=== PATIENT | male | born 1945 | race Caucasian/White ===

== ENCOUNTER → 2018-03-24 11:07 | Outpatient (CLI) | payer MEDICARE, SELFPAY ==
--- NOTE | 2018-03-24 | DI.RAD.S_ITS ---
PROCEDURE: XR KNEE LT 3V INDICATIONS: LEFT KNEE PAIN TECHNIQUE: 3 views of the knee were acquired. COMPARISON: None. FINDINGS: Bones: Advanced joint degeneration medial and femoral patellar compartments, minimal changes in the lateral compartment. Soft tissues: Small joint effusion. Faint meniscal calcifications lateral compartment. IMPRESSION: 1. Small joint effusion. 2. 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 Dictated by: Brendan Chao M.D. on 03/24/2018 at 11:59 Approved by: Brendan Chao M.D. on 03/24/2018 at 12:01
== END ==
PROVIDERS: Family Provider Internal Medicine; PCP Internal Medicine; Visit Provider Internal Medicine
DX: M17.12 Unilateral primary osteoarthritis, left knee (principal); M25.462 Effusion, left knee; M25.562 Pain in left knee
CPT/HCPCS: 73562

== ENCOUNTER → 2018-05-13 09:33 | Outpatient (CLI) | payer MEDICARE, SELFPAY ==
--- NOTE | 2018-05-13 | DI.US.S_ITS ---
PROCEDURE: US RENAL COMPLETE INDICATIONS: CHRONIC KIDNEY DISEASE STAGE 3 TECHNIQUE: Real-time scanning was performed of the kidneys and bladder, with image documentation. COMPARISON: None. FINDINGS: Kidneys: Kidneys are normal in size. Right kidney measures 10.5 cm long; left kidney measures 12.2 cm long. Right renal cortical thickness is 1.5 cm; left renal cortical thickness is 1.6 cm. Renal cortical echotexture is normal. No hydronephrosis or nephrolithiasis. No suspicious solid mass lesions. Bladder: Pre-void bladder volume is 470 mL. Post-void residual is 0 mL. Pre-void images demonstrate no intraluminal masses or stones. On pre-void images, neither ureteral jets are noted with color Doppler interrogation. (Of note, ureteral jets may not be detectable in up to 25% of cases due to insufficient differences in specific gravity between ureteral and bladder urine). Miscellaneous: No free pelvic fluid. IMPRESSION: No hydronephrosis or nephrolithiasis found. Scattered renal cortical cysts are present greater on the right than the left. The largest cyst on the right measures up to 2.9 cm and on the left the largest (single) cyst measures up to 1.6 cm. Dictated by: Rahat Winters M.D. on 05/13/2018 at 11:15 Approved by: Rahat Winters M.D. on 05/13/2018 at 11:16
== END ==
PROVIDERS: Family Provider Internal Medicine; PCP Internal Medicine; Visit Provider Student in an Organized Health Care Education/Training Program
DX: N18.3 Chronic kidney disease, stage 3 (moderate) (principal); N28.1 Cyst of kidney, acquired
CPT/HCPCS: 76770

== ENCOUNTER 2018-05-24 09:44 | Emergency (ER) | payer MEDICARE, SELFPAY ==
--- NOTE | 2018-05-24 09:47 | ED.GENADULT ---
HPI - General Adult General Chief complaint: Recheck/Abnormal Lab/Rx Stated complaint: POTASSIUM ABNORMALLY HIGH Time Seen by Provider: 05/24/18 09:45 Source: patient Mode of arrival: ambulatory Limitations: no limitations History of Present Illness HPI narrative: Patient is a 72-year-old male with renal issues who is been followed by a milanese knitting machine operator. He states that he had blood drawn yesterday and was called this morning and was told that his potassium was high and that he needed to come to the emergency department. He states that he has been feeling ?off? for the past couple days. No other symptoms. Patient is not a dialysis patient. Related Data Home Medications Medication Instructions Recorded Confirmed Multi For Him 1 tab PO DIRECTED 05/24/18 05/24/18 amlodipine 10 mg PO DAILY 05/24/18 05/24/18 amoxicillin 1 tab PO Q8H 05/24/18 05/24/18 aspirin 1 tab PO DAILY 05/24/18 05/24/18 atorvastatin 10 mg PO DAILY 05/24/18 05/24/18 glipizide 10 mg PO BID 05/24/18 05/24/18 hydralazine 1 tab PO BID 05/24/18 05/24/18 hydrochlorothiazide 1 tab PO DAILY 05/24/18 05/24/18 lisinopril 1 tab PO BID 05/24/18 05/24/18 metoprolol succinate 1 tab PO DAILY 05/24/18 05/24/18 mupirocin 1 applic TOPICAL TID 05/24/18 05/24/18 nortriptyline 2 cap PO BEDTIME 05/24/18 05/24/18 nystatin 1 applic TOPICAL BID 05/24/18 05/24/18 potassium chloride 3 tab PO DAILY 05/24/18 05/24/18 spironolactone 1 tab PO BID 05/24/18 05/24/18 tamsulosin 1 cap PO BID 05/24/18 05/24/18 Allergies Allergy/AdvReac Type Severity Reaction Status Date / Time Sulfa (Sulfonamide Allergy Verified 05/24/18 09:53 Antibiotics) Review of Systems Constitutional Denies chills, Denies fatigue, Denies fever(s), Denies headache(s), Denies lethargy and Denies malaise Comments: Feeling ?off? ENT Ears, Nose, Mouth, and Throat: Denies dizziness and Denies headache(s) Cardiovascular Denies chest pain, Denies syncope, Denies palpitations and Denies dyspnea Respiratory Denies cough and Denies dyspnea Gastrointestinal Gastrointestinal: Denies abdominal pain, Denies diarrhea, Denies nausea and Denies vomiting Genitourinary Denies dysuria Musculoskeletal Denies myalgias and Denies arthralgias Integumentary/Breasts Denies lesions and Denies rash Neurologic Denies dizziness, Denies syncope and Denies headache(s) Endocrine Denies fatigue and Denies palpitations Hematologic/Lymphatic Denies easy bleeding and Denies easy bruising [facility] Medical History Diabetes (Acute) Surgical History H/O medial meniscus repair of left knee (Acute) History of cholecystectomy (Acute) Social History Smoking Status: Never smoker Exam Initial Vital Signs Initial Vital Signs: Vital Signs Temperature 98.1 F 05/24/18 09:53 Pulse Rate 59 L 05/24/18 09:53 Respiratory Rate 16 05/24/18 09:53 Blood Pressure 158/63 H 05/24/18 09:53 Pulse Oximetry 97 05/24/18 09:53 Const General: cooperative, healthy appearing, comfortable, well developed, well groomed and No acute distress Orientation: alert, awake and oriented x3 HENMT Head: normal to inspection, normocephalic and atraumatic Resp Effort & Inspection: normal respiratory effort Auscultation: clear to auscultation bilaterally Cardio Rate: regular rate Rhythm: regular rhythm Heart Sounds: no murmurs Pulses: radial pulses present GI Inspection: non-distended Palpation: soft Skin Lesions: no lesions Rashes: no rashes Neuro General: alert, awake and oriented x3 Cognition: normal cognition Speech: speech normal Gait: normal gait Extrem General: normal to inspection and capillary refill normal Psych Appearance: grossly normal and well kempt Course Orders Ordered: ED Orders 05/24/18 09:46 EKG-12 Lead Stat 05/24/18 10:00 Complete Blood Count AUTO DIFF Stat 05/24/18 10:30 Basic Metabolic Panel Stat Discontinued Medications Sodium Polystyrene Sulfonate (Kayexalate) 45 gm PO NOW ONE Stop: 05/24/18 11:16 Vital Signs - 8 hr 05/24/18 09:53 05/24/18 11:00 Temperature 98.1 F Pulse Rate 59 L 49 L Respiratory Rate 16 14 Blood Pressure 158/63 H Blood Pressure [Left Arm] 141/55 H Pulse Oximetry 97 97 Medical Decision Making MDM Narrative Medical decision making narrative: No signs of hyperkalemic changes on the EKG. I discussed the case with Dr. Connors who is the patient's milanese knitting machine operator to recommended that the patient stop his spironolactone, KCl on lisinopril. The patient was given Kayexalate here in the emergency department based on his recommendations. There was also a prescription place for hydralazine by his milanese knitting machine operator. No further workup needed here in the emergency department. Patient was given return precautions. He expressed understanding and agreement with plan. Lab Data Lab results reviewed: Yes I reviewed the patient's lab results. Result diagrams: 05/24/18 10:00 05/24/18 10:30 Lab Results 05/24/18 05/24/18 Range/Units 10:00 10:30 WBC 8.6 (4.5-11.0) X10^3/uL RBC 4.47 L (4.5-5.9) X10^6/uL Hgb 14.2 (13.5-17.5) g/dL Hct 41.9 (41-53) % MCV 93.7 (80-100) fL MCH 31.7 (26-34) PG MCHC 33.8 (30-36) % RDW 13.2 (11.6-14.8) % Plt Count 244 (150-400) X10^3/uL Neut % (Auto) 61.8 (50-75) % Lymph % (Auto) 21.7 L (25-40) % [place] % (Auto) 7.7 (3-14) % Eos % (Auto) 8.0 H (2-4) % Baso % (Auto) 0.8 (0-2) % Neut # (Auto) 5300 (0097-4389) /uL Sodium 137 (137-145) mmol/L Potassium 6.1 H (3.4-5.1) mmol/L Chloride 107 (98-107) mmol/L Carbon Dioxide 20 L (22-32) mmol/L BUN 75 H (9-20) mg/dL Creatinine 3.40 H (0.66-1.25) mg/dL Estimated GFR 17.8 L (>60) mL/min BUN/Creatinine Ratio 22.1 H (6-22) Glucose 157 H (80-110) mg/dL Calcium 8.9 (8.4-10.2) mg/dL ECG Data Attestation: I personally reviewed and interpreted this ECG as follows: Prior ECG tracings: not available for review Interpretation: Sinus bradycardia Ventricular rate of 51 First degree AV block as needed oval 226 milliseconds Normal axis Normal QRS Nonspecific ST T wave changes Discharge Plan Departure Patient Disposition: Home Clinical Impression: Hyperkalemia Instructions: Hyperkalemia Activity Restrictions/Additional Instructions: I spoke with your milanese knitting machine operator regarding your labs here today. He recommended that you stop the spironolactone, stop the potassium chloride, and stop the lisinopril. 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 He also stated that you need to follow up with him within the next couple days. He thought that you had an appointment already scheduled but please call the office to make sure that this is scheduled. Keep this appointment. Return to the emergency department for any new or worsening symptoms Prescriptions: No Action atorvastatin 10 mg tablet 10 mg PO DAILY RF: 0 metoprolol succinate 50 mg tablet extended release 24 hr 1 tab PO DAILY RF: 0 glipizide 10 mg tablet extended release 24hr 10 mg PO BID RF: 0 lisinopril 20 mg tablet 1 tab PO BID RF: 0 spironolactone 25 mg tablet 1 tab PO BID RF: 0 potassium chloride 20 mEq tablet,ER particles/crystals 3 tab PO DAILY RF: 0 tamsulosin 0.4 mg capsule 1 cap PO BID RF: 0 amlodipine 10 mg tablet 10 mg PO DAILY RF: 0 nortriptyline 75 mg capsule 2 cap PO BEDTIME RF: 0 hydralazine 50 mg tablet 1 tab PO BID RF: 0 hydrochlorothiazide 25 mg tablet 1 tab PO DAILY RF: 0 aspirin 81 mg Tablet,Delayed Release (Dr/Ec) 1 tab PO DAILY RF: 0 amoxicillin 500 mg Tablet 1 tab PO Q8H RF: 0 nystatin 100,000 unit/gram cream 1 applic Topical BID RF: 0 mupirocin 2 % ointment 1 applic Topical TID RF: 0 Multi For Him 1 tab PO DIRECTED RF: 0
[2018-05-24 09:53] VITALS: BP 158/63; PULSE 59; RESP 16; TEMP 36.7; O2SAT 97; BMI 39.9
[2018-05-24 10:09] LABS: Add Manual Diff / Slide Review NO; Basophils Percent Auto 0.8 % (0-2); Hematocrit 41.9 % (41-53); Hemoglobin 14.2 g/dL (13.5-17.5); Lymphocytes Percent Auto 21.7 % (25-40); Mean Corpuscular HGB Conc 33.8 % (30-36); Mean Corpuscular Hemoglobin 31.7 PG (26-34); Mean Corpuscular Volume 93.7 fL (80-100); Monocytes Percent Auto 7.7 % (3-14); Neutrophils Absolute Auto 5300 /uL (3000-5900); Neutrophils Percent Auto 61.8 % (50-75); Platelet Count 244 X10^3/uL (150-400); Red Blood Cell Count 4.47 X10^6/uL (4.5-5.9); Red Cell Distribution Width 13.2 % (11.6-14.8); White Blood Cell Count 8.6 X10^3/uL (4.5-11.0)
[2018-05-24 10:58] LABS: BUN Creatinine Ratio 22.1 (6-22); Blood Urea Nitrogen 75 mg/dL (9-20); Calcium 8.9 mg/dL (8.4-10.2); Carbon Dioxide 20 mmol/L (22-32); Chloride 107 mmol/L (98-107); Estimated Glomerular Filt Rate 17.8 mL/min (>60); Glucose 157 mg/dL (80-110); HEMOLYSIS < 15 (0-50); Sodium 137 mmol/L (137-145)
[2018-05-24 10:59] LABS: Potassium 6.1 mmol/L (3.4-5.1)
[2018-05-24 11:00] VITALS: BP 141/55; PULSE 49; RESP 14; O2SAT 97
[2018-05-24] MEDS: SODIUM POLYSTYRENE SULFON/SORB 15 GM/60 ML CUP 45 GM PO (11:32)
[2018-05-24 11:47] VITALS: BP 143/54; PULSE 52; RESP 18; TEMP 36.3; O2SAT 98
== END 2018-05-24 11:59 | disposition home or self-care (01) ==
PROVIDERS: Emergency Provider Emergency Medicine; Family Provider Internal Medicine; PCP Internal Medicine
DX: E87.5 Hyperkalemia (principal)
CPT/HCPCS: 36415; 36591; 80048; 85025; 93005; 93010; 99282; 99284

== ENCOUNTER → 2018-10-06 08:59 | Outpatient (CLI) | payer MEDICARE, SELFPAY ==
--- NOTE | 2018-10-06 | DI.MRI.S_ITS ---
PROCEDURE: MR KNEE LT WO CON INDICATIONS: PRIMARY OSTEOARTHRITIS OF LEFT KNEE TECHNIQUE: Noncontrast sagittal PD fast spin echo and T2 fast spin echo with fat saturation, sagittal 3-D FLASH with fat saturation; coronal T1 spin echo and PD fast spin echo with fat saturation, and axial PD fast spin echo with fat saturation through the knee. COMPARISON: None. FINDINGS: Image quality: Excellent. Menisci: Medial meniscal tear involving the posterior horn and body, with very little residual visualized meniscal body substance, raising the possibility of prior partial meniscectomy. Lateral meniscus appears grossly intact. Cruciate ligaments: The anterior cruciate ligament is not well seen, which suggests chronic ACL rupture although advanced mucoid degeneration as a differential given intraosseous marrow signal change, possibly cyst formation. The posterior cruciate ligament appears intact. Medial structures: The medial collateral ligament appears intact. The posterior oblique ligament, semimembranosus tendon insertions, oblique popliteal ligament, and meniscocapsular junction appear intact. Visualized portions of the pes anserinus tendons appear normal. No abnormal bursal fluid. Lateral structures: The lateral collateral ligament, long and short heads of the biceps femoris tendon appear intact. The popliteus tendon appears normal; the popliteofibular ligament appears intact. The posterosuperior and anteroinferior popliteomeniscal fascicles appear intact. The arcuate and fabellofibular ligaments appear intact, on either side of the lateral inferior geniculate artery. Iliotibial band appears normal. Anterior structures: Low signal thickening of the proximal and distal patellar tendons in keeping with chronic tendinopathy. There is also ununited spur at the inferior pole of patella. Prepatellar and superficial infrapatellar subcutaneous edema is present and is also pretibial subcutaneous edema. Patellar alignment is normal. No femoral trochlear dysplasia or ventral trochlear prominence. No edema in the infrapatellar fat pad. Bones and cartilage: No bone marrow contusions or fractures. Within the medial compartment, near full -thickness loss of the femoral and tibial articular cartilage. Mild subchondral marrow edema within the peripheral tibial plateau. Within the lateral compartment, there is mild partial thickness loss of the femoral and tibial articular cartilage without focal defect. Within the patellofemoral compartment, there is full thickness loss of the cartilage overlying the lateral patellar facet, and partial-thickness loss of femoral trochlear cartilage. Joint space: Small joint effusion is present. No definite loose bodies. IMPRESSION: Presumed postsurgical changes related to partial medial meniscectomy. Poorly visualized ACL, with marked intrasubstance signal changes. This likely represents advanced mucoid degeneration although age indeterminate (likely chronic) ACL rupture in the differential. Please correlate with exam findings. He is Prominent prepatellar, superficialinfrapatellar and pretibial subcutaneous edema. Chronic proximal and distal patellar tendinopathy. Severe joint degeneration, most advanced within the medial compartment. Dictated by: Alvarez Richter M.D. on 10/06/2018 at 11:30 Approved by: Alvarez Richter M.D. on 10/06/2018 at 11:48
== END ==
PROVIDERS: PCP Internal Medicine; Visit Provider Orthopaedic Surgery
DX: M17.12 Unilateral primary osteoarthritis, left knee (principal); R60.0 Localized edema
CPT/HCPCS: 73721

== ENCOUNTER 2018-11-30 07:48 | Inpatient (IN) | payer MEDICARE, SELFPAY ==
[2018-11-14 08:41] VITALS: BMI 40.7
[2018-11-30] VITALS (16 sets, daily range): BP systolic 113–179; BP diastolic 54–80; PULSE 53–87; RESP 10–18; TEMP 36.2–37; O2SAT 92–97; BMI 40.4
--- NOTE | 2018-11-30 06:00 | DI.RAD.S_ITS ---
PROCEDURE: XR KNEE LT 1TO2V INDICATIONS: TOTAL LEFT KNEE TECHNIQUE: 2 view(s) of the knee acquired. COMPARISON: [facility], CR, XR KNEE LT 3V, 03/24/2018, 11:18. FINDINGS: Bones: Patient is status post knee joint arthroplasty. Hardware components are in expected positions. Visualized bony structures are intact. Soft tissues: Overlying postoperative changes are noted. IMPRESSION: Post left total knee arthroplasty changes with anatomic left knee alignment. Dictated by: Armaan Almanza M.D. on 11/30/2018 at 13:08 Approved by: Armaan Almanza M.D. on 11/30/2018 at 13:09
[2018-11-30] MEDS: ACETAMINOPHEN 325 MG TABLET 975 MG PO ×3 (08:35→20:39)
--- NOTE | 2018-11-30 10:04 | PM.PREOP ---
Pre-operative Note Interval Note History & Physical reviewed/Exam performed by Physician: Yes Changes to H&P: No
--- NOTE | 2018-11-30 10:05 | P.OP_ITS ---
Operative Date/Time/Diagnoses Date of procedure: 11/30/18 Time of procedure: 12:38 Pre-op diagnosis: Left knee osteoarthritis Post-op diagnosis: same Procedure & Clinicians Procedure: Left total knee arthroplasty Same procedure as scheduled: Yes Indications: The patient presents today for total knee arthroplasty after failure of conservative treatment. The nature of the procedure including the risks and benefits, alternatives, postoperative course and expected outcome were discussed and all questions answered. Consent was obtained. Operative site confirmed and marked. Surgeon: Barber Rendon Foot Press Operator: Zane Kohli Anesthesia Type: General and Local Operative Notes Findings: Severe medial compartment osteoarthritis with varus alignment. Closure Type: primary Specimen(s): none sent Prosthetic devices, grafts, tissues, transplants, or devices: [email or web address] BCS: 7 femoral component, 7 tibial component, 10 mm BCS polyethylene tray and 38 x 9 mm round patella Applied: implant(s) Estimated Blood Loss (mL): 75 Blood products transfused: none Tourniquet time (min): 24 Procedure in detail: The patient was taken to the operative suite and placed under general anesthesia. The patient was given prophylactic antibiotics prior to surgery. The patient was also given tranexamic acid, 1 g, just prior to surgery for postoperative hemostasis. The lateral knee was prepped and the joint injected with 20 mL of 1% Lidocaine with epinephrine. The knee was then prepped and draped in usual sterile fashion. The leg was exsanguinated with an Esmarch dressing and the tourniquet raised to 250 torr. A 15 cm anterior incision was made. Next a medial trivector arthrotomy was made. The extensor mechanism was marked to ensure accurate repair. Initial exposing dissection was carried out medially and laterally. The knee was then extended and the patellar thickness was measured and a cut made removing approximately 9 mm of bone with a goal of restoring normal patellar thickness. The patella was then sized and drilled. Some excess lateral bone was excised and the patellofemoral ligament released. The tourniquet was then released. The knee was then flexed and the [employer] femoral guide was placed. The anterior pins were placed and the distal rotation holes drilled. The distal cutting guide was placed and the templated distal femoral cut was made. The templating cutting block was then placed and the anterior, posterior and chamfer cuts made. The [employer] tibial guide was placed and the alignment checked along the axis of the proximal tibial with a erika. The proximal tibial cut was then made with an oscillating saw. All meniscus and bony debris was then removed. Flexion extension gaps were checked. The knee was somewhat tight both in flexion and extension both medial and laterally. There was more tightness medially. A 2 mm re-cut was made on the tibia. The medial tightness was then corrected with removal of osteophytes, standard releases and some percutaneous release of the MCL with an 18 gauge needle. The knee was well balanced but with some increased lateral more than medial laxity The soft tissues were then injected with a combination of 20 mL of half percent Marcaine with epinephrine and 20 mL of Exparel. The trial components were then placed. The knee went into full extension and flexion beyond 120?. There was good medial- lateral balance throughout motion. Patellar tracking was excellent. The trial components were removed and size is confirmed for the final implants. The knee was then exsanguinated with an Esmarch dressing and the tourniquet reapplied for cementing. The knee was cleansed with Pulsavac irrigation and dried. The final components were cemented in with high viscosity vacuum mixed bone cement with antibiotics. The knee was held in extension and the patellar clamp until the cement had adequately cured. The knee was then irrigated with dilute Betadine solution. The extensor mechanism was closed with 5 interrupted #1 Vicryl sutures in 90 degrees of flexion. The joint was then injected with a combination of 1 g of tranexamic acid and 20 mL of quarter percent Marcaine with epinephrine. The subcutaneous tissue was closed with 2-0 Vicryl. The skin was closed with carmel and surgical adhesive. An Aquacel dressing and Vadim wrap were then applied. Complications: none Condition: stable Disposition: PACU Plan for aftercare: [facility] protocol for total knee arthroplasty.
[2018-11-30] MEDS: CEFAZOLIN 2 GM/100 ML FROZ.PIGGY IV ×2 (10:55→19:00)
[2018-11-30] MEDS: LIDOCAINE 1% W/EPI INJ 20 ML INJ (11:10)
[2018-11-30] MEDS: TRANEXAMIC ACID 1,000 MG VIAL 1000 MG INJ (11:10)
--- NOTE | 2018-11-30 11:26 | SUR.OPER ---
Supine on padded OR bed. Pillow under head, arms secured on padded armboards <90 degree abduction. Safety belt across torso. Non-operative leg secured with tape over blanket over lower leg. Operative leg secured in [employer] positioner. Foam padded brace at thigh of operative leg.
[2018-11-30] MEDS: BUPIVACAINE 0.5% W/ EPI (PF) 20 ML, BUPIVACAINE LIPOSOME 266 MG, SODIUM CHLORIDE 0.9% 8... INJ (11:37)
[2018-11-30] MEDS: BUPIVACAINE 0.5% W/ EPI (PF) 10 ML, TRANEXAMIC ACID 1,000 MG, SODIUM CHLORIDE 0.9% 20 ML INJ (11:38)
[2018-11-30] MEDS: POVIDONE-IODINE 15 ML, SODIUM CHLORIDE 0.9% 250 ML TOP (11:39)
[2018-11-30] MEDS: LACTATED RINGERS 1,000 ML 42 ML IV (12:16)
[2018-11-30] MEDS: LACTATED RINGERS 1,000 ML 125 ML IV (14:17)
[2018-11-30] MEDS: ONDANSETRON 4 MG/2 ML INJ IV (15:47)
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
[2018-11-30] MEDS: LORazepam 2 MG/ML SYRINGE 0.5 MG IV ×2 (19:00→23:08)
[2018-11-30] MEDS: ASPIRIN EC 81 MG TABLET PO (20:40)
[2018-11-30] MEDS: glipiZIDE XL 5 MG TAB 10 MG PO (20:41)
[2018-11-30] MEDS: MIRTAZAPINE 15 MG TABLET 30 MG PO (20:42)
[2018-11-30] MEDS: NORTRIPTYLINE HCL 25 MG CAPSULE 75 MG PO (20:42)
[2018-11-30] MEDS: METOPROLOL ER 50 MG TABLET PO (20:42)
[2018-11-30] MEDS: TAMSULOSIN 0.4 MG CAPSULE PO (20:43)
[2018-12-01] VITALS: BP 154/78; PULSE 94; RESP 16; TEMP 36.6; O2SAT 96
[2018-12-01] MEDS: CEFAZOLIN 2 GM/100 ML FROZ.PIGGY IV (03:12)
[2018-12-01] MEDS: LORazepam 2 MG/ML SYRINGE 0.5 MG IV (03:18)
[2018-12-01 04:00] VITALS: BP 159/87; PULSE 92; RESP 16; TEMP 36.7; O2SAT 97
--- NOTE | 2018-12-01 05:25 | PC.NURSE ---
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 No complaints of pain. Complaints of some nausea relieved with ativan. Pt belches at times. Burk catheter was placed by evening shift RN yesterday who upon catheterizing him got out 1200mL; Pt did not want catheter removed overnight due to his mobility and receiving IVF. I removed his Burk this morning at 0515.
[2018-12-01 05:44] LABS: Hematocrit 42.8 % (41-53); Hemoglobin 14.4 g/dL (13.5-17.5)
[2018-12-01 07:25] VITALS: O2SAT 95
--- NOTE | 2018-12-01 07:56 | PM.DS.1 ---
History of Present Illness Date Patient Seen: 12/01/18 Time Patient Seen: 07:56 Chief complaint: [id number] Left Total Knee Arthroplasty Narrative: Hospital day 2, postop day 1 following left total knee arthroplasty by Dr. Rendon. Patient remained stable postoperatively. He states he did not get much rest during the night. He did have urinary retention last night and Burk catheter was placed. Catheter removed at 0515 this morning and has not voided yet. Patient is desiring to go home today. He is thus with path patient. As PT scheduled at [facility]. He does have prescription for hydroxyzine at home but no pain medication. He states he usually uses Dilaudid for pain as oxycodone and hydrocodone did not work for him. Discharge Providers Date of admission: 11/30/18 07:48 Discharge Date: 12/01/18 Primary care physician: Marii Daly MD Consults: 11/30/18 13:20 Consult to Discharge Planning Routine Comment: Consult to Physical Therapy Evaluate & Treat Comment: Physician Instructions: postop TKA protocol Consult to Respiratory Therapy Evaluate & Treat Comment: Physician Instructions: Evaluate and treat Discharge provider: Anthony Finley PA-C Summary Discharge Diagnosis: Status post left total knee arthroplasty. Hospital Course: Patient brought to hospital on 11/30/2018 for above-noted surgery. He remained stable postoperatively. Progressed with physical therapy the next day. Ready for discharge home on postop day 1. Status at Discharge Cognitive/behavioral status at discharge: Alert oriented in no acute distress. Functional status at discharge: uses cane/walker Overall status at discharge: patient is progressing back to baseline Time Spent with Patient Less than 30 minutes Exam Vital Signs (past 8 hours): - 12/01/18 00:00 12/01/18 04:00 12/01/18 07:25 Temperature 97.9 F 98.1 F Pulse Rate 94 H 92 H Respiratory Rate 16 16 Blood Pressure 154/78 H 159/87 H Pulse Oximetry 96 97 95 Fraction of Inspired Oxygen 21 Oxygen Delivery Method Room Air Oxygen Flow Rate 0 Narrative Exam Narrative: Left leg. Vadim wrap an Aquacel dressing in place to left knee. No drainage or inflammation. No calf pain or swelling. Pulses symmetrical. Objective Labs Result Diagrams: 12/01/18 05:30 Labs: Laboratory Results - last 24 hr 12/01/18 05:30 Hgb 14.4 Hct 42.8 Discharge Plan Discharge Plan Patient Disposition: Home Discharge Med Rec/Prescriptions Prescriptions: New acetaminophen 325 mg Tablet 975 mg PO TID Qty: 30 RF: 0 aspirin 81 mg Tablet,Delayed Release (Dr/Ec) 81 mg PO BID Qty: 60 RF: 0 hydromorphone 2 mg Tablet 2 mg PO Q3H PRN (Reason: Pain, Severe (7-10)) Qty: 30 RF: 0 Continued atorvastatin 10 mg tablet 10 mg PO QAM RF: 0 metoprolol succinate 50 mg tablet extended release 24 hr 1 tab PO BID RF: 0 glipizide 10 mg tablet extended release 24hr 10 mg PO BID RF: 0 lisinopril 20 mg tablet 1.5 tab PO QAM RF: 0 potassium chloride 20 mEq tablet,ER particles/crystals 3 tab PO DAILY RF: 0 tamsulosin 0.4 mg capsule 1 cap PO BID RF: 0 amlodipine 10 mg tablet 10 mg PO DAILY RF: 0 nortriptyline 75 mg capsule 1 cap PO BEDTIME RF: 0 hydrochlorothiazide 25 mg tablet 1 tab PO DAILY RF: 0 multivitamin Tablet 1 tab PO DAILY RF: 0 nystatin 100,000 unit/gram cream 1 applic Topical BID RF: 0 mupirocin 2 % ointment 1 applic Topical BID RF: 0 mirtazapine 30 mg Tablet 30 mg PO BEDTIME RF: 0 diphenhydramine-acetaminophen [Tylenol PM Extra Strength] 25-500 mg Tablet 2 tab PO BEDTIME RF: 0 cholecalciferol (vitamin D3) [Vitamin D3] 2,000 unit Capsule 2,000 unit PO DAILY RF: 0 Discontinued aspirin 81 mg Tablet,Delayed Release (Dr/Ec) 1 tab PO DAILY RF: 0 Follow up/Referrals: Marii Daly MD [Primary Care Provider] - Provider Discharge Instructions Diet: Diet as Tolerated Activity: Ambulate as tolerated. Use walker as needed. Cold/Heat Therapy: Cold pack to knee as needed. Skin/Wound/Dressing Care Report to your healthcare provider any signs of infection, such as:: chills, fever, night sweats, increased pain, unusual drainage and unusual redness Dressing: Keep Aquacel dressing in place until postop visit. Visit Report/Discharge Packet Instructions: DI for Knee Replacement Discharge Data Primary Care Provider: Marii Daly Attending Provider: Barber Rendon Admit Date/Time: 11/30/18 07:48
[2018-12-01 08:15] VITALS: BP 174/76; PULSE 84; RESP 18; TEMP 35.9; O2SAT 94
[2018-12-01] MEDS: ACETAMINOPHEN 325 MG TABLET 975 MG PO (08:27)
[2018-12-01] MEDS: HYDROMORPHONE 2 MG TABLET PO (08:28)
[2018-12-01] MEDS: glipiZIDE XL 5 MG TAB 10 MG PO (08:31)
[2018-12-01] MEDS: POTASSIUM CHLORIDE 20 MEQ TAB 60 MEQ PO (08:32)
[2018-12-01] MEDS: ASPIRIN EC 81 MG TABLET PO (08:32)
[2018-12-01] MEDS: TAMSULOSIN 0.4 MG CAPSULE PO (08:33)
[2018-12-01] MEDS: LISINOPRIL 10 MG TABLET 30 MG PO (08:34)
[2018-12-01] MEDS: METOPROLOL ER 50 MG TABLET PO (08:34)
[2018-12-01] MEDS: AMLODIPINE 5 MG TABLET 10 MG PO (08:34)
[2018-12-01] MEDS: ATORVASTATIN 10 MG TABLET PO (08:34)
[2018-12-01] MEDS: hydroCHLOROthiazide 25 MG TABLET PO (08:34)
[2018-12-01] MEDS: ONDANSETRON 4 MG ODT PO (08:38)
--- NOTE | 2018-12-01 09:10 | PT.IPTN ---
Current Diagnoses Bilateral primary osteoarthritis of knee (11/30/18) Surgery Performed Operation Date: 11/30/18 10:00 Actual Procedures p Total Knee Arthroplasty(Left) - Barber Rendon MD Physical Therapy Treatment Note M2 PT-IP Current Condition Start: 11/30/18 18:03 Freq: NEEDED Status: Active Protocol: Document 11/30/18 16:55 AB (Rec: 11/30/18 18:26 AB [id number]) Physical Therapy Current Condition Current Condition Evaluation Date 11/30/18 Treatment Diagnosis s/p L TKA; difficulty in walking Onset Date 11/30/18 Weight Bearing Status Weight Bearing Status Weight Bear as Tolerated M3 PT-IP Subjective Start: 11/30/18 18:03 Freq: NEEDED Status: Active Protocol: Document 12/01/18 08:56 SA (Rec: 12/01/18 09:09 SA [email or web address]) Subjective Physical Therapy Visit Type Type Treatment Note Visit Start Time 08:15 Visit Stop Time 08:45 Total Visit Minutes 30 Number of DIESEL RETROFIT INSTALLER Visits 1 Physical Therapy Visit Comments Patient Comments Pt rates knee pain as 2-3/10 and is ready to get moving this AM. Patient Goals To D/C home with today. Therapy Pain Assessment Pain When Pain Assessed During Mobility Pain Present Pain Present Pain Reported Location Head Intensity 3 Scale Used Numeric (1 - 10) Pain Management Techniques Apply Cold Re-positioning Timing of Activity with Medications M4 PT-IP Mobility and Gait Start: 11/30/18 18:03 Freq: NEEDED Status: Active Protocol: Document 12/01/18 08:56 SA (Rec: 12/01/18 09:09 SA [id number]) PT-Bed Mobility Assessment Rolling Type of Rolling Roll to Right Level of Assist Standby Assistance Supine to Sit Supine to Sit Standby Assistance Bedrails Sit to Supine Sit to Supine Standby Assistance Bedrails Scooting Scooting to Edge of Bed Standby Assistance PT-Transfer Assessment Sit to and From Stand Sit to and from Stand Contact Guard Assistance Use of Upper Extremities Equipment Transfer Assistive Device Gait Belt Front Wheeled Walker Orthotic/Prosthetic Devices or Brace: No Transfers Transfer Destination Chair Wheelchair Transfer Technique Stand Step Pivot Transfer Ability Level of Assist Contact Guard Assistance Comments Mobility Comments BP seated at EOB prior to ambulation 149/78. Pt SBA-CGA with most mobilities, limits WBing on LLE but is able to increase with cues. Pt uses FWW safely and has no LOB during session. Pt has one c/o nausuea at end of walking but did not last. Gait Assessment Gait Gait Assistance Required: Standby Assistance Contact Guard Assist Distance (Feet) 85 Able to Maintain Weight Bearing Status Yes During Gait Assistive Devices Assistive Device Gait Belt Front Wheeled Walker Orthotic/Prosthetic Devices or Brace: No Gait Deviations General Gait Pattern Antalgic Decreased Stride Length Decreased Feet Clearance Step-to Gait Factors Limiting Gait Function Factors Limiting Gait Function Decreased Activity Tolerance Decreased Strength Limited Range of Motion Pain Comments Gait Comments Pt with step to gait pattern and limiting LLE WBing, able to correct with increased gait and cues but continues to WB heavily through UEs. Uses FWW safely. Stair Climbing Assessment Evaluation Level of Assist On Stairs Contact Guard Assistance Devices Stair Climbing Assistive Devices Left Railing Right Railing Technique/Endurance Stair Climbing Direction Ascend and Descend Stair Climbing Technique Step to Step Number of Steps Climbed 3 Query Text: Stair Climbing Set # Repetitions (reps) 2 Comments Stair Climbing Comments Pt able to safely ascend/ descend 3 stairs using B rails with step to gait pattern and CGA, mod cues for technique. Pt has 2 steps to ener home and B rails. PT-Balance Assessment Sitting Balance and Reactions Static Sitting Balance Ability Good Dynamic Sitting Balance Ability Good M5 PT-IP Objective Assessments Start: 11/30/18 18:03 Freq: NEEDED Status: Active Protocol: Document 11/30/18 16:55 AB (Rec: 11/30/18 18:26 AB [id number]) Orientation Orientation/Cognition Level of Alertness Alert Orientation Name Age Birthday Month Date Year Day of Week Place Situation Language Function Ability No Deficits Noted Safety Awareness Understands Safety Issues Memory Description No Deficits Noted Gross Range of Motion Lower Extremity ROM Assessment Left Impaired Impairments L knee flexion ~ 30 deg Strength Lower Extremity Strength Assessment Left Impaired Knee 3-/5 Coordination Assessment Gross Coordination Gross Coordination WNL Sensation Assessment Sensation Gross Sensation WNL Muscle Tone Muscle Tone WNL Yes M6 PT-IP Treatment Start: 11/30/18 18:03 Freq: NEEDED Status: Active Protocol: Document 12/01/18 08:56 SA (Rec: 12/01/18 09:09 SA [id number]) Physical Therapy Treatment Exercises Exercises Ankle Pumps Gluteal Sets Quad Sets Heel Slides Seated Knee Flexion/Extension Education Education Provided Precautions Weight Bearing Status Post-Op Packet Safety M7 PT-IP Assessment and Plan Start: 11/30/18 18:03 Freq: NEEDED Status: Active Protocol: Document 12/01/18 08:56 (Rec: 12/01/18 09:09 [id number]) PT Summary Assessment and Plan Potential Rehabilitation Potential Good Status of Condition at Evaluation Stable Summary Impairments Pain ROM Strength Balance Coordination Bed Mobility Transfers Gait Activity Tolerance Progress Towards Goals Progressing Toward Goals Assessment Summary Decreased c/o of nausea today and treatment tolerated well. Increased quality and distance of gait and pt able to manage stairs safely. Probable d/c later today. Pt to continue with OP PT. Frequency of Treatment Frequency Of Treatment Twice a Day Treatment Plan Physical Therapy Treatment Plan Bed Mobility Training Transfer Training Gait Training Therapeutic Exercise Balance Retraining Post Op Education Discharge Planning Hot or Cold Pack Neuromuscular Re-ed Coordination Retraining Manual Therapy Recommendations To Nursing Amount of Assist Needed 1 Person Assist Discharge Recommendations PT Discharge Recommendations Home with Assistance Outpatient PT
[2018-12-01 09:31] VITALS: BP 133/63; PULSE 76; RESP 18
[2018-12-01 09:54] VITALS: BP 133/63
--- NOTE | 2018-12-01 10:43 | PC.NURSE ---
Day shift: Pt left unit at approx 1045 to private car via WC with DRYING ROOM SUPERVISOR and his spouse will be the transit bus driver. He has MD script for Nicole and will call Ortho office if he does not have the Vistaril at home. Paperwork signed and all questions answered. He has all personal belongings.
--- NOTE | 2018-12-01 16:07 | CM.DANOTE ---
Discharge Planning/Care Management DCP: assessment: case received this morning and discussed in Team Rounds. Pt is a 73 year old male who admitted yesterday for a planned L TKA: Dr. Rendon: surgeon Payer: [employer] Medicare BRANNON Clarke noted in rounds that pt had been cleared for d/c to home by PT. Went to room before noon to check in with pt for introduction and continuation of the assessment process. Room empty. DOMINIQUE Chau confirmed pt had left for home at 1045 with his 's prn support and ortho followup appts set up. Advanced directive, confirm from FAMILY Start: 11/30/18 14:24 Freq: Q24H Status: Discharge Protocol: Document 11/30/18 14:24 CLP (Rec: 11/30/18 14:27 CLP [id number]) Advance Directive, confirm on record Time 14:27 Person contacted kaylynn Copy received No Document 11/30/18 17:14 AGW (Rec: 11/30/18 17:15 AGW [id number]) Advance Directive, confirm on record Time 14:27 Person contacted kaylynn Copy received No CM Discharge Assessment Start: 12/01/18 16:06 Freq: Status: Discharge Protocol: Document 12/01/18 16:06 ITV (Rec: 12/01/18 16:07 ITV [email or web address]) Discharge Planning Assessment Advance Directives? Yes Advance Directives on File Yes History Provided By Medical Record Prior Living Arrangements House Household Members spouse Review Status In Process Next Review Type Continued Stay Review Pre-Anesthesia Assessment Start: 11/14/18 08:40 Freq: Status: Complete Protocol: Document 11/14/18 08:41 CAB (Rec: 11/14/18 09:03 CAB [id number]) Pre-Anesthesia Assessment PAC Comment PCP clearance, outside labs, EKG scanned to record Creatinine 2.47, eGFR 25 Nephrology note scanned to record Patient Also Known As (AKA) Don Patient Information Reviewed Via Phone Assessment Assessment Completed With Patient Diagnostic Results BMP/CMP CBC EKG Other Primary Care Provider Marii Daly Medical Clearance Received Yes Seen Specialist in Last 12 Months Yes Specialist Seen Cane Flume Chute Operator Orthopedist Primary Language Yemeni Ip Litigation Paralegal Required No Height 171.45 cm Weight 119.748 kg Body Mass Index (BMI) 40.7 Hearing Ability Normal Visual Assist Glasses Dentition Type Teeth, Natural Present Barriers to Learning None Other Aids No Hx Anesthesia Reactions Yes: Nausea/vomiting post-op * *Creatinine 2.63, eGFR 23 Hx Family Anesthesia Reaction No Hx Malignant Hyperthermia No Hx Blood Transfusions No Anesthesia Review Requested No Compensation Advisor No alcohol intake former Smoking Status Former smoker Tobacco type cigarettes Smoking packs per day 1.5 Has it been 2 weeks or less since No patient quit smoking how long ago did patient quit smoking Quit 1984, smoked x 10 years Smoking pack-years 15 Substance Use Type does not use Pain Present Pain Reported Musculoskeletal Symptoms Abnormal Gait Difficulty Walking Joint Pain History of Falling (Recent or History of No ) Patient is completely paralyzed or No completely immobile Mental Status Oriented to own ability Is patient on oxygen? No Does patient have PADRON/SOB No Hx Sleep Apnea Yes: Unable to tolerate CPAP, sleeps upright in recliner CPAP/BIPAP use prescribed not used Currently Taking a Beta Dyllan Yes: Metoprolol Can You Climb a Flight of Stairs Without Yes SOB Hx Chest Pain No Hx SOB No Hx Syncope or Dizziness No Anti-Coagulant Therapy Yes: Aspirin 81mg/daily Has a Gold Blower No Cardiac Testing No Hx Pacemaker/ICD No Pacemaker Rep Required? No Cardiac Clearance Received Not Applicable Diet Type At Home Diabetic dysphagia No Bladder Pattern Frequency Nocturia Retention Urgency Urinary Catheter Present No Hx Urinary Self Catheterization No Diabetes Yes HgbA1C 6.1 Date 10/05/18 Hx Drug Resistant Organism No Presence of External or Internal Medical No Devices Have you traveled outside the [facility] in the last 30 days? Marital Status Lives With spouse Prior Living Arrangements House Number of Floors (Floors) Two Floors Number of Stairs To Enter/Railing? None Support System Spouse Patient Discharge Plan Description Return Home Comment Pt advised 1 day length of stay per surgeon's office Feels Safe in Current Environment Yes Been Physically Hurt or Threatened By a No Person in Current Environment Do you have thoughts of harming yourself None or others? Are you currently considering suicide? No Do you have a plan to hurt yourself or No Plan others? Do You Have Any Spiritual Beliefs That No May Affect Your HC Choices? Do You Have Any Cultural Practices That No May Affect Your HC Choices? Spiritual Referral None Who Can We Speak to About Patient's Care Family, friends Identifying Code for Release of Patient Declines to issue Information Health Care Proxy/Next of Kin Kaylynn () Health Care Proxy Emergency Contact Name Kaylynn () Emergency Contact Advance Directives? Yes Advance Directives on File Yes Power of Transit Mechanic Yes Power of Transit Mechanic Name Kaylynn () Power of Transit Mechanic PAC Instructions Durable medical equipment Medications to take/avoid Nasal antibiotic No ETOH/petroleum product on skin DOS NPO Post-op transportation Sensory aids Sturdy shoes/comfortable clothes Do not bring valuables and remove jewelry
== END 2018-12-01 10:45 | disposition home or self-care (01) | DRG 470 ==
PROVIDERS: Admitting Provider Orthopaedic Surgery; PCP Internal Medicine; Visit Provider Orthopaedic Surgery
PROC: 0SRD0JZ Replacement of Left Knee Joint with Synthetic Substitute, Open Approach (ICD-10-PCS; CPT 27447; principal; 2018-11-30 10:00)
DX: M17.12 Unilateral primary osteoarthritis, left knee (principal); E11.9 Type 2 diabetes mellitus without complications; G47.33 Obstructive sleep apnea (adult) (pediatric); E78.5 Hyperlipidemia, unspecified; K21.9 Gastro-esophageal reflux disease without esophagitis; Z87.891 Personal history of nicotine dependence; R33.9 Retention of urine, unspecified
CPT/HCPCS: 36415; 73560; 82962; 85014; 85018; 94762; 97116; 97162; 97530; C1776; C9290; J0690; J1100; J2060; J2250; J2274; J2405; J2704; J3010

== ENCOUNTER 2019-01-11 13:07 | Day surgery (SDC) | payer MEDICARE, SELFPAY ==
[2018-11-30 13:15] VITALS: BMI 40.4
[2019-01-10 11:50] VITALS: BMI 40.7
[2019-01-11] VITALS (9 sets, daily range): BP systolic 149–196; BP diastolic 66–94; PULSE 73–92; RESP 10–17; TEMP 36–37; O2SAT 92–96; BMI 40.7
[2019-01-11] MEDS: LACTATED RINGERS 1,000 ML 42 ML IV (15:00)
--- NOTE | 2019-01-11 15:15 | PM.PREOP ---
Pre-operative Note Interval Note History & Physical reviewed/Exam performed by Physician: Yes Changes to H&P: No
--- NOTE | 2019-01-11 15:16 | PM.OP.1 ---
Operative Date/Time/Diagnoses Date of procedure: 01/11/19 Pre-op diagnosis: Stiffness after total knee arthroplasty left knee Post-op diagnosis: same Procedure & Clinicians Procedure: Manipulation under anesthesia left knee Same procedure as scheduled: Yes
[2019-01-11] MEDS: BUPIVACAINE 0.5% (PF) VIAL 10 ML INJ (15:48)
[2019-01-11] MEDS: LIDOCAINE 1% W/EPI INJ 20 ML INJ (15:48)
[2019-01-11] MEDS: DEXAMETHASONE 10 MG/ML VIAL 8 MG INJ (15:49)
--- NOTE | 2019-01-11 15:50 | SUR.PHASEI ---
Note: Digital computer documentation does not reflect arrival time in PACU of 153
[2019-01-11] MEDS: HYDROMORPHONE 2 MG INJ 0.5 MG IV ×2 (16:15→16:24)
--- NOTE | 2019-02-15 18:37 | PM.OP.1 ---
Operative Date/Time/Diagnoses Date of procedure: 01/11/19 Time of procedure: 17:00 Pre-op diagnosis: Stiffness after left total knee arthroplasty Post-op diagnosis: same Procedure & Clinicians Procedure: Manipulation under anesthesia left total knee Same procedure as scheduled: Yes Indications: The patient presents today for manipulation under anesthesia of the left knee as he has failed to gain sufficient range of motion after his total knee. The nature of the procedure including the risks and benefits, alternatives, postoperative course and expected outcome were discussed and all questions answered. Consent was obtained. Operative site confirmed and marked. Surgeon: Barber Rendon Click Yes if Unassisted: Yes Anesthesia Type: General and Local Operative Notes Findings: Preoperative range of motion was 20-65 degrees. Some lysis of adhesions was felt during the manipulation. Postoperative range of motion was 5-115 degrees with moderate pressure. The knee flexed to just over 100? with gravity alone. Closure Type: not applicable Specimen(s): none sent Estimated Blood Loss (mL): 0 Blood products transfused: none Procedure in detail: The patient was placed under general anesthesia. The knee was then injected with a combination of 10 cc of 1% lidocaine, 10 cc of 0.5% Marcaine with epinephrine and 8 mg of dexamethasone. The knee was then manipulated in both extension and flexion. Some lysis of adhesions was noted during the manipulation. Pre and post manipulation range of motion as noted above. The patient had a very hard endpoint at 115?. The patient tolerated procedure well and was returned recovery in good condition. Complications: none Condition: stable Disposition: same day surgery Plan for aftercare: Patient discharge to home. Start physical therapy 4-5 times per week for 2 weeks. Follow up in 2 weeks.
== END 2019-01-11 17:00 | disposition home or self-care (01) ==
PROVIDERS: PCP Internal Medicine; Visit Provider Orthopaedic Surgery
PROC: (CPT 27570; principal; 2019-01-11 15:15)
DX: M25.662 Stiffness of left knee, not elsewhere classified (principal); Z96.652 Presence of left artificial knee joint
CPT/HCPCS: 27570; J1100; J1170; J2250; J2405; J2704; J3010

== ENCOUNTER → 2019-03-13 09:07 | Outpatient (CLI) | payer MEDICARE, SELFPAY ==
[2018-11-30 13:15] VITALS: BMI 40.4
--- NOTE | 2019-03-13 | DI.MRI.S_ITS ---
PROCEDURE: MR ANKLE LT WO CON INDICATIONS: LEFT ANKLE PAIN TECHNIQUE: Noncontrast sagittal T1 spin echo and T2 fast spin echo with fat saturation, axial proton density fast spin echo and T2 fast spin echo with fat saturation, coronal T1 spin echo and T2 fast spin echo with fat saturation through the ankle/hindfoot. COMPARISON: None. FINDINGS: Image quality: Excellent. Bones and joints: Diffuse subcutaneous soft tissue edema and swelling around ankle joint is seen. No discrete drainable fluid collection is noted. No bone marrow contusions or fractures. No hindfoot coalitions. No osteochondral injuries of the talar dome. No pathologic joint effusions. Medial structures: The posterior tibialis, flexor digitorum longus, and flexor hallucis longus tendons are intact. The posterior tibial neurovascular bundle appears normal within the tarsal tunnel, without extrinsic mass effect. The deep layer (anterior and posterior tibiotalar ligaments) and superficial layer (tibionavicular, tibiospring, and tibiocalcaneal ligaments) of the deltoid ligament appear normal. The spring ligament components (superomedial calcaneonavicular, medioplantar oblique calcaneonavicular, and inferoplantar longitudinal ligaments) are intact. Lateral structures: The anterior talofibular, calcaneofibular, and posterior talofibular ligaments appear intact. More superiorly, the anterior and posterior tibiofibular ligaments appear intact, as is the intermalleolar ligament. The tibiofibular syndesmosis is normal in width at 2 mm or less. The peroneus longus and brevis tendons demonstrate normal location and morphology. Adjacent bony peroneal tubercle and retrotrochlear prominence are normal in size. The sinus tarsi demonstrates normal fatty signal, without edema, fibrosis, or cyst formation. Visualized sinus tarsi components (cervical ligament, interosseous talocalcaneal ligament, roots of the inferior extensor retinaculum) appear normal. The calcaneonavicular and calcaneocuboid components of the bifurcate ligament appear intact. The dorsal calcaneocuboid ligament appears intact. The there is suggestion of a 1.9 x 4.1 x 4.6 cm lipoma over lateral aspect of ankle joint adjacent to tip of lateral malleolus and subtalar joint. Anterior structures: The tibialis anterior, extensor hallucis longus, and extensor digitorum longus tendons appear intact. The dorsal talonavicular ligament appears intact. Posterior and plantar structures: Thickened plantar aponeurosis near its insertion on calcaneus is seen. No significant surrounding soft tissue edema. Well-defined plantar calcaneal enthesophyte is noted. There is also thickening of distal Achilles tendon at its insertion posterior calcaneus with suggestion of low grade intrasubstance partial thickness tear. Small calcification within distal Achilles tendon. Posterior calcaneal insertion is seen and measures 8 mm in size and is suggestive of old avulsion injury in this area. No abductor digiti quinti muscle atrophy to suggest Gusman neuropathy. IMPRESSION: 1. Distal Achilles tendinosis and low-grade partial-thickness tear at its posterior calcaneal insertion. Small calcification within thickened distal Achilles tendon likely represent old avulsion injury. 2. Well-defined plantar calcaneal enthesophyte with thickened plantar aponeurosis at its calcaneal insertion suggest clinical correlation for low-grade plantar fasciitis. 3. Diffuse soft tissue swelling and edema around ankle joint. Suggestion of a lipoma over lateral aspect of ankle joint as above. 4. No fracture or dislocation. No gross marrow edema. Rest of ankle tendons and ligaments are intact. Dictated by: Armaan Almanza M.D. on 03/13/2019 at 11:46 Approved by: Armaan Almanza M.D. on 03/13/2019 at 13:44
== END ==
PROVIDERS: PCP Internal Medicine; Visit Provider Orthopaedic Surgery Foot and Ankle Surgery
DX: M25.572 Pain in left ankle and joints of left foot (principal); S86.012A Strain of left Achilles tendon, initial encounter; M77.32 Calcaneal spur, left foot; M25.472 Effusion, left ankle
CPT/HCPCS: 73721

== ENCOUNTER 2019-11-06 15:16 | Emergency (ER) | payer MEDICARE, SELFPAY ==
[2018-11-30 13:15] VITALS: BMI 40.4
[2019-11-06] VITALS (7 sets, daily range): BP systolic 182–223; BP diastolic 73–107; PULSE 48–67; RESP 15–27; TEMP 36.4; O2SAT 94–97; BMI 42.5
--- NOTE | 2019-11-06 15:40 | DI.RAD.S_ITS ---
PROCEDURE: XR CHEST 2V INDICATIONS: shortness of breath TECHNIQUE: 2 views of the chest were acquired. COMPARISON: None. FINDINGS: Surgical changes and devices: Cholecystectomy clips are seen. Lungs and pleura: Interstitial prominence is seen throughout. An incomplete inspiratory result is noted. Likely small bilateral pleural effusions are seen. No pneumothorax is seen. Mediastinum: The cardiac contours are mildly to moderately enlarged. The aorta demonstrates calcification and tortuosity. Bones and chest wall: No suspicious bony abnormalities. Age-appropriate bony degenerative changes are seen. Soft tissues appear unremarkable. IMPRESSION: Cardiomegaly and interstitial prominence. Small bilateral pleural effusions are also seen. Please correlate with patient presentation, physical examination findings, and laboratory values for congestive heart failure. Dictated by: Kyle Mcclain M.D. on 11/06/2019 at 15:59 Approved by: Kyle Mcclain M.D. on 11/06/2019 at 16:01
[2019-11-06 15:58] LABS: Add Manual Diff / Slide Review NO; Basophils Absolute Auto 100 /uL (0-100); Basophils Percent Auto 0.4 % (0-2); Eosinophils Absolute Auto 500 /uL (0-450); Eosinophils Percent Auto 3.7 % (2-4); Hematocrit 42.3 % (41-53); Hemoglobin 14.3 g/dL (13.5-17.5); Lymphocytes Absolute Auto 600 /uL (1100-4500); Lymphocytes Percent Auto 4.3 % (25-40); Mean Corpuscular HGB Conc 33.9 % (30-36); Mean Corpuscular Hemoglobin 31.3 PG (26-34); Mean Corpuscular Volume 92.5 fL (80-100); Monocytes Absolute Auto 1200 /uL (0-900); Neutrophils Absolute Auto 11100 /uL (1500-7000); Neutrophils Percent Auto 82.6 % (50-75); Platelet Count 225 X10^3/uL (150-400); Red Blood Cell Count 4.57 X10^6/uL (4.5-5.9); Red Cell Distribution Width 14.3 % (11.6-14.8); White Blood Cell Count 13.4 X10^3/uL (4.5-11.0)
[2019-11-06 16:16] LABS: Alanine Aminotransferase 20 IU/L (<50); Albumin 3.7 g/dL (3.5-5.0); Albumin Globulin Ratio 1.2 (1.0-2.8); Alkaline Phosphatase 97 U/L (38-126); Aspartate Aminotransferase 26 IU/L (17-59); BUN Creatinine Ratio 14.1 (6-22); Bilirubin Total 0.5 mg/dL (0.2-1.3); Blood Urea Nitrogen 52 mg/dL (9-20); Calcium 9.3 mg/dL (8.4-10.2); Carbon Dioxide 25 mmol/L (22-32); Chloride 105 mmol/L (98-107); Estimated Glomerular Filt Rate 16.1 mL/min (>60); Globulin 3.2 g/dL (1.7-4.1); Glucose 212 mg/dL (80-110); HEMOLYSIS 15 (0-50); Potassium 3.7 mmol/L (3.4-5.1); Sodium 140 mmol/L (137-145); Total Protein 6.9 g/dL (6.3-8.2)
[2019-11-06 16:25] LABS: NT-proBNP (BNP-Adult 18+) 1550 pg/mL (<450)
--- NOTE | 2019-11-06 16:35 | ED.URI ---
HPI - URI/Sore Throat General Chief Complaint: Upper Respiratory Symptoms Stated Complaint: Difficulty Breathing Time Seen by Provider: 11/06/19 16:32 Source: patient Mode of arrival: Ambulatory Limitations: no limitations History of Present Illness HPI Narrative: Patient is a 74-year-old male. End-stage renal disease. Is not currently on dialysis but is under the care of a memorial marker designer. Patient states that at the beginning of the month he had a AV fistula in his left upper extremity and preparation for dialysis. He is also on multiple blood pressure medications. He states that he was at the vascular surgeon's office today where the patient expressed to the physician's topographical field assistant that over the past several weeks he has had worsening shortness of breath lower extremity swelling and dyspnea on exertion. Patient also states he has had intermittent chest pain. He is not currently having the symptoms today. He states that actually over the past couple days he is improving. His next follow-up appointment with nephrology is on the of this month. He was instructed to come to the emergency department for evaluation he still produces urine. Related Data Home Medications Medication Instructions Recorded Confirmed amlodipine 10 mg PO DAILY 05/24/18 11/06/19 atorvastatin 10 mg PO QAM 05/24/18 11/06/19 glipizide 10 mg PO BID 05/24/18 11/06/19 hydrochlorothiazide 1 tab PO DAILY 05/24/18 11/06/19 multivitamin 1 tab PO DAILY 05/24/18 11/06/19 mupirocin 1 applic TOPICAL TID 05/24/18 11/06/19 nortriptyline 75 mg PO BEDTIME 05/24/18 11/06/19 nystatin 1 applic TOPICAL BID 05/24/18 11/06/19 potassium chloride 40 meq PO QAM 05/24/18 11/06/19 tamsulosin 0.4 mg PO BID 05/24/18 11/06/19 cholecalciferol (vitamin D3) 2,000 unit PO DAILY 11/14/18 11/06/19 [Vitamin D3] furosemide 40 mg PO BID 11/06/19 11/06/19 gabapentin 600 mg PO BEDTIME 11/06/19 11/06/19 lisinopril 40 mg PO DAILY 11/06/19 11/06/19 metoprolol tartrate 25 mg PO BID 11/06/19 11/06/19 metoprolol tartrate 100 mg PO BID 11/06/19 11/06/19 potassium chloride 20 meq PO QPM 11/06/19 11/06/19 Previous Rx's Medication Instructions Recorded aspirin 81 mg PO BID #60 tab 12/01/18 nifedipine 60 mg PO DAILY #14 tab 11/06/19 Allergies Allergy/AdvReac Type Severity Reaction Status Date / Time NSAIDS (Non-Steroidal Allergy Severe Unable to Verified 11/06/19 15:37 Anti-Inflamma take r/t Kidney stage III Sulfa (Sulfonamide Allergy Childhood, Verified 11/06/19 15:37 Antibiotics) reaction unknown per pt oxycodone AdvReac Severe Headache Verified 11/06/19 15:37 Review of Systems Constitutional Constitutional: Denies fever(s) and Denies headache(s) ENT Ears, Nose, Mouth, and Throat: Denies headache(s) Cardiovascular Cardiovascular: Reports chest pain, Reports dyspnea and Reports dyspnea on exertion Respiratory Respiratory: Reports dyspnea and Reports dyspnea on exertion Gastrointestinal Gastrointestinal: Denies abdominal pain Musculoskeletal Musculoskeletal: Denies myalgias and Denies arthralgias Integumentary/Breasts Skin/Breast: Denies lesions and Denies rash Neurologic Neurologic: Denies behavioral changes and Denies headache(s) Psychiatric Psychiatric: Denies behavioral changes Hematologic/Lymphatic Hematologic/Lymphatic: Denies easy bleeding and Denies easy bruising Patient History Medical History BPH (benign prostatic hyperplasia) (Acute ~2006) Chronic kidney disease (CKD), stage III (moderate) (Acute) CVA (cerebral vascular accident) (Acute) Diabetes (Acute) Edema (Acute) Erectile dysfunction (Acute) Former smoker (Acute) Generalized headaches (Acute) GERD (gastroesophageal reflux disease) (Acute) Heart murmur (Acute) HTN (hypertension) (Acute) Hyperlipidemia (Acute) Osteoarthritis (Acute) Pneumonia (Acute) Rash (Acute ~2010) Sleep apnea (Acute) War injury due to shrapnel (Acute ~1968) Surgical History H/O medial meniscus repair of left knee (Acute ~1964) History of arthroplasty of left knee (Acute 11/30/18) History of cholecystectomy (Acute) History of colonoscopy with polypectomy (Acute ~07/2015) History of tonsillectomy (Acute) Hx of partial nephrectomy (Acute ~2007) Status post cataract extraction of both eyes with insertion of intraocular lens (Acute) Social History household members: spouse Smoking Status: Former smoker alcohol intake: former Smoking Status: Former smoker Substance Use Type: does not use Exam Initial Vital Signs Initial Vital Signs: Vital Signs Temperature 97.5 F L 11/06/19 15:33 Pulse Rate 63 11/06/19 15:33 Respiratory Rate 18 11/06/19 15:33 Blood Pressure 182/73 H 11/06/19 15:33 Pulse Oximetry 96 11/06/19 15:33 Const General: cooperative, comfortable and well developed Limitations: mental status not altered HENMT Head: normal to inspection and normocephalic Resp Effort & Inspection: normal respiratory effort, not labored, no retractions and not tachypneic Auscultation: clear to auscultation bilaterally Cardio Rate: bradycardic Rhythm: regular rhythm GI Inspection: non-distended Palpation: soft Skin Lesions: no lesions Rashes: no rashes Neuro General: alert, awake and oriented x3 Cognition: normal cognition Speech: speech normal Extrem General: capillary refill normal and edema Psych Appearance: grossly normal and well kempt Scores GCS Lex coma scale eye opening: Spontaneous Lex coma scale verbal response: Orientated Proctor coma scale motor response: Obey commands Proctor coma scale total score: 15 Course Orders Ordered: ED Orders 11/06/19 15:40 XR chest 2V Stat 11/06/19 15:48 BNP [NT-proBNP (BNP-Adult 18+)] Stat Complete Blood Count AUTO DIFF Stat Comprehensive Metabolic Panel Stat Lactate (Lactic Acid) Stat Troponin I Stat 11/06/19 16:34 EKG-12 Lead Stat Discontinued Medications Furosemide (Lasix) 40 mg IV NOW ONE Stop: 11/06/19 16:34 Last Admin: 11/06/19 17:14 Dose: 40 mg Documented by: ABILIO Vital Signs Vital signs: Vital Signs - 8 hr 11/06/19 15:33 11/06/19 16:29 11/06/19 16:30 Temperature 97.5 F L Pulse Rate 63 67 Respiratory Rate 18 24 27 H Blood Pressure 182/73 H Blood Pressure [Left Arm] 184/107 H 184/107 H Pulse Oximetry 96 94 95 11/06/19 17:08 11/06/19 18:00 11/06/19 18:30 Temperature Pulse Rate 67 58 L 59 L Respiratory Rate 15 16 18 Blood Pressure Blood Pressure [Left Arm] 216/81 H 223/84 H 203/86 H Pulse Oximetry 97 95 11/06/19 19:02 Temperature Pulse Rate 48 L Respiratory Rate 20 Blood Pressure Blood Pressure [Left Arm] 203/86 H Pulse Oximetry 96 MDM - URI/Sore Throat Medical Records Attestation: I reviewed the patient's medical records. Lab Data Attestation: I reviewed the patient's lab results. Result diagrams: 11/06/19 15:48 11/06/19 15:48 Labs: Lab Results 11/06/19 11/06/19 11/06/19 Range/Units 15:48 15:48 15:48 WBC 13.4 H (4.5-11.0) X10^3/uL RBC 4.57 (4.5-5.9) X10^6/uL Hgb 14.3 (13.5-17.5) g/dL Hct 42.3 (41-53) % MCV 92.5 (80-100) fL MCH 31.3 (26-34) PG MCHC 33.9 (30-36) % RDW 14.3 (11.6-14.8) % Plt Count 225 (150-400) X10^3/uL Neut % (Auto) 82.6 H (50-75) % Lymph % (Auto) 4.3 L (25-40) % Posey % (Auto) 9.0 (3-14) % Eos % (Auto) 3.7 (2-4) % Baso % (Auto) 0.4 (0-2) % Neut # (Auto) 03052 H (4707-7008) /uL Lymph # (Auto) 600 L (2778-2918) /uL Posey # (Auto) 1200 H (0-900) /uL Eos # (Auto) 500 H (0-450) /uL Baso # (Auto) 100 (0-100) /uL Sodium 140 (137-145) mmol/L Potassium 3.7 (3.4-5.1) mmol/L Chloride 105 (98-107) mmol/L Carbon Dioxide 25 (22-32) mmol/L BUN 52 H (9-20) mg/dL Creatinine 3.70 H (0.66-1.25) mg/dL Estimated GFR 16.1 L (>60) mL/min BUN/Creatinine Ratio 14.1 (6-22) Glucose 212 H (80-110) mg/dL Lactate 1.0 (0.7-2.1) mmol/L Calcium 9.3 (8.4-10.2) mg/dL Total Bilirubin 0.5 (0.2-1.3) mg/dL AST 26 (17-59) IU/L ALT 20 (<50) IU/L Alkaline Phosphatase 97 (38-126) U/L Troponin I (0.01-0.034) ng/mL NT-Pro-B Natriuret Pep (<450) pg/mL Total Protein 6.9 (6.3-8.2) g/dL Albumin 3.7 (3.5-5.0) g/dL Globulin 3.2 (1.7-4.1) g/dL Albumin/Globulin Ratio 1.2 (1.0-2.8) 11/06/19 11/06/19 Range/Units 15:48 15:48 WBC (4.5-11.0) X10^3/uL RBC (4.5-5.9) X10^6/uL Hgb (13.5-17.5) g/dL Hct (41-53) % MCV (80-100) fL MCH (26-34) PG MCHC (30-36) % RDW (11.6-14.8) % Plt Count (150-400) X10^3/uL Neut % (Auto) (50-75) % Lymph % (Auto) (25-40) % Posey % (Auto) (3-14) % Eos % (Auto) (2-4) % Baso % (Auto) (0-2) % Neut # (Auto) (8619-5694) /uL Lymph # (Auto) (3968-9930) /uL Posey # (Auto) (0-900) /uL Eos # (Auto) (0-450) /uL Baso # (Auto) (0-100) /uL Sodium (137-145) mmol/L Potassium (3.4-5.1) mmol/L Chloride (98-107) mmol/L Carbon Dioxide (22-32) mmol/L BUN (9-20) mg/dL Creatinine (0.66-1.25) mg/dL Estimated GFR (>60) mL/min BUN/Creatinine Ratio (6-22) Glucose (80-110) mg/dL Lactate (0.7-2.1) mmol/L Calcium (8.4-10.2) mg/dL Total Bilirubin (0.2-1.3) mg/dL AST (17-59) IU/L ALT (<50) IU/L Alkaline Phosphatase (38-126) U/L Troponin I < 0.012 (0.01-0.034) ng/mL NT-Pro-B Natriuret Pep 1550 H (<450) pg/mL Total Protein (6.3-8.2) g/dL Albumin (3.5-5.0) g/dL Globulin (1.7-4.1) g/dL Albumin/Globulin Ratio (1.0-2.8) Urine Dip Bedside Urine Glucose 100 mg/dl Bedside Urine Bilirubin - Negative Bedside Urine Ketone - Negative Urine Specific [place] 1.020 Bedside Urine Occult Blood +/- Bedside Urine pH 6.0 Bedside Urine Protein ++ 100 Bedside Urine Urobilinogen - Negative Bedside Urine Nitrite - Negative Bedside Urine Leukocytes - Negative Esterase Imaging Data Chest x-ray: Radiologist's Impression: [address] [address] XRay Report Signed Patient: Pascual Cruz LMR#: [id number] : 4Acct:[id number] Age/Sex: 74 / MDate of Service: 11/06/19 Loc: ED Accession Number: [id number] Procedure: XR chest 2V Ordering Provider: Juan Carlos Virk D.O. PROCEDURE: XR CHEST 2V INDICATIONS: shortness of breath TECHNIQUE: 2 views of the chest were acquired. COMPARISON: None. FINDINGS: Surgical changes and devices: Cholecystectomy clips are seen. Lungs and pleura: Interstitial prominence is seen throughout. An incomplete inspiratory result is noted. Likely small bilateral pleural effusions are seen. No pneumothorax is seen. Mediastinum: The cardiac contours are mildly to moderately enlarged. The aorta demonstrates calcification and tortuosity. Bones and chest wall: No suspicious bony abnormalities. Age-appropriate bony degenerative changes are seen. Soft tissues appear unremarkable. IMPRESSION: Cardiomegaly and interstitial prominence. Small bilateral pleural effusions are also seen. Please correlate with patient presentation, physical examination findings, and laboratory values for congestive heart failure. Dictated by: Kyle Mcclain M.D. on 11/06/2019 at 15:59 Approved by: Kyle Mcclain M.D. on 11/06/2019 at 16:01 ECG Data Attestation: I personally reviewed and interpreted this ECG as follows: Prior ECG tracings: not available for review Interpretation: Sinus rhythm First degree AV block Ventricular rate is 67 P.r.n. oval 225 milliseconds Left axis deviation Nonspecific ST T wave changes MDM Narrative Medical decision making narrative: Patient is still producing urine. Was given Lasix did have a good urine output response to this. His creatinine is at baseline. EKG is nonspecific changes. Has a relatively unremarkable lung exam. He does appear that he is becoming fluid overloaded. I do not feel that he needs emergent dialysis. His potassium is unremarkable. Patient is hypertensive. I was able to discuss the case with his memorial marker designer to stated that the patient does have multiple reactions to blood pressure medications and that is what is limited his response. Plan will be is to increase the patient's Lasix. Will also switch him from amlodipine to nifedipine per his memorial marker designer recommendation. I did discuss this with the patient. The memorial marker designer's office will call him tomorrow for follow-up in the next 48 hours. He was given return precautions and follow-up instructions. He expressed understanding agreement plan. Discharge Plan Departure Patient Disposition: Home Clinical Impression: Hypertension, End stage renal disease Discharge Date/Time: 11/06/19 19:42 Instructions: High Blood Pressure (Hypertension) (Alternative Therapy), Chronic Renal Failure Activity Restrictions/Additional Instructions: After discussion with your memorial marker designer your recommends that you increase your Lasix/furosemide to 40 mg 2 times a day. He would also like you to stop the amlodipine and start the blood pressure medication you were given a prescription for this evening. His office will call you tomorrow for a follow-up in the next 48 hours. Return to the emergency department for any new or worsening symptoms. The prescription for nifedipine was electronically transmitted to [facility] Prescriptions: New nifedipine 60 mg tablet extended release 24hr 60 mg PO DAILY Qty: 14 RF: 0 No Action atorvastatin 10 mg tablet 10 mg PO QAM RF: 0 glipizide 10 mg tablet extended release 24hr 10 mg PO BID RF: 0 potassium chloride 20 mEq tablet,ER particles/crystals 40 meq PO QAM RF: 0 tamsulosin 0.4 mg capsule 0.4 mg PO BID RF: 0 amlodipine 10 mg tablet 10 mg PO DAILY RF: 0 nortriptyline 75 mg capsule 75 mg PO BEDTIME RF: 0 hydrochlorothiazide 25 mg tablet 1 tab PO DAILY RF: 0 multivitamin Tablet 1 tab PO DAILY RF: 0 nystatin 100,000 unit/gram cream 1 applic Topical BID RF: 0 mupirocin 2 % ointment 1 applic Topical TID RF: 0 cholecalciferol (vitamin D3) [Vitamin D3] 2,000 unit Capsule 2,000 unit PO DAILY RF: 0 aspirin 81 mg Tablet,Delayed Release (Dr/Ec) 81 mg PO BID Qty: 60 RF: 0 furosemide 40 mg tablet 40 mg PO BID RF: 0 metoprolol tartrate 100 mg tablet 100 mg PO BID RF: 0 gabapentin 300 mg Capsule 600 mg PO BEDTIME RF: 0 lisinopril 40 mg tablet 40 mg PO DAILY RF: 0 metoprolol tartrate 25 mg Tablet 25 mg PO BID RF: 0 potassium chloride 20 mEq Tablet Extended Release 20 meq PO QPM RF: 0 Referrals: Marii Daly MD [Primary Care Provider] -
[2019-11-06 16:56] LABS: Troponin I < 0.012 ng/mL (0.01-0.034)
[2019-11-06] MEDS: FUROSEMIDE 40 MG/4 ML VIAL IV (17:14)
== END 2019-11-06 19:42 | disposition home or self-care (01) ==
PROVIDERS: Emergency Provider Emergency Medicine; PCP Internal Medicine
DX: I10 Essential (primary) hypertension (principal); N18.6 End stage renal disease; R06.00 Dyspnea, unspecified; R07.9 Chest pain, unspecified
CPT/HCPCS: 36415; 71046; 80053; 81003; 83605; 83880; 84484; 85025; 93005; 96374; 99284; 99285; J1940

== ENCOUNTER → 2019-12-20 13:53 | Outpatient (CLI) | payer MEDICARE, SELFPAY ==
[2018-11-30 13:15] VITALS: BMI 40.4
--- NOTE | 2019-12-20 | DI.RAD.S_ITS ---
PROCEDURE: XR CHEST 2V INDICATIONS: Low back pain TECHNIQUE: 2 views of the chest were acquired. COMPARISON: [facility], , XR CHEST 2V, 11/06/2019, 15:41. FINDINGS: Surgical changes and devices: None. Lungs and pleura: Lungs are clear. No pleural effusions or pneumothorax. Mediastinum: Mediastinal contours are normal. Heart size is normal. Bones and chest wall: No suspicious bony abnormalities. Soft tissues appear unremarkable. IMPRESSION: No acute cardiopulmonary findings. Dictated by: Gladys Swan M.D. on 12/20/2019 at 14:05 Approved by: Gladys Swan M.D. on 12/20/2019 at 14:05
== END ==
PROVIDERS: PCP Internal Medicine; Referring Provider Internal Medicine; Visit Provider Student in an Organized Health Care Education/Training Program
DX: R06.02 Shortness of breath (principal); M54.5 Low back pain
CPT/HCPCS: 71046

== ENCOUNTER 2020-01-26 20:36 | Emergency (ER) | payer MEDICARE, SELFPAY ==
[2018-11-30 13:15] VITALS: BMI 40.4
[2020-01-26 20:42] VITALS: BP 191/83; PULSE 63; RESP 20; TEMP 36.9; O2SAT 96; BMI 39.1
--- NOTE | 2020-01-26 20:49 | DI.RAD.S_ITS ---
PROCEDURE: XR CHEST 1V INDICATIONS: shortness of breath TECHNIQUE: One view of the chest was acquired. COMPARISON: [facility], CR, XR CHEST 2V, 12/20/2019, 13:51. None. FINDINGS: Surgical changes and devices: Dual lumen dialysis catheter. Surgical clips in the left neck. Lungs and pleura: Lungs are clear. No pleural effusions or pneumothorax. Mediastinum: Mediastinal contours appear normal. Heart size is normal. Bones and chest wall: No suspicious bony lesions. Overlying soft tissues appear unremarkable. IMPRESSION: No acute cardiopulmonary disease process. Dictated by: Maryse Zayas MD, PhD on 01/26/2020 at 21:33 Approved by: Maryse Zayas MD, PhD on 01/26/2020 at 21:34
--- NOTE | 2020-01-26 20:52 | DI.CT.S_ITS ---
PROCEDURE: CT HEAD/BRAIN WO CON INDICATIONS: altered mental status TECHNIQUE: Noncontrast 4.5 mm thick angled axial sections acquired from the foramen magnum to the vertex, with coronal and sagittal reformats. For radiation dose reduction, the following was used: automated exposure control, adjustment of mA and/or kV according to patient size. COMPARISON: [facility], MR, MR FACE/NECK/ORBIT W/WO CONTRAST, 11/29/2019, 16:18. FINDINGS: Image quality: Excellent. CSF spaces: Basal cisterns are patent. No extra-axial fluid collections. The ventricles are symmetric in size and shape. Brain: No intracranial bleeds or masses. There is cerebral volume loss for age, with resultant ventricular and sulcal prominence. There are periventricular and deep white matter chronic small vessel ischemic changes. Small, chronic lacunar infarcts noted in the right botello radiata and the left putamen. There is intracranial internal carotid artery atherosclerosis. Skull and face: Calvarium and visualized facial bones appear intact, without suspicious lesions. Sinuses: Visualized sinuses and mastoids are clear. IMPRESSION: No acute intracranial disease process. Dictated by: Maryse Zayas MD, PhD on 01/26/2020 at 21:34 Approved by: Maryse Zayas MD, PhD on 01/26/2020 at 21:37
--- NOTE | 2020-01-26 21:05 | ED_ITS ---
HPI - General Adult General Chief complaint: Weakness Stated complaint: SOB OUT OF IT Time Seen by Provider: 01/26/20 20:46 Source: family Mode of arrival: Wheelchair Limitations: no limitations History of Present Illness HPI narrative: Patient is a 74-year-old male. Is here in the emergency department with his . He is a vuq-goylhuj-wyuojutfa diabetic. He is a dialysis patient who receives dialysis on Wednesday and Saturdays. He did have full dialysis treatment yesterday. Is scheduled for dialysis tomorrow. His also undergoing radiation treatment for oral cancer. He had this today. Patient's who is at bedside stated that this morning she felt like Pascual was not acting normal. She stated that he seems somewhat confused. Was walking around the house stating that he was looking for the bathroom but was looking in the closet. She states that she did not think much of it. He was able to drive himself to radiation this morning him back home. She stated that around noontime he did eat something any seemed to improve afterwards but then the confusion seemed to return. She brought him into the emergency department because she felt like he was just not acting right. Some reports of shortness of breath however he denies chest pain. Patient states that he does feel like he just does not feel very well. Does not have any specific pain complaints. No headache. No balance issues. Has not tried anything for symptoms prior to arrival. Related Data Home Medications Medication Instructions Recorded Confirmed amlodipine 10 mg PO DAILY 05/24/18 11/06/19 atorvastatin 10 mg PO QAM 05/24/18 11/06/19 glipizide 10 mg PO BID 05/24/18 11/06/19 hydrochlorothiazide 1 tab PO DAILY 05/24/18 11/06/19 multivitamin 1 tab PO DAILY 05/24/18 11/06/19 mupirocin 1 applic TOPICAL TID 05/24/18 11/06/19 nortriptyline 75 mg PO BEDTIME 05/24/18 11/06/19 nystatin 1 applic TOPICAL BID 05/24/18 11/06/19 potassium chloride 40 meq PO QAM 05/24/18 11/06/19 tamsulosin 0.4 mg PO BID 05/24/18 11/06/19 cholecalciferol (vitamin D3) 2,000 unit PO DAILY 11/14/18 11/06/19 [Vitamin D3] furosemide 40 mg PO BID 11/06/19 11/06/19 gabapentin 600 mg PO BEDTIME 11/06/19 11/06/19 lisinopril 40 mg PO DAILY 11/06/19 11/06/19 metoprolol tartrate 25 mg PO BID 11/06/19 11/06/19 metoprolol tartrate 100 mg PO BID 11/06/19 11/06/19 potassium chloride 20 meq PO QPM 11/06/19 11/06/19 Previous Rx's Medication Instructions Recorded aspirin 81 mg PO BID #60 tab 12/01/18 nifedipine 60 mg PO DAILY #14 tab 11/06/19 Allergies Allergy/AdvReac Type Severity Reaction Status Date / Time NSAIDS (Non-Steroidal Allergy Severe Unable to Verified 01/26/20 20:46 Anti-Inflamma take r/t Kidney stage III Sulfa (Sulfonamide Allergy Childhood, Verified 01/26/20 20:46 Antibiotics) reaction unknown per pt oxycodone AdvReac Severe Headache Verified 01/26/20 20:46 Review of Systems Constitutional Constitutional: Denies chills, Denies fever(s), Denies headache(s) and Denies weakness Eyes Eyes: Denies change in vision ENT Ears, Nose, Mouth, and Throat: Denies dizziness, Denies headache(s) and Denies disequilibrium Comments: Does have sores in his mouth secondary to the radiation Cardiovascular Cardiovascular: Denies chest pain Respiratory Comments: Did report some shortness of breath on triage however during my evaluation did not specifically say that he was short of breath Gastrointestinal Gastrointestinal: Denies abdominal pain, Reports nausea and Denies vomiting Musculoskeletal Musculoskeletal: Denies myalgias and Denies arthralgias Integumentary/Breasts Skin/Breast: Denies lesions and Denies rash Neurologic Neurologic: Reports behavioral changes, Reports confusion, Denies dizziness, Denies headache(s), Denies disequilibrium and Denies weakness Psychiatric Psychiatric: Reports behavioral changes and Reports confusion Hematologic/Lymphatic Hematologic/Lymphatic: Denies easy bleeding and Denies easy bruising Patient History Medical History BPH (benign prostatic hyperplasia) (Acute ~2006) Chronic kidney disease (CKD), stage III (moderate) (Acute) CVA (cerebral vascular accident) (Acute) Diabetes (Acute) Edema (Acute) Erectile dysfunction (Acute) Former smoker (Acute) Generalized headaches (Acute) GERD (gastroesophageal reflux disease) (Acute) Heart murmur (Acute) HTN (hypertension) (Acute) Hyperlipidemia (Acute) Osteoarthritis (Acute) Pneumonia (Acute) Rash (Acute ~2010) Sleep apnea (Acute) War injury due to shrapnel (Acute ~1968) Surgical History H/O medial meniscus repair of left knee (Acute ~1964) History of arthroplasty of left knee (Acute 11/30/18) History of cholecystectomy (Acute) History of colonoscopy with polypectomy (Acute ~07/2015) History of tonsillectomy (Acute) Hx of partial nephrectomy (Acute ~2006) Status post cataract extraction of both eyes with insertion of intraocular lens (Acute) Social History household members: spouse Smoking Status: Former smoker alcohol intake: former Smoking Status: Former smoker Substance Use Type: does not use Exam Initial Vital Signs Initial Vital Signs: Vital Signs Temperature 98.5 F 01/26/20 20:42 Pulse Rate 63 01/26/20 20:42 Respiratory Rate 20 01/26/20 20:42 Blood Pressure 191/83 H 01/26/20 20:42 Pulse Oximetry 96 01/26/20 20:42 Const General: cooperative, healthy appearing and comfortable [facility] Head: normal to inspection and normocephalic Ears: hearing grossly normal bilaterally Eyes Pupils: PERRL EOM: EOM intact bilaterally Resp Effort & Inspection: normal respiratory effort Auscultation: clear to auscultation bilaterally Cardio Rate: regular rate Rhythm: regular rhythm Pulses: radial pulses present GI Inspection: non-distended Palpation: soft and No firm Skin Lesions: no lesions Rashes: no rashes Neuro General: alert, awake and oriented x3 Cranial Nerves: CN's II-XI intact bilaterally Cognition: normal cognition Speech: speech normal Sensory Exam: no sensory deficits noted Extrem General: normal to inspection and capillary refill normal Psych Appearance: grossly normal and well kempt Scores GCS Lex coma scale eye opening: Spontaneous [place] coma scale verbal response: Orientated [place] coma scale motor response: Obey commands Lex coma scale total score: 15 NIH Stroke Scale Level of Conciousness: Alert, keenly responsive Ask month/age: Answers both questions correctly. Open/close eyes, close hand: Performs both tasks correctly Best gaze horizontal: Normal Visual florez: No visual loss Facial palsy: Normal symetrical movement Left arm drift: No drift for full 10 sec Right arm drift: No drift for full 10 sec Left leg drift: No drift for full 10 sec Right leg drift: No drift for full 10 sec Limb ataxia: Absent Sensory on face/arms/legs: Normal, no sensory loss Best language: No aphasia, normal Dysarthria: Normal Extinction or inattention: No abnormality Total NIH Stroke scale score: 0 Course Orders Ordered: ED Orders 01/26/20 20:49 XR chest 1V Stat EKG-12 Lead Stat 01/26/20 20:52 CT head/brain wo con Stat 01/26/20 20:55 Complete Blood Count AUTO DIFF Stat Comprehensive Metabolic Panel Stat Ethanol (ETOH) Stat Lactate (Lactic Acid) Stat Lipase Stat Partial Thromboplastin Time Stat Procalcitonin Stat Prothrombin Time INR Stat Troponin I Stat 01/26/20 21:52 Ammonia (NH3) Stat Discontinued Medications Dextrose (D50w) 25 gm IV NOW ONE Stop: 01/26/20 21:25 Last Admin: 01/26/20 21:28 Dose: 25 gm Documented by: ELY Sodium Chloride (Normal Saline 0.9%) 1,000 mls @ 100 mls/hr IV CONT ALEXEY Last Admin: 01/26/20 21:31 Dose: 100 mls/hr Documented by: ELY Vital Signs Vital signs: Vital Signs - 8 hr 01/26/20 20:42 01/26/20 21:38 01/26/20 22:22 Temperature 98.5 F Pulse Rate 63 65 63 Respiratory Rate 20 14 17 Blood Pressure 191/83 H Blood Pressure [Right Arm] 164/73 H 162/73 H Pulse Oximetry 96 98 97 Medical Decision Making Lab Data Lab results reviewed: Yes I reviewed the patient's lab results. Result diagrams: 01/26/20 20:55 01/26/20 20:55 Labs: Lab Results 01/26/20 01/26/20 01/26/20 Range/Units 20:55 20:55 20:55 WBC 7.4 (4.5-11.0) X10^3/uL RBC 4.26 L (4.5-5.9) X10^6/uL Hgb 13.7 (13.5-17.5) g/dL Hct 40.7 L (41-53) % MCV 95.4 (80-100) fL MCH 32.0 (26-34) PG MCHC 33.6 (30-36) % RDW 13.7 (11.6-14.8) % Plt Count 181 (150-400) X10^3/uL Neut % (Auto) 69.5 (50-75) % Lymph % (Auto) 16.2 L (25-40) % [place] % (Auto) 10.7 (3-14) % Eos % (Auto) 3.1 (2-4) % Baso % (Auto) 0.5 (0-2) % Neut # (Auto) 5100 (0318-0657) /uL Lymph # (Auto) 1200 (6615-1324) /uL [place] # (Auto) 800 (0-900) /uL Eos # (Auto) 200 (0-450) /uL Baso # (Auto) 0 (0-100) /uL PT 12.2 (10.1-12.7) SECONDS INR 1.1 (0.9-1.3) APTT 32 (26.4-36.2) SECONDS Sodium 138 (137-145) mmol/L Potassium 3.9 (3.4-5.1) mmol/L Chloride 101 (98-107) mmol/L Carbon Dioxide 27 (22-32) mmol/L BUN 36 H (9-20) mg/dL Creatinine 3.57 H (0.66-1.25) mg/dL Estimated GFR 16.7 L (>60) mL/min BUN/Creatinine Ratio 10.1 (6-22) Glucose 48 L (80-110) mg/dL Lactate (0.7-2.1) mmol/L Calcium 9.5 (8.4-10.2) mg/dL Total Bilirubin 0.4 (0.2-1.3) mg/dL AST 34 (17-59) IU/L ALT 48 (<50) IU/L Alkaline Phosphatase 84 (38-126) U/L Ammonia (9-30) umol/L Troponin I < 0.012 (0.01-0.034) ng/mL Total Protein 7.4 (6.3-8.2) g/dL Albumin 4.1 (3.5-5.0) g/dL Globulin 3.3 (1.7-4.1) g/dL Albumin/Globulin Ratio 1.2 (1.0-2.8) Lipase 55 (23-300) U/L Procalcitonin (<0.5) ng/mL Ethyl Alcohol < 10 ( - 10) mg/dL 01/26/20 01/26/20 01/26/20 Range/Units 20:55 20:55 21:52 WBC (4.5-11.0) X10^3/uL RBC (4.5-5.9) X10^6/uL Hgb (13.5-17.5) g/dL Hct (41-53) % MCV (80-100) fL MCH (26-34) PG MCHC (30-36) % RDW (11.6-14.8) % Plt Count (150-400) X10^3/uL Neut % (Auto) (50-75) % Lymph % (Auto) (25-40) % [place] % (Auto) (3-14) % Eos % (Auto) (2-4) % Baso % (Auto) (0-2) % Neut # (Auto) (1435-3221) /uL Lymph # (Auto) (8420-6758) /uL [place] # (Auto) (0-900) /uL Eos # (Auto) (0-450) /uL Baso # (Auto) (0-100) /uL PT (10.1-12.7) SECONDS INR (0.9-1.3) APTT (26.4-36.2) SECONDS Sodium (137-145) mmol/L Potassium (3.4-5.1) mmol/L Chloride (98-107) mmol/L Carbon Dioxide (22-32) mmol/L BUN (9-20) mg/dL Creatinine (0.66-1.25) mg/dL Estimated GFR (>60) mL/min BUN/Creatinine Ratio (6-22) Glucose (80-110) mg/dL Lactate 0.8 (0.7-2.1) mmol/L Calcium (8.4-10.2) mg/dL Total Bilirubin (0.2-1.3) mg/dL AST (17-59) IU/L ALT (<50) IU/L Alkaline Phosphatase (38-126) U/L Ammonia < 9 L (9-30) umol/L Troponin I (0.01-0.034) ng/mL Total Protein (6.3-8.2) g/dL Albumin (3.5-5.0) g/dL Globulin (1.7-4.1) g/dL Albumin/Globulin Ratio (1.0-2.8) Lipase (23-300) U/L Procalcitonin < 0.05 (<0.5) ng/mL Ethyl Alcohol ( - 10) mg/dL Point of Care Testing Glucose POC 115 Point of care testing: Point of Care Testing Glucose POC 115 Imaging Data Chest x-ray: Radiologist's Impression: [address] [address] XRay Report Signed Patient: Pascual Cruz LMR#: [id number] : 4Acct:[id number] Age/Sex: 74 / MDate of Service: 01/26/20 Loc: ED Accession Number: [id number] Procedure: XR chest 1V Ordering Provider: Juan Carlos Virk D.O. PROCEDURE: XR CHEST 1V INDICATIONS: shortness of breath TECHNIQUE: One view of the chest was acquired. COMPARISON: [facility], , XR CHEST 2V, 12/20/2019, 13:51. None. FINDINGS: Surgical changes and devices: Dual lumen dialysis catheter. Surgical clips in the left neck. Lungs and pleura: Lungs are clear. No pleural effusions or pneumothorax. Mediastinum: Mediastinal contours appear normal. Heart size is normal. Bones and chest wall: No suspicious bony lesions. Overlying soft tissues appear unremarkable. IMPRESSION: No acute cardiopulmonary disease process. Dictated by: Maryse Zayas MD, PhD on 01/26/2020 at 21:33 Approved by: Maryse Zayas MD, PhD on 01/26/2020 at 21:34 CT scan - head: Radiologist's Impression: [address] [address] [address] Scan Report Signed Patient: Pascual Cruz LMR#: [id number] : 4Acct:[id number] Age/Sex: 74 / MDate of Service: 01/26/20 Loc: ED Accession Number: [id number] Procedure: CT head/brain wo con Ordering Provider: Juan Carlos Virk D.O. PROCEDURE: CT HEAD/BRAIN WO CON INDICATIONS: altered mental status TECHNIQUE: Noncontrast 4.5 mm thick angled axial sections acquired from the foramen magnum to the vertex, with coronal and sagittal reformats. For radiation dose reduction, the following was used: automated exposure control, adjustment of mA and/or kV according to patient size. COMPARISON: [facility], MR, MR FACE/NECK/ORBIT W/WO CONTRAST, 11/29/2019, 16:18. FINDINGS: Image quality: Excellent. CSF spaces: Basal cisterns are patent. No extra-axial fluid collections. The ventricles are symmetric in size and shape. Brain: No intracranial bleeds or masses. There is cerebral volume loss for age, with resultant ventricular and sulcal prominence. There are periventricular and deep white matter chronic small vessel ischemic changes. Small, chronic lacunar infarcts noted in the right botello radiata and the left putamen. There is intracranial internal carotid artery atherosclerosis. Skull and face: Calvarium and visualized facial bones appear intact, without suspicious lesions. Sinuses: Visualized sinuses and mastoids are clear. IMPRESSION: No acute intracranial disease process. Dictated by: Maryse Zayas MD, PhD on 01/26/2020 at 21:34 Approved by: Maryse Zayas MD, PhD on 01/26/2020 at 21:37 ECG Data Attestation: I personally reviewed and interpreted this ECG as follows: Prior ECG tracings: not available for review Interpretation: Sinus rhythm Ventricular rate is 63 Normal axis Normal QRS Normal QTC No ST T wave changes MDM Narrative Medical decision making narrative: NIH score 0. He was alert oriented x3 and had a GCS of 15 however was somewhat slow to answer questions. Labs return showing a blood sugar in the 40s. He was given an amp of D50. Several minutes after this patient reported that he felt much better. All of his presenting symptoms seem to resolve. He was observed unchecked several other times and was able to maintain his blood sugar greater than 100 and continued to feel well. Had a discussion with the patient and his . He was taking his normal blood sugar medications. He did state that he did not eat that much today. He states that he is quite a bit of pain in his mouth secondary to the radiation and so his o ral intake has been less. His then stated that it was true that after he ate lunch today he did seem to improve somewhat. I do suspect this is the cause of his symptoms. Low suspicion for TIA or CVA. His other electrolytes are unremarkable. Informed him that he should keep his scheduled appointment with dialysis tomorrow. Did inform the should talk with his real estate sales supervisor about potentially adjusting his blood sugar medications given the fact that he has had decreased oral intake secondary to his radiation. Until then he is going to try to increase his food intake to help prevent this from happening again. They were given return precautions and follow-up instructions. They expressed understanding and agreement. Discharge Plan Departure Patient Disposition: Home Clinical Impression: Hypoglycemia Discharge Date/Time: 01/26/20 23:10 Instructions: DI for Hypoglycemia Activity Restrictions/Additional Instructions: You can go to dialysis tomorrow as scheduled. I also recommend that you talk with your real estate sales supervisor regarding the issues that you are having with eating and to discuss any potential changes to your diabetes medications. Return to the emergency department for any new or worsening symptoms Prescriptions: No Action atorvastatin 10 mg tablet 10 mg PO QAM RF: 0 glipizide 10 mg tablet extended release 24hr 10 mg PO BID RF: 0 potassium chloride 20 mEq tablet,ER particles/crystals 40 meq PO QAM RF: 0 tamsulosin 0.4 mg capsule 0.4 mg PO BID RF: 0 amlodipine 10 mg tablet 10 mg PO DAILY RF: 0 nortriptyline 75 mg capsule 75 mg PO BEDTIME RF: 0 hydrochlorothiazide 25 mg tablet 1 tab PO DAILY RF: 0 multivitamin Tablet 1 tab PO DAILY RF: 0 nystatin 100,000 unit/gram cream 1 applic Topical BID RF: 0 mupirocin 2 % ointment 1 applic Topical TID RF: 0 cholecalciferol (vitamin D3) [Vitamin D3] 2,000 unit Capsule 2,000 unit PO DAILY RF: 0 aspirin 81 mg Tablet,Delayed Release (Dr/Ec) 81 mg PO BID Qty: 60 RF: 0 furosemide 40 mg tablet 40 mg PO BID RF: 0 metoprolol tartrate 100 mg tablet 100 mg PO BID RF: 0 gabapentin 300 mg Capsule 600 mg PO BEDTIME RF: 0 lisinopril 40 mg tablet 40 mg PO DAILY RF: 0 metoprolol tartrate 25 mg Tablet 25 mg PO BID RF: 0 potassium chloride 20 mEq Tablet Extended Release 20 meq PO QPM RF: 0 nifedipine 60 mg tablet extended release 24hr 60 mg PO DAILY Qty: 14 RF: 0 Referrals: Marii Daly MD [Primary Care Provider] -
--- NOTE | 2020-01-26 21:06 | PC.NURSE ---
Patient had an episode of confusion this morning that seemed to resolve and was able to drive self to radiation this afternoon. Throughout the evening patient progressively declined. I just don't feel well feels confused. Difficulty tracking facetime conversation with son. Patient appears lethargic. Patient alert and oriented. Slow to respond. reports speech is slow and voice is changing secondary to radiation. Normal dialysis run .
[2020-01-26 21:08] LABS: Add Manual Diff / Slide Review NO; Basophils Absolute Auto 0 /uL (0-100); Basophils Percent Auto 0.5 % (0-2); Eosinophils Absolute Auto 200 /uL (0-450); Eosinophils Percent Auto 3.1 % (2-4); Hematocrit 40.7 % (41-53); Hemoglobin 13.7 g/dL (13.5-17.5); Lymphocytes Absolute Auto 1200 /uL (1100-4500); Lymphocytes Percent Auto 16.2 % (25-40); Mean Corpuscular HGB Conc 33.6 % (30-36); Mean Corpuscular Volume 95.4 fL (80-100); Monocytes Absolute Auto 800 /uL (0-900); Monocytes Percent Auto 10.7 % (3-14); Neutrophils Absolute Auto 5100 /uL (1500-7000); Neutrophils Percent Auto 69.5 % (50-75); Platelet Count 181 X10^3/uL (150-400); Red Blood Cell Count 4.26 X10^6/uL (4.5-5.9); Red Cell Distribution Width 13.7 % (11.6-14.8); White Blood Cell Count 7.4 X10^3/uL (4.5-11.0)
[2020-01-26 21:09] LABS: INR 1.1 (0.9-1.3); Prothrombin Time 12.2 SECONDS (10.1-12.7)
[2020-01-26 21:11] LABS: PTT Partial Thromboplastin Tim 32 SECONDS (26.4-36.2)
[2020-01-26 21:15] LABS: Alanine Aminotransferase 48 IU/L (<50); Albumin 4.1 g/dL (3.5-5.0); Albumin Globulin Ratio 1.2 (1.0-2.8); Alkaline Phosphatase 84 U/L (38-126); Aspartate Aminotransferase 34 IU/L (17-59); BUN Creatinine Ratio 10.1 (6-22); Bilirubin Total 0.4 mg/dL (0.2-1.3); Blood Urea Nitrogen 36 mg/dL (9-20); Calcium 9.5 mg/dL (8.4-10.2); Carbon Dioxide 27 mmol/L (22-32); Chloride 101 mmol/L (98-107); Estimated Glomerular Filt Rate 16.7 mL/min (>60); Ethanol (ETOH) < 10 mg/dL; Globulin 3.3 g/dL (1.7-4.1); Glucose 48 mg/dL (80-110); HEMOLYSIS < 15 (0-50); Lipase 55 U/L (23-300); Potassium 3.9 mmol/L (3.4-5.1); Sodium 138 mmol/L (137-145); Total Protein 7.4 g/dL (6.3-8.2)
[2020-01-26 21:18] LABS: Lactate (Lactic Acid) 0.8 mmol/L (0.7-2.1)
[2020-01-26 21:26] LABS: Troponin I < 0.012 ng/mL (0.01-0.034)
[2020-01-26] MEDS: DEXTROSE 50 % IN WATER 25 GM/50 ML SYRINGE IV (21:28)
[2020-01-26] MEDS: SODIUM CHLORIDE 0.9% 1,000 ML 100 ML IV (21:31)
[2020-01-26 21:35] LABS: Procalcitonin < 0.05 ng/mL (<0.5)
[2020-01-26 21:38] VITALS: BP 164/73; PULSE 65; RESP 14; O2SAT 98
[2020-01-26 22:12] LABS: Ammonia (NH3) < 9 umol/L (9-30)
[2020-01-26 22:22] VITALS: BP 162/73; PULSE 63; RESP 17; O2SAT 97
== END 2020-01-26 23:10 | disposition home or self-care (01) ==
PROVIDERS: Emergency Provider Emergency Medicine; PCP Internal Medicine
DX: E11.649 Type 2 diabetes mellitus with hypoglycemia without coma (principal); R06.02 Shortness of breath; R41.82 Altered mental status, unspecified; Z99.2 Dependence on renal dialysis; C06.9 Malignant neoplasm of mouth, unspecified
CPT/HCPCS: 36415; 70450; 71045; 80053; 80320; 82140; 82962; 83605; 83690; 84145; 84484; 85025; 85610; 85730; 93005; 93010; 99285

== ENCOUNTER → 2020-04-22 13:06 | Outpatient (CLI) | payer MEDICARE, SELFPAY ==
[2018-11-30 13:15] VITALS: BMI 40.4
--- NOTE | 2020-04-22 | DI.RAD.S_ITS ---
PROCEDURE: FL BARIUM SWALLOW W SPEECH INDICATIONS: ASPIRATION TECHNIQUE: Examination was conducted in conjunction with speech pathology per standard protocol. In the lateral projection, filming was performed of the patient swallowing. AP projection filming may also be performed with patient swallowing. COMPARISON: None. FINDINGS: Function: The oral preparatory phase appears normal, with proper containment. The subsequent oral propulsive phase, pharyngeal phase, and esophageal phase of swallowing also appear normal with all proffered substances during appropriate maneuvers open (chin down, turned left) to avoid aspiration. With swallowing of thin liquids on straight AP positioning there was penetration and mild aspiration observed.. No laryngotracheal penetration or aspiration. No pathologic vallecular pooling. Morphology: No cricopharyngeal bar is identified. No cervical esophageal webs. No Zenker's diverticulum. No strictures. IMPRESSION: Generally excellent swallowing evaluation except with patient position straightforward and during swallowing of thin liquids. Mild penetration and aspiration was observed in that circumstance. Please also refer to the dictated specialist swallowing evaluation report that will be independently generated. Dictated by: Rahat Winters M.D. on 04/22/2020 at 14:05 Approved by: Rahat Winters M.D. on 04/22/2020 at 14:07
== END ==
PROVIDERS: Family Provider Internal Medicine; PCP Internal Medicine; Referring Provider Otolaryngology; Visit Provider Otolaryngology
DX: C76.0 Malignant neoplasm of head, face and neck (principal); M54.2 Cervicalgia; J98.8 Other specified respiratory disorders
CPT/HCPCS: 74230

== ENCOUNTER 2020-04-29 09:44 | Emergency (ER) | payer MEDICARE, SELFPAY ==
[2018-11-30 13:15] VITALS: BMI 40.4
[2020-04-29] VITALS (12 sets, daily range): BP systolic 83–139; BP diastolic 42–64; PULSE 41–87; RESP 11–20; TEMP 36.1; O2SAT 96–99
[2020-04-29 10:12] LABS: Add Manual Diff / Slide Review NO; Basophils Absolute Auto 0 /uL (0-100); Basophils Percent Auto 0.4 % (0-2); Eosinophils Absolute Auto 500 /uL (0-450); Eosinophils Percent Auto 4.9 % (2-4); Hematocrit 34.7 % (41-53); Hemoglobin 11.8 g/dL (13.5-17.5); Lymphocytes Absolute Auto 1600 /uL (1100-4500); Lymphocytes Percent Auto 17.6 % (25-40); Mean Corpuscular Hemoglobin 33.3 PG (26-34); Mean Corpuscular Volume 97.9 fL (80-100); Monocytes Absolute Auto 800 /uL (0-900); Monocytes Percent Auto 8.1 % (3-14); Neutrophils Absolute Auto 6400 /uL (1500-7000); Platelet Count 238 X10^3/uL (150-400); Red Blood Cell Count 3.55 X10^6/uL (4.5-5.9); Red Cell Distribution Width 13.1 % (11.6-14.8); White Blood Cell Count 9.3 X10^3/uL (4.5-11.0)
[2020-04-29 10:16] LABS: Alanine Aminotransferase 103 IU/L (<50); Albumin 3.4 g/dL (3.5-5.0); Albumin Globulin Ratio 1.3 (1.0-2.8); Alkaline Phosphatase 70 U/L (38-126); Aspartate Aminotransferase 57 IU/L (17-59); BUN Creatinine Ratio 11.7 (6-22); Bilirubin Total 0.4 mg/dL (0.2-1.3); Blood Urea Nitrogen 73 mg/dL (9-20); Calcium 8.3 mg/dL (8.4-10.2); Carbon Dioxide 22 mmol/L (22-32); Chloride 97 mmol/L (98-107); Estimated Glomerular Filt Rate 8.8 mL/min (>60); Globulin 2.6 g/dL (1.7-4.1); Glucose 117 mg/dL (80-110); HEMOLYSIS < 15 (0-50); Sodium 133 mmol/L (137-145)
--- NOTE | 2020-04-29 10:18 | ED_ITS ---
HPI - Dizziness General Chief Complaint: Dizziness Stated Complaint: legs are collasping/cant walk/lightheaded Time Seen by Provider: 04/29/20 09:59 Source: patient and family Mode of arrival: Wheelchair Limitations: no limitations History of Present Illness HPI Narrative: Patient is a 74-year-old male with history of renal disease on hemodialysis presenting with lower leg weakness. He says the last 2 days in the afternoon he feels like his legs are weak and they give out from under him. He denies any chest pain dizziness lightheadedness or heart palpitations. His caught him the other day as he was falling. He did not hit his head he has no injury from falling. He is scheduled in 2 days to have a procedure to start peritoneal dialysis he is scheduled today for dialysis at 5:00 p.m. here [facility]. He said last week his potassium was elevated so he was taken off of his potassium pills MD complaint: lightheadedness Related Data Home Medications Medication Instructions Recorded Confirmed amlodipine 10 mg PO DAILY 05/24/18 11/06/19 atorvastatin 10 mg PO QAM 05/24/18 11/06/19 glipizide 10 mg PO BID 05/24/18 11/06/19 hydrochlorothiazide 1 tab PO DAILY 05/24/18 11/06/19 multivitamin 1 tab PO DAILY 05/24/18 11/06/19 mupirocin 1 applic TOPICAL TID 05/24/18 11/06/19 nortriptyline 75 mg PO BEDTIME 05/24/18 11/06/19 nystatin 1 applic TOPICAL BID 05/24/18 11/06/19 potassium chloride 40 meq PO QAM 05/24/18 11/06/19 tamsulosin 0.4 mg PO BID 05/24/18 11/06/19 cholecalciferol (vitamin D3) 2,000 unit PO DAILY 11/14/18 11/06/19 [Vitamin D3] furosemide 40 mg PO BID 11/06/19 11/06/19 gabapentin 600 mg PO BEDTIME 11/06/19 11/06/19 lisinopril 40 mg PO DAILY 11/06/19 11/06/19 metoprolol tartrate 25 mg PO BID 11/06/19 11/06/19 metoprolol tartrate 100 mg PO BID 11/06/19 11/06/19 potassium chloride 20 meq PO QPM 11/06/19 11/06/19 Previous Rx's Medication Instructions Recorded aspirin 81 mg PO BID #60 tab 12/01/18 nifedipine 60 mg PO DAILY #14 tab 11/06/19 Allergies Allergy/AdvReac Type Severity Reaction Status Date / Time NSAIDS (Non-Steroidal Allergy Severe Unable to Verified 04/29/20 09:59 Anti-Inflamma take r/t Kidney stage III Sulfa (Sulfonamide Allergy Childhood, Verified 04/29/20 09:59 Antibiotics) reaction unknown per pt oxycodone AdvReac Severe Headache Verified 04/29/20 09:59 Review of Systems Review of Systems ROS Unobtainable: All systems reviewed & are unremarkable except as noted in HPI and below Constitutional Constitutional: Denies chills, Denies fever(s), Denies lethargy and Reports weakness Eyes Eyes: Denies change in vision, Denies eye discharge, Denies irritation and Loy es loss of vision Cardiovascular Cardiovascular: Denies chest pain, Denies irregular heart rhythm, Reports lightheadedness, Denies palpitations, Denies dyspnea, Denies dyspnea on exertion and Denies orthopnea Respiratory Respiratory: Denies cough, Denies dyspnea, Denies dyspnea on exertion and Denies wheezing Gastrointestinal Gastrointestinal: Denies abdominal pain, Denies change in bowel habits, Denies diarrhea, Denies nausea and Denies vomiting Integumentary/Breasts Skin/Breast: Denies pruritus, Denies erythema, Denies rash and Denies wounds Neurologic Neurologic: Denies loss of vision and Reports weakness Endocrine Endocrine: Denies palpitations Allergic/Immunologic Allergic/Immunologic: Denies wheezing Patient History Medical History BPH (benign prostatic hyperplasia) (Acute ~2006) Chronic kidney disease (CKD), stage III (moderate) (Acute) CVA (cerebral vascular accident) (Acute) Diabetes (Acute) Edema (Acute) Erectile dysfunction (Acute) Former smoker (Acute) Generalized headaches (Acute) GERD (gastroesophageal reflux disease) (Acute) Heart murmur (Acute) HTN (hypertension) (Acute) Hyperlipidemia (Acute) Osteoarthritis (Acute) Pneumonia (Acute) Rash (Acute ~2010) Sleep apnea (Acute) War injury due to shrapnel (Acute ~1968) Surgical History H/O medial meniscus repair of left knee (Acute ~1964) History of arthroplasty of left knee (Acute 11/30/18) History of cholecystectomy (Acute) History of colonoscopy with polypectomy (Acute ~07/2015) History of tonsillectomy (Acute) Hx of partial nephrectomy (Acute ~2006) Status post cataract extraction of both eyes with insertion of intraocular lens (Acute) Social History household members: spouse Smoking Status: Former smoker alcohol intake: former Smoking Status: Former smoker alcohol intake frequency: 0-2 drinks per day Substance Use Type: does not use Exam Initial Vital Signs Initial Vital Signs: Vital Signs Temperature 97.0 F L 04/29/20 09:45 Pulse Rate 47 L 04/29/20 09:45 Respiratory Rate 20 04/29/20 09:45 Blood Pressure 116/56 L 04/29/20 09:45 Pulse Oximetry 98 04/29/20 09:45 GENERAL: alert well-appearing elderly gentleman and in no acute distress. HEENT: Head atraumatic,EOMI, pupils reactive, face symmetric, moist mucous membranes CARDIOVASCULAR: Regular rate and rhythm without murmurs, rubs or gallops. RESPIRATORY: Breath sounds equal bilaterally, no wheezes rales or rhonchi. ABDOMEN: Soft, nontender. Normoactive bowel sounds all 4 quadrants. No guarding or rebound. EXTREMITIES: Normal range of motion, no clubbing or edema. Neurovascularly intact NEUROLOGICAL: Alert and oriented x4.Normal gait and speech. SKIN: Warm, dry, no laceration, no petechiae, no rashes or lesions. Course Orders Ordered: ED Orders 04/29/20 09:50 Complete Blood Count AUTO DIFF Stat Comprehensive Metabolic Panel Stat Discontinued Medications Glucagon (Glucagen) 5 mg IV NOW ONE Stop: 04/29/20 13:19 Last Admin: 04/29/20 13:39 Dose: 5 mg Documented by: ABILIO Sodium Chloride (Normal Saline 0.9%) 500 mls @ 1,000 mls/hr IV BOLUS PRN PRN Reason: Fluid replacement Last Infusion: 04/29/20 12:27 Dose: 0 mls/hr Documented by: Admin: 04/29/20 11:43 Dose: 1,000 mls/hr Documented by: ADAMA Sodium Chloride (Normal Saline 0.9%) 500 mls @ 1,000 mls/hr IV BOLUS ONE Stop: 04/29/20 12:56 Last Infusion: 04/29/20 13:12 Dose: 0 mls/hr Documented by: Admin: 04/29/20 12:40 Dose: 1,000 mls/hr Documented by: ADAMA Ondansetron HCl (Zofran) 4 mg IV NOW ONE Stop: 04/29/20 13:26 Last Admin: 04/29/20 13:39 Dose: 4 mg Documented by: ABILIO Vital Signs Vital signs: Vital Signs - 8 hr 04/29/20 11:30 04/29/20 11:31 04/29/20 12:15 Pulse Rate 87 41 L Pulse Rate [Orthostatic Lying] 44 L Pulse Rate [Orthostatic Sitting] 48 L Pulse Rate [Orthostatic Standing] 48 L Respiratory Rate 18 17 Blood Pressure 116/58 L 111/54 L Blood Pressure [Orthostatic Lying] 116/58 L Blood Pressure [Orthostatic Sitting] 118/57 L Blood Pressure [Orthostatic Standing] 87/46 L Pulse Oximetry 97 04/29/20 12:20 04/29/20 12:31 04/29/20 13:40 Pulse Rate 42 L 42 L Pulse Rate [Orthostatic Lying] 42 L Pulse Rate [Orthostatic Sitting] Pulse Rate [Orthostatic Standing] 48 L Respiratory Rate 17 18 Blood Pressure 126/60 125/58 L Blood Pressure [Orthostatic Lying] 111/54 L Blood Pressure [Orthostatic Sitting] Blood Pressure [Orthostatic Standing] 83/42 L Pulse Oximetry 96 98 04/29/20 14:19 Pulse Rate 46 L Pulse Rate [Orthostatic Lying] Pulse Rate [Orthostatic Sitting] Pulse Rate [Orthostatic Standing] Respiratory Rate 17 Blood Pressure 139/64 Blood Pressure [Orthostatic Lying] Blood Pressure [Orthostatic Sitting] Blood Pressure [Orthostatic Standing] Pulse Oximetry 99 MDM - Dizziness Lab Data Attestation: I reviewed the patient's lab results. Result diagrams: 04/29/20 09:50 04/29/20 09:50 Labs: Lab Results 04/29/20 04/29/20 Range/Units 09:50 09:50 WBC 9.3 (4.5-11.0) X10^3/uL RBC 3.55 L (4.5-5.9) X10^6/uL Hgb 11.8 L (13.5-17.5) g/dL Hct 34.7 L (41-53) % MCV 97.9 (80-100) fL MCH 33.3 (26-34) PG MCHC 34.0 (30-36) % RDW 13.1 (11.6-14.8) % Plt Count 238 (150-400) X10^3/uL Neut % (Auto) 69.0 (50-75) % Lymph % (Auto) 17.6 L (25-40) % [place] % (Auto) 8.1 (3-14) % Eos % (Auto) 4.9 H (2-4) % Baso % (Auto) 0.4 (0-2) % Neut # (Auto) 6400 (7125-0169) /uL Lymph # (Auto) 1600 (3404-8832) /uL [place] # (Auto) 800 (0-900) /uL Eos # (Auto) 500 H (0-450) /uL Baso # (Auto) 0 (0-100) /uL Sodium 133 L (137-145) mmol/L Potassium 4.0 (3.4-5.1) mmol/L Chloride 97 L (98-107) mmol/L Carbon Dioxide 22 (22-32) mmol/L BUN 73 H (9-20) mg/dL Creatinine 6.22 H (0.66-1.25) mg/dL Estimated GFR 8.8 L (>60) mL/min BUN/Creatinine Ratio 11.7 (6-22) Glucose 117 H (80-110) mg/dL Calcium 8.3 L (8.4-10.2) mg/dL Total Bilirubin 0.4 (0.2-1.3) mg/dL AST 57 (17-59) IU/L ALT 103 H (<50) IU/L Alkaline Phosphatase 70 (38-126) U/L Total Protein 6.0 L (6.3-8.2) g/dL Albumin 3.4 L (3.5-5.0) g/dL Globulin 2.6 (1.7-4.1) g/dL Albumin/Globulin Ratio 1.3 (1.0-2.8) ECG Data Attestation: I personally reviewed and interpreted this ECG as follows: Prior ECG tracings: available for review Interpretation: Normal sinus rhythm rate 48 p.r. interval 210 QRS 96 QTC 402 Q- waves noted in lead 3 and AVF with T-wave inversion in lead 3 as well similar to previous EKG 1st degree heart block is noted, was present on previous EKG MDM Narrative Medical decision making narrative: Patient is noted to be bradycardic in the 40s during his ER stay previous records indicate his heart rate was in the 60s. Orthostatics indicate they are positive his blood pressure decreases into the 80s and heart rate increases to 48 while standing. He is given 2 500 cc boluses without improvement in his heart rate. He is on 125 mg of metoprolol twice a day. He says that he has been on metoprolol for a long time but it may have recently been changed in the last 1 month. He is given 5 mg of glucagon which intermittently improves his heart rate up to 57. I have spoken with hospitalist Dr. Mendoza at [facility] who graciously accepts patient for transfer. He is scheduled to have a peritoneal dialysis catheter placed tomorrow at that facility. He had COVID test yesterday and it is negative. Patient has not his head or passed out he has no injuries. At this time no further testing is indicated Discharge Plan Departure Patient Disposition: [facility] Clinical Impression: Symptomatic bradycardia Discharge Date/Time: 04/29/20 14:22 Instructions: Orthostatic Hypotension Activity Restrictions/Additional Instructions: *You have been diagnosed with orthostatic hypotension *What to do: Your likely feeling weak legs because you are slightly dehydrated. Be sure to tell them of this at dialysis today. you received 500 cc of normal saline *Continue to take medications as directed *Follow up with your primary care provider in 2-3 days *Return to ER if you should have increasing weakness shortness of breath chest pain passing out or any new, worsening or concerning symptoms Prescriptions: No Action atorvastatin 10 mg tablet 10 mg PO QAM RF: 0 glipizide 10 mg tablet extended release 24hr 10 mg PO BID RF: 0 potassium chloride 20 mEq tablet,ER particles/crystals 40 meq PO QAM RF: 0 tamsulosin 0.4 mg capsule 0.4 mg PO BID RF: 0 amlodipine 10 mg tablet 10 mg PO DAILY RF: 0 nortriptyline 75 mg capsule 75 mg PO BEDTIME RF: 0 hydrochlorothiazide 25 mg tablet 1 tab PO DAILY RF: 0 multivitamin Tablet 1 tab PO DAILY RF: 0 nystatin 100,000 unit/gram cream 1 applic Topical BID RF: 0 mupirocin 2 % ointment 1 applic Topical TID RF: 0 cholecalciferol (vitamin D3) [Vitamin D3] 2,000 unit Capsule 2,000 unit PO DAILY RF: 0 aspirin 81 mg Tablet,Delayed Release (Dr/Ec) 81 mg PO BID Qty: 60 RF: 0 furosemide 40 mg tablet 40 mg PO BID RF: 0 metoprolol tartrate 100 mg tablet 100 mg PO BID RF: 0 gabapentin 300 mg Capsule 600 mg PO BEDTIME RF: 0 lisinopril 40 mg tablet 40 mg PO DAILY RF: 0 metoprolol tartrate 25 mg Tablet 25 mg PO BID RF: 0 potassium chloride 20 mEq Tablet Extended Release 20 meq PO QPM RF: 0 nifedipine 60 mg tablet extended release 24hr 60 mg PO DAILY Qty: 14 RF: 0 Referrals: Marii Daly MD [Primary Care Provider] -
[2020-04-29] MEDS: SODIUM CHLORIDE 0.9% 500 ML 1000 ML IV ×3 (11:43→12:40)
--- NOTE | 2020-04-29 13:03 | PC.NURSE ---
COVID test cancelled because patient had negative one done in the last [address] Perdomo aware.
[2020-04-29] MEDS: GLUCAGON,HUMAN RECOMBINANT 1 MG/ML VIAL 5 MG IV (13:39)
[2020-04-29] MEDS: ONDANSETRON 4 MG/2 ML INJ IV (13:39)
--- NOTE | 2020-04-29 14:01 | PC.NURSE ---
HR transiently increased to 62, now 55. No nausea /vomiting.
== END 2020-04-29 14:22 | disposition short-term general hospital (02) ==
PROVIDERS: Emergency Provider Emergency Medicine; Family Provider Internal Medicine; PCP Internal Medicine
DX: I95.1 Orthostatic hypotension (principal); R00.1 Bradycardia, unspecified
CPT/HCPCS: 36415; 80053; 85025; 93005; 96361; 96374; 96375; 99284; J1610; J2405

== ENCOUNTER → 2020-05-13 12:51 | Outpatient (CLI) | payer MEDICARE, SELFPAY ==
[2018-11-30 13:15] VITALS: BMI 40.4
== END ==
PROVIDERS: Family Provider Internal Medicine; PCP Internal Medicine; Referring Provider Physician Assistant; Visit Provider Family Medicine
DX: S31.819A Unspecified open wound of right buttock, initial encounter (principal); S31.829A Unspecified open wound of left buttock, initial encounter
CPT/HCPCS: 99203; 99213

== ENCOUNTER → 2020-05-20 15:56 | Outpatient (CLI) | payer MEDICARE, SELFPAY ==
[2018-11-30 13:15] VITALS: BMI 40.4
== END ==
PROVIDERS: Family Provider Internal Medicine; PCP Internal Medicine; Referring Provider Internal Medicine; Visit Provider Family Medicine
DX: S31.819A Unspecified open wound of right buttock, initial encounter (principal); S31.829A Unspecified open wound of left buttock, initial encounter
CPT/HCPCS: 99213

== ENCOUNTER → 2020-05-27 16:11 | Outpatient (CLI) | payer MEDICARE, SELFPAY ==
[2018-11-30 13:15] VITALS: BMI 40.4
== END ==
PROVIDERS: Family Provider Internal Medicine; PCP Internal Medicine; Referring Provider Internal Medicine; Visit Provider Family Medicine
DX: S31.819A Unspecified open wound of right buttock, initial encounter (principal); S31.829A Unspecified open wound of left buttock, initial encounter
CPT/HCPCS: 99213

== ENCOUNTER 2020-06-11 12:30 | Outpatient (RCR) | payer MEDICARE, SELFPAY ==
[2018-11-30 13:15] VITALS: BMI 40.4
--- NOTE | 2020-03-21 10:15 | ST.OPIE ---
Visit Care Team Role Provider Type Marii Daly MD Family Provider Physician Primary Care Provider Specialty: Internal Medicine Address: [address] [place] [address], [address] Email: [email or web address] Edvin Agee MD Attending Provider Physician Referring Provider Specialty: Ear, Nose, Throat Address: [address] [place] [address], [address] Email: [email or web address] Speech-Language Pathology Initial Evaluation SALON SALES CONSULTANT Clinical Swallow Evaluation Start: 03/18/20 13:30 Freq: Status: Active Protocol: Document 03/18/20 13:31 CHAPARRO (Rec: 03/18/20 14:27 CHAPARRO [email or web address]) Clinical Swallow Evaluation Session Time Visit Start Time 13:30 Visit Stop Time 14:20 Total Visit Minutes 50 Visit Information Plan of Care Dates 03/18/20 - 06/13/20 Insurance Information Medicare Referral Referring Physician Dr. 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 The pt underwent 33 radiation treatments targeting left cheek, neck, and shoulder, and skin graft from leg into inside left cheek. He now has apparent lymphedema at neck left of thyroid notch, which he states is not painful but bothersome to him. He is also limited in ROM of left arm and head turn to right, which he states is painful. He plans to see a massage therapist when COVID- 19 protocol allows to increase movement and reduce pain at neck and shoulder areas. The pt reported reduced speech intelligibilty after surgery but feels he is now near to baseline. He did not work with SALON SALES CONSULTANT. He also reports difficulty with swallow, including hyperactive gag reflex, particularly with pills and solids, and inability to clear residue from cheeks without finger sweeps. He eats only soups and soft foods and experiences coughing, especially with first bites/sips taken. Additionally, his taste is altered, which impacts his desire to eat, and some things are painful in his mouth, such as toothpaste and soft drinks. As a result, he has lost 30-40 lbs and reports that his protein intake is very low. He has Diabetes II and has been experiencing low blood sugar, resulting recently in a visit to the ER for related confusion. Medical history is also significant for end stage renal disease (dialysis 3x/wk, paratenial dialysis surgery scheduled for late April), sleep apnea and GERD, for which he sleeps elevated in a recliner to aid breathing. Subjective Observations The pt arrived on time unaccompanied and provided case history. Evaluation Liquids Trialed Thin Solids Trialed Puree,Dysphagia Mechanical, Mechanical Soft Administration Type Controlled Cup Sip,Self- Feeding Oral Impairment Moderately Impaired Oral Strategies Upright at 90 degrees Oral Phase Comments Oral Peripheral Exam: Symmetrical features. Adequate lingual strength and protrusion with limited lateral ROM. Unable to perform lingual sweep between teeth and cheeks. Mildly reduced buccal coordination, particularly on left side. Labial strength, coordination and ROM is WNL. Pt has natural dentition in good condition. Significant edema is noted on anterior neck left of thyroid notch, likely lymphedema. Muscle tone is taut and ROM limited on left side via palpation, secondary to radiation effect. Hyolaryngeal elevation and anterior excursion is WNL via palpation . Oral Phase: Oral acceptance and anterior containment, mastication, and a/p propulsion are WNL. Bolus formation is mildly reduced and moderate residue post swallow consistently observed in bilateral buccal cavities d /t reduced lateral lingual ROM . Residue was effectively cleared with oral sponge. Pt typically uses finger sweep to clear. Pharyngeal Impairment Mildly Impaired Pharyngeal Strategies Sitting Upright (90 deg),Turn Head Left,Turn Head Right,Chin Tuck,Double Swallow,Effortful Swallow,Small Bites and Sips, Alternate Liquids/Solids Pharyngeal Phase Comments Pt exhibited effortful swallow with all trials, complaining of discomfort and sticking sensation with most, particularly solids. Head turns to left and right were not beneficial. Pt reported increased ease of swallow and reduced sticking sensation with forward chin tuck. No overt s/sx of aspiration were observed. Findings Dysphagia Type Moderate Oropharyngeal Dysphagia Rehabilitation Potential Good Impressions The pt presents with moderate oral dysphagia secondary to reduced lingual and buccal coordination and ROM, particularly on left affected side where surgery occurred, and moderate pharyngeal dysphagia secondary to radiation effect on left affected side resulting in reduced coordination and ROM of pharyngeal and possibly laryngeal musculature. The result is decreased ability to clear oral and pharyngeal residue and protect the airway , increasing the pt's risk of choking and/or aspiration. Referral to Physical Therapy is highly recommended to address lymphedema and fascial tissue changes in order to minimize radiation effect and restore pt's ROM not only in head and neck, but in upper left arm as well. Because the pt underwent radiation recently, this is an excellent time to enroll him in services to prevent severe radiation effect and maintain highest level of function. The pt's speech was 100% intelligible and WNL to this unfamiliar listener. The pt observes mild changes to speech patterns but expressed little concern. Further evaluation and treatment of speech production may be included in POC. Diet Recommendations Liquids Order Thin Diet Order Dysphagia Mechanical Comments Meds as tolerated, in carrier if helpful. Additional Dietary Needs Chopped Food,Controlled Sips Aspiration Precautions Recommended Precautions Upright at 90 Degrees, Alternate Liquids/Solids,Small Bites/Sips,Chin Tuck, Effortful Swallow,Double Swallow,Check for Pocketing Additional Precautions Liquid wash and/or oral swab sweep at buccal cavities to clear residue. Treatment Plan Placement Recommendations after Home,Outpatient Therapy Discharge Appropriate for Therapy Yes: 5-8 visits over 12 wks Therapy Recommendations 1. The pt will perform safe swallow strategies independently to increase safety and comfort with oral intake. 2. The pt will perform exercises to increase strength , coordination and ROM of swallow musculature to increase safety and comfort with oral intake. 3. The pt will participate in evaluation and treatment of speech intelligibility as needed over course of treatment to return speech to PLOF. Dysphagia Goals 1. Using compensatory swallow strategies independently as needed, the pt will tolerate regular diet textures and thin liquids without sticking sensation and s/sx of aspiration. 2. 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 Referrals/Other Recommended Referrals Physical Therapy
--- NOTE | 2020-04-03 16:00 | ST.IPDYTX ---
Visit Care Team Role Provider Type Marii Daly MD Family Provider Physician Primary Care Provider Specialty: Internal Medicine Address: [address] [place] [address], [address] Email: [email or web address] Edvin Agee MD Attending Provider Physician Referring Provider Specialty: Ear, Nose, Throat Address: [address] [place] [address], [address] Email: [email or web address] TYPEWRITERS FUNCTIONAL TESTER Dysphagia Treatment TYPEWRITERS FUNCTIONAL TESTER Dysphagia Treatment Start: 03/18/20 13:30 Freq: Status: Active Protocol: Document 04/03/20 12:28 CHAPARRO (Rec: 04/03/20 12:29 CHAPARRO [email or web address]) Dysphagia Treatment Session Time Visit Start Time 12:30 Visit Stop Time 13:15 Total Visit Minutes 45 Visit Information Visit Number 10/[id number] Insurance Information Medicare Setting Assessment Location Outpatient Care Visit Type Note Type Treatment Note Next Note Type Next Note Type Treatment Note Patient Information Subjective Observations The pt arrived on time feeling very tired and somewhat downspirited from dialysis treatment. Still awaiting referral to PT. TYPEWRITERS FUNCTIONAL TESTER to f/u with Dr. Agee's office. Treatment Liquids Trialed Thin Pharyngeal Strategies Chin Tuck Treatment Activities Education provided to pt orally and with animated video presentation of normal swallow function, including anatomy. Trained pt in swallow exercises targeting strengthening of tongue, pharyngeal and laryngeal musculature, and airway protection. Instructions provided orally with demonstration and in writing for home practice. Pt performed all exercises with v /v guidance. Minimal hyolaryngeal elevation observed via palpation during laryngeal exercises, and minimal base of tongue contraction observed also via palpation during lingual exercises. Pt demonstrated understanding and ability to perform exercises as prescribed. Discussed food and liquid alternatives d/t dairy intolerance and burning sensation with intake of sodas . 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 Assessment Patient Response to Treatment Good Rehab Potential Good Assessment of Improvement The pt demonstrated good understanding of instructions and goals, able to perform all exercises with reduced lingual and hyolaryngeal ROM observed. No change in swallow function reported by pt. He continues to benefit from use of chin tuck. Diet Recommendations Recommendations Continue Current Diet Liquids Order Thin Diet Order Mechanical Soft Medication Recommendations As Tolerated Additional Dietary Needs Chopped Food Aspiration Precautions Recommended Precautions Upright at 90 Degrees,Small Bites/Sips,Effortful Swallow, Double Swallow Treatment Plan Placement Recommendation after Discharge Home Appropriate for Continued Therapy Yes Therapy Recommendations 1. The pt will perform safe swallow strategies independently to increase safety and comfort with oral intake. 2. The pt will perform exercises to increase strength , coordination and ROM of swallow musculature to increase safety and comfort with oral intake. 3. The pt will participate in evaluation and treatment of speech intelligibility as needed over course of treatment to return speech to OF. Dysphagia Goals 1. Using compensatory swallow strategies independently as needed, the pt will tolerate regular diet textures and thin liquids without sticking sensation and s/sx of aspiration. 2. The pt will demonstrate independence with daily HEP to minimize effects of oral surger and drug and alcohol counselor radiation effect. Follow Up Plan Orders requested for MBS for further evaluation of baseline function Referrals/Other Recommended Referrals Physical Therapy
--- NOTE | 2020-04-08 13:34 | ST.IPDYTX ---
Visit Care Team Role Provider Type Marii Daly MD Family Provider Physician Primary Care Provider Specialty: Internal Medicine Address: [address] [place] [address], [address] Email: [email or web address] Edvin Agee MD Attending Provider Physician Referring Provider Specialty: Ear, Nose, Throat Address: [address] [place] [address], [address] Email: [email or web address] MAINTENANCE WORKER Dysphagia Treatment DOPE MAINTENANCE WORKER Dysphagia Treatment Start: 03/18/20 13:30 Freq: Status: Active Protocol: Document 04/08/20 13:06 CHAPARRO (Rec: 04/08/20 13:34 CHAPARRO [email or web address]) Dysphagia Treatment Session Time Visit Start Time 12:25 Visit Stop Time 13:05 Total Visit Minutes 40 Visit Information Visit Number 11/[id number] Plan of Care Dates 03/18/20 - 06/13/20 Insurance Information Medicare Setting Assessment Location Outpatient Care Visit Type Note Type Treatment Note Next Note Type Next Note Type Treatment Note Patient Information Identification Type Name,ID Card Subjective Observations Pt arrived on time. He reported occasional tremors in jaw that resulted in tongue biting during Gely exercise. No changes in swallow noted yet, although using chin tuck to left side with intake of pills has reduced hyperactive gag reflex. He also confirmed speech intelligibility is much improved and he is no longer concerned about it. Treatment Liquids Trialed Thin Administration Type Controlled Cup Sip,Self- Feeding Oral Strategies Upright at 90 degrees Pharyngeal Strategies Chin Tuck Treatment Activities Consulted with pt RE HEP tasks . Modified tasks as appropriate, including elimination of Gely maneuver to avoid lingual injury and inclusion of lingual exercises to increase strength, coordination and ROM to facilitate lingual sweep and reduce oral residue and need for finger sweep. Also modified CTAG exercise to 60- sec hold and 30 reps, per NIH research findings and recommendations. The pt performed all pharyngeal/laryngeal swallow exercises independently, and returned demonstration of lingual exercises. Instructions for new exercises were provided orally with demonstration and in writing. Phone call made to Dr. Agee 's office RE requests for PT and MBSS referrals. Left for [place]. Assessment Patient Response to Treatment Good Rehab Potential Good Assessment of Improvement The pt demonstrated good understanding of instructions and goals, able to perform all exercises. Improved hyolaryngeal elevation observed via palpation with intra-oral exercises. Displacement minimal but present with exercises blowing out through occluded straw. Pt reports improved ability to swallow pills using chin tuck to left side. Diet Recommendations Recommendations Continue Current Diet Liquids Order Thin Diet Order Mechanical Soft Medication Recommendations As Tolerated Comments Meds as tolerated, in carrier if helpful. Additional Dietary Needs Chopped Food Aspiration Precautions Recommended Precautions Upright at 90 Degrees,Small Bites/Sips,Effortful Swallow, Double Swallow Additional Precautions Liquid wash and/or oral swab sweep at buccal cavities to clear residue. Treatment Plan Placement Recommendation after Discharge Home Appropriate for Continued Therapy Yes Therapy Recommendations 1. The pt will perform safe swallow strategies independently to increase safety and comfort with oral intake. 2. The pt will perform exercises to increase strength , coordination and ROM of swallow musculature to increase safety and comfort with oral intake. 3. The pt will participate in evaluation and treatment of speech intelligibility as needed over course of treatment to return speech to PLOF. Dysphagia Goals 1. Using compensatory swallow strategies independently as needed, the pt will tolerate regular diet textures and thin liquids without sticking sensation and s/sx of aspiration. 2. The pt will demonstrate independence with daily HEP to minimize effects of oral surger and termite inspector radiation effect. Follow Up Plan Orders requested for MBS for further evaluation of baseline function Referrals/Other Recommended Referrals Physical Therapy
--- NOTE | 2020-04-23 15:32 | ST.SWALLOW ---
Visit Care Team Role Provider Type Marii Daly MD Family Provider Physician Primary Care Provider Specialty: Internal Medicine Address: [address] [place] [address], [address] Email: [email or web address] Edvin Agee MD Attending Provider Physician Referring Provider Specialty: Ear, Nose, Throat Address: [address] [place] [address], [address] Email: [email or web address] Barium Swallow Study HEALTH SCIENCES MANAGER Modified Barium Swallow Study Start: 04/23/20 13:04 Freq: Status: Active Protocol: Document 04/22/20 13:04 LNK (Rec: 04/23/20 13:33 LNK [email or web address]) Modified Barium Swallow Study Total Time Visit Start Time 13:30 Visit Stop Time 14:00 Total Visit Minutes [address] 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 The pt underwent 33 radiation treatments targeting left cheek, neck, and shoulder, and skin graft from leg into inside left cheek. He now has apparent lymphedema at neck left of thyroid notch, which he states is not painful but bothersome to him. He is also limited in ROM of left arm and head turn to right, which he states is painful. He plans to see a massage therapist when COVID- 19 protocol allows to increase movement and reduce pain at neck and shoulder areas. The pt reported reduced speech intelligibility after surgery but feels he is now near to baseline. He did not work with HEALTH SCIENCES MANAGER. He also reports difficulty with swallow, including hyperactive gag reflex, particularly with pills and solids, and inability to clear residue from cheeks without finger sweeps. He eats only soups and soft foods and experiences coughing, especially with first bites/sips taken. He has Diabetes II and has been experiencing low blood sugar, resulting recently in a visit to the ER for related confusion. Medical history is also significant for end stage renal disease (dialysis 3x/wk, paratenial dialysis surgery scheduled for late April), sleep apnea and GERD, for which he sleeps elevated in a recliner to aid breathing. Subjective Observations pt was seated in the flouroscopy chair. Procedures and directions were provided to the pt. He indicated he understood and agreed to proceed. Patient Positioning Position View Lateral Imaging Lateral View Textures Administered Trials Presented Thin Liquid via Spoon,Thin Liquid via Cup,Pudding Thick Liquid via Spoon,Regular Textures,Barium Tablet Oral Phase Source: MBSIMP (TM) (C) Bolus Specific Scoring Grid Lip Closure WFL Tongue Control During Bolus Hold Minimal Impairment Bolus Prep/Mastication Mild Impairment Bolus Transport/Lingual Motion Mild Impairment A/P Lingual Propulsion Delay No Oral Residue Moderate Impairment Residue Clearing Severe Impairment Nasal Regurgitation No Additional Oral Phase Observations Oral mechanism examination indicated that Pascual's structures and function were WFL, with the exception of lingual lateralization. he is unable to perform a latateral tongue sweeping of the bilateral buccal cavities. Therefore there is significant oral residue bilaterally following solids. The pt has taken to using his finger to sweep both left and right sides, clearing the residue. Pharyngeal Phase Source: MBSIMP (TM) (C) Bolus Specific Scoring Grid Delayed Initiation of Pharyngeal Swallow Yes: premature spillage to the valeculla Number of Seconds Delayed (seconds) <1s Soft Palate Elevation WFL Tongue Base Strength/Range of Motion Moderate Impairment Residue Along the Tongue Base Yes Clearance of Residue Along Tongue Base Mild Impairment Laryngeal Elevation Moderate Impairment Anterior Hyoid Movement Moderate Impairment Epiglottic Range of Motion Severe Impairment Vallecular Residue Yes Clearance of Vallecular Residue Mild Impairment Laryngeal Vestibular Closure Severe Impairment Pharyngeal Stripping Wave Severe Impairment Posterior Pharyngeal Wall Residue Yes Clearance of Posterior Pharyngeal Wall Mild Impairment Residue Upper Esophageal Sphincter Opening Mild Impairment Residue in the Pyriform Sinuses Yes Clearance of Residue in the Pyriform Mild Impairment Sinuses Esophageal Clearance Upright Position WFL Pharyngoesophageal Backflow Observed No Additional Pharyngeal Phase Observations The ratings listed above are descriptive of the pt's swallowing in a typical head placement, looking straight forward. With a teaspoonful trial of barium in this position there was henrique aspiration, followed by a weak cough. There was no airway protection. The remaining trials were performed with the pt instructed to turn his head to the left, looking down before swallowing. This position improved glottal closure by approximating the pt 's right vocal fold with the left to protect the airway. In this position the pt demonstrated epglottal inversion with good airway protection, improved posterior wall contraction, minimal residual for liquids; significant residual with the cookie trial. The pt also had significant difficulty with generating a volitional swallow to clear residual. With his head turned to the left, there was minimal, flash penetration but no aspiration . The tablet trial with his head turned was swallowed without any observed difficulty. A/P View Textures Administered Trials Presented Thin Liquid via Spoon,Thin Liquid via Cup,Pudding Thick Liquid via Spoon,Regular Textures,Barium Tablet Clinical Impressions Dysphagia Type oropharyngeal Rehabilitation Potential Good Patient Appropriate for Therapy Yes: pt currently scheduled with Niecy Aponte, HEALTH SCIENCES MANAGER Recommendations Diet Liquids Order Thin Diet Order Mechanical Soft Medication Recommendation Whole in Carrier Comments Turn head to left for all medications Additional Dietary Needs Chopped Food,Single Sips, Reminders to Use Strategies Aspiration Precautions Recommended Precautions Upright at 90 Degrees, Alternate Liquids/Solids, Frequent Rest Periods,Small Bites/Sips,Chin Tuck,Lingual Sweep,Left Head Turn,Liquids from Cup Additional Precautions Head turn for all PO intake/ each swallow Treatment Plan Therapy Recommendations Outpatient Speech Therapy, Lingual Exercises,Base of Tongue Exercises,Compensatory Strategy Education Compensatory Strategies Recommendations Sitting Upright (90 deg),Turn Head Left,Chin Tuck,Pocketing, No Straw,Liquids from Cup, Small Bites and Sips,Alternate Liquids/Solids Additional Compensatory Strategies Oral swish and spit/ oral swab Recommended to clear pocketing Short Term Goals see HEALTH SCIENCES MANAGER goals for out pt Placement Recommendation After Discharge Home
--- NOTE | 2020-04-25 15:16 | ST.IPDYTX ---
Visit Care Team Role Provider Type Marii Daly MD Family Provider Physician Primary Care Provider Specialty: Internal Medicine Address: [address] [place] [address], [address] Email: [email or web address] Edvin Agee MD Attending Provider Physician Referring Provider Specialty: Ear, Nose, Throat Address: [address] [place] [address], [address] Email: [email or web address] [email or web address] WRITER Dysphagia Treatment ABSTRACT WRITER Dysphagia Treatment Start: 03/18/20 13:30 Freq: Status: Active Protocol: Document 04/24/20 15:05 CHAPARRO (Rec: 04/25/20 15:16 CHAPARRO [email or web address]) Dysphagia Treatment Session Time Visit Start Time 12:30 Visit Stop Time 13:15 Total Visit Minutes 45 Visit Information Visit Number 12/[id number] Plan of Care Dates 03/18/20 - 06/13/20 Insurance Information Medicare Setting Assessment Location Outpatient Care Visit Type Note Type Treatment Note Next Note Type Next Note Type Treatment Note Patient Information Identification Type Name,ID Card Subjective Observations Pt arrived on time. He c/o not feeling well the last several days d/t changes in medication. As a result of this, he had not beem fully compliant with HEP tasks, but did continue to do as much as he was able. The pt participated in MBSS 2 days ago, which revealed no overt s/sx of aspiration with all trials when the pt employed chin tuck with head turned to left side. Without use of this posture, the pt frankly aspiration thin liquid (solids not attempted in neutral position for pt safety ). Continuation of [facility] soft texture and thin liquids was recommended. The pt has not yet been scheduled with PT as requested . However, orders have been received and were forwarded to scheduling by this ABSTRACT WRITER. Treatment Treatment Activities Education RE MBSS was provided to the pt with review of MBSS video. All questions were answered. Discussed HEP tasks. Pt demonstrated excellent understanding of all exercises and ability to perform independently. Assessment Patient Response to Treatment Good Rehab Potential Good Assessment of Improvement The pt demonstrated good understanding of MBSS results, which confirm necessity of chin tuck to left and support continuing dysphagia treatment according to POC. Recommend the pt continue with swallow exercises and participate in PT as soon as able. Frequency of dysphagia treatment will be reduced to 1 visit every 2-3 weeks d/t pt's busy schedule with other medical appts, to conserve pt's energy and time, and given his excellent independence with HEP. It is hopeful that after receiving benefit from Physical Therapy, the pt may regain some movement at the left side neck area, which may allow him to reduce use of compensatory swallow strategies and increase swallow safety. Will f/u again in 3 wks. Diet Recommendations Recommendations Continue Current Diet Liquids Order Thin Diet Order Mechanical Soft Medication Recommendations Whole in Carrier Comments Turn head to left for all medications Additional Dietary Needs Chopped Food,Single Sips, Reminders to Use Strategies Aspiration Precautions Recommended Precautions Upright at 90 Degrees, Alternate Liquids/Solids, Frequent Rest Periods,Small Bites/Sips,Chin Tuck,Lingual Sweep,Left Head Turn,Liquids from Cup Additional Precautions Head turn for all PO intake/ each swallow Treatment Plan Placement Recommendation after Discharge Home Appropriate for Continued Therapy Yes Therapy Recommendations 1. The pt will perform safe swallow strategies independently to increase safety and comfort with oral intake. 2. The pt will perform exercises to increase strength , coordination and ROM of swallow musculature to increase safety and comfort with oral intake. 3. The pt will participate in evaluation and treatment of speech intelligibility as needed over course of treatment to return speech to PLOF. Dysphagia Goals 1. Using compensatory swallow strategies independently as needed, the pt will tolerate regular diet textures and thin liquids without sticking sensation and s/sx of aspiration. 2. The pt will demonstrate independence with daily HEP to minimize effects of oral surger and correction radiation effect. Referrals/Other Recommended Referrals Physical Therapy
--- NOTE | 2020-05-15 10:30 | ST.IPDYTX ---
Visit Care Team Role Provider Type Marii Daly MD Family Provider Physician Primary Care Provider Specialty: Internal Medicine Address: [address] [place] [address], [address] Email: [email or web address] Edvin Agee MD Attending Provider Physician Referring Provider Specialty: Ear, Nose, Throat Address: [address] [place] [address], [address] Email: [email or web address] CHEMICAL TESTER Dysphagia Treatment CHEMICAL TESTER Dysphagia Treatment Start: 03/18/20 13:30 Freq: Status: Active Protocol: Document 05/15/20 09:35 CHAPARRO (Rec: 05/15/20 10:30 CHAPARRO [email or web address]) Dysphagia Treatment Session Time Visit Start Time 09:30 Visit Stop Time 10:09 Total Visit Minutes 39 Visit Information Visit Number 01/11 Plan of Care Dates 03/18/20 - 06/13/20 Insurance Information Medicare Setting Assessment Location Outpatient Care Visit Type Note Type Treatment Note Next Note Type Next Note Type Treatment Note Patient Information Identification Type Name,ID Card Subjective Observations Since last visit, the pt was in hospital for reduced heart rate. prescribed removal all blood pressure medications . THe pt also had peritoneal tube inserted for home dialysis and is having some abdominal discomfort, which is being monitored. He reported that swallowing is getting a little better and taste is returning somewhat. The pt will see PT tomorrow for initial evaluations. Treatment Liquids Trialed Thin Solids Trialed Puree,Dysphagia Mechanical, Mechanical Soft,Regular Administration Type Controlled Cup Sip,Self- Feeding Oral Strategies Upright at 90 degrees Pharyngeal Strategies Chin Tuck,Effortful Swallow, Small Bites and Sips Additional Dysphagia Treatment Liquid wash as needed to clear Strategies buccal cavities Treatment Activities Assessed pt's ability to perform swallow and oral motor exercises as well as swallow function/safety with oral trials. Pt completed all exercises independently as prescribed. He exhibited mild throat clearing x1 following liquid wash to assist in clearing oral residue. After swallow, he commented that he did not swallow well, reswallowed without overt s/sx of aspiration, and stated he felt his mouth and throat were clear. No other overt s/sx of aspiration were observed with all trials. The pt demonstrated improved ability to perform lingual sweep to clear buccal cavities but did require occasional liquid wash , particularly with cracker and string cheese items. Extensive mastication was also required with these trials but the pt did clear oral cavity without aspiration s/sx or abnormal residue remaining . His voice remained clear throughout the evaluation. He employed chin tuck to the left with most trials, min cues provided occasionally. Discussed POC. Agreed to f/u in 3 wks after the pt has received first PT assessments/ txs. Anticipate dc from services soon after. Assessment Patient Response to Treatment Good Rehab Potential Good Assessment of Improvement The pt has made good progress toward expanding food textures that he is able to safely consume. With use of aspiration precautions, he demonstrates increased safety with all oral intake and is independently performing precautions as well as exercises. He continues with slow oral prep/swallow phases with advanced textures and is able to appropriately self- monitor and modify oral prep to safely tolerate. Hopeful that working with PT will assist in increasing muscular ROM that will alleviate some of the pt's discomfort and improve pharyngeal musculature to improve swallow safety. Diet Recommendations Recommendations Continue Current Diet Liquids Order Thin Diet Order Mechanical Soft Medication Recommendations Whole in Carrier Comments Turn head to left for all medications Additional Dietary Needs Chopped Food,Single Sips, Reminders to Use Strategies Aspiration Precautions Recommended Precautions Upright at 90 Degrees, Alternate Liquids/Solids, Frequent Rest Periods,Small Bites/Sips,Chin Tuck,Lingual Sweep,Left Head Turn,Liquids from Cup Additional Precautions Head turn for all PO intake/ each swallow Treatment Plan Placement Recommendation after Discharge Home Appropriate for Continued Therapy Yes Therapy Recommendations 1. The pt will perform safe swallow strategies independently to increase safety and comfort with oral intake. 2. The pt will perform exercises to increase strength , coordination and ROM of swallow musculature to increase safety and comfort with oral intake. 3. The pt will participate in evaluation and treatment of speech intelligibility as needed over course of treatment to return speech to PLOF. Dysphagia Goals 1. Using compensatory swallow strategies independently as needed, the pt will tolerate regular diet textures and thin liquids without sticking sensation and s/sx of aspiration. 2. The pt will demonstrate independence with daily HEP to minimize effects of oral surger and usp radiation effect. Referrals/Other Recommended Referrals Physical Therapy
--- NOTE | 2020-06-11 13:05 | ST.IPDYTX ---
Visit Care Team Role Provider Type Marii Daly MD Family Provider Physician Primary Care Provider Specialty: Internal Medicine Address: [address] [place] [address], [id number] Email: [email or web address] Edvin Agee MD Attending Provider Physician Referring Provider Specialty: Ear, Nose, Throat Address: [address] [place] [address], [id number] Email: [email or web address] INFORMATION TECHNOLOGY PROFESSOR Dysphagia Treatment INFORMATION TECHNOLOGY PROFESSOR Dysphagia Treatment Start: 03/18/20 13:30 Freq: Status: Active Protocol: Document 06/11/20 12:43 [facility] (Rec: 06/11/20 13:05 [facility] [id number]) Dysphagia Treatment Session Time Visit Start Time 12:30 Visit Stop Time 10:09 Total Visit Minutes 39 Visit Information Visit Number 01/11 Plan of Care Dates 03/18/20 - 06/13/20 Insurance Information Medicare Setting Assessment Location Outpatient Care Visit Type Note Type Discharge Summary Patient Information Identification Type Name,ID Card Subjective Observations The pt arrived on time and reported he is eating all textures with only occasional cough and is able to clear buccal cavities with tongue. Getting improved ROM at neck and shoulder from PT. Treatment Liquids Trialed Thin Solids Trialed Puree,Dysphagia Mechanical, Mechanical Soft,Regular Administration Type Controlled Cup Sip,Self- Feeding Oral Strategies Upright at 90 degrees Pharyngeal Strategies Chin Tuck,Effortful Swallow, Small Bites and Sips Additional Dysphagia Treatment Liquid wash as needed to clear Strategies buccal cavities Treatment Activities Assessed pt's swallow function /safety with oral trials. Delayed cough x1 noted with dry texture while INFORMATION TECHNOLOGY PROFESSOR was checking mouth for pocketing. No other cough with multiple swallows of dry texture was observed. Mildly wet voice with applesauce was noted intermittently; cleared with throat clearing + swallow. Skilled feedback provided. Minimal residue was observed in left buccal cavity, much improved since SOC. Pt used both lingual sweep and liquid wash to effectively clear. He also independently employed chin tuck to left side with all swallows, which appears to continue to be helpful. Education was provided RE the tissue stiffening effects of radiation that are anticipated to continue for the pt. He verbalized understanding and agreement with recommendation to continue swallow exercises regularly to minimize and counter the effects. Assessment Patient Response to Treatment Excellent Rehab Potential Good Assessment of Improvement Over the course of treatment, the pt has made excellent progress with swallow safety and has resumed eating all desired textures, foods and liquids. He is swallowing pills without difficulty, per his report. Oral trials reveal occasional mild airway compromise with oral intake, particularly when the pt is distracted, as demonstrated with delayed cough while INFORMATION TECHNOLOGY PROFESSOR examined oral cavity and occasional mildly wet vocal quality, which the pt is able to clear independently. He has demonstrated independence and consistency with home practice and excellent understanding of all education provided. Throughout the course of treatment, the pt has exhibited 100% intelligibility in speech. Speech articulation and vocal quality are WNL for pt's age. The pt is appropriate for discharge from skilled intervention at this time. He is in agreement with this assessment. Diet Recommendations Recommendations Upgrade Diet Order Liquids Order Thin Diet Order Regular Medication Recommendations Whole in Carrier Comments Turn head to left for all medications Additional Dietary Needs Chopped Food,Single Sips, Reminders to Use Strategies Aspiration Precautions Recommended Precautions Upright at 90 Degrees, Alternate Liquids/Solids, Frequent Rest Periods,Small Bites/Sips,Chin Tuck,Lingual Sweep,Left Head Turn,Liquids from Cup Additional Precautions Head turn for all PO intake/ each swallow Treatment Plan Placement Recommendation after Discharge Home Appropriate for Continued Therapy No Therapy Recommendations 1. The pt will perform safe swallow strategies independently to increase safety and comfort with oral intake. GOAL MET 2. The pt will perform exercises to increase strength , coordination and ROM of swallow musculature to increase safety and comfort with oral intake. GOAL MET 3. The pt will participate in evaluation and treatment of speech intelligibility as needed over course of treatment to return speech to PLOF. GOAL MET Dysphagia Goals 1. Using compensatory swallow strategies independently as needed, the pt will tolerate regular diet textures and thin liquids without sticking sensation and s/sx of aspiration. GOAL MET 2. The pt will demonstrate independence with daily HEP to minimize effects of oral surgery and detention radiation effect. GOAL MET
== END 2020-06-12 13:13 ==
LOC: SP 12:30
PROVIDERS: Family Provider Internal Medicine; PCP Internal Medicine; Referring Provider Otolaryngology; Visit Provider Otolaryngology
DX: R13.19 Other dysphagia (principal)
CPT/HCPCS: 92526; 92610; 92611

== ENCOUNTER → 2020-06-13 15:37 | Outpatient (CLI) | payer MEDICARE, SELFPAY ==
[2018-11-30 13:15] VITALS: BMI 40.4
== END ==
PROVIDERS: Family Provider Internal Medicine; PCP Internal Medicine; Referring Provider Internal Medicine; Visit Provider Family Medicine
DX: S31.819A Unspecified open wound of right buttock, initial encounter (principal); S31.829A Unspecified open wound of left buttock, initial encounter
CPT/HCPCS: 99212; 99213

== ENCOUNTER → 2020-06-24 11:16 | Outpatient (CLI) | payer MEDICARE, SELFPAY ==
[2018-11-30 13:15] VITALS: BMI 40.4
--- NOTE | 2020-06-24 | DI.RAD.S_ITS ---
PROCEDURE: XR ABDOMEN MIN 2V INDICATIONS: CHECK PERITONEAL DIALYSIS CATHETER PLACEMENT TECHNIQUE: 2 views of the abdomen were acquired. COMPARISON: None. FINDINGS: Surgical changes and devices: Peritoneal dialysis catheter with the tip projecting in the right lower quadrant. Bowel: No pneumoperitoneum. The bowel gas pattern is normal. Soft tissues: No masses; visualized solid organ contours appear normal in size. No suspicious abdominal calcifications. Bones: . Spondylytic changes and facet arthropathy. IMPRESSION: Peritoneal dialysis catheter with the tip projecting in the right lower quadrant Dictated by: Alvarez Richter M.D. on 06/24/2020 at 12:11 Approved by: Alvarez Richter M.D. on 06/24/2020 at 12:26
== END ==
PROVIDERS: Family Provider Internal Medicine; PCP Internal Medicine; Referring Provider Internal Medicine; Visit Provider Student in an Organized Health Care Education/Training Program
DX: Z49.01 Encounter for fitting and adjustment of extracorporeal dialysis catheter (principal); R10.9 Unspecified abdominal pain; N18.6 End stage renal disease
CPT/HCPCS: 74019

== ENCOUNTER → 2020-07-30 15:02 | Outpatient (CLI) | payer MEDICARE, SELFPAY ==
[2018-11-30 13:15] VITALS: BMI 40.4
== END ==
PROVIDERS: Family Provider Internal Medicine; PCP Internal Medicine; Referring Provider Internal Medicine; Visit Provider Family Medicine
DX: S31.819A Unspecified open wound of right buttock, initial encounter (principal); S31.829A Unspecified open wound of left buttock, initial encounter
CPT/HCPCS: 99212

== ENCOUNTER → 2020-10-21 13:56 | Outpatient (CLI) | payer MEDICARE, SELFPAY ==
[2018-11-30 13:15] VITALS: BMI 40.4
== END ==
PROVIDERS: Family Provider Internal Medicine; PCP Internal Medicine; Referring Provider Internal Medicine; Visit Provider Radiology Radiation Oncology
DX: C06.0 Malignant neoplasm of cheek mucosa (principal)
CPT/HCPCS: 36415; 82565

== ENCOUNTER 2020-11-19 11:16 | Emergency (ER) | payer MEDICARE, SELFPAY ==
[2018-11-30 13:15] VITALS: BMI 40.4
[2020-11-19] VITALS (15 sets, daily range): BP systolic 73–125; BP diastolic 47–78; PULSE 58–90; RESP 9–35; TEMP 36.7; O2SAT 94–100
--- NOTE | 2020-11-19 11:37 | DI.RAD.S_ITS ---
PROCEDURE: XR CHEST 1V INDICATIONS: suspected sepsis TECHNIQUE: One view of the chest was acquired. COMPARISON: [facility], CR, XR CHEST 1V, 01/26/2020, 20:48. FINDINGS: Surgical changes and devices: None. Lungs and pleura: Lungs are clear. No pleural effusions or pneumothorax. Mediastinum: Mediastinal contours appear normal. Heart size is enlarged. Bones and chest wall: No suspicious bony lesions. Overlying soft tissues appear unremarkable. IMPRESSION: No acute pulmonary process. Dictated by: Brook Lei M.D. on 11/19/2020 at 13:56 Approved by: Brook Lei M.D. on 11/19/2020 at 14:00
[2020-11-19 12:20] LABS: Add Manual Diff / Slide Review NO; Basophils Absolute Auto 100 /uL (0-100); Basophils Percent Auto 1.2 % (0-2); Eosinophils Absolute Auto 700 /uL (0-450); Eosinophils Percent Auto 11.6 % (2-4); Hematocrit 32.4 % (41-53); Hemoglobin 10.8 g/dL (13.5-17.5); Lymphocytes Absolute Auto 900 /uL (1100-4500); Lymphocytes Percent Auto 14.9 % (25-40); Mean Corpuscular HGB Conc 33.3 % (30-36); Mean Corpuscular Hemoglobin 33.3 PG (26-34); Mean Corpuscular Volume 100.1 fL (80-100); Monocytes Absolute Auto 700 /uL (0-900); Neutrophils Absolute Auto 3800 /uL (1500-7000); Neutrophils Percent Auto 61.3 % (50-75); Platelet Count 188 X10^3/uL (150-400); Red Blood Cell Count 3.24 X10^6/uL (4.5-5.9); Red Cell Distribution Width 12.9 % (11.6-14.8); White Blood Cell Count 6.2 X10^3/uL (4.5-11.0)
[2020-11-19] MEDS: SODIUM CHLORIDE 0.9% 1,000 ML 1000 ML IV (12:20)
[2020-11-19 12:25] LABS: Prothrombin Time 11.8 SECONDS (10.1-12.7)
[2020-11-19 12:27] LABS: PTT Partial Thromboplastin Tim 28 SECONDS (26.4-36.2)
[2020-11-19 12:32] LABS: Alanine Aminotransferase 21 IU/L (<50); Albumin 3.2 g/dL (3.5-5.0); Albumin Globulin Ratio 1.3 (1.0-2.8); Alkaline Phosphatase 82 U/L (38-126); Aspartate Aminotransferase 17 IU/L (17-59); Bilirubin Total 0.2 mg/dL (0.2-1.3); Blood Urea Nitrogen 40 mg/dL (9-20); Calcium 9.1 mg/dL (8.4-10.2); Carbon Dioxide 28 mmol/L (22-32); Chloride 95 mmol/L (98-107); Creatine Kinase 100 U/L (55-170); Globulin 2.5 g/dL (1.7-4.1); Glucose 149 mg/dL (80-110); HEMOLYSIS < 15 (0-50); Lactate (Lactic Acid) 2.1 mmol/L (0.7-2.1); Lipase 47 U/L (23-300); Potassium 3.4 mmol/L (3.4-5.1); Sodium 133 mmol/L (137-145); Total Protein 5.7 g/dL (6.3-8.2)
[2020-11-19 12:43] LABS: Estimated Glomerular Filt Rate 5.1 mL/min (>60)
[2020-11-19 12:44] LABS: NT-proBNP (BNP-Adult 18+) 645 pg/mL (<450); Troponin I < 0.012 ng/mL (0.01-0.034)
--- NOTE | 2020-11-19 14:09 | ED_ITS ---
HPI - Weakness General Chief complaint: Weakness Stated complaint: low b/p/on dyalisis x7 days Time Seen by Provider: 11/19/20 13:37 Source: patient and family Mode of arrival: Wheelchair Limitations: no limitations History of Present Illness HPI Narrative: 75-year-old male comes emergency department complaint of low blood pressures. Patient started peritoneal dialysis and the last several months. He states in the last week he noted his blood pressures been low and he has been falling. He denies it is syncopal episodes he states he maintains consciousness paired he gets about a secondary to a morning and then his knees will buckle and in his arms will buckle. He will try to hold himself up but he just gets an overall weakness. He states he has hit his head at least once. He does take aspirin daily. He denies any significant neck or back pain no chest pain, no shortness of breath. He denies any nausea, no vomiting no issues with bowel movements. He makes very little urine. No fevers, chills or other infectious symptoms. Patient states that they switched to peritoneal dialysis because he wanted to try it he was frustrated with renal dialysis. He does have a fistula in his left upper extremity. He states it started well as his 3 week follow-up his lab work and renal function were not good. They made adjustments increasing his dialysis from 9-10 hours at night and 5 cycles. Since then he has continued to have these issues where he falls. He states he was told to come to the ER if his systolic blood pressure was less than 100. Patient also states peritoneal fluid has not been cloudy. Related Data Home Medications Medication Instructions Recorded Confirmed atorvastatin 10 mg PO QAM 05/24/18 11/06/19 glipizide 10 mg PO BID 05/24/18 11/06/19 hydrochlorothiazide 1 tab PO DAILY 05/24/18 11/06/19 multivitamin 1 tab PO DAILY 05/24/18 11/06/19 mupirocin 1 applic TOPICAL TID 05/24/18 11/06/19 nortriptyline 75 mg PO BEDTIME 05/24/18 11/06/19 nystatin 1 applic TOPICAL BID 05/24/18 11/06/19 potassium chloride 40 meq PO QAM 05/24/18 11/06/19 tamsulosin 0.4 mg PO BID 05/24/18 11/06/19 cholecalciferol (vitamin D3) 2,000 unit PO DAILY 11/14/18 11/06/19 [Vitamin D3] furosemide 40 mg PO BID 11/06/19 11/06/19 gabapentin 600 mg PO BEDTIME 11/06/19 11/06/19 potassium chloride 20 meq PO QPM 11/06/19 11/06/19 Previous Rx's Medication Instructions Recorded aspirin 81 mg PO BID #60 tab 12/01/18 Allergies Allergy/AdvReac Type Severity Reaction Status Date / Time NSAIDS (Non-Steroidal Allergy Severe Unable to Verified 11/19/20 11:36 Anti-Inflamma take r/t Kidney stage III Sulfa (Sulfonamide Allergy Childhood, Verified 11/19/20 11:36 Antibiotics) reaction unknown per pt oxycodone AdvReac Severe Headache Verified 11/19/20 11:36 Review of Systems Review of Systems ROS Unobtainable: All systems reviewed & are unremarkable except as noted in HPI and below Patient History Medical History (Updated 11/19/20 @ 14:41 by Itzel Olmos DO) BPH (benign prostatic hyperplasia) (~2006) Chronic kidney disease (CKD), stage III (moderate) CVA (cerebral vascular accident) Diabetes Edema Erectile dysfunction Former smoker Generalized headaches GERD (gastroesophageal reflux disease) Heart murmur HTN (hypertension) Hyperlipidemia Osteoarthritis Pneumonia Rash (~2010) Sleep apnea War injury due to shrapnel (~1968) Surgical History H/O medial meniscus repair of left knee (~1964) History of arthroplasty of left knee (11/30/18) History of cholecystectomy History of colonoscopy with polypectomy (~07/2015) History of tonsillectomy Hx of partial nephrectomy (~2006) Status post cataract extraction of both eyes with insertion of intraocular lens Social History household members: spouse Smoking Status: Former smoker alcohol intake: former Smoking Status: Former smoker alcohol intake frequency: 0-2 drinks per day Substance Use Type: does not use Exam Narrative Exam Narrative: GEN: well nourished, obese male, alert and oriented x 3, patient appears to be in mild distress. HEENT: Atraumatic, pupils are equal round reactive to light, extraocular movements are intact, normal speech. HEART: Regular rate and rhythm without murmur, clicks, rubs. Pulses are equal in upper and lower extremities LUNGS:Lungs clear to auscultation, no wheezes, rales, crackles, chest moves symmetrically, no tachypnea accessory muscle use. ABD:bowel sounds normal, soft, non-tender, no guarding, rebound, rigidity, no masses noted, no hepatosplenomegaly, nondistended. :No CVA tenderness MSCL: Non-tender, no muscle atrophy NEURO:CN 2-12 intact, sensation normal SKIN: Rash, erythema or other skin changes noted. Initial Vital Signs Initial Vital Signs: Vital Signs Temperature 98.1 F 11/19/20 11:32 Pulse Rate 78 11/19/20 11:32 Respiratory Rate 18 11/19/20 11:32 Blood Pressure 115/58 L 11/19/20 11:32 Pulse Oximetry 94 11/19/20 11:32 Scores GCS Lex coma scale eye opening: Spontaneous [place] coma scale verbal response: Orientated Lex coma scale motor response: Obey commands Lex coma scale total score: 15 Course Orders Ordered: ED Orders 11/19/20 11:37 XR chest 1V Stat EKG-12 Lead Stat 11/19/20 12:09 BNP [NT-proBNP (BNP-Adult 18+)] Stat Complete Blood Count AUTO DIFF Stat Comprehensive Metabolic Panel Stat Lactate (Lactic Acid) Stat Lipase Stat Partial Thromboplastin Time Stat Procalcitonin Stat Prothrombin Time INR Stat Troponin & CK Cardiac Panel Stat 11/19/20 12:22 Blood Culture Stat 11/19/20 14:47 CT head/brain wo con Stat Discontinued Medications Sodium Chloride (Normal Saline 0.9%) 1,000 mls @ 1,000 mls/hr IV BOLUS ONE Stop: 11/19/20 13:26 Last Infusion: 11/19/20 15:35 Dose: 0 mls/hr Documented by: Infusion: 11/19/20 12:35 Dose: 0 mls/hr Documented by: Admin: 11/19/20 12:20 Dose: 1,000 mls/hr Documented by: ABILIO Consultations Consultation #1: Spoke with Dr. Connros from nephrology. Reviewed patient's, EKG findings and current course of therapy. Patient's head CT is pending. He notes that is patient labs thus far is electrolytes are normal he can hold his dialysis tonight. If his PD fluid drainage has been clear he can follow up with the dialysis nurse to have that sent for testing for infection. We discussed blood cultures are pending. If it has been cloudy he does asked that patient be transferred to [facility] for further evaluation. Patient is to continue to staff his blood pressure medications unless his blood pressures over 140 and then can restart his lisinopril. Time: 14:52 Vital Signs Vital signs: Vital Signs - 8 hr 11/19/20 11:32 11/19/20 12:13 11/19/20 12:28 Temperature 98.1 F Pulse Rate 78 90 90 Respiratory Rate 18 18 18 Blood Pressure 115/58 L 73/47 L 81/48 L Pulse Oximetry 94 99 99 11/19/20 12:50 11/19/20 13:00 11/19/20 13:15 Temperature Pulse Rate 79 75 72 Respiratory Rate 20 11 L 10 L Blood Pressure 123/78 Pulse Oximetry 96 95 94 11/19/20 13:30 11/19/20 13:45 11/19/20 14:00 Temperature Pulse Rate 70 70 71 Respiratory Rate 12 9 L 10 L Blood Pressure Pulse Oximetry 97 94 100 11/19/20 14:15 11/19/20 14:30 11/19/20 14:47 Temperature Pulse Rate 66 70 68 Respiratory Rate 11 L 12 35 H Blood Pressure Pulse Oximetry 98 100 97 11/19/20 15:00 11/19/20 15:15 11/19/20 15:30 Temperature Pulse Rate 65 66 58 L Respiratory Rate 9 L 11 L 10 L Blood Pressure 120/59 L 125/57 L 119/59 L Pulse Oximetry 99 99 98 MDM - Weakness Lab Data Result diagrams: 11/19/20 12:09 11/19/20 12:09 Labs: Lab Results 11/19/20 11/19/20 11/19/20 Range/Units 12:09 12:09 12:09 WBC 6.2 (4.5-11.0) X10^3/uL RBC 3.24 L (4.5-5.9) X10^6/uL Hgb 10.8 L (13.5-17.5) g/dL Hct 32.4 L (41-53) % MCV 100.1 H (80-100) fL MCH 33.3 (26-34) PG MCHC 33.3 (30-36) % RDW 12.9 (11.6-14.8) % Plt Count 188 (150-400) X10^3/uL Neut % (Auto) 61.3 (50-75) % Lymph % (Auto) 14.9 L (25-40) % Towns % (Auto) 11.0 (3-14) % Eos % (Auto) 11.6 H (2-4) % Baso % (Auto) 1.2 (0-2) % Neut # (Auto) 3800 (4329-1232) /uL Lymph # (Auto) 900 L (7489-7560) /uL Towns # (Auto) 700 (0-900) /uL Eos # (Auto) 700 H (0-450) /uL Baso # (Auto) 100 (0-100) /uL PT 11.8 (10.1-12.7) SECONDS INR 1.0 (0.9-1.3) APTT 28 (26.4-36.2) SECONDS Sodium 133 L (137-145) mmol/L Potassium 3.4 (3.4-5.1) mmol/L Chloride 95 L (98-107) mmol/L Carbon Dioxide 28 (22-32) mmol/L BUN 40 H (9-20) mg/dL Creatinine 9.96 H* (0.66-1.25) mg/dL Estimated GFR 5.1 L (>60) mL/min BUN/Creatinine Ratio 4.0 L (6-22) Glucose 149 H (80-110) mg/dL Lactate (0.7-2.1) mmol/L Calcium 9.1 (8.4-10.2) mg/dL Total Bilirubin 0.2 (0.2-1.3) mg/dL AST 17 (17-59) IU/L ALT 21 (<50) IU/L Alkaline Phosphatase 82 (38-126) U/L Total Creatine Kinase 100 (55-170) U/L CK-MB (CK-2) TNP CK-MB (CK-2) Rel Index TNP Troponin I < 0.012 (0.01-0.034) ng/mL NT-Pro-B Natriuret Pep 645 H (<450) pg/mL Total Protein 5.7 L (6.3-8.2) g/dL Albumin 3.2 L (3.5-5.0) g/dL Globulin 2.5 (1.7-4.1) g/dL Albumin/Globulin Ratio 1.3 (1.0-2.8) Lipase 47 (23-300) U/L Procalcitonin 0.20 (<0.5) ng/mL 11/19/20 11/19/20 Range/Units 12:09 14:31 WBC (4.5-11.0) X10^3/uL RBC (4.5-5.9) X10^6/uL Hgb (13.5-17.5) g/dL Hct (41-53) % MCV (80-100) fL MCH (26-34) PG MCHC (30-36) % RDW (11.6-14.8) % Plt Count (150-400) X10^3/uL Neut % (Auto) (50-75) % Lymph % (Auto) (25-40) % Towns % (Auto) (3-14) % Eos % (Auto) (2-4) % Baso % (Auto) (0-2) % Neut # (Auto) (6211-6966) /uL Lymph # (Auto) (3536-9104) /uL Towns # (Auto) (0-900) /uL Eos # (Auto) (0-450) /uL Baso # (Auto) (0-100) /uL PT (10.1-12.7) SECONDS INR (0.9-1.3) APTT (26.4-36.2) SECONDS Sodium (137-145) mmol/L Potassium (3.4-5.1) mmol/L Chloride (98-107) mmol/L Carbon Dioxide (22-32) mmol/L BUN (9-20) mg/dL Creatinine (0.66-1.25) mg/dL Estimated GFR (>60) mL/min BUN/Creatinine Ratio (6-22) Glucose (80-110) mg/dL Lactate 2.1 1.4 (0.7-2.1) mmol/L Calcium (8.4-10.2) mg/dL Total Bilirubin (0.2-1.3) mg/dL AST (17-59) IU/L ALT (<50) IU/L Alkaline Phosphatase (38-126) U/L Total Creatine Kinase (55-170) U/L CK-MB (CK-2) CK-MB (CK-2) Rel Index Troponin I (0.01-0.034) ng/mL NT-Pro-B Natriuret Pep (<450) pg/mL Total Protein (6.3-8.2) g/dL Albumin (3.5-5.0) g/dL Globulin (1.7-4.1) g/dL Albumin/Globulin Ratio (1.0-2.8) Lipase (23-300) U/L Procalcitonin (<0.5) ng/mL Imaging Data Chest x-ray: Radiologist Impression: [address] [id number] ReportSigned Patient: Pascual Cruz LMR#: [id number]: 1945cct:[id number]/Sex: 75 / MDate of Service: 11/19/20Loc: EDAccession Number: [id number] Procedure: XR chest 1V Ordering Provider: Itzel Olmos D.O. PROCEDURE: XR CHEST 1V INDICATIONS: suspected sepsis TECHNIQUE: One view of the chest was acquired. COMPARISON: [facility], , XR CHEST 1V, 01/26/2020, 20:48. FINDINGS: Surgical changes and devices: None. Lungs and pleura: Lungs are clear. No pleural effusions or pneumothorax. Mediastinum: Mediastinal contours appear normal. Heart size is enlarged. Bones and chest wall: No suspicious bony lesions. Overlying soft tissues appear unremarkable. IMPRESSION: No acute pulmonary process. Dictated by: Brook Lei M.D. on 11/19/2020 at 13:56 Approved by: Brook Lei M.D. on 11/19/2020 at 14:00 CT scan - head: Radiologist Impression: [address] [id number] Scan ReportSigned Patient: Pascual Cruz LMR#: [id number]: 4Acct:[id number]/Sex: 75 / MDate of Service: 11/19/20Loc: EDAccession Number: [id number] Procedure: CT head/brain wo con Ordering Provider: Itzel Olmos D.O. PROCEDURE: CT HEAD/BRAIN WO CON INDICATIONS: multiple falls on asa, esrd TECHNIQUE: Noncontrast 4.5 mm thick angled axial sections acquired from the foramen magnum to the vertex, with coronal and sagittal reformats. For radiation dose reduction, the following was used: automated exposure control, adjustment of mA and/or kV according to patient size. COMPARISON: [facility], CT, CT HEAD/BRAIN WO CON, 01/26/2020, 20:53. FINDINGS: Image quality: Excellent. CSF spaces: Basal cisterns are patent. No extra-axial fluid collections. The ventricles are symmetric in size and shape. Brain: No intracranial bleeds or masses. There are old lacunar infarcts in basal ganglia bilaterally and right coronal radiata. There is mild cerebral volume loss for age, with resultant ventricular and sulcal prominence. There are [id number] periventricular and deep white matter chronic small vessel ischemic changes. There is intracranial internal carotid artery atherosclerosis. Skull and face: Calvarium and visualized facial bones appear intact, without suspicious lesions. Sinuses: Visualized sinuses and mastoids are clear. IMPRESSION: 1. No acute intracranial abnormalities. 2. Cerebral volume loss and chronic microvascular ischemic changes. 3. Old lacunar infarcts. Dictated by: Erica Barragan M.D. on 11/19/2020 at 14:50 Approved by: Erica Barragan M.D. on 11/19/2020 at 14:53 ECG Data Attestation: I personally reviewed and interpreted this ECG as follows: Interpretation: Rhythm first-degree AV block. Rate of 77 P are 222, QRS of 98 QTC 439. No new changes appreciated patient has a changes in 3 as well as elevation in V1 V2, elevations were appreciated on 04/29/2020 EKG. MDM Narrative Medical decision making narrative: This is a 75-year-old male who started peritoneal dialysis in the last 1-2 months with consistently low blood pressures and falls which may be pre syncopal or near syncopal as patient states he does not lose consciousness but has sudden weakness and falls to the ground. He st ates that they noted that his renal function was not good on his 3 week follow- up patient's creatinine is 9.96 it was hand on the 21 of October and 6.2 in April. Mild electrolyte abnormalities but potassium is 3.4 with a sodium 133 and his sodium appears stable. Patient's initial lactate was 2.1 And patient states they have adjusted his dialysis. Today he is anemic but appears stable from prior. No obvious infectious changes with a normal white count an elevated eosinophil but no leftward shift. Patient's renal function is 9 today, it was 10 on the 21 of October and 6.2 in April. His room electrolytes show a mild hyponatremia which stable and a potassium of 3.4. Troponin is negative, BNP is elevated at 645 but this can be in the setting of end-stage renal disease with dialysis. Procalcitonin is negative. Blood cultures are pending although he has no obvious infectious changes today. Lactate was 2.1 and a repeat is pending at this time. Head CT was ordered as patient has had multiple falls and is on aspirin daily and has hit his head at least once. Discussed todays [facility] with his nephrology team, Dr. Connors plans to have the patient follow-up for peritoneal fluid to be evaluated for infection. As it is not cloudy he does not require patient be transferred. Patient has been following directions in terms of his blood pressure medications and he is to continue these. 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 Patient did have improvement of pressure with small bolus of 250mL in department. Discharge Plan Departure Patient Disposition: Home Clinical Impression: Falls, Low BP, Peritoneal dialysis status Activity Restrictions/Additional Instructions: Follow up with Dr. Connors, call for an appointment or further directions regarding your peritoneal dialysis. Blood cultures are pending, they should result in 48-72 hours. Continue to hold your blood pressure medications as directed by Dr. Connors. You may take lisinopril if your systolic BP (top number) is greater than [address] Connors, is going to contact the dialysis nurse in order to get a sample of your peritoneal dialysis fluid to evaluate for infection. They should be contacting you to set this up. Return to the ER for recurrent symptoms worsening lightheadedness, consistently low blood pressure, passing out or recurrent falls, new chest pain, shortness of breath, persistent vomiting, black or bloody stools, new swelling in her extremities or other new or concerning symptoms. Prescriptions: No Action atorvastatin 10 mg tablet 10 mg PO QAM RF: 0 glipizide 10 mg tablet extended release 24hr 10 mg PO BID RF: 0 potassium chloride 20 mEq tablet,ER particles/crystals 40 meq PO QAM RF: 0 tamsulosin 0.4 mg capsule 0.4 mg PO BID RF: 0 nortriptyline 75 mg capsule 75 mg PO BEDTIME RF: 0 hydrochlorothiazide 25 mg tablet 1 tab PO DAILY RF: 0 multivitamin Tablet 1 tab PO DAILY RF: 0 nystatin 100,000 unit/gram cream 1 applic Topical BID RF: 0 mupirocin 2 % ointment 1 applic Topical TID RF: 0 cholecalciferol (vitamin D3) [Vitamin D3] 2,000 unit Capsule 2,000 unit PO DAILY RF: 0 aspirin 81 mg Tablet,Delayed Release (Dr/Ec) 81 mg PO BID Qty: 60 RF: 0 furosemide 40 mg tablet 40 mg PO BID RF: 0 gabapentin 300 mg Capsule 600 mg PO BEDTIME RF: 0 potassium chloride 20 mEq Tablet Extended Release 20 meq PO QPM RF: 0 Referrals: Olman Connors MD [Physician] - Marii Daly MD [Primary Care Provider] -
[2020-11-19 14:13] LABS: Reflexed Lactate in 2 Hours Y
--- NOTE | 2020-11-19 14:47 | DI.CT.S_ITS ---
PROCEDURE: CT HEAD/BRAIN WO CON INDICATIONS: multiple falls on asa, esrd TECHNIQUE: Noncontrast 4.5 mm thick angled axial sections acquired from the foramen magnum to the vertex, with coronal and sagittal reformats. For radiation dose reduction, the following was used: automated exposure control, adjustment of mA and/or kV according to patient size. COMPARISON: [facility], CT, CT HEAD/BRAIN WO CON, 01/26/2020, 20:53. FINDINGS: Image quality: Excellent. CSF spaces: Basal cisterns are patent. No extra-axial fluid collections. The ventricles are symmetric in size and shape. Brain: No intracranial bleeds or masses. There are old lacunar infarcts in basal ganglia bilaterally and right coronal radiata. There is mild cerebral volume loss for age, with resultant ventricular and sulcal prominence. There are [id number] periventricular and deep white matter chronic small vessel ischemic changes. There is intracranial internal carotid artery atherosclerosis. Skull and face: Calvarium and visualized facial bones appear intact, without suspicious lesions. Sinuses: Visualized sinuses and mastoids are clear. IMPRESSION: 1. No acute intracranial abnormalities. 2. Cerebral volume loss and chronic microvascular ischemic changes. 3. Old lacunar infarcts. Dictated by: Erica Barragan M.D. on 11/19/2020 at 14:50 Approved by: Erica Barragan M.D. on 11/19/2020 at 14:53
[2020-11-19 14:51] LABS: Lactate 2HR (Lactic Acid Rflx) 1.4 mmol/L (0.7-2.1)
== END 2020-11-19 15:45 | disposition home or self-care (01) ==
PROVIDERS: Emergency Provider Emergency Medicine; Family Provider Internal Medicine; PCP Internal Medicine
DX: I95.9 Hypotension, unspecified (principal); Z99.2 Dependence on renal dialysis; R29.6 Repeated falls; E87.1 Hypo-osmolality and hyponatremia; N18.30 Chronic kidney disease, stage 3 unspecified; E11.9 Type 2 diabetes mellitus without complications; I10 Essential (primary) hypertension; E78.5 Hyperlipidemia, unspecified; E66.9 Obesity, unspecified
CPT/HCPCS: 36415; 70450; 71045; 80053; 82550; 83605; 83690; 83880; 84145; 84484; 85025; 85610; 85730; 87040; 93005; 93010; 99284

== ENCOUNTER → 2020-11-25 16:22 | Outpatient (CLI) | payer MEDICARE, SELFPAY ==
[2018-11-30 13:15] VITALS: BMI 40.4
--- NOTE | 2020-11-25 | DI.RAD.S_ITS ---
PROCEDURE: XR HIP W PEL IF DONE RT 2V INDICATIONS: Pain In Right Hip TECHNIQUE: AP pelvis with lateral view(s) of the right hip(s). COMPARISON: None. FINDINGS: Bones: No fractures or dislocations. Pelvic ring appears intact. No suspicious bony lesions. Mild joint narrowing with periarticular osteophyte formation of the hip joints bilaterally. Degenerative disc and facet disease involves the inferior lumbar spine. Soft tissues: The visualized bowel gas pattern is normal. No suspicious soft tissue calcifications. Peritoneal dialysis catheter present with tube tip coiled and projected over the right mid pelvis just slightly right of the midline. IMPRESSION: Mild symmetric hip joint degeneration. Dictated by: Rickie Gerber [facility] Interpreted: Jensen Parson MD on 11/25/2020 at 16:49 Approved by: Jensen Parson M.D. on 11/25/2020 at 17:08
== END ==
PROVIDERS: Family Provider Internal Medicine; PCP Internal Medicine; Referring Provider Internal Medicine; Visit Provider Internal Medicine
DX: M25.551 Pain in right hip (principal); M16.11 Unilateral primary osteoarthritis, right hip
CPT/HCPCS: 73502

== ENCOUNTER 2020-12-10 11:15 | Outpatient (RCR) | payer MEDICARE, SELFPAY ==
[2018-11-30 13:15] VITALS: BMI 40.4
--- NOTE | 2020-05-16 17:52 | PT.OIE ---
Current Diagnoses Lymphedema, not elsewhere classified (05/16/20) Cervicalgia (05/16/20) Soft tissue disorder, unspecified (05/16/20) Abnormal posture (05/16/20) Past Medical History (Last Reviewed 04/29/20 @ 10:24 by Autumn Perdomo DO) BPH (benign prostatic hyperplasia) (Acute ~2006) Chronic kidney disease (CKD), stage III (moderate) (Acute) CVA (cerebral vascular accident) (Acute) Diabetes (Acute) Edema (Acute) Erectile dysfunction (Acute) Former smoker (Acute) Generalized headaches (Acute) GERD (gastroesophageal reflux disease) (Acute) Heart murmur (Acute) HTN (hypertension) (Acute) Hyperlipidemia (Acute) Osteoarthritis (Acute) Pneumonia (Acute) Rash (Acute ~2010) Sleep apnea (Acute) War injury due to shrapnel (Acute ~1968) Past Surgical History (Last Reviewed 04/29/20 @ 10:24 by Autumn Perdomo DO) H/O medial meniscus repair of left knee (Acute ~1964) History of arthroplasty of left knee (Acute 11/30/18) History of cholecystectomy (Acute) History of colonoscopy with polypectomy (Acute ~07/2015) History of tonsillectomy (Acute) Hx of partial nephrectomy (Acute ~2006) Status post cataract extraction of both eyes with insertion of intraocular lens (Acute) Visit Care Team Role Provider Type Marii Daly MD Family Provider Physician Primary Care Provider Specialty: Internal Medicine Address: [address] [place] [address], [address] Email: [email or web address] Edvin Agee MD Attending Provider Physician Referring Provider Specialty: Ear, Nose, Throat Address: [address] [place] [address], [address] Email: [email or web address] Physical Therapy Initial Evaluation PT-OP-A Visit Information Start: 05/13/20 16:55 Freq: Status: Active Protocol: Document 05/16/20 17:26 [facility] (Rec: 05/16/20 17:49 [facility] [id number]) Out-Patient Physical Therapy Visit Information Visit Information Visit Type Initial Evaluation Visit Start Time 13:45 Visit Stop Time 15:05 Total Visit Minutes 80 Visit Number 1 Number of PATIENT ASSISTANT Visits 0 Evaluation Information Evaluation Date 05/16/20 Precautions Precautions history cancer, swallowing difficulty PT-OP-B Current Condition Start: 05/13/20 16:55 Freq: Status: Active Protocol: Document 05/16/20 13:55 [facility] (Rec: 05/16/20 14:54 [facility] [id number]) Current Condition History of Current Condition Onset Date November 2019 Current Complaints stiffness, lymphedema neck History of Current Condition 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 Finished with 33 treatments of radiation. States the muscles so tight difficult to hold head up or look to the right. Swelling anterior neck bilaterally. Reports they tried to drain the swelling with a needle but wasn't successful Has end-stage renal disease so not doing chemo. Getting set up to do peritoneal dialysis. Was recently hospitalized for low blood sugar, 2 weeks ago hospitalized due to bradycardia. Has stopped HTN meds. Trying to manage the low blood sugar dietarily. Treatment Goals Patient/Caregiver Goals Improve his neck ROM to WNL, decrease the lymphedema anterior neck. Prior Functional Status Baseline Function- ADL's Independent Baseline Function- Mobility Independent Baseline Function- Other able to turn head fully for all activities including driving Current Functional Impairments (Reported) Functional Limitations- ADL's Difficulty holding his head up , looking up, turning head for driving PT-OP-C Subjective Start: 05/13/20 16:55 Freq: Status: Active Protocol: Document 05/16/20 17:26 [facility] (Rec: 05/16/20 17:49 [facility] [id number]) Patient Questionnaires Lymphedema Life Impact Score Lymphedema Score 18 PT-OP-J Posture/Palpation/Skin Start: 05/13/20 16:55 Freq: Status: Active Protocol: Document 05/16/20 17:26 [facility] (Rec: 05/16/20 17:49 [facility] [id number]) Posture Evaluation Position Sitting Head/C-Spine Posture Forward Head T-Spine Posture Increased Kyphosis Shoulder Posture (L) Rounded,(R) Rounded Scapula Posture (L) Protracted,(R) Protracted Palpation Assessment Location anterior neck Palpation Findings Edema,Soft Tissue Tightness Palpation Details tightness left greater than right PT-OP-K Range of Motion Start: 05/13/20 16:55 Freq: Status: Active Protocol: Document 05/16/20 17:26 [facility] (Rec: 05/16/20 17:49 [facility] [id number]) Cervical Spine Range of Motion Cervical Spine Active Testing Position Sitting Flexion 56 Extension 12 Rotation Left 35 Rotation Right 64 Lateral Flexion Left 34 Lateral Flexion Right 10 ROM Limitations Soft Tissue Tightness,Swelling PT-OP-N Lymphedema Start: 05/13/20 16:55 Freq: Status: Active Protocol: Document 05/16/20 17:26 [facility] (Rec: 05/16/20 17:49 [facility] [id number]) Lymphedema Measurements Comments Lymphedema Comments chin to top of head 67.0cm jawline 49.6cm largest area of edema: 47.8cm base of neck 414.6cm PT-OP-Q Treatments Start: 05/13/20 16:55 Freq: Status: Active Protocol: Document 05/16/20 17:26 [facility] (Rec: 05/16/20 17:49 [facility] [id number]) Therapeutic Exercises Sidelying Exercises reach and roll Side bilateral Reps/Minutes 5x Comments with cervical rotation Sitting Exercises cervical extension Side bilateral Reps/Minutes 2x cervical sidebending Side bilateral Reps/Minutes 3x cervical rotation Side bilateral Reps/Minutes 3x shoulder blade squeeze Side bilateral Reps/Minutes 5x shoulder shrugs Side bilateral Reps/Minutes 5x Lymphedema Treatment Manual Lymphatic Drainage Location anterior neck Duration 20' Patient Education Compression Garments given information regarding compression garment PT-OP-T Assessment and Plan Start: 05/13/20 16:55 Freq: Status: Active Protocol: Document 05/16/20 17:26 [facility] (Rec: 05/16/20 17:49 [facility] [id number]) Physical Therapy Assessment Rehab Potential Rehabilitation Potential Good Evaluation Complexity Number of Personal Factors/Comorbidities 3 or More Number of Body Systems Impaired 4 or More Clinical Presentation at Evaluation Evolving Impairments Impairments Edema,Posture,ROM,Soft Tissue Mobility Goals 4 Impairment tissue fibrosis anterior and lateral (L) neck Delicatessen Manager Goal (LTG) Improve soft tissue mobility anterior and lateral neck to WNL 3 Impairment postural impairment with difficulty holding head up Delicatessen Manager Goal (LTG) Patient will be able to hold his head up actively throughout the day without excess fatigue or pain LTG Duration 8 wks 2 Impairment Decreased cervical ROM Residential Goal (LTG) Patient to return to full active motion of his neck including ability to turn head to right for safe driving LTG Duration 8 wks 1 Impairment lymphedema anterior neck Delicatessen Manager Goal (LTG) Decrease lymphedema neck to stable level and patient to be fit with appropriate compression garment. Patient to demonstrate good understanding of self- management. LTG Duration 8 wks Assessment Summary Assessment Patient presents with function -limiting stiffness, decreased ROM, tissue fibrosis, and lymphedema in his neck. Would benefit from skilled physical therapy to address these impairments and help him achieve the above physical therapy goals and return to prior level of function with good ability to hold his head up, turn his neck adequately, decrease the tissue tightness, and decrease the lymphedema. Physical Therapy Plan Frequency and Duration Frequency of Treatment 2x/Week Duration of Treatment 8 weeks Plan of Care Start Date 05/16/20 Plan of Care End Date 07/15/20 Therapeutic Interventions Therapeutic Interventions Home Exercise Program, Lymphedema Management,Manual Therapy,Patient/Caregiver Education,Self-Care/Home Management,Soft Tissue Mobilization,Taping, Therapeutic Exercises Next Visit Focus/Plan Next Note Type Treatment Note Next Visit Plan Review HEP, discuss compression garment, MLD, MFR, manual stretching to neck.
--- NOTE | 2020-05-16 17:52 | PT.OPPOC ---
Physical, Occupational & Speech Therapy At [facility] Current Diagnoses Lymphedema, not elsewhere classified (05/16/20) Cervicalgia (05/16/20) Soft tissue disorder, unspecified (05/16/20) Abnormal posture (05/16/20) Visit Care Team Role Provider Type Marii Daly MD Family Provider Physician Primary Care Provider Specialty: Internal Medicine Address: [address] [place] [address], [address] Email: [email or web address] Edvin Agee MD Attending Provider Physician Referring Provider Specialty: Ear, Nose, Throat Address: [address] [place] [address], [address] Email: [email or web address] Plan Of Care PT-OP-T Assessment and Plan Start: 05/13/20 16:55 Freq: Status: Active Protocol: Document 05/16/20 17:26 [facility] (Rec: 05/16/20 17:49 [facility] [id number]) Physical Therapy Assessment Rehab Potential Rehabilitation Potential Good Evaluation Complexity Number of Personal Factors/Comorbidities 3 or More Number of Body Systems Impaired 4 or More Clinical Presentation at Evaluation Evolving Impairments Impairments Edema,Posture,ROM,Soft Tissue Mobility Goals 4 Impairment tissue fibrosis anterior and lateral (L) neck Junior Automation Engineer Goal (LTG) Improve soft tissue mobility anterior and lateral neck to WNL 3 Impairment postural impairment with difficulty holding head up Junior Automation Engineer Goal (LTG) Patient will be able to hold his head up actively throughout the day without excess fatigue or pain LTG Duration 8 wks 2 Impairment Decreased cervical ROM Prison Goal (LTG) Patient to return to full active motion of his neck including ability to turn head to right for safe driving LTG Duration 8 wks 1 Impairment lymphedema anterior neck Prison Goal (LTG) Decrease lymphedema neck to stable level and patient to be fit with appropriate compression garment. Patient to demonstrate good understanding of self- management. LTG Duration 8 wks Assessment Summary Assessment Patient presents with function -limiting stiffness, decreased ROM, tissue fibrosis, and lymphedema in his neck. Would benefit from skilled physical therapy to address these impairments and help him achieve the above physical therapy goals and return to prior level of function with good ability to hold his head up, turn his neck adequately, decrease the tissue tightness, and decrease the lymphedema. Physical Therapy Plan Frequency and Duration Frequency of Treatment 2x/Week Duration of Treatment 8 weeks Plan of Care Start Date 05/16/20 Plan of Care End Date 07/15/20 Therapeutic Interventions Therapeutic Interventions Home Exercise Program, Lymphedema Management,Manual Therapy,Patient/Caregiver Education,Self-Care/Home Management,Soft Tissue Mobilization,Taping, Therapeutic Exercises Next Visit Focus/Plan Next Note Type Treatment Note Next Visit Plan Review HEP, discuss compression garment, MLD, MFR, manual stretching to neck. Plan of Care Dates Plan of Care Start Date 05/16/20 Plan of Care End Date 07/15/20 Electronically Signed by: Rosa M Kwok, PT 05/16/20 [id number] Please Sign and Return: I have reviewed this Plan of Care and certify that the skilled therapy services above are required to meet the patient?s needs. Physician Signature Date Printed Name and Credentials Clinical Instructor Signature Printed Name and Credentials
--- NOTE | 2020-05-28 15:12 | PT.OTN ---
Current Diagnoses Lymphedema, not elsewhere classified (05/28/20) Cervicalgia (05/28/20) Soft tissue disorder, unspecified (05/28/20) Abnormal posture (05/28/20) Physical Therapy Treatment Note PT-OP-A Visit Information Start: 05/13/20 16:55 Freq: Status: Active Protocol: Document 05/28/20 15:03 [facility] (Rec: 05/28/20 15:11 [facility] [id number]) Out-Patient Physical Therapy Visit Information Visit Information Visit Type Treatment Note Visit Start Time 11:15 Visit Stop Time 12:00 Total Visit Minutes 45 Visit Number 2 Number of MONTESSORI PRESCHOOL TEACHER Visits 0 PT-OP-B Current Condition Start: 05/13/20 16:55 Freq: Status: Active Protocol: Document 05/16/20 13:55 [facility] (Rec: 05/16/20 14:54 [facility] [id number]) Current Condition History of Current Condition Onset Date November 2019 Current Complaints stiffness, lymphedema neck History of Current Condition 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 Finished with 33 treatments of radiation. States the muscles so tight difficult to hold head up or look to the right. Swelling anterior neck bilaterally. Reports they tried to drain the swelling with a needle but wasn't successful Has end-stage renal disease so not doing chemo. Getting set up to do peritoneal dialysis. Was recently hospitalized for low blood sugar, 2 weeks ago hospitalized due to bradycardia. Has stopped HTN meds. Trying to manage the low blood sugar dietarily. Treatment Goals Patient/Caregiver Goals Improve his neck ROM to WNL, decrease the lymphedema anterior neck. Prior Functional Status Baseline Function- ADL's Independent Baseline Function- Mobility Independent Baseline Function- Other able to turn head fully for all activities including driving Current Functional Impairments (Reported) Functional Limitations- ADL's Difficulty holding his head up , looking up, turning head for driving PT-OP-C Subjective Start: 05/13/20 16:55 Freq: Status: Active Protocol: Document 05/28/20 15:03 [facility] (Rec: 05/28/20 15:11 [facility] [id number]) OP-PT Subjective Patient Comments Patient Comments Pt reports he has been working with speech therapy and this has been helpful for his swallowing PT-OP-J Posture/Palpation/Skin Start: 05/13/20 16:55 Freq: Status: Active Protocol: Document 05/16/20 17:26 [facility] (Rec: 05/16/20 17:49 [facility] [id number]) Posture Evaluation Position Sitting Head/C-Spine Posture Forward Head T-Spine Posture Increased Kyphosis Shoulder Posture (L) Rounded,(R) Rounded Scapula Posture (L) Protracted,(R) Protracted Palpation Assessment Location anterior neck Palpation Findings Edema,Soft Tissue Tightness Palpation Details tightness left greater than right PT-OP-K Range of Motion Start: 05/13/20 16:55 Freq: Status: Active Protocol: Document 05/16/20 17:26 [facility] (Rec: 05/16/20 17:49 [facility] [id number]) Cervical Spine Range of Motion Cervical Spine Active Testing Position Sitting Flexion 56 Extension 12 Rotation Left 35 Rotation Right 64 Lateral Flexion Left 34 Lateral Flexion Right 10 ROM Limitations Soft Tissue Tightness,Swelling PT-OP-N Lymphedema Start: 05/13/20 16:55 Freq: Status: Active Protocol: Document 05/16/20 17:26 [facility] (Rec: 05/16/20 17:49 [facility] [id number]) Lymphedema Measurements Comments Lymphedema Comments chin to top of head 67.0cm jawline 49.6cm largest area of edema: 47.8cm base of neck 414.6cm PT-OP-Q Treatments Start: 05/13/20 16:55 Freq: Status: Active Protocol: Document 05/28/20 15:03 [facility] (Rec: 05/28/20 15:11 [facility] [id number]) Therapeutic Exercises Supine Exercises diaphragmatic breathing Supine Exercise Name Diaphragmatic breathing Reps/Minutes x 10 reps Sitting Exercises shoulder rolls Sitting Exercise Name shounder rolls Reps/Minutes x 10 Comments posterior direction shoulder blade squeeze Side bilateral Reps/Minutes 5x shoulder shrugs Side bilateral Reps/Minutes 5x Manual Therapy Treatment Soft Tissue Mobilization platysma Body Location platysma muscle Mobilization Type Myofascial Release SCM Body Location SCM and anterior neck Mobilization Type Myofascial Release Manual Techniques SCM mobilization with movement Reps/Duration x 10 reps Comments Left SCM Mobilization with movement manual cervical ROM Reps/Duration x 5 reps each direction, SB, rotation, flexion, ext PT-OP-T Assessment and Plan Start: 05/13/20 16:55 Freq: Status: Active Protocol: Document 05/28/20 15:03 [facility] (Rec: 05/28/20 15:11 [facility] [id number]) Physical Therapy Assessment Assessment Summary Assessment Pascual had a good tolerance today for MFR work and manual stretching/ROM to his left neck. He is very restricted throughout his SCM due to radiation and surgery, the platsyma muscle is also very restricted due to surgery. His posture is pulled in a head and shoulder forward direction. I worked with Pascual on Diaphragmatic breathing today to decrease use from his upper neck and encourage diaphragmatic breathing. Physical Therapy Plan Frequency and Duration Frequency of Treatment 2x/Week Duration of Treatment 8 weeks Plan of Care Start Date 05/16/20 Plan of Care End Date 07/15/20 Therapeutic Interventions Therapeutic Interventions Home Exercise Program, Lymphedema Management,Manual Therapy,Patient/Caregiver Education,Self-Care/Home Management,Soft Tissue Mobilization,Taping, Therapeutic Exercises Next Visit Focus/Plan Next Note Type Treatment Note Next Visit Plan continue to review HEP, manual stretching and MFR to the neck and chest, MLD, and compression garment discussion .
--- NOTE | 2020-06-05 16:49 | PT.OTN ---
Current Diagnoses Lymphedema, not elsewhere classified (06/05/20) Cervicalgia (06/05/20) Soft tissue disorder, unspecified (06/05/20) Abnormal posture (06/05/20) Physical Therapy Treatment Note PT-OP-A Visit Information Start: 05/13/20 16:55 Freq: Status: Active Protocol: Document 06/05/20 16:42 [facility] (Rec: 06/05/20 16:49 [facility] [id number]) Out-Patient Physical Therapy Visit Information Visit Information Visit Type Treatment Note Visit Start Time 13:50 Visit Stop Time 14:40 Total Visit Minutes 50 Visit Number 3 Evaluation Information Evaluation Date 05/16/20 PT-OP-B Current Condition Start: 05/13/20 16:55 Freq: Status: Active Protocol: Document 05/16/20 13:55 [facility] (Rec: 05/16/20 14:54 [facility] [id number]) Current Condition History of Current Condition Onset Date November 2019 Current Complaints stiffness, lymphedema neck History of Current Condition 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 Finished with 33 treatments of radiation. States the muscles so tight difficult to hold head up or look to the right. Swelling anterior neck bilaterally. Reports they tried to drain the swelling with a needle but wasn't successful Has end-stage renal disease so not doing chemo. Getting set up to do peritoneal dialysis. Was recently hospitalized for low blood sugar, 2 weeks ago hospitalized due to bradycardia. Has stopped HTN meds. Trying to manage the low blood sugar dietarily. Treatment Goals Patient/Caregiver Goals Improve his neck ROM to WNL, decrease the lymphedema anterior neck. Prior Functional Status Baseline Function- ADL's Independent Baseline Function- Mobility Independent Baseline Function- Other able to turn head fully for all activities including driving Current Functional Impairments (Reported) Functional Limitations- ADL's Difficulty holding his head up , looking up, turning head for driving PT-OP-C Subjective Start: 05/13/20 16:55 Freq: Status: Active Protocol: Document 06/05/20 16:42 [facility] (Rec: 06/05/20 16:49 [facility] [id number]) OP-PT Subjective Patient Comments Patient Comments Patient reports no problem with eating or swallowing at this time. Pinson better after last session though feels tight today. Has not ordered compression garment he was issued information about at evaluation PT-OP-J Posture/Palpation/Skin Start: 05/13/20 16:55 Freq: Status: Active Protocol: Document 05/16/20 17:26 [facility] (Rec: 05/16/20 17:49 [facility] [id number]) Posture Evaluation Position Sitting Head/C-Spine Posture Forward Head T-Spine Posture Increased Kyphosis Shoulder Posture (L) Rounded,(R) Rounded Scapula Posture (L) Protracted,(R) Protracted Palpation Assessment Location anterior neck Palpation Findings Edema,Soft Tissue Tightness Palpation Details tightness left greater than right PT-OP-K Range of Motion Start: 05/13/20 16:55 Freq: Status: Active Protocol: Document 05/16/20 17:26 [facility] (Rec: 05/16/20 17:49 [facility] [id number]) Cervical Spine Range of Motion Cervical Spine Active Testing Position Sitting Flexion 56 Extension 12 Rotation Left 35 Rotation Right 64 Lateral Flexion Left 34 Lateral Flexion Right 10 ROM Limitations Soft Tissue Tightness,Swelling PT-OP-N Lymphedema Start: 05/13/20 16:55 Freq: Status: Active Protocol: Document 05/16/20 17:26 [facility] (Rec: 05/16/20 17:49 [facility] [id number]) Lymphedema Measurements Comments Lymphedema Comments chin to top of head 67.0cm jawline 49.6cm largest area of edema: 47.8cm base of neck 414.6cm PT-OP-Q Treatments Start: 05/13/20 16:55 Freq: Status: Active Protocol: Document 06/05/20 16:42 [facility] (Rec: 06/05/20 16:49 [facility] [id number]) Therapeutic Exercises Supine Exercises diaphragmatic breathing Supine Exercise Name Diaphragmatic breathing Reps/Minutes x 10 reps Sidelying Exercises reach and roll Side bilateral Reps/Minutes 5x Comments with cervical rotation Sitting Exercises cervical extension Side bilateral Reps/Minutes 2x shoulder blade squeeze Side bilateral Reps/Minutes 5x shoulder shrugs Side bilateral Reps/Minutes 5x Manual Therapy Treatment Soft Tissue Mobilization platysma Body Location platysma muscle Mobilization Type Myofascial Release SCM Body Location SCM and anterior neck Mobilization Type Myofascial Release Manual Techniques SCM mobilization with movement Reps/Duration x 10 reps Comments Left SCM Mobilization with movement manual cervical ROM Reps/Duration x 5 reps each direction, SB, rotation, flexion, ext Lymphedema Treatment Manual Lymphatic Drainage Location anterior neck Duration 20' PT-OP-T Assessment and Plan Start: 05/13/20 16:55 Freq: Status: Active Protocol: Document 06/05/20 16:42 [facility] (Rec: 06/05/20 16:49 [facility] [id number]) Physical Therapy Assessment Goals 4 Impairment tissue fibrosis anterior and lateral (L) neck Fpc Goal (LTG) Improve soft tissue mobility anterior and lateral neck to WNL 3 Impairment postural impairment with difficulty holding head up Fpc Goal (LTG) Patient will be able to hold his head up actively throughout the day without excess fatigue or pain LTG Duration 8 wks 2 Impairment Decreased cervical ROM Dairy Products Maker Goal (LTG) Patient to return to full active motion of his neck including ability to turn head to right for safe driving LTG Duration 8 wks 1 Impairment lymphedema anterior neck Fpc Goal (LTG) Decrease lymphedema neck to stable level and patient to be fit with appropriate compression garment. Patient to demonstrate good understanding of self- management. LTG Duration 8 wks Assessment Summary Assessment No significant change in edema . Improved ROM after last PT session per his report but tightened up again. Has not obtained compression garment for his neck. Reviewed need, issued chip bag with [employer] to demonstrate what compression would fit like, can use chip bag in garment. Patient demonstrated good understanding of this as well as new exercise handout for platysma stretch and upper trunk rotation. Physical Therapy Plan Frequency and Duration Frequency of Treatment 2x/Week Duration of Treatment 8 weeks Plan of Care Start Date 05/16/20 Plan of Care End Date 07/15/20 Therapeutic Interventions Therapeutic Interventions Home Exercise Program, Lymphedema Management,Manual Therapy,Patient/Caregiver Education,Self-Care/Home Management,Soft Tissue Mobilization,Taping, Therapeutic Exercises
--- NOTE | 2020-06-11 18:08 | PT.OTN ---
Current Diagnoses Lymphedema, not elsewhere classified (06/11/20) Cervicalgia (06/11/20) Soft tissue disorder, unspecified (06/11/20) Abnormal posture (06/11/20) Physical Therapy Treatment Note PT-OP-A Visit Information Start: 05/13/20 16:55 Freq: Status: Active Protocol: Document 06/11/20 18:03 [facility] (Rec: 06/11/20 18:08 [facility] [id number]) Out-Patient Physical Therapy Visit Information Visit Information Visit Type Treatment Note Visit Start Time 13:45 Visit Stop Time 14:30 Total Visit Minutes 45 Visit Number 4 PT-OP-B Current Condition Start: 05/13/20 16:55 Freq: Status: Active Protocol: Document 05/16/20 13:55 [facility]AK (Rec: 05/16/20 14:54 [facility]AK [id number]) Current Condition History of Current Condition Onset Date November 2019 Current Complaints stiffness, lymphedema neck History of Current Condition 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 Finished with 33 treatments of radiation. States the muscles so tight difficult to hold head up or look to the right. Swelling anterior neck bilaterally. Reports they tried to drain the swelling with a needle but wasn't successful Has end-stage renal disease so not doing chemo. Getting set up to do peritoneal dialysis. Was recently hospitalized for low blood sugar, 2 weeks ago hospitalized due to bradycardia. Has stopped HTN meds. Trying to manage the low blood sugar dietarily. Treatment Goals Patient/Caregiver Goals Improve his neck ROM to WNL, decrease the lymphedema anterior neck. Prior Functional Status Baseline Function- ADL's Independent Baseline Function- Mobility Independent Baseline Function- Other able to turn head fully for all activities including driving Current Functional Impairments (Reported) Functional Limitations- ADL's Difficulty holding his head up , looking up, turning head for driving PT-OP-C Subjective Start: 05/13/20 16:55 Freq: Status: Active Protocol: Document 06/11/20 18:03 [facility] (Rec: 06/11/20 18:08 [facility] [id number]) OP-PT Subjective Patient Comments Patient Comments Patient reports he has been able to do his exercises and stretches better now. PT-OP-J Posture/Palpation/Skin Start: 05/13/20 16:55 Freq: Status: Active Protocol: Document 05/16/20 17:26 SAK (Rec: 05/16/20 17:49 [facility] [id number]) Posture Evaluation Position Sitting Head/C-Spine Posture Forward Head T-Spine Posture Increased Kyphosis Shoulder Posture (L) Rounded,(R) Rounded Scapula Posture (L) Protracted,(R) Protracted Palpation Assessment Location anterior neck Palpation Findings Edema,Soft Tissue Tightness Palpation Details tightness left greater than right PT-OP-K Range of Motion Start: 05/13/20 16:55 Freq: Status: Active Protocol: Document 05/16/20 17:26 [facility] (Rec: 05/16/20 17:49 [facility] [id number]) Cervical Spine Range of Motion Cervical Spine Active Testing Position Sitting Flexion 56 Extension 12 Rotation Left 35 Rotation Right 64 Lateral Flexion Left 34 Lateral Flexion Right 10 ROM Limitations Soft Tissue Tightness,Swelling PT-OP-N Lymphedema Start: 05/13/20 16:55 Freq: Status: Active Protocol: Document 05/16/20 17:26 [facility] (Rec: 05/16/20 17:49 [facility] [id number]) Lymphedema Measurements Comments Lymphedema Comments chin to top of head 67.0cm jawline 49.6cm largest area of edema: 47.8cm base of neck 414.6cm PT-OP-Q Treatments Start: 05/13/20 16:55 Freq: Status: Active Protocol: Document 06/11/20 18:03 [facility] (Rec: 06/11/20 18:08 [facility] [id number]) Manual Therapy Treatment Soft Tissue Mobilization pec minor release Body Location pec minor release platysma Body Location platysma muscle Mobilization Type Myofascial Release SCM Body Location SCM and anterior neck Mobilization Type Myofascial Release Manual Techniques SCM mobilization with movement Reps/Duration x 10 reps Comments Left SCM Mobilization with movement manual cervical ROM Reps/Duration x 5 reps each direction, SB, rotation, flexion, ext PT-OP-T Assessment and Plan Start: 05/13/20 16:55 Freq: Status: Active Protocol: Document 06/11/20 18:03 [facility] (Rec: 06/11/20 18:08 [facility] [id number]) Physical Therapy Assessment Assessment Summary Assessment Improved cervical spine ROM today and pt is now able to do all of his stretches including cervcial extension. I felt improve extensibility of the SCM today on the left as compared to 8/25/20 when I saw him last. Physical Therapy Plan Frequency and Duration Frequency of Treatment 2x/Week Duration of Treatment 8 weeks Plan of Care Start Date 05/16/20 Plan of Care End Date 07/15/20 Therapeutic Interventions Therapeutic Interventions Home Exercise Program, Lymphedema Management,Manual Therapy,Patient/Caregiver Education,Self-Care/Home Management,Soft Tissue Mobilization,Taping, Therapeutic Exercises Next Visit Focus/Plan Next Note Type Treatment Note Next Visit Plan continue to review HEP, manual stretching and MFR to the neck and chest, MLD, and compression garment discussion .
--- NOTE | 2020-06-18 16:41 | PT.OTN ---
Current Diagnoses Lymphedema, not elsewhere classified (06/18/20) Cervicalgia (06/18/20) Soft tissue disorder, unspecified (06/18/20) Abnormal posture (06/18/20) Physical Therapy Treatment Note PT-OP-A Visit Information Start: 05/13/20 16:55 Freq: Status: Active Protocol: Document 06/18/20 15:16 [facility] (Rec: 06/18/20 15:32 [facility] [id number]) Out-Patient Physical Therapy Visit Information Visit Information Visit Type Treatment Note Visit Start Time 15:15 Visit Stop Time 16:00 Total Visit Minutes 45 Visit Number 5 PT-OP-B Current Condition Start: 05/13/20 16:55 Freq: Status: Active Protocol: Document 05/16/20 13:55 [facility]AK (Rec: 05/16/20 14:54 SAK [id number]) Current Condition History of Current Condition Onset Date November 2019 Current Complaints stiffness, lymphedema neck History of Current Condition 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 Finished with 33 treatments of radiation. States the muscles so tight difficult to hold head up or look to the right. Swelling anterior neck bilaterally. Reports they tried to drain the swelling with a needle but wasn't successful Has end-stage renal disease so not doing chemo. Getting set up to do peritoneal dialysis. Was recently hospitalized for low blood sugar, 2 weeks ago hospitalized due to bradycardia. Has stopped HTN meds. Trying to manage the low blood sugar dietarily. Treatment Goals Patient/Caregiver Goals Improve his neck ROM to WNL, decrease the lymphedema anterior neck. Prior Functional Status Baseline Function- ADL's Independent Baseline Function- Mobility Independent Baseline Function- Other able to turn head fully for all activities including driving Current Functional Impairments (Reported) Functional Limitations- ADL's Difficulty holding his head up , looking up, turning head for driving PT-OP-C Subjective Start: 05/13/20 16:55 Freq: Status: Active Protocol: Document 06/18/20 15:16 [facility]AK (Rec: 06/18/20 15:32 [facility] [id number]) OP-PT Subjective Patient Comments Patient Comments Doing exercises 3x/day. Has ordered a compression garment. Had last hemodialysis, started peritoneal dialysis today. Reports still hard to hold his head up PT-OP-J Posture/Palpation/Skin Start: 05/13/20 16:55 Freq: Status: Active Protocol: Document 05/16/20 17:26 [facility] (Rec: 05/16/20 17:49 [facility] [id number]) Posture Evaluation Position Sitting Head/C-Spine Posture Forward Head T-Spine Posture Increased Kyphosis Shoulder Posture (L) Rounded,(R) Rounded Scapula Posture (L) Protracted,(R) Protracted Palpation Assessment Location anterior neck Palpation Findings Edema,Soft Tissue Tightness Palpation Details tightness left greater than right PT-OP-K Range of Motion Start: 05/13/20 16:55 Freq: Status: Active Protocol: Document 06/18/20 15:16 [facility] (Rec: 06/18/20 15:35 [facility] [id number]) Cervical Spine Range of Motion Cervical Spine Active Testing Position Sitting Flexion 55 Extension 27 Rotation Left 57 Rotation Right 55 Lateral Flexion Left 39 Lateral Flexion Right 14 ROM Limitations Soft Tissue Tightness,Swelling PT-OP-N Lymphedema Start: 05/13/20 16:55 Freq: Status: Active Protocol: Document 05/16/20 17:26 [facility] (Rec: 05/16/20 17:49 [facility] [id number]) Lymphedema Measurements Comments Lymphedema Comments chin to top of head 67.0cm jawline 49.6cm largest area of edema: 47.8cm base of neck 414.6cm PT-OP-Q Treatments Start: 05/13/20 16:55 Freq: Status: Active Protocol: Document 06/18/20 15:16 [facility] (Rec: 06/18/20 15:32 [facility] [id number]) Therapeutic Exercises Supine Exercises chin tuck Comments next session c/s ROM Supine Exercise Name passive all motions Comments end-range stretches including extension with HOB lowered Sidelying Exercises reach and roll Side bilateral Reps/Minutes 5x Comments with cervical rotation Standing Exercises wall posture Equipment Used pillow behind head Reps/Minutes 5x Comments verbal and manual cues row Resistance L1 TB Reps/Minutes 10x Comments verbal and manual cues for alignment Manual Therapy Treatment Soft Tissue Mobilization pec minor release Body Location pec minor release platysma Body Location platysma muscle Mobilization Type Myofascial Release SCM Body Location SCM and anterior neck Mobilization Type Myofascial Release Manual Techniques SCM mobilization with movement Reps/Duration x 10 reps Comments Left SCM Mobilization with movement manual cervical ROM Reps/Duration x 5 reps each direction, SB, rotation, flexion, ext Lymphedema Treatment Manual Lymphatic Drainage Location anterior neck Duration 20' Lymphedema Wrapping Other options until garment arrives discussed but patient prefers to wait until he receives his garment Patient Education Lymphedema Prevention verbally discussed especially no excess heat PT-OP-T Assessment and Plan Start: 05/13/20 16:55 Freq: Status: Active Protocol: Document 06/18/20 15:16 [facility]AK (Rec: 06/18/20 15:32 SAK [id number]) Physical Therapy Assessment Goals 4 Impairment tissue fibrosis anterior and lateral (L) neck Retirement Goal (LTG) Improve soft tissue mobility anterior and lateral neck to WNL 3 Impairment postural impairment with difficulty holding head up Retirement Goal (LTG) Patient will be able to hold his head up actively throughout the day without excess fatigue or pain LTG Duration 8 wks 2 Impairment Decreased cervical ROM Retirement Goal (LTG) Patient to return to full active motion of his neck including ability to turn head to right for safe driving LTG Duration 8 wks 1 Impairment lymphedema anterior neck Digital Editor Goal (LTG) Decrease lymphedema neck to stable level and patient to be fit with appropriate compression garment. Patient to demonstrate good understanding of self- management. LTG Duration 8 wks Assessment Summary Assessment Measurements showed ROM improvements, decreased palpable fibrosis, circumferential measurements variable. Should be receiving compression garment soon. kinesiotape may be helpful for scar mobilization and edema reduction. Initiated postural strengthening today. Physical Therapy Plan Frequency and Duration Frequency of Treatment 2x/Week Duration of Treatment 8 weeks Plan of Care Start Date 05/16/20 Plan of Care End Date 07/15/20 Therapeutic Interventions Therapeutic Interventions Home Exercise Program, Lymphedema Management,Manual Therapy,Patient/Caregiver Education,Self-Care/Home Management,Soft Tissue Mobilization,Taping, Therapeutic Exercises Next Visit Focus/Plan Next Note Type Treatment Note Next Visit Plan continue to review and progress HEP, manual stretching and MFR to the neck and chest, MLD, and compression garment discussion . Issue handout for row and postural isometric
--- NOTE | 2020-06-24 16:50 | PT.OTN ---
Current Diagnoses Lymphedema, not elsewhere classified (06/24/20) Cervicalgia (06/24/20) Soft tissue disorder, unspecified (06/24/20) Abnormal posture (06/24/20) Physical Therapy Treatment Note PT-OP-A Visit Information Start: 05/13/20 16:55 Freq: Status: Active Protocol: Document 06/24/20 16:42 SAK (Rec: 06/24/20 16:50 SAK [id number]) Out-Patient Physical Therapy Visit Information Visit Information Visit Type Treatment Note Visit Start Time 14:00 Visit Stop Time 14:45 Total Visit Minutes 45 Visit Number 6 PT-OP-B Current Condition Start: 05/13/20 16:55 Freq: Status: Active Protocol: Document 05/16/20 13:55 SAK (Rec: 05/16/20 14:54 SAK [id number]) Current Condition History of Current Condition Onset Date November 2019 Current Complaints stiffness, lymphedema neck History of Current Condition 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 Finished with 33 treatments of radiation. States the muscles so tight difficult to hold head up or look to the right. Swelling anterior neck bilaterally. Reports they tried to drain the swelling with a needle but wasn't successful Has end-stage renal disease so not doing chemo. Getting set up to do peritoneal dialysis. Was recently hospitalized for low blood sugar, 2 weeks ago hospitalized due to bradycardia. Has stopped HTN meds. Trying to manage the low blood sugar dietarily. Treatment Goals Patient/Caregiver Goals Improve his neck ROM to WNL, decrease the lymphedema anterior neck. Prior Functional Status Baseline Function- ADL's Independent Baseline Function- Mobility Independent Baseline Function- Other able to turn head fully for all activities including driving Current Functional Impairments (Reported) Functional Limitations- ADL's Difficulty holding his head up , looking up, turning head for driving PT-OP-C Subjective Start: 05/13/20 16:55 Freq: Status: Active Protocol: Document 06/24/20 16:42 SAK (Rec: 06/24/20 16:50 SAK [id number]) OP-PT Subjective Patient Comments Patient Comments Patient reports still hasn't received his compression garment; has been 12 days. Apologizes for missing last appointment; had issues with his dialysis. Had to cancel second appointment this week as his is having cataract surgery this week. Doing his HEP. PT-OP-J Posture/Palpation/Skin Start: 05/13/20 16:55 Freq: Status: Active Protocol: Document 05/16/20 17:26 [facility] (Rec: 05/16/20 17:49 [facility] [id number]) Posture Evaluation Position Sitting Head/C-Spine Posture Forward Head T-Spine Posture Increased Kyphosis Shoulder Posture (L) Rounded,(R) Rounded Scapula Posture (L) Protracted,(R) Protracted Palpation Assessment Location anterior neck Palpation Findings Edema,Soft Tissue Tightness Palpation Details tightness left greater than right PT-OP-K Range of Motion Start: 05/13/20 16:55 Freq: Status: Active Protocol: Document 06/18/20 15:16 [facility] (Rec: 06/18/20 15:35 [facility] [id number]) Cervical Spine Range of Motion Cervical Spine Active Testing Position Sitting Flexion 55 Extension 27 Rotation Left 57 Rotation Right 55 Lateral Flexion Left 39 Lateral Flexion Right 14 ROM Limitations Soft Tissue Tightness,Swelling PT-OP-N Lymphedema Start: 05/13/20 16:55 Freq: Status: Active Protocol: Document 05/16/20 17:26 [facility] (Rec: 05/16/20 17:49 [facility] [id number]) Lymphedema Measurements Comments Lymphedema Comments chin to top of head 67.0cm jawline 49.6cm largest area of edema: 47.8cm base of neck 414.6cm PT-OP-Q Treatments Start: 05/13/20 16:55 Freq: Status: Active Protocol: Document 06/24/20 16:42 [facility] (Rec: 06/24/20 16:50 [facility] [id number]) Therapeutic Exercises Supine Exercises chin tuck Comments HEP c/s ROM Supine Exercise Name passive all motions Comments end-range stretches including extension with HOB lowered Sidelying Exercises reach and roll Comments HEP Sitting Exercises shoulder rolls Comments HEP cervical extension Comments HEP cervical sidebending Comments HEP cervical rotation Comments HEP shoulder blade squeeze Comments HEP shoulder shrugs Comments HEP Standing Exercises wall posture Equipment Used pillow behind head Reps/Minutes 5x Comments verbal and manual cues row Comments HEP Manual Therapy Treatment Soft Tissue Mobilization scar tissue Body Location anterior neck Mobilization Type Myofascial Release,Other pec minor release Body Location pec minor release platysma Body Location platysma muscle Mobilization Type Myofascial Release Taping anterior neck Treatment Focus edema reduction Type of Tape kinesiotape Skin Inspection intact Comments patient instructed to remove if uncomfortable Lymphedema Treatment Manual Lymphatic Drainage Location anterior neck Duration 20' PT-OP-T Assessment and Plan Start: 05/13/20 16:55 Freq: Status: Active Protocol: Document 06/24/20 16:42 [facility] (Rec: 06/24/20 16:50 [facility] [id number]) Physical Therapy Assessment Goals 4 Impairment tissue fibrosis anterior and lateral (L) neck Intermediate Goal (LTG) Improve soft tissue mobility anterior and lateral neck to WNL 3 Impairment postural impairment with difficulty holding head up Intermediate Goal (LTG) Patient will be able to hold his head up actively throughout the day without excess fatigue or pain LTG Duration 8 wks 2 Impairment Decreased cervical ROM Intermediate Goal (LTG) Patient to return to full active motion of his neck including ability to turn head to right for safe driving LTG Duration 8 wks 1 Impairment lymphedema anterior neck Truck Jumper Goal (LTG) Decrease lymphedema neck to stable level and patient to be fit with appropriate compression garment. Patient to demonstrate good understanding of self- management. LTG Duration 8 wks Assessment Summary Assessment Some increase in tightness and edema noted today. Trial kinesiotape at least until patient receives compression garment. Physical Therapy Plan Frequency and Duration Frequency of Treatment 2x/Week Duration of Treatment 8 weeks Plan of Care Start Date 05/16/20 Plan of Care End Date 07/15/20 Therapeutic Interventions Therapeutic Interventions Home Exercise Program, Lymphedema Management,Manual Therapy,Patient/Caregiver Education,Self-Care/Home Management,Soft Tissue Mobilization,Taping, Therapeutic Exercises Next Visit Focus/Plan Next Note Type Treatment Note Next Visit Plan continue to review and progress HEP, manual stretching and MFR to the neck and chest, MLD, and compression garment discussion . Issue handout for row and postural isometric
--- NOTE | 2020-07-10 16:29 | PT.OTN ---
Current Diagnoses Lymphedema, not elsewhere classified (07/10/20) Cervicalgia (07/10/20) Soft tissue disorder, unspecified (07/10/20) Abnormal posture (07/10/20) Physical Therapy Treatment Note PT-OP-A Visit Information Start: 05/13/20 16:55 Freq: Status: Active Protocol: Document 07/10/20 13:44 SAK (Rec: 07/10/20 14:02 SAK [id number]) Out-Patient Physical Therapy Visit Information Visit Information Visit Type Treatment Note Visit Start Time 13:45 Visit Stop Time 14:30 Total Visit Minutes 45 Visit Number 8 Evaluation Information Evaluation Date 05/16/20 PT-OP-B Current Condition Start: 05/13/20 16:55 Freq: Status: Active Protocol: Document 05/16/20 13:55 SAK (Rec: 05/16/20 14:54 SAK [id number]) Current Condition History of Current Condition Onset Date November 2019 Current Complaints stiffness, lymphedema neck History of Current Condition 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 Finished with 33 treatments of radiation. States the muscles so tight difficult to hold head up or look to the right. Swelling anterior neck bilaterally. Reports they tried to drain the swelling with a needle but wasn't successful Has end-stage renal disease so not doing chemo. Getting set up to do peritoneal dialysis. Was recently hospitalized for low blood sugar, 2 weeks ago hospitalized due to bradycardia. Has stopped HTN meds. Trying to manage the low blood sugar dietarily. Treatment Goals Patient/Caregiver Goals Improve his neck ROM to WNL, decrease the lymphedema anterior neck. Prior Functional Status Baseline Function- ADL's Independent Baseline Function- Mobility Independent Baseline Function- Other able to turn head fully for all activities including driving Current Functional Impairments (Reported) Functional Limitations- ADL's Difficulty holding his head up , looking up, turning head for driving PT-OP-C Subjective Start: 05/13/20 16:55 Freq: Status: Active Protocol: Document 07/10/20 13:44 SAK (Rec: 07/10/20 14:02 SAK [id number]) OP-PT Subjective Patient Comments Patient Comments Sees Dr. Connors on 07/12/20. Head garment makes me feel like someone is strangling him at night, needs larger size. Feels kinesiotape helpful. PT-OP-J Posture/Palpation/Skin Start: 05/13/20 16:55 Freq: Status: Active Protocol: Document 05/16/20 17:26 SAK (Rec: 05/16/20 17:49 SAK [id number]) Posture Evaluation Position Sitting Head/C-Spine Posture Forward Head T-Spine Posture Increased Kyphosis Shoulder Posture (L) Rounded,(R) Rounded Scapula Posture (L) Protracted,(R) Protracted Palpation Assessment Location anterior neck Palpation Findings Edema,Soft Tissue Tightness Palpation Details tightness left greater than right PT-OP-K Range of Motion Start: 05/13/20 16:55 Freq: Status: Active Protocol: Document 06/18/20 15:16 SAK (Rec: 06/18/20 15:35 SAK [id number]) Cervical Spine Range of Motion Cervical Spine Active Testing Position Sitting Flexion 55 Extension 27 Rotation Left 57 Rotation Right 55 Lateral Flexion Left 39 Lateral Flexion Right 14 ROM Limitations Soft Tissue Tightness,Swelling PT-OP-N Lymphedema Start: 05/13/20 16:55 Freq: Status: Active Protocol: Document 07/10/20 13:44 SAK (Rec: 07/10/20 14:02 SAK [id number]) Lymphedema Measurements Comments Lymphedema Comments chin to top of head:65.0 Jawline: 50.1 largest area of edema: 48.3 base of neck: 42.6 PT-OP-Q Treatments Start: 05/13/20 16:55 Freq: Status: Active Protocol: Document 07/10/20 13:44 SAK (Rec: 07/10/20 14:02 SAK [id number]) Therapeutic Exercises Supine Exercises postural isometric Reps/Minutes 5x chin tuck Reps/Minutes 5x c/s ROM Supine Exercise Name passive all motions Comments end-range stretches including extension with HOB lowered Manual Therapy Treatment Soft Tissue Mobilization scar tissue Body Location anterior neck Mobilization Type Myofascial Release,Rolling, Other Taping anterior neck Treatment Focus edema reduction Type of Tape kinesiotape Skin Inspection intact Comments patient instructed to remove if uncomfortable PT-OP-T Assessment and Plan Start: 05/13/20 16:55 Freq: Status: Active Protocol: Document 07/10/20 13:44 SAK (Rec: 07/10/20 14:02 SAK [id number]) Physical Therapy Assessment Goals 4 Impairment tissue fibrosis anterior and lateral (L) neck Machine Ii Coremaker Goal (LTG) Improve soft tissue mobility anterior and lateral neck to WNL 3 Impairment postural impairment with difficulty holding head up Machine Ii Coremaker Goal (LTG) Patient will be able to hold his head up actively throughout the day without excess fatigue or pain LTG Duration 8 wks 2 Impairment Decreased cervical ROM Shelter Goal (LTG) Patient to return to full active motion of his neck including ability to turn head to right for safe driving LTG Duration 8 wks 1 Impairment lymphedema anterior neck Machine Ii Coremaker Goal (LTG) Decrease lymphedema neck to stable level and patient to be fit with appropriate compression garment. Patient to demonstrate good understanding of self- management. LTG Duration 8 wks Assessment Summary Assessment Patient edema decreased with kinesiotape per his report, though hasn't worn for a couple days. Circumferential measurements increased today. Patient appears to need larger compression garment so will order today, PT will evaluate and use foam as needed for adequate compression. Good release of SCM today, reduction of lymphedema noted after PT. Physical Therapy Plan Frequency and Duration Frequency of Treatment 2x/Week Duration of Treatment 8 weeks Plan of Care Start Date 05/16/20 Plan of Care End Date 07/15/20 Therapeutic Interventions Therapeutic Interventions Home Exercise Program, Lymphedema Management,Manual Therapy,Patient/Caregiver Education,Self-Care/Home Management,Soft Tissue Mobilization,Taping, Therapeutic Exercises Next Visit Focus/Plan Next Note Type Treatment Note Next Visit Plan Assess response to wearing of compression garment, continue lymphedema management including MLD, soft tissue mobilization techniques, ROM. Circumferential measurements
--- NOTE | 2020-07-23 16:20 | PT.OTN ---
Current Diagnoses Lymphedema, not elsewhere classified (07/23/20) Cervicalgia (07/23/20) Soft tissue disorder, unspecified (07/23/20) Abnormal posture (07/23/20) Physical Therapy Treatment Note PT-OP-A Visit Information Start: 05/13/20 16:55 Freq: Status: Active Protocol: Document 07/23/20 13:45 SAK (Rec: 07/23/20 14:00 SAK [id number]) Out-Patient Physical Therapy Visit Information Visit Information Visit Type Treatment Note Visit Start Time 13:45 Visit Stop Time 14:30 Total Visit Minutes 45 Visit Number 9 Evaluation Information Evaluation Date 05/16/20 PT-OP-B Current Condition Start: 05/13/20 16:55 Freq: Status: Active Protocol: Document 05/16/20 13:55 SAK (Rec: 05/16/20 14:54 SAK [id number]) Current Condition History of Current Condition Onset Date November 2019 Current Complaints stiffness, lymphedema neck History of Current Condition 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 Finished with 33 treatments of radiation. States the muscles so tight difficult to hold head up or look to the right. Swelling anterior neck bilaterally. Reports they tried to drain the swelling with a needle but wasn't successful Has end-stage renal disease so not doing chemo. Getting set up to do peritoneal dialysis. Was recently hospitalized for low blood sugar, 2 weeks ago hospitalized due to bradycardia. Has stopped HTN meds. Trying to manage the low blood sugar dietarily. Treatment Goals Patient/Caregiver Goals Improve his neck ROM to WNL, decrease the lymphedema anterior neck. Prior Functional Status Baseline Function- ADL's Independent Baseline Function- Mobility Independent Baseline Function- Other able to turn head fully for all activities including driving Current Functional Impairments (Reported) Functional Limitations- ADL's Difficulty holding his head up , looking up, turning head for driving PT-OP-C Subjective Start: 05/13/20 16:55 Freq: Status: Active Protocol: Document 07/23/20 13:45 SAK (Rec: 07/23/20 14:00 SAK [id number]) OP-PT Subjective Patient Comments Patient Comments Dr. Shoemaker states his treatments for nightime dialysis going well. Saw Dr. Agee regarding his cheek, looks good. Discussed his tremors worsening and difficulty with balance. With new size compression garment reports he still feels like he is being strangled if wears at night as recommended, has not tried adjusting the velcro . PT-OP-J Posture/Palpation/Skin Start: 05/13/20 16:55 Freq: Status: Active Protocol: Document 05/16/20 17:26 SAK (Rec: 05/16/20 17:49 SAK [id number]) Posture Evaluation Position Sitting Head/C-Spine Posture Forward Head T-Spine Posture Increased Kyphosis Shoulder Posture (L) Rounded,(R) Rounded Scapula Posture (L) Protracted,(R) Protracted Palpation Assessment Location anterior neck Palpation Findings Edema,Soft Tissue Tightness Palpation Details tightness left greater than right PT-OP-K Range of Motion Start: 05/13/20 16:55 Freq: Status: Active Protocol: Document 06/18/20 15:16 SAK (Rec: 06/18/20 15:35 SAK [id number]) Cervical Spine Range of Motion Cervical Spine Active Testing Position Sitting Flexion 55 Extension 27 Rotation Left 57 Rotation Right 55 Lateral Flexion Left 39 Lateral Flexion Right 14 ROM Limitations Soft Tissue Tightness,Swelling PT-OP-N Lymphedema Start: 05/13/20 16:55 Freq: Status: Active Protocol: Document 07/10/20 13:44 SAK (Rec: 07/10/20 14:02 [facility] [id number]) Lymphedema Measurements Comments Lymphedema Comments chin to top of head:65.0 Jawline: 50.1 largest area of edema: 48.3 base of neck: 42.6 PT-OP-Q Treatments Start: 05/13/20 16:55 Freq: Status: Active Protocol: Document 07/23/20 13:45 [facility] (Rec: 07/23/20 14:00 [facility] [id number]) Manual Therapy Treatment Soft Tissue Mobilization scar tissue Body Location anterior neck Mobilization Type Myofascial Release,Rolling, Other platysma Body Location platysma muscle Mobilization Type Myofascial Release SCM Body Location SCM and anterior neck Mobilization Type Myofascial Release Lymphedema Treatment Manual Lymphatic Drainage Location anterior neck Duration 20' PT-OP-T Assessment and Plan Start: 05/13/20 16:55 Freq: Status: Active Protocol: Document 07/23/20 13:45 SAK (Rec: 07/23/20 14:00 [facility] [id number]) Physical Therapy Assessment Goals 4 Impairment tissue fibrosis anterior and lateral (L) neck Lacquer Coater Goal (LTG) Improve soft tissue mobility anterior and lateral neck to WNL 07/23/20: goal progress, not fully achieved. LTG Duration 09/21/20 3 Impairment postural impairment with difficulty holding head up Lacquer Coater Goal (LTG) Patient will be able to hold his head up actively throughout the day without excess fatigue or pain 07/23/20: goal progress, has difficulty holding head up. Compliant to HEP. LTG Duration 09/21/20 2 Impairment Decreased cervical ROM Half-Way Goal (LTG) Patient to return to full active motion of his neck including ability to turn head to right for safe driving 07/23/20: goal progress, not fully achieved LTG Duration 09/21/20 1 Impairment lymphedema anterior neck Lacquer Coater Goal (LTG) Decrease lymphedema neck to stable level and patient to be fit with appropriate compression garment. Patient to demonstrate good understanding of self- management. 07/23/20: goal progress. Still problem-solving compression garment, patient ordered larger garment, will try to wear during day as doesn't tolerate at night. Has potential for further edema reduction LTG Duration 09/21/20 Assessment Summary Assessment Patient making progress in all goal areas but would benefit from further skilled PT to help him to fully achieve his therapy goals. If current compression garment doesn't work will refer him to [facility] in [place] for further consult and problem solving an appropriate garment. Physical Therapy Plan Frequency and Duration Frequency of Treatment 2x/Week Duration of Treatment 8 weeks Plan of Care Start Date 07/23/20 Plan of Care End Date 09/21/20 Therapeutic Interventions Therapeutic Interventions Home Exercise Program, Lymphedema Management,Manual Therapy,Patient/Caregiver Education,Self-Care/Home Management,Soft Tissue Mobilization,Taping, Therapeutic Exercises Next Visit Focus/Plan Next Note Type Treatment Note Next Visit Plan Circumferential measurements. Assess response to wearing of compression garment during the day, use of chip bag. Continue lymphedema management including MLD, soft tissue mobilization, ROM and postural correction.
--- NOTE | 2020-07-23 16:21 | PT.OPPOC ---
Physical, Occupational & Speech Therapy At [facility] Current Diagnoses Lymphedema, not elsewhere classified (07/23/20) Cervicalgia (07/23/20) Soft tissue disorder, unspecified (07/23/20) Abnormal posture (07/23/20) Visit Care Team Role Provider Type Marii Daly MD Family Provider Physician Primary Care Provider Specialty: Internal Medicine Address: [address] [place] [address], [id number] Email: [email or web address] Edvin gAee MD Attending Provider Physician Referring Provider Specialty: Ear, Nose, Throat Address: [address] [place] [address], [place], [address] Email: [email or web address] Plan Of Care PT-OP-T Assessment and Plan Start: 05/13/20 16:55 Freq: Status: Active Protocol: Document 07/23/20 13:45 SAK (Rec: 07/23/20 14:00 SAK [id number]) Physical Therapy Assessment Goals 4 Impairment tissue fibrosis anterior and lateral (L) neck Assisted Goal (LTG) Improve soft tissue mobility anterior and lateral neck to WNL 07/23/20: goal progress, not fully achieved. LTG Duration 09/21/20 3 Impairment postural impairment with difficulty holding head up Filtrose Crusher Goal (LTG) Patient will be able to hold his head up actively throughout the day without excess fatigue or pain 07/23/20: goal progress, has difficulty holding head up. Compliant to HEP. LTG Duration 09/21/20 2 Impairment Decreased cervical ROM Assisted Goal (LTG) Patient to return to full active motion of his neck including ability to turn head to right for safe driving 07/23/20: goal progress, not fully achieved LTG Duration 09/21/20 1 Impairment lymphedema anterior neck Assisted Goal (LTG) Decrease lymphedema neck to stable level and patient to be fit with appropriate compression garment. Patient to demonstrate good understanding of self- management. 07/23/20: goal progress. Still problem-solving compression garment, patient ordered larger garment, will try to wear during day as doesn't tolerate at night. Has potential for further edema reduction LTG Duration 09/21/20 Assessment Summary Assessment Patient making progress in all goal areas but would benefit from further skilled PT to help him to fully achieve his therapy goals. If current compression garment doesn't work will refer him to [facility] in [place] for further consult and problem solving an appropriate garment. Physical Therapy Plan Frequency and Duration Frequency of Treatment 2x/Week Duration of Treatment 8 weeks Plan of Care Start Date 07/23/20 Plan of Care End Date 09/21/20 Therapeutic Interventions Therapeutic Interventions Home Exercise Program, Lymphedema Management,Manual Therapy,Patient/Caregiver Education,Self-Care/Home Management,Soft Tissue Mobilization,Taping, Therapeutic Exercises Next Visit Focus/Plan Next Note Type Treatment Note Next Visit Plan Circumferential measurements. Assess response to wearing of compression garment during the day, use of chip bag. Continue lymphedema management including MLD, soft tissue mobilization, ROM and postural correction. Plan of Care Dates Plan of Care Start Date 07/23/20 Plan of Care End Date 09/21/20 Electronically Signed by: Rosa M Kwok, PT 07/23/20 [id number] Please Sign and Return: I have reviewed this Plan of Care and certify that the skilled therapy services above are required to meet the patient?s needs. Physician Signature Date Printed Name and Credentials Clinical Instructor Signature Printed Name and Credentials
--- NOTE | 2020-07-29 15:30 | PT.OTN ---
Current Diagnoses Lymphedema, not elsewhere classified (07/25/20) Cervicalgia (07/25/20) Soft tissue disorder, unspecified (07/25/20) Abnormal posture (07/25/20) Physical Therapy Treatment Note PT-OP-A Visit Information Start: 05/13/20 16:55 Freq: Status: Active Protocol: Document 07/25/20 13:42 SAK (Rec: 07/25/20 13:53 SAK [id number]) Out-Patient Physical Therapy Visit Information Visit Information Visit Type Treatment Note Visit Start Time 13:45 Visit Stop Time 14:30 Total Visit Minutes 45 Visit Number 10 Evaluation Information Evaluation Date 05/16/20 PT-OP-B Current Condition Start: 05/13/20 16:55 Freq: Status: Active Protocol: Document 05/16/20 13:55 SAK (Rec: 05/16/20 14:54 SAK [id number]) Current Condition History of Current Condition Onset Date November 2019 Current Complaints stiffness, lymphedema neck History of Current Condition 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 Finished with 33 treatments of radiation. States the muscles so tight difficult to hold head up or look to the right. Swelling anterior neck bilaterally. Reports they tried to drain the swelling with a needle but wasn't successful Has end-stage renal disease so not doing chemo. Getting set up to do peritoneal dialysis. Was recently hospitalized for low blood sugar, 2 weeks ago hospitalized due to bradycardia. Has stopped HTN meds. Trying to manage the low blood sugar dietarily. Treatment Goals Patient/Caregiver Goals Improve his neck ROM to WNL, decrease the lymphedema anterior neck. Prior Functional Status Baseline Function- ADL's Independent Baseline Function- Mobility Independent Baseline Function- Other able to turn head fully for all activities including driving Current Functional Impairments (Reported) Functional Limitations- ADL's Difficulty holding his head up , looking up, turning head for driving PT-OP-C Subjective Start: 05/13/20 16:55 Freq: Status: Active Protocol: Document 07/25/20 13:42 SAK (Rec: 07/25/20 13:53 SAK [id number]) OP-PT Subjective Patient Comments Patient Comments Wore compression garment part of night; improved tolerance. PT-OP-J Posture/Palpation/Skin Start: 05/13/20 16:55 Freq: Status: Active Protocol: Document 05/16/20 17:26 SAK (Rec: 05/16/20 17:49 [facility] [id number]) Posture Evaluation Position Sitting Head/C-Spine Posture Forward Head T-Spine Posture Increased Kyphosis Shoulder Posture (L) Rounded,(R) Rounded Scapula Posture (L) Protracted,(R) Protracted Palpation Assessment Location anterior neck Palpation Findings Edema,Soft Tissue Tightness Palpation Details tightness left greater than right PT-OP-K Range of Motion Start: 05/13/20 16:55 Freq: Status: Active Protocol: Document 06/18/20 15:16 SAK (Rec: 06/18/20 15:35 SAK [id number]) Cervical Spine Range of Motion Cervical Spine Active Testing Position Sitting Flexion 55 Extension 27 Rotation Left 57 Rotation Right 55 Lateral Flexion Left 39 Lateral Flexion Right 14 ROM Limitations Soft Tissue Tightness,Swelling PT-OP-N Lymphedema Start: 05/13/20 16:55 Freq: Status: Active Protocol: Document 07/10/20 13:44 SAK (Rec: 07/10/20 14:02 [facility] [id number]) Lymphedema Measurements Comments Lymphedema Comments chin to top of head:65.0 Jawline: 50.1 largest area of edema: 48.3 base of neck: 42.6 PT-OP-Q Treatments Start: 05/13/20 16:55 Freq: Status: Active Protocol: Document 07/25/20 13:42 SAK (Rec: 07/25/20 13:58 [facility] [id number]) Therapeutic Exercises Sitting Exercises cervical extension Reps/Minutes 5x Comments with shoulder horizontal abduction for pec and ant chest stretch cervical sidebending Reps/Minutes 5x cervical rotation Reps/Minutes 5x Standing Exercises shoulder extension Resistance L1 TB Reps/Minutes 10x wall posture Equipment Used pillow behind head Reps/Minutes 5x Comments verbal and manual cues row Resistance L1 TB Reps/Minutes 10x Manual Therapy Treatment Soft Tissue Mobilization scar tissue Body Location anterior neck Mobilization Type Myofascial Release,Rolling, Other platysma Body Location platysma muscle Mobilization Type Myofascial Release SCM Body Location SCM and anterior neck Mobilization Type Myofascial Release Lymphedema Treatment Manual Lymphatic Drainage Location anterior neck Duration 20' PT-OP-T Assessment and Plan Start: 05/13/20 16:55 Freq: Status: Active Protocol: Document 07/25/20 13:42 SAK (Rec: 07/25/20 13:53 [facility] [id number]) Physical Therapy Assessment Goals 4 Impairment tissue fibrosis anterior and lateral (L) neck Windlace Machine Operator Goal (LTG) Improve soft tissue mobility anterior and lateral neck to WNL 07/23/20: goal progress, not fully achieved. LTG Duration 09/21/20 3 Impairment postural impairment with difficulty holding head up Windlace Machine Operator Goal (LTG) Patient will be able to hold his head up actively throughout the day without excess fatigue or pain 07/23/20: goal progress, has difficulty holding head up. Compliant to HEP. LTG Duration 09/21/20 2 Impairment Decreased cervical ROM Windlace Machine Operator Goal (LTG) Patient to return to full active motion of his neck including ability to turn head to right for safe driving 07/23/20: goal progress, not fully achieved LTG Duration 09/21/20 1 Impairment lymphedema anterior neck [facility] Goal (LTG) Decrease lymphedema neck to stable level and patient to be fit with appropriate compression garment. Patient to demonstrate good understanding of self- management. 07/23/20: goal progress. Still problem-solving compression garment, patient ordered larger garment, will try to wear during day as doesn't tolerate at night. Has potential for further edema reduction LTG Duration 09/21/20 Assessment Summary Assessment Decreased circumferential measurement at area of largest swelling today. Patient continues to have difficulty with keeping head held up. Added further postural exercises. Physical Therapy Plan Frequency and Duration Frequency of Treatment 2x/Week Duration of Treatment 8 weeks Plan of Care Start Date 07/23/20 Plan of Care End Date 09/21/20 Therapeutic Interventions Therapeutic Interventions Home Exercise Program, Lymphedema Management,Manual Therapy,Patient/Caregiver Education,Self-Care/Home Management,Soft Tissue Mobilization,Taping, Therapeutic Exercises Next Visit Focus/Plan Next Note Type Treatment Note Next Visit Plan Circumferential measurements. Continue lymphedema management including MLD, soft tissue mobilization, ROM and postural correction. Continue to assess any need for further compression
--- NOTE | 2020-08-01 14:17 | PT.OTN ---
Current Diagnoses Lymphedema, not elsewhere classified (08/01/20) Cervicalgia (08/01/20) Soft tissue disorder, unspecified (08/01/20) Abnormal posture (08/01/20) Physical Therapy Treatment Note PT-OP-A Visit Information Start: 05/13/20 16:55 Freq: Status: Active Protocol: Document 08/01/20 14:11 SAK (Rec: 08/01/20 14:16 SAK [id number]) Out-Patient Physical Therapy Visit Information Visit Information Visit Type Treatment Note Visit Start Time 13:45 Visit Stop Time 14:30 Total Visit Minutes 45 Visit Number 11 Evaluation Information Evaluation Date 05/16/20 PT-OP-B Current Condition Start: 05/13/20 16:55 Freq: Status: Active Protocol: Document 05/16/20 13:55 SAK (Rec: 05/16/20 14:54 SAK [id number]) Current Condition History of Current Condition Onset Date November 2019 Current Complaints stiffness, lymphedema neck History of Current Condition 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 Finished with 33 treatments of radiation. States the muscles so tight difficult to hold head up or look to the right. Swelling anterior neck bilaterally. Reports they tried to drain the swelling with a needle but wasn't successful Has end-stage renal disease so not doing chemo. Getting set up to do peritoneal dialysis. Was recently hospitalized for low blood sugar, 2 weeks ago hospitalized due to bradycardia. Has stopped HTN meds. Trying to manage the low blood sugar dietarily. Treatment Goals Patient/Caregiver Goals Improve his neck ROM to WNL, decrease the lymphedema anterior neck. Prior Functional Status Baseline Function- ADL's Independent Baseline Function- Mobility Independent Baseline Function- Other able to turn head fully for all activities including driving Current Functional Impairments (Reported) Functional Limitations- ADL's Difficulty holding his head up , looking up, turning head for driving PT-OP-C Subjective Start: 05/13/20 16:55 Freq: Status: Active Protocol: Document 08/01/20 14:11 SAK (Rec: 08/01/20 14:16 SAK [id number]) OP-PT Subjective Patient Comments Patient Comments Feels his swelling is better, in the front region of his most swollen area. PT-OP-J Posture/Palpation/Skin Start: 05/13/20 16:55 Freq: Status: Active Protocol: Document 05/16/20 17:26 [facility] (Rec: 05/16/20 17:49 [facility] [id number]) Posture Evaluation Position Sitting Head/C-Spine Posture Forward Head T-Spine Posture Increased Kyphosis Shoulder Posture (L) Rounded,(R) Rounded Scapula Posture (L) Protracted,(R) Protracted Palpation Assessment Location anterior neck Palpation Findings Edema,Soft Tissue Tightness Palpation Details tightness left greater than right PT-OP-K Range of Motion Start: 05/13/20 16:55 Freq: Status: Active Protocol: Document 06/18/20 15:16 SAK (Rec: 06/18/20 15:35 [facility] [id number]) Cervical Spine Range of Motion Cervical Spine Active Testing Position Sitting Flexion 55 Extension 27 Rotation Left 57 Rotation Right 55 Lateral Flexion Left 39 Lateral Flexion Right 14 ROM Limitations Soft Tissue Tightness,Swelling PT-OP-N Lymphedema Start: 05/13/20 16:55 Freq: Status: Active Protocol: Document 07/10/20 13:44 [facility] (Rec: 07/10/20 14:02 [facility] [id number]) Lymphedema Measurements Comments Lymphedema Comments chin to top of head:65.0 Jawline: 50.1 largest area of edema: 48.3 base of neck: 42.6 PT-OP-Q Treatments Start: 05/13/20 16:55 Freq: Status: Active Protocol: Document 08/01/20 14:11 [facility] (Rec: 08/01/20 14:16 [facility] [id number]) Manual Therapy Treatment Soft Tissue Mobilization platysma Body Location platysma muscle Mobilization Type Myofascial Release SCM Body Location SCM and anterior neck Mobilization Type Myofascial Release Lymphedema Treatment Manual Lymphatic Drainage Location anterior neck Duration 20' Patient Education Compression Garments patient to contact [employer] for possible different garment Self Manual Lymphatic Drainage reviewed PT-OP-T Assessment and Plan Start: 05/13/20 16:55 Freq: Status: Active Protocol: Document 08/01/20 14:11 [facility] (Rec: 08/01/20 14:16 [facility] [id number]) Physical Therapy Assessment Goals 4 Impairment tissue fibrosis anterior and lateral (L) neck Elevator Service Mechanic Goal (LTG) Improve soft tissue mobility anterior and lateral neck to WNL 07/23/20: goal progress, not fully achieved. LTG Duration 09/21/20 3 Impairment postural impairment with difficulty holding head up Elevator Service Mechanic Goal (LTG) Patient will be able to hold his head up actively throughout the day without excess fatigue or pain 07/23/20: goal progress, has difficulty holding head up. Compliant to HEP. LTG Duration 09/21/20 2 Impairment Decreased cervical ROM Assisted Goal (LTG) Patient to return to full active motion of his neck including ability to turn head to right for safe driving 07/23/20: goal progress, not fully achieved LTG Duration 09/21/20 1 Impairment lymphedema anterior neck Elevator Service Mechanic Goal (LTG) Decrease lymphedema neck to stable level and patient to be fit with appropriate compression garment. Patient to demonstrate good understanding of self- management. 07/23/20: goal progress. Still problem-solving compression garment, patient ordered larger garment, will try to wear during day as doesn't tolerate at night. Has potential for further edema reduction LTG Duration 09/21/20 Physical Therapy Plan Frequency and Duration Frequency of Treatment 2x/Week Duration of Treatment 8 weeks Plan of Care Start Date 07/23/20 Plan of Care End Date 09/21/20 Therapeutic Interventions Therapeutic Interventions Home Exercise Program, Lymphedema Management,Manual Therapy,Patient/Caregiver Education,Self-Care/Home Management,Soft Tissue Mobilization,Taping, Therapeutic Exercises Next Visit Focus/Plan Next Note Type Treatment Note Next Visit Plan Circumferential measurements. Continue lymphedema management including MLD, soft tissue mobilization, ROM and postural correction. Continue to assess any need for further compression
--- NOTE | 2020-08-13 16:48 | PT.OTN ---
Current Diagnoses Lymphedema, not elsewhere classified (08/13/20) Cervicalgia (08/13/20) Soft tissue disorder, unspecified (08/13/20) Abnormal posture (08/13/20) Physical Therapy Treatment Note PT-OP-A Visit Information Start: 05/13/20 16:55 Freq: Status: Active Protocol: Document 08/13/20 12:59 SAK (Rec: 08/13/20 13:14 SAK [id number]) Out-Patient Physical Therapy Visit Information Visit Information Visit Type Treatment Note Visit Start Time 13:00 Visit Stop Time 13:45 Total Visit Minutes 45 Visit Number 12 Evaluation Information Evaluation Date 05/16/20 PT-OP-B Current Condition Start: 05/13/20 16:55 Freq: Status: Active Protocol: Document 05/16/20 13:55 SAK (Rec: 05/16/20 14:54 SAK [id number]) Current Condition History of Current Condition Onset Date November 2019 Current Complaints stiffness, lymphedema neck History of Current Condition 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 Finished with 33 treatments of radiation. States the muscles so tight difficult to hold head up or look to the right. Swelling anterior neck bilaterally. Reports they tried to drain the swelling with a needle but wasn't successful Has end-stage renal disease so not doing chemo. Getting set up to do peritoneal dialysis. Was recently hospitalized for low blood sugar, 2 weeks ago hospitalized due to bradycardia. Has stopped HTN meds. Trying to manage the low blood sugar dietarily. Treatment Goals Patient/Caregiver Goals Improve his neck ROM to WNL, decrease the lymphedema anterior neck. Prior Functional Status Baseline Function- ADL's Independent Baseline Function- Mobility Independent Baseline Function- Other able to turn head fully for all activities including driving Current Functional Impairments (Reported) Functional Limitations- ADL's Difficulty holding his head up , looking up, turning head for driving PT-OP-C Subjective Start: 05/13/20 16:55 Freq: Status: Active Protocol: Document 08/13/20 12:59 SAK (Rec: 08/13/20 16:48 SAK [id number]) OP-PT Subjective Patient Comments Patient Comments Doesn't feel his swelling has reducted any further since last seen. PT-OP-J Posture/Palpation/Skin Start: 05/13/20 16:55 Freq: Status: Active Protocol: Document 05/16/20 17:26 [facility] (Rec: 05/16/20 17:49 [facility] [id number]) Posture Evaluation Position Sitting Head/C-Spine Posture Forward Head T-Spine Posture Increased Kyphosis Shoulder Posture (L) Rounded,(R) Rounded Scapula Posture (L) Protracted,(R) Protracted Palpation Assessment Location anterior neck Palpation Findings Edema,Soft Tissue Tightness Palpation Details tightness left greater than right PT-OP-K Range of Motion Start: 05/13/20 16:55 Freq: Status: Active Protocol: Document 08/13/20 12:59 [facility] (Rec: 08/13/20 13:14 [facility] [id number]) Cervical Spine Range of Motion Cervical Spine Active Testing Position Sitting Flexion 55 Extension 27 Rotation Left 57 Rotation Right 55 Lateral Flexion Left 45 Lateral Flexion Right 17 ROM Limitations Soft Tissue Tightness,Swelling Comments radoatopm fobrpsos PT-OP-N Lymphedema Start: 05/13/20 16:55 Freq: Status: Active Protocol: Document 07/10/20 13:44 [facility] (Rec: 07/10/20 14:02 [facility] [id number]) Lymphedema Measurements Comments Lymphedema Comments chin to top of head:65.0 Jawline: 50.1 largest area of edema: 48.3 base of neck: 42.6 PT-OP-Q Treatments Start: 05/13/20 16:55 Freq: Status: Active Protocol: Document 08/13/20 12:59 [facility] (Rec: 08/13/20 16:48 [facility] [id number]) Manual Therapy Treatment Soft Tissue Mobilization scar tissue Body Location anterior neck Mobilization Type Myofascial Release,Rolling, Other platysma Body Location platysma muscle Mobilization Type Myofascial Release SCM Body Location SCM and anterior neck Mobilization Type Myofascial Release Manual Techniques SCM mobilization with movement Reps/Duration x 10 reps Comments Left SCM Mobilization with movement manual cervical ROM Reps/Duration x 5 reps each direction, SB, rotation, flexion, ext Lymphedema Treatment Manual Lymphatic Drainage Location anterior neck, left face Duration 20' Patient Education Self Manual Lymphatic Drainage given information about video PT-OP-T Assessment and Plan Start: 05/13/20 16:55 Freq: Status: Active Protocol: Document 08/13/20 12:59 [facility] (Rec: 08/13/20 13:14 SAK [id number]) Physical Therapy Assessment Goals 4 Impairment tissue fibrosis anterior and lateral (L) neck Field Radio Technician Goal (LTG) Improve soft tissue mobility anterior and lateral neck to WNL 07/23/20: goal progress, not fully achieved. LTG Duration 09/21/20 3 Impairment postural impairment with difficulty holding head up [facility] Goal (LTG) Patient will be able to hold his head up actively throughout the day without excess fatigue or pain 07/23/20: goal progress, has difficulty holding head up. Compliant to HEP. LTG Duration 09/21/20 2 Impairment Decreased cervical ROM [facility] Goal (LTG) Patient to return to full active motion of his neck including ability to turn head to right for safe driving 07/23/20: goal progress, not fully achieved LTG Duration 09/21/20 1 Impairment lymphedema anterior neck [facility] Goal (LTG) Decrease lymphedema neck to stable level and patient to be fit with appropriate compression garment. Patient to demonstrate good understanding of self- management. 07/23/20: goal progress. Still problem-solving compression garment, patient ordered larger garment, will try to wear during day as doesn't tolerate at night. Has potential for further edema reduction LTG Duration 09/21/20 Assessment Summary Assessment No further decrease in edema today, c/s ROM increased slightly. REviewed proper fit of compression garment and chip bag, and encouraged patient to use some during the day, consider swell spot purchase. Physical Therapy Plan Frequency and Duration Frequency of Treatment 2x/Week Duration of Treatment 8 weeks Plan of Care Start Date 07/23/20 Plan of Care End Date 09/21/20 Therapeutic Interventions Therapeutic Interventions Home Exercise Program, Lymphedema Management,Manual Therapy,Patient/Caregiver Education,Self-Care/Home Management,Soft Tissue Mobilization,Taping, Therapeutic Exercises Next Visit Focus/Plan Next Note Type Treatment Note Next Visit Plan Circumferential measurements. Continue lymphedema management including MLD, soft tissue mobilization, ROM and postural correction. Continue to assess any need for further compression
--- NOTE | 2020-09-02 16:15 | PT.OTN ---
Current Diagnoses Lymphedema, not elsewhere classified (09/02/20) Cervicalgia (09/02/20) Soft tissue disorder, unspecified (09/02/20) Abnormal posture (09/02/20) Physical Therapy Treatment Note PT-OP-A Visit Information Start: 05/13/20 16:55 Freq: Status: Active Protocol: Document 09/02/20 15:17 SAK (Rec: 09/02/20 15:28 SAK [id number]) Out-Patient Physical Therapy Visit Information Visit Information Visit Type Treatment Note Visit Start Time 15:15 Visit Stop Time 16:00 Total Visit Minutes 45 Visit Number 13 Evaluation Information Evaluation Date 05/16/20 PT-OP-B Current Condition Start: 05/13/20 16:55 Freq: Status: Active Protocol: Document 05/16/20 13:55 SAK (Rec: 05/16/20 14:54 SAK [id number]) Current Condition History of Current Condition Onset Date November 2019 Current Complaints stiffness, lymphedema neck History of Current Condition 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 Finished with 33 treatments of radiation. States the muscles so tight difficult to hold head up or look to the right. Swelling anterior neck bilaterally. Reports they tried to drain the swelling with a needle but wasn't successful Has end-stage renal disease so not doing chemo. Getting set up to do peritoneal dialysis. Was recently hospitalized for low blood sugar, 2 weeks ago hospitalized due to bradycardia. Has stopped HTN meds. Trying to manage the low blood sugar dietarily. Treatment Goals Patient/Caregiver Goals Improve his neck ROM to WNL, decrease the lymphedema anterior neck. Prior Functional Status Baseline Function- ADL's Independent Baseline Function- Mobility Independent Baseline Function- Other able to turn head fully for all activities including driving Current Functional Impairments (Reported) Functional Limitations- ADL's Difficulty holding his head up , looking up, turning head for driving PT-OP-C Subjective Start: 05/13/20 16:55 Freq: Status: Active Protocol: Document 09/02/20 15:17 SAK (Rec: 09/02/20 15:28 SAK [id number]) OP-PT Subjective Patient Comments Patient Comments Has difficulty with self MLD because his hands start to shake because of his essential tremor and he gives up; watched videos as instructed. Is pleased with getting the largest area of swelling down in the front of his neck ; feels due to exercise and wearing his compression more as instructed. Sees radiation oncologist for follow-up tomorrow. PT-OP-J Posture/Palpation/Skin Start: 05/13/20 16:55 Freq: Status: Active Protocol: Document 05/16/20 17:26 [facility] (Rec: 05/16/20 17:49 [facility] [id number]) Posture Evaluation Position Sitting Head/C-Spine Posture Forward Head T-Spine Posture Increased Kyphosis Shoulder Posture (L) Rounded,(R) Rounded Scapula Posture (L) Protracted,(R) Protracted Palpation Assessment Location anterior neck Palpation Findings Edema,Soft Tissue Tightness Palpation Details tightness left greater than right PT-OP-K Range of Motion Start: 05/13/20 16:55 Freq: Status: Active Protocol: Document 08/13/20 12:59 [facility] (Rec: 08/13/20 13:14 [facility] [id number]) Cervical Spine Range of Motion Cervical Spine Active Testing Position Sitting Flexion 55 Extension 27 Rotation Left 57 Rotation Right 55 Lateral Flexion Left 45 Lateral Flexion Right 17 ROM Limitations Soft Tissue Tightness,Swelling Comments radoatopm fobrpsos PT-OP-N Lymphedema Start: 05/13/20 16:55 Freq: Status: Active Protocol: Document 07/10/20 13:44 [facility] (Rec: 07/10/20 14:02 [facility] [id number]) Lymphedema Measurements Comments Lymphedema Comments chin to top of head:65.0 Jawline: 50.1 largest area of edema: 48.3 base of neck: 42.6 PT-OP-Q Treatments Start: 05/13/20 16:55 Freq: Status: Active Protocol: Document 09/02/20 15:17 [facility] (Rec: 09/02/20 15:28 [facility] [id number]) Therapeutic Exercises Supine Exercises c/s ROM Supine Exercise Name passive all motions Comments end-range stretches including extension with HOB lowered diaphragmatic breathing Supine Exercise Name Diaphragmatic breathing Reps/Minutes x 10 reps Manual Therapy Treatment Soft Tissue Mobilization scar tissue Body Location anterior neck Mobilization Type Myofascial Release,Rolling, Other pec minor release Body Location pec minor release platysma Body Location platysma muscle Mobilization Type Myofascial Release SCM Body Location SCM and anterior neck Mobilization Type Myofascial Release Manual Techniques SCM mobilization with movement Reps/Duration x 10 reps Comments Left SCM Mobilization with movement manual cervical ROM Reps/Duration x 5 reps each direction, SB, rotation, flexion, ext Lymphedema Treatment Manual Lymphatic Drainage Location anterior neck, left face Duration 20' PT-OP-T Assessment and Plan Start: 05/13/20 16:55 Freq: Status: Active Protocol: Document 09/02/20 15:17 SAK (Rec: 09/02/20 15:28 SAK [id number]) Physical Therapy Assessment Goals 4 Impairment tissue fibrosis anterior and lateral (L) neck Nursing Program Manager Goal (LTG) Improve soft tissue mobility anterior and lateral neck to WNL 07/23/20: goal progress, not fully achieved. LTG Duration 09/21/20 3 Impairment postural impairment with difficulty holding head up Nursing Program Manager Goal (LTG) Patient will be able to hold his head up actively throughout the day without excess fatigue or pain 07/23/20: goal progress, has difficulty holding head up. Compliant to HEP. LTG Duration 09/21/20 2 Impairment Decreased cervical ROM Nursing Program Manager Goal (LTG) Patient to return to full active motion of his neck including ability to turn head to right for safe driving 07/23/20: goal progress, not fully achieved LTG Duration 09/21/20 1 Impairment lymphedema anterior neck Mcfp Goal (LTG) Decrease lymphedema neck to stable level and patient to be fit with appropriate compression garment. Patient to demonstrate good understanding of self- management. 07/23/20: goal progress. Still problem-solving compression garment, patient ordered larger garment, will try to wear during day as doesn't tolerate at night. Has potential for further edema reduction LTG Duration 09/21/20 Assessment Summary Assessment Decreased swelling at largest area anterior neck. Decreased swelling throughout face and jaw with MLD. Patient unable to do self-massage effectively due to his essential tremor. Physical Therapy Plan Frequency and Duration Frequency of Treatment 2x/Week Duration of Treatment 8 weeks Plan of Care Start Date 07/23/20 Plan of Care End Date 09/21/20 Therapeutic Interventions Therapeutic Interventions Home Exercise Program, Lymphedema Management,Manual Therapy,Patient/Caregiver Education,Self-Care/Home Management,Soft Tissue Mobilization,Taping, Therapeutic Exercises Next Visit Focus/Plan Next Note Type Treatment Note Next Visit Plan Circumferential measurements. Continue lymphedema management including MLD, soft tissue mobilization, ROM and postural correction. Continue to assess any need for further compression
--- NOTE | 2020-09-04 16:20 | PT.OTN ---
Current Diagnoses Lymphedema, not elsewhere classified (09/04/20) Cervicalgia (09/04/20) Soft tissue disorder, unspecified (09/04/20) Abnormal posture (09/04/20) Physical Therapy Treatment Note PT-OP-A Visit Information Start: 05/13/20 16:55 Freq: Status: Active Protocol: Document 09/04/20 16:14 SAK (Rec: 09/04/20 16:20 SAK [id number]) Out-Patient Physical Therapy Visit Information Visit Information Visit Type Treatment Note Visit Start Time 15:15 Visit Stop Time 16:00 Total Visit Minutes 45 Visit Number 14 Evaluation Information Evaluation Date 05/16/20 PT-OP-B Current Condition Start: 05/13/20 16:55 Freq: Status: Active Protocol: Document 05/16/20 13:55 SAK (Rec: 05/16/20 14:54 SAK [id number]) Current Condition History of Current Condition Onset Date November 2019 Current Complaints stiffness, lymphedema neck History of Current Condition 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 Finished with 33 treatments of radiation. States the muscles so tight difficult to hold head up or look to the right. Swelling anterior neck bilaterally. Reports they tried to drain the swelling with a needle but wasn't successful Has end-stage renal disease so not doing chemo. Getting set up to do peritoneal dialysis. Was recently hospitalized for low blood sugar, 2 weeks ago hospitalized due to bradycardia. Has stopped HTN meds. Trying to manage the low blood sugar dietarily. Treatment Goals Patient/Caregiver Goals Improve his neck ROM to WNL, decrease the lymphedema anterior neck. Prior Functional Status Baseline Function- ADL's Independent Baseline Function- Mobility Independent Baseline Function- Other able to turn head fully for all activities including driving Current Functional Impairments (Reported) Functional Limitations- ADL's Difficulty holding his head up , looking up, turning head for driving PT-OP-C Subjective Start: 05/13/20 16:55 Freq: Status: Active Protocol: Document 09/04/20 16:14 SAK (Rec: 09/04/20 16:20 SAK [id number]) OP-PT Subjective Patient Comments Patient Comments Improved softening of anterior neck soft tissues with increased wearing of compression garment. PT-OP-J Posture/Palpation/Skin Start: 05/13/20 16:55 Freq: Status: Active Protocol: Document 05/16/20 17:26 [facility] (Rec: 05/16/20 17:49 [facility] [id number]) Posture Evaluation Position Sitting Head/C-Spine Posture Forward Head T-Spine Posture Increased Kyphosis Shoulder Posture (L) Rounded,(R) Rounded Scapula Posture (L) Protracted,(R) Protracted Palpation Assessment Location anterior neck Palpation Findings Edema,Soft Tissue Tightness Palpation Details tightness left greater than right PT-OP-K Range of Motion Start: 05/13/20 16:55 Freq: Status: Active Protocol: Document 08/13/20 12:59 [facility] (Rec: 08/13/20 13:14 [facility] [id number]) Cervical Spine Range of Motion Cervical Spine Active Testing Position Sitting Flexion 55 Extension 27 Rotation Left 57 Rotation Right 55 Lateral Flexion Left 45 Lateral Flexion Right 17 ROM Limitations Soft Tissue Tightness,Swelling Comments radoatopm fobrpsos PT-OP-N Lymphedema Start: 05/13/20 16:55 Freq: Status: Active Protocol: Document 09/02/20 16:16 [facility] (Rec: 09/02/20 16:17 [facility] [id number]) Lymphedema Measurements Comments Lymphedema Comments chin to top of head:65.7 Jawline: 50.4 largest area of edema: 44.4 base of neck: 42.6 PT-OP-Q Treatments Start: 05/13/20 16:55 Freq: Status: Active Protocol: Document 09/04/20 16:14 [facility] (Rec: 09/04/20 16:20 [facility] [id number]) Therapeutic Exercises Supine Exercises c/s ROM Supine Exercise Name passive all motions Comments end-range stretches including extension with HOB lowered diaphragmatic breathing Supine Exercise Name Diaphragmatic breathing Reps/Minutes x 10 reps Sidelying Exercises reach and roll Comments verbal and manual cues for correct performance. Manual Therapy Treatment Soft Tissue Mobilization scar tissue Body Location anterior neck Mobilization Type Myofascial Release,Rolling, Other pec minor release Body Location pec minor release platysma Body Location platysma muscle Mobilization Type Myofascial Release SCM Body Location SCM and anterior neck Mobilization Type Myofascial Release Manual Techniques SCM mobilization with movement Reps/Duration x 10 reps Comments Left SCM Mobilization with movement manual cervical ROM Reps/Duration x 5 reps each direction, SB, rotation, flexion, ext Lymphedema Treatment Manual Lymphatic Drainage Location anterior neck, left face Duration 20' PT-OP-T Assessment and Plan Start: 05/13/20 16:55 Freq: Status: Active Protocol: Document 09/04/20 16:14 [facility] (Rec: 09/04/20 16:20 SAK [id number]) Physical Therapy Assessment Goals 4 Impairment tissue fibrosis anterior and lateral (L) neck Half-Way Goal (LTG) Improve soft tissue mobility anterior and lateral neck to WNL 07/23/20: goal progress, not fully achieved. LTG Duration 09/21/20 3 Impairment postural impairment with difficulty holding head up Half-Way Goal (LTG) Patient will be able to hold his head up actively throughout the day without excess fatigue or pain 07/23/20: goal progress, has difficulty holding head up. Compliant to HEP. LTG Duration 09/21/20 2 Impairment Decreased cervical ROM Hiv Prevention Specialist Goal (LTG) Patient to return to full active motion of his neck including ability to turn head to right for safe driving 07/23/20: goal progress, not fully achieved LTG Duration 09/21/20 1 Impairment lymphedema anterior neck Hiv Prevention Specialist Goal (LTG) Decrease lymphedema neck to stable level and patient to be fit with appropriate compression garment. Patient to demonstrate good understanding of self- management. 07/23/20: goal progress. Still problem-solving compression garment, patient ordered larger garment, will try to wear during day as doesn't tolerate at night. Has potential for further edema reduction LTG Duration 09/21/20 Assessment Summary Assessment Soft tissue mobility continue to improve with treatment. Patient compliant to wearing his compression garment at night as well as frequently during the day. Physical Therapy Plan Frequency and Duration Frequency of Treatment 2x/Week Duration of Treatment 8 weeks Plan of Care Start Date 07/23/20 Plan of Care End Date 09/21/20 Therapeutic Interventions Therapeutic Interventions Home Exercise Program, Lymphedema Management,Manual Therapy,Patient/Caregiver Education,Self-Care/Home Management,Soft Tissue Mobilization,Taping, Therapeutic Exercises Next Visit Focus/Plan Next Note Type Treatment Note Next Visit Plan Continue PT for lymhedema management, manual techniques to increase ROM and soft tissue mobility, lymphedema reduction.
--- NOTE | 2020-09-09 17:02 | PT.OTN ---
Current Diagnoses Lymphedema, not elsewhere classified (09/09/20) Cervicalgia (09/09/20) Soft tissue disorder, unspecified (09/09/20) Abnormal posture (09/09/20) Physical Therapy Treatment Note PT-OP-A Visit Information Start: 05/13/20 16:55 Freq: Status: Active Protocol: Document 09/09/20 14:33 SAK (Rec: 09/09/20 14:40 SAK [id number]) Out-Patient Physical Therapy Visit Information Visit Information Visit Type Treatment Note Visit Start Time 14:31 Visit Stop Time 15:14 Total Visit Minutes 43 Visit Number 15 Evaluation Information Evaluation Date 05/16/20 PT-OP-B Current Condition Start: 05/13/20 16:55 Freq: Status: Active Protocol: Document 05/16/20 13:55 SAK (Rec: 05/16/20 14:54 SAK [id number]) Current Condition History of Current Condition Onset Date November 2019 Current Complaints stiffness, lymphedema neck History of Current Condition 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 Finished with 33 treatments of radiation. States the muscles so tight difficult to hold head up or look to the right. Swelling anterior neck bilaterally. Reports they tried to drain the swelling with a needle but wasn't successful Has end-stage renal disease so not doing chemo. Getting set up to do peritoneal dialysis. Was recently hospitalized for low blood sugar, 2 weeks ago hospitalized due to bradycardia. Has stopped HTN meds. Trying to manage the low blood sugar dietarily. Treatment Goals Patient/Caregiver Goals Improve his neck ROM to WNL, decrease the lymphedema anterior neck. Prior Functional Status Baseline Function- ADL's Independent Baseline Function- Mobility Independent Baseline Function- Other able to turn head fully for all activities including driving Current Functional Impairments (Reported) Functional Limitations- ADL's Difficulty holding his head up , looking up, turning head for driving PT-OP-C Subjective Start: 05/13/20 16:55 Freq: Status: Active Protocol: Document 09/04/20 16:14 SAK (Rec: 09/04/20 16:20 SAK [id number]) OP-PT Subjective Patient Comments Patient Comments Improved softening of anterior neck soft tissues with increased wearing of compression garment. PT-OP-J Posture/Palpation/Skin Start: 05/13/20 16:55 Freq: Status: Active Protocol: Document 05/16/20 17:26 [facility] (Rec: 05/16/20 17:49 [facility] [id number]) Posture Evaluation Position Sitting Head/C-Spine Posture Forward Head T-Spine Posture Increased Kyphosis Shoulder Posture (L) Rounded,(R) Rounded Scapula Posture (L) Protracted,(R) Protracted Palpation Assessment Location anterior neck Palpation Findings Edema,Soft Tissue Tightness Palpation Details tightness left greater than right PT-OP-K Range of Motion Start: 05/13/20 16:55 Freq: Status: Active Protocol: Document 08/13/20 12:59 [facility] (Rec: 08/13/20 13:14 [facility] [id number]) Cervical Spine Range of Motion Cervical Spine Active Testing Position Sitting Flexion 55 Extension 27 Rotation Left 57 Rotation Right 55 Lateral Flexion Left 45 Lateral Flexion Right 17 ROM Limitations Soft Tissue Tightness,Swelling Comments radoatopm fobrpsos PT-OP-N Lymphedema Start: 05/13/20 16:55 Freq: Status: Active Protocol: Document 09/02/20 16:16 [facility] (Rec: 09/02/20 16:17 [facility] [id number]) Lymphedema Measurements Comments Lymphedema Comments chin to top of head:65.7 Jawline: 50.4 largest area of edema: 44.4 base of neck: 42.6 PT-OP-Q Treatments Start: 05/13/20 16:55 Freq: Status: Active Protocol: Document 09/09/20 14:33 [facility] (Rec: 09/09/20 14:40 [facility] [id number]) Therapeutic Exercises Supine Exercises c/s ROM Supine Exercise Name passive all motions Comments end-range stretches including extension with HOB lowered diaphragmatic breathing Supine Exercise Name Diaphragmatic breathing Reps/Minutes x 10 reps Manual Therapy Treatment Soft Tissue Mobilization scar tissue Body Location anterior neck Mobilization Type Myofascial Release,Rolling, Other pec minor release Body Location pec minor release platysma Body Location platysma muscle Mobilization Type Myofascial Release SCM Body Location SCM and anterior neck Mobilization Type Myofascial Release Manual Techniques SCM mobilization with movement Reps/Duration x 10 reps Comments Left SCM Mobilization with movement manual cervical ROM Reps/Duration x 5 reps each direction, SB, rotation, flexion, ext Lymphedema Treatment Manual Lymphatic Drainage Location anterior neck, left face Duration 20' PT-OP-T Assessment and Plan Start: 05/13/20 16:55 Freq: Status: Active Protocol: Document 09/09/20 14:33 [facility] (Rec: 09/09/20 14:40 [facility] [id number]) Physical Therapy Assessment Goals 4 Impairment tissue fibrosis anterior and lateral (L) neck [employer] White Printer Operator Goal (LTG) Improve soft tissue mobility anterior and lateral neck to WNL 07/23/20: goal progress, not fully achieved. LTG Duration 09/21/20 3 Impairment postural impairment with difficulty holding head up [employer] Printer Operator Goal (LTG) Patient will be able to hold his head up actively throughout the day without excess fatigue or pain 07/23/20: goal progress, has difficulty holding head up. Compliant to HEP. LTG Duration 09/21/20 2 Impairment Decreased cervical ROM Retirement Goal (LTG) Patient to return to full active motion of his neck including ability to turn head to right for safe driving 07/23/20: goal progress, not fully achieved LTG Duration 09/21/20 1 Impairment lymphedema anterior neck [employer]inter Operator Goal (LTG) Decrease lymphedema neck to stable level and patient to be fit with appropriate compression garment. Patient to demonstrate good understanding of self- management. 07/23/20: goal progress. Still problem-solving compression garment, patient ordered larger garment, will try to wear during day as doesn't tolerate at night. Has potential for further edema reduction LTG Duration 09/21/20 Progress Towards Goals Progress Towards Goals Progressing Toward Goals Assessment Summary Assessment Circumferential measurements imroved, soft tissue mobility improved anterior neck. Good progress. Physical Therapy Plan Frequency and Duration Frequency of Treatment 2x/Week Duration of Treatment 8 weeks Plan of Care Start Date 07/23/20 Plan of Care End Date 09/21/20 Therapeutic Interventions Therapeutic Interventions Home Exercise Program, Lymphedema Management,Manual Therapy,Patient/Caregiver Education,Self-Care/Home Management,Soft Tissue Mobilization,Taping, Therapeutic Exercises Next Visit Focus/Plan Next Note Type Treatment Note
--- NOTE | 2020-09-11 15:55 | PT.OTN ---
Current Diagnoses Lymphedema, not elsewhere classified (09/11/20) Cervicalgia (09/11/20) Soft tissue disorder, unspecified (09/11/20) Abnormal posture (09/11/20) Physical Therapy Treatment Note PT-OP-A Visit Information Start: 05/13/20 16:55 Freq: Status: Active Protocol: Document 09/11/20 13:41 SAK (Rec: 09/11/20 13:49 SAK [id number]) Out-Patient Physical Therapy Visit Information Visit Information Visit Type Treatment Note Visit Start Time 13:45 Visit Stop Time 14:29 Total Visit Minutes 44 Visit Number 16 PT-OP-B Current Condition Start: 05/13/20 16:55 Freq: Status: Active Protocol: Document 05/16/20 13:55 SAK (Rec: 05/16/20 14:54 SAK [id number]) Current Condition History of Current Condition Onset Date November 2019 Current Complaints stiffness, lymphedema neck History of Current Condition 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 Finished with 33 treatments of radiation. States the muscles so tight difficult to hold head up or look to the right. Swelling anterior neck bilaterally. Reports they tried to drain the swelling with a needle but wasn't successful Has end-stage renal disease so not doing chemo. Getting set up to do peritoneal dialysis. Was recently hospitalized for low blood sugar, 2 weeks ago hospitalized due to bradycardia. Has stopped HTN meds. Trying to manage the low blood sugar dietarily. Treatment Goals Patient/Caregiver Goals Improve his neck ROM to WNL, decrease the lymphedema anterior neck. Prior Functional Status Baseline Function- ADL's Independent Baseline Function- Mobility Independent Baseline Function- Other able to turn head fully for all activities including driving Current Functional Impairments (Reported) Functional Limitations- ADL's Difficulty holding his head up , looking up, turning head for driving PT-OP-C Subjective Start: 05/13/20 16:55 Freq: Status: Active Protocol: Document 09/04/20 16:14 SAK (Rec: 09/04/20 16:20 SAK [id number]) OP-PT Subjective Patient Comments Patient Comments Improved softening of anterior neck soft tissues with increased wearing of compression garment. PT-OP-J Posture/Palpation/Skin Start: 05/13/20 16:55 Freq: Status: Active Protocol: Document 05/16/20 17:26 SAK (Rec: 05/16/20 17:49 [facility] [id number]) Posture Evaluation Position Sitting Head/C-Spine Posture Forward Head T-Spine Posture Increased Kyphosis Shoulder Posture (L) Rounded,(R) Rounded Scapula Posture (L) Protracted,(R) Protracted Palpation Assessment Location anterior neck Palpation Findings Edema,Soft Tissue Tightness Palpation Details tightness left greater than right PT-OP-K Range of Motion Start: 05/13/20 16:55 Freq: Status: Active Protocol: Document 08/13/20 12:59 [facility] (Rec: 08/13/20 13:14 [facility] [id number]) Cervical Spine Range of Motion Cervical Spine Active Testing Position Sitting Flexion 55 Extension 27 Rotation Left 57 Rotation Right 55 Lateral Flexion Left 45 Lateral Flexion Right 17 ROM Limitations Soft Tissue Tightness,Swelling Comments radoatopm fobrpsos PT-OP-N Lymphedema Start: 05/13/20 16:55 Freq: Status: Active Protocol: Document 09/02/20 16:16 [facility] (Rec: 09/02/20 16:17 [facility] [id number]) Lymphedema Measurements Comments Lymphedema Comments chin to top of head:65.7 Jawline: 50.4 largest area of edema: 44.4 base of neck: 42.6 PT-OP-Q Treatments Start: 05/13/20 16:55 Freq: Status: Active Protocol: Document 09/11/20 13:41 [facility] (Rec: 09/11/20 13:49 [facility] [id number]) Therapeutic Exercises Supine Exercises c/s ROM Supine Exercise Name passive all motions Comments end-range stretches including extension with HOB lowered diaphragmatic breathing Supine Exercise Name Diaphragmatic breathing Reps/Minutes x 10 reps Manual Therapy Treatment Soft Tissue Mobilization scar tissue Body Location anterior neck Mobilization Type Myofascial Release,Rolling, Other pec minor release Body Location pec minor release platysma Body Location platysma muscle Mobilization Type Myofascial Release SCM Body Location SCM and anterior neck Mobilization Type Myofascial Release Manual Techniques SCM mobilization with movement Reps/Duration x 10 reps Comments Left SCM Mobilization with movement manual cervical ROM Reps/Duration x 5 reps each direction, SB, rotation, flexion, ext Lymphedema Treatment Manual Lymphatic Drainage Location anterior neck, left face Duration 20' Sequential Lymphedema Exercises Comments Patient doing them at home. PT-OP-T Assessment and Plan Start: 05/13/20 16:55 Freq: Status: Active Protocol: Document 09/11/20 13:41 SAK (Rec: 09/11/20 13:49 SAK [id number]) Physical Therapy Assessment Goals 4 Impairment tissue fibrosis anterior and lateral (L) neck Mcc Goal (LTG) Improve soft tissue mobility anterior and lateral neck to WNL 07/23/20: goal progress, not fully achieved. LTG Duration 09/21/20 3 Impairment postural impairment with difficulty holding head up Meeting Planner Goal (LTG) Patient will be able to hold his head up actively throughout the day without excess fatigue or pain 07/23/20: goal progress, has difficulty holding head up. Compliant to HEP. LTG Duration 09/21/20 2 Impairment Decreased cervical ROM Meeting Planner Goal (LTG) Patient to return to full active motion of his neck including ability to turn head to right for safe driving 07/23/20: goal progress, not fully achieved LTG Duration 09/21/20 1 Impairment lymphedema anterior neck Mcc Goal (LTG) Decrease lymphedema neck to stable level and patient to be fit with appropriate compression garment. Patient to demonstrate good understanding of self- management. 07/23/20: goal progress. Still problem-solving compression garment, patient ordered larger garment, will try to wear during day as doesn't tolerate at night. Has potential for further edema reduction LTG Duration 09/21/20 Progress Towards Goals Progress Towards Goals Progressing Toward Goals Assessment Summary Assessment Patient needs reminders for upright posture, due to head forward posturing. Lymphedema and soft tissue tightness continues to improve. Physical Therapy Plan Frequency and Duration Frequency of Treatment 2x/Week Duration of Treatment 8 weeks Plan of Care Start Date 07/23/20 Plan of Care End Date 09/21/20 Therapeutic Interventions Therapeutic Interventions Home Exercise Program, Lymphedema Management,Manual Therapy,Patient/Caregiver Education,Self-Care/Home Management,Soft Tissue Mobilization,Taping, Therapeutic Exercises Next Visit Focus/Plan Next Note Type Treatment Note Next Visit Plan circumferential measurements, continue with lymphedema management, soft tissue mobilization.
--- NOTE | 2020-09-16 14:17 | PT.OTN ---
Current Diagnoses Lymphedema, not elsewhere classified (09/16/20) Cervicalgia (09/16/20) Soft tissue disorder, unspecified (09/16/20) Abnormal posture (09/16/20) Physical Therapy Treatment Note PT-OP-A Visit Information Start: 05/13/20 16:55 Freq: Status: Active Protocol: Document 09/16/20 13:02 SAK (Rec: 09/16/20 13:09 SAK [id number]) Out-Patient Physical Therapy Visit Information Visit Information Visit Type Treatment Note Visit Start Time 13:00 Visit Stop Time 13:45 Total Visit Minutes 45 Visit Number 17 PT-OP-B Current Condition Start: 05/13/20 16:55 Freq: Status: Active Protocol: Document 05/16/20 13:55 SAK (Rec: 05/16/20 14:54 SAK [id number]) Current Condition History of Current Condition Onset Date November 2019 Current Complaints stiffness, lymphedema neck History of Current Condition 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 Finished with 33 treatments of radiation. States the muscles so tight difficult to hold head up or look to the right. Swelling anterior neck bilaterally. Reports they tried to drain the swelling with a needle but wasn't successful Has end-stage renal disease so not doing chemo. Getting set up to do peritoneal dialysis. Was recently hospitalized for low blood sugar, 2 weeks ago hospitalized due to bradycardia. Has stopped HTN meds. Trying to manage the low blood sugar dietarily. Treatment Goals Patient/Caregiver Goals Improve his neck ROM to WNL, decrease the lymphedema anterior neck. Prior Functional Status Baseline Function- ADL's Independent Baseline Function- Mobility Independent Baseline Function- Other able to turn head fully for all activities including driving Current Functional Impairments (Reported) Functional Limitations- ADL's Difficulty holding his head up , looking up, turning head for driving PT-OP-C Subjective Start: 05/13/20 16:55 Freq: Status: Active Protocol: Document 09/16/20 13:02 SAK (Rec: 09/16/20 14:15 SAK [id number]) OP-PT Subjective Patient Comments Patient Comments Patient reports increased puffiness for past few days, no known reason. Has been doing exercises and wearing compression garment. PT-OP-J Posture/Palpation/Skin Start: 05/13/20 16:55 Freq: Status: Active Protocol: Document 05/16/20 17:26 [facility] (Rec: 05/16/20 17:49 [facility] [id number]) Posture Evaluation Position Sitting Head/C-Spine Posture Forward Head T-Spine Posture Increased Kyphosis Shoulder Posture (L) Rounded,(R) Rounded Scapula Posture (L) Protracted,(R) Protracted Palpation Assessment Location anterior neck Palpation Findings Edema,Soft Tissue Tightness Palpation Details tightness left greater than right PT-OP-K Range of Motion Start: 05/13/20 16:55 Freq: Status: Active Protocol: Document 08/13/20 12:59 [facility] (Rec: 08/13/20 13:14 [facility] [id number]) Cervical Spine Range of Motion Cervical Spine Active Testing Position Sitting Flexion 55 Extension 27 Rotation Left 57 Rotation Right 55 Lateral Flexion Left 45 Lateral Flexion Right 17 ROM Limitations Soft Tissue Tightness,Swelling Comments radoatopm fobrpsos PT-OP-N Lymphedema Start: 05/13/20 16:55 Freq: Status: Active Protocol: Document 09/16/20 13:02 [facility] (Rec: 09/16/20 14:15 [facility] [id number]) Lymphedema Measurements Comments Lymphedema Comments chin to top of head:64.3 Jawline: 50.5 largest area of edema: 45.9 base of neck: 42.3 PT-OP-Q Treatments Start: 05/13/20 16:55 Freq: Status: Active Protocol: Document 09/16/20 13:02 [facility] (Rec: 09/16/20 13:09 [facility] [id number]) Therapeutic Exercises Supine Exercises platysma tightening Reps/Minutes 5x5 A,E,I,O,U Reps/Minutes 5x5 jaw sideglide Reps/Minutes 5x5 wide mouth opening Reps/Minutes 5x5 c/s ROM Supine Exercise Name passive all motions Comments end-range stretches including extension with HOB lowered diaphragmatic breathing Supine Exercise Name Diaphragmatic breathing Reps/Minutes x 10 reps Manual Therapy Treatment Soft Tissue Mobilization scar tissue Body Location anterior neck Mobilization Type Myofascial Release,Rolling, Other pec minor release Body Location pec minor release platysma Body Location platysma muscle Mobilization Type Myofascial Release SCM Body Location SCM and anterior neck Mobilization Type Myofascial Release Manual Techniques manual cervical ROM Reps/Duration x 5 reps each direction, SB, rotation, flexion, ext Self-Care/Home Management Treatment Education Patient Education Home Exercise Program Other Education updated written [facility] PT-OP-T Assessment and Plan Start: 05/13/20 16:55 Freq: Status: Active Protocol: Document 09/16/20 13:02 [facility] (Rec: 09/16/20 13:09 [facility] [id number]) Physical Therapy Assessment Goals 4 Impairment tissue fibrosis anterior and lateral (L) neck Assisted Goal (LTG) Improve soft tissue mobility anterior and lateral neck to WNL 07/23/20: goal progress, not fully achieved. 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 Compliant to HEP. LTG Duration 09/21/20 2 Impairment Decreased cervical ROM Assisted Goal (LTG) Patient to return to full active motion of his neck including ability to turn head to right for safe driving 07/23/20: goal progress, not fully achieved LTG Duration 09/21/20 1 Impairment lymphedema anterior neck Assisted Goal (LTG) Decrease lymphedema neck to stable level and patient to be fit with appropriate compression garment. Patient to demonstrate good understanding of self- management. 07/23/20: goal progress. Still problem-solving compression garment, patient ordered larger garment, will try to wear during day as doesn't tolerate at night. Has potential for further edema reduction LTG Duration 09/21/20 Assessment Summary Assessment Swelling increased at largest area of swelling but decreased other measurements. Patient not able to identify anything he has done differently. Updated [facility] Physical Therapy Plan Frequency and Duration Frequency of Treatment 2x/Week Duration of Treatment 8 weeks Plan of Care Start Date 07/23/20 Plan of Care End Date 09/21/20 Therapeutic Interventions Therapeutic Interventions Home Exercise Program, Lymphedema Management,Manual Therapy,Patient/Caregiver Education,Self-Care/Home Management,Soft Tissue Mobilization,Taping, Therapeutic Exercises Next Visit Focus/Plan Next Note Type Treatment Note Next Visit Plan Review updated HEP. Continue with lymphedema management, soft tissue mobilization, ROM.
--- NOTE | 2020-09-18 11:54 | PT.OPPOC ---
Physical, Occupational & Speech Therapy At [facility] Current Diagnoses Lymphedema, not elsewhere classified (09/18/20) Cervicalgia (09/18/20) Soft tissue disorder, unspecified (09/18/20) Abnormal posture (09/18/20) Visit Care Team Role Provider Type Marii Daly MD Family Provider Physician Primary Care Provider Specialty: Internal Medicine Address: [address] [place] [address], [id number] Email: [email or web address] Edvin Agee MD Attending Provider Physician Referring Provider Specialty: Ear, Nose, Throat Address: [address] [place] [address], [place], [address] Email: [email or web address] Plan Of Care PT-OP-T Assessment and Plan Start: 05/13/20 16:55 Freq: Status: Active Protocol: Document 09/18/20 10:30 SAK (Rec: 09/18/20 11:13 [facility] [id number]) Physical Therapy Assessment Goals 4 Impairment tissue fibrosis anterior and lateral (L) neck Custodial Goal (LTG) Improve soft tissue mobility anterior and lateral neck to WNL 07/23/20: goal progress, not fully achieved. 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 Compliant to HEP. 09/18/20: goal 60% achieved LTG Duration 11/19/19 2 Impairment Decreased cervical ROM Custodial Goal (LTG) Patient to return to full active motion of his neck including ability to turn head to right for safe driving 07/23/20: goal progress, not fully achieved 09/18/20: goal 50% achieved LTG Duration 11/19/19 1 Impairment lymphedema anterior neck Custodial Goal (LTG) Decrease lymphedema neck to stable level and patient to be fit with appropriate compression garment. Patient to demonstrate good understanding of self- management. 07/23/20: goal progress. Still problem-solving compression garment, patient ordered larger garment, will try to wear during day as doesn't tolerate at night. Has potential for further edema reduction 09/18/20: 80% achieved for neck, but noting persistent edema in face especially cheeks recently. May need to help patient obtain more extensive compression garment for his face. LTG Duration 09/21/20 Assessment Summary Assessment swelling decreased all measurements in neck, but patient has sensation and it is noted visbly larger in cheeks left greater than right ; more time spent on MLD to face today and discussed possible need for more extensive compression garment to address facial edema as the one for his neck has been very helpful. Patient to see if able to adjust current garment to get more coverage onto his face, but feel he may need different garment. Would benefit from further skilled PT to help patient to fully achieve above goals. Physical Therapy Plan Frequency and Duration Frequency of Treatment 2x/Week Duration of Treatment 8 weeks Plan of Care Start Date 09/18/20 Plan of Care End Date 11/19/19 Therapeutic Interventions Therapeutic Interventions Home Exercise Program, Lymphedema Management,Manual Therapy,Patient/Caregiver Education,Self-Care/Home Management,Soft Tissue Mobilization,Taping, Therapeutic Exercises Next Visit Focus/Plan Next Note Type Treatment Note Next Visit Plan Discuss facial lymphedema garment options, continue lymphedema management, ROM, review HEP and add additional cervical strengthening as tolerated for improved ability to hold head up. Plan of Care Dates Plan of Care Start Date 09/18/20 Plan of Care End Date 11/19/19 Electronically Signed by: Rosa M Kwok, PT 09/18/20 5730 Please Sign and Return: I have reviewed this Plan of Care and certify that the skilled therapy services above are required to meet the patient?s needs. Physician Signature Date Printed Name and Credentials Clinical Instructor Signature Printed Name and Credentials
--- NOTE | 2020-09-18 11:55 | PT.OTRE ---
Current Diagnoses Lymphedema, not elsewhere classified (09/18/20) Cervicalgia (09/18/20) Soft tissue disorder, unspecified (09/18/20) Abnormal posture (09/18/20) Past Medical History (Last Reviewed 04/29/20 @ 10:24 by Autumn Perdomo DO) BPH (benign prostatic hyperplasia) (~2006) Chronic kidney disease (CKD), stage III (moderate) CVA (cerebral vascular accident) Diabetes Edema Erectile dysfunction Former smoker Generalized headaches GERD (gastroesophageal reflux disease) Heart murmur HTN (hypertension) Hyperlipidemia Osteoarthritis Pneumonia Rash (~2010) Sleep apnea War injury due to shrapnel (~1968) Surgical History (Last Reviewed 04/29/20 @ 10:24 by Autumn Perdomo DO) H/O medial meniscus repair of left knee (~1964) History of arthroplasty of left knee (11/30/18) History of cholecystectomy History of colonoscopy with polypectomy (~07/2015) History of tonsillectomy Hx of partial nephrectomy (~2006) Status post cataract extraction of both eyes with insertion of intraocular lens Visit Care Team Role Provider Type Marii Daly MD Family Provider Physician Primary Care Provider Specialty: Internal Medicine Address: [address] [place] [address], [id number] Email: [email or web address] Discoveries Edvin Agee MD Attending Provider Physician Referring Provider Specialty: Ear, Nose, Throat Address: [address] [place] [address], [id number] Email: [email or web address] Physical Therapy Re-Evaluation PT-OP-A Visit Information Start: 05/13/20 16:55 Freq: Status: Active Protocol: Document 09/18/20 10:30 SAK (Rec: 09/18/20 11:13 SAK [id number]) Out-Patient Physical Therapy Visit Information Visit Information Visit Type Treatment Note Visit Start Time 10:30 Visit Stop Time 11:15 Total Visit Minutes 45 Visit Number 18 PT-OP-B Current Condition Start: 05/13/20 16:55 Freq: Status: Active Protocol: Document 05/16/20 13:55 SAK (Rec: 05/16/20 14:54 SAK [id number]) Current Condition History of Current Condition Onset Date November 2019 Current Complaints stiffness, lymphedema neck History of Current Condition 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 Finished with 33 treatments of radiation. States the muscles so tight difficult to hold head up or look to the right. Swelling anterior neck bilaterally. Reports they tried to drain the swelling with a needle but wasn't successful Has end-stage renal disease so not doing chemo. Getting set up to do peritoneal dialysis. Was recently hospitalized for low blood sugar, 2 weeks ago hospitalized due to bradycardia. Has stopped HTN meds. Trying to manage the low blood sugar dietarily. Treatment Goals Patient/Caregiver Goals Improve his neck ROM to WNL, decrease the lymphedema anterior neck. Prior Functional Status Baseline Function- ADL's Independent Baseline Function- Mobility Independent Baseline Function- Other able to turn head fully for all activities including driving Current Functional Impairments (Reported) Functional Limitations- ADL's Difficulty holding his head up , looking up, turning head for driving PT-OP-C Subjective Start: 05/13/20 16:55 Freq: Status: Active Protocol: Document 09/18/20 10:30 [facility] (Rec: 09/18/20 11:13 [facility] [id number]) OP-PT Subjective Patient Comments Patient Comments States maybe neck better but his cheeks still feel more puffy. PT-OP-J Posture/Palpation/Skin Start: 05/13/20 16:55 Freq: Status: Active Protocol: Document 05/16/20 17:26 [facility] (Rec: 05/16/20 17:49 [facility] [id number]) Posture Evaluation Position Sitting Head/C-Spine Posture Forward Head T-Spine Posture Increased Kyphosis Shoulder Posture (L) Rounded,(R) Rounded Scapula Posture (L) Protracted,(R) Protracted Palpation Assessment Location anterior neck Palpation Findings Edema,Soft Tissue Tightness Palpation Details tightness left greater than right PT-OP-K Range of Motion Start: 05/13/20 16:55 Freq: Status: Active Protocol: Document 08/13/20 12:59 [facility] (Rec: 08/13/20 13:14 [facility] [id number]) Cervical Spine Range of Motion Cervical Spine Active Testing Position Sitting Flexion 55 Extension 27 Rotation Left 57 Rotation Right 55 Lateral Flexion Left 45 Lateral Flexion Right 17 ROM Limitations Soft Tissue Tightness,Swelling Comments radoatopm fobrpsos PT-OP-N Lymphedema Start: 05/13/20 16:55 Freq: Status: Active Protocol: Document 09/18/20 10:30 SAK (Rec: 09/18/20 11:13 [facility] [id number]) Lymphedema Measurements Comments Lymphedema Comments chin to top of head:64.5 Jawline: 50.0 largest area of edema: 44.2 base of neck: 41.7 PT-OP-Q Treatments Start: 05/13/20 16:55 Freq: Status: Active Protocol: Document 09/18/20 10:30 SAK (Rec: 09/18/20 11:13 SAK [id number]) Therapeutic Exercises Supine Exercises platysma tightening Reps/Minutes 5x5 A,E,I,O,U Comments HEP jaw sideglide Comments HEP wide mouth opening Comments HEP c/s ROM Supine Exercise Name passive all motions Comments end-range stretches including extension with HOB lowered diaphragmatic breathing Supine Exercise Name Diaphragmatic breathing Reps/Minutes x 10 reps Manual Therapy Treatment Soft Tissue Mobilization scar tissue Body Location anterior neck Mobilization Type Myofascial Release,Rolling, Other platysma Body Location platysma muscle Mobilization Type Myofascial Release SCM Body Location SCM and anterior neck Mobilization Type Myofascial Release Lymphedema Treatment Manual Lymphatic Drainage Location anterior neck, left face Duration 25' PT-OP-T Assessment and Plan Start: 05/13/20 16:55 Freq: Status: Active Protocol: Document 09/18/20 10:30 [facility] (Rec: 09/18/20 11:13 [facility] [id number]) Physical Therapy Assessment Goals 4 Impairment tissue fibrosis anterior and lateral (L) neck Snf Goal (LTG) Improve soft tissue mobility anterior and lateral neck to WNL 07/23/20: goal progress, not fully achieved. 09/18/20: continues to improve , 75% of normal LTG Duration 11/19/19 3 Impairment postural impairment with difficulty holding head up Snf Goal (LTG) Patient will be able to hold his head up actively throughout the day without excess fatigue or pain 07/23/20: goal progress, has difficulty holding head up. Compliant to HEP. 09/18/20: goal 60% achieved LTG Duration 11/19/19 2 Impairment Decreased cervical ROM Snf Goal (LTG) Patient to return to full active motion of his neck including ability to turn head to right for safe driving 07/23/20: goal progress, not fully achieved 09/18/20: goal 50% achieved LTG Duration 11/19/19 1 Impairment lymphedema anterior neck Snf Goal (LTG) Decrease lymphedema neck to stable level and patient to be fit with appropriate compression garment. Patient to demonstrate good understanding of self- management. 07/23/20: goal progress. Still problem-solving compression garment, patient ordered larger garment, will try to wear during day as doesn't tolerate at night. Has potential for further edema reduction 09/18/20: 80% achieved for neck, but noting persistent edema in face especially cheeks recently. May need to help patient obtain more extensive compression garment for his face. LTG Duration 09/21/20 Assessment Summary Assessment swelling decreased all measurements in neck, but patient has sensation and it is noted visbly larger in cheeks left greater than right ; more time spent on MLD to face today and discussed possible need for more extensive compression garment to address facial edema as the one for his neck has been very helpful. Patient to see if able to adjust current garment to get more coverage onto his face, but feel he may need different garment. Would benefit from further skilled PT to help patient to fully achieve above goals. Physical Therapy Plan Frequency and Duration Frequency of Treatment 2x/Week Duration of Treatment 8 weeks Plan of Care Start Date 09/18/20 Plan of Care End Date 11/19/19 Therapeutic Interventions Therapeutic Interventions Home Exercise Program, Lymphedema Management,Manual Therapy,Patient/Caregiver Education,Self-Care/Home Management,Soft Tissue Mobilization,Taping, Therapeutic Exercises Next Visit Focus/Plan Next Note Type Treatment Note Next Visit Plan Discuss facial lymphedema garment options, continue lymphedema management, ROM, review HEP and add additional cervical strengthening as tolerated for improved ability to hold head up.
--- NOTE | 2020-09-24 16:39 | PT.OTN ---
Current Diagnoses Lymphedema, not elsewhere classified (09/24/20) Cervicalgia (09/24/20) Soft tissue disorder, unspecified (09/24/20) Abnormal posture (09/24/20) Physical Therapy Treatment Note PT-OP-A Visit Information Start: 05/13/20 16:55 Freq: Status: Active Protocol: Document 09/24/20 13:49 SAK (Rec: 09/24/20 14:03 SAK [id number]) Out-Patient Physical Therapy Visit Information Visit Information Visit Type Treatment Note Visit Start Time 13:50 Visit Stop Time 14:30 Total Visit Minutes 40 Visit Number 19 PT-OP-B Current Condition Start: 05/13/20 16:55 Freq: Status: Active Protocol: Document 05/16/20 13:55 SAK (Rec: 05/16/20 14:54 SAK [id number]) Current Condition History of Current Condition Onset Date November 2019 Current Complaints stiffness, lymphedema neck History of Current Condition 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 Finished with 33 treatments of radiation. States the muscles so tight difficult to hold head up or look to the right. Swelling anterior neck bilaterally. Reports they tried to drain the swelling with a needle but wasn't successful Has end-stage renal disease so not doing chemo. Getting set up to do peritoneal dialysis. Was recently hospitalized for low blood sugar, 2 weeks ago hospitalized due to bradycardia. Has stopped HTN meds. Trying to manage the low blood sugar dietarily. Treatment Goals Patient/Caregiver Goals Improve his neck ROM to WNL, decrease the lymphedema anterior neck. Prior Functional Status Baseline Function- ADL's Independent Baseline Function- Mobility Independent Baseline Function- Other able to turn head fully for all activities including driving Current Functional Impairments (Reported) Functional Limitations- ADL's Difficulty holding his head up , looking up, turning head for driving PT-OP-C Subjective Start: 05/13/20 16:55 Freq: Status: Active Protocol: Document 09/24/20 13:49 SAK (Rec: 09/24/20 14:03 SAK [id number]) OP-PT Subjective Patient Comments Patient Comments Dog ate chip bag last Wednesday, reports swelling was increased . Used some of the foam given by PT last night so was some better this am. Cheeks still feel stiff and puffy. PT-OP-J Posture/Palpation/Skin Start: 05/13/20 16:55 Freq: Status: Active Protocol: Document 05/16/20 17:26 SAK (Rec: 05/16/20 17:49 SAK [id number]) Posture Evaluation Position Sitting Head/C-Spine Posture Forward Head T-Spine Posture Increased Kyphosis Shoulder Posture (L) Rounded,(R) Rounded Scapula Posture (L) Protracted,(R) Protracted Palpation Assessment Location anterior neck Palpation Findings Edema,Soft Tissue Tightness Palpation Details tightness left greater than right PT-OP-K Range of Motion Start: 05/13/20 16:55 Freq: Status: Active Protocol: Document 08/13/20 12:59 SAK (Rec: 08/13/20 13:14 SAK [id number]) Cervical Spine Range of Motion Cervical Spine Active Testing Position Sitting Flexion 55 Extension 27 Rotation Left 57 Rotation Right 55 Lateral Flexion Left 45 Lateral Flexion Right 17 ROM Limitations Soft Tissue Tightness,Swelling Comments radoatopm fobrpsos PT-OP-N Lymphedema Start: 05/13/20 16:55 Freq: Status: Active Protocol: Document 09/24/20 13:49 [facility] (Rec: 09/24/20 14:03 [facility] [id number]) Lymphedema Measurements Comments Lymphedema Comments chin to top of head:64.5 Jawline: 50.0 largest area of edema: 44.6 base of neck: 41.8 PT-OP-Q Treatments Start: 05/13/20 16:55 Freq: Status: Active Protocol: Document 09/24/20 13:49 SAK (Rec: 09/24/20 14:03 SAK [id number]) Therapeutic Exercises Supine Exercises c/s ROM Supine Exercise Name passive all motions Comments end-range stretches including extension with HOB lowered diaphragmatic breathing Supine Exercise Name Diaphragmatic breathing Reps/Minutes x 10 reps Manual Therapy Treatment Soft Tissue Mobilization scar tissue Body Location anterior neck Mobilization Type Myofascial Release,Rolling, Other pec minor release Body Location pec minor release platysma Body Location platysma muscle Mobilization Type Myofascial Release SCM Body Location SCM and anterior neck Mobilization Type Myofascial Release Lymphedema Treatment Manual Lymphatic Drainage Location anterior neck, left face Duration 25' PT-OP-T Assessment and Plan Start: 05/13/20 16:55 Freq: Status: Active Protocol: Document 09/24/20 13:49 SAK (Rec: 09/24/20 14:03 [facility] [id number]) Physical Therapy Assessment Goals 4 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 09/18/20: continues to improve , 75% of normal LTG Duration 11/19/19 3 Impairment postural impairment with difficulty holding head up Hearing Care Practitioner Goal (LTG) Patient will be able to hold his head up actively throughout the day without excess fatigue or pain 07/23/20: goal progress, has difficulty holding head up. Compliant to HEP. 09/18/20: goal 60% achieved LTG Duration 11/19/19 2 Impairment Decreased cervical ROM Hearing Care Practitioner Goal (LTG) Patient to return to full active motion of his neck including ability to turn head to right for safe driving 07/23/20: goal progress, not fully achieved 09/18/20: goal 50% achieved LTG Duration 11/19/19 1 Impairment lymphedema anterior neck Fpc Goal (LTG) Decrease lymphedema neck to stable level and patient to be fit with appropriate compression garment. Patient to demonstrate good understanding of self- management. 07/23/20: goal progress. Still problem-solving compression garment, patient ordered larger garment, will try to wear during day as doesn't tolerate at night. Has potential for further edema reduction 09/18/20: 80% achieved for neck, but noting persistent edema in face especially cheeks recently. May need to help patient obtain more extensive compression garment for his face. LTG Duration 09/21/20 Assessment Summary Assessment Minimal change in measurements . Discussed potential for increased compression, patient given information about full facial garment for compression and will consider; feel he may benefit from compression on his cheeks as well as neck. Physical Therapy Plan Frequency and Duration Frequency of Treatment 2x/Week Duration of Treatment 8 weeks Plan of Care Start Date 09/18/20 Plan of Care End Date 11/19/20 Therapeutic Interventions Therapeutic Interventions Home Exercise Program, Lymphedema Management,Manual Therapy,Patient/Caregiver Education,Self-Care/Home Management,Soft Tissue Mobilization,Taping, Therapeutic Exercises Next Visit Focus/Plan Next Note Type Treatment Note Next Visit Plan Further discussion of compression garment options, continue lymphedema management, ROM, strengthening ex.
--- NOTE | 2020-09-25 14:18 | PT.OTN ---
Current Diagnoses Lymphedema, not elsewhere classified (09/25/20) Cervicalgia (09/25/20) Soft tissue disorder, unspecified (09/25/20) Abnormal posture (09/25/20) Physical Therapy Treatment Note PT-OP-A Visit Information Start: 05/13/20 16:55 Freq: Status: Active Protocol: Document 09/25/20 13:00 SAK (Rec: 09/25/20 13:11 SAK [id number]) Out-Patient Physical Therapy Visit Information Visit Information Visit Type Treatment Note Visit Start Time 13:00 Visit Stop Time 13:49 Total Visit Minutes 49 Visit Number 20 PT-OP-B Current Condition Start: 05/13/20 16:55 Freq: Status: Active Protocol: Document 05/16/20 13:55 SAK (Rec: 05/16/20 14:54 SAK [id number]) Current Condition History of Current Condition Onset Date November 2019 Current Complaints stiffness, lymphedema neck History of Current Condition 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 Finished with 33 treatments of radiation. States the muscles so tight difficult to hold head up or look to the right. Swelling anterior neck bilaterally. Reports they tried to drain the swelling with a needle but wasn't successful Has end-stage renal disease so not doing chemo. Getting set up to do peritoneal dialysis. Was recently hospitalized for low blood sugar, 2 weeks ago hospitalized due to bradycardia. Has stopped HTN meds. Trying to manage the low blood sugar dietarily. Treatment Goals Patient/Caregiver Goals Improve his neck ROM to WNL, decrease the lymphedema anterior neck. Prior Functional Status Baseline Function- ADL's Independent Baseline Function- Mobility Independent Baseline Function- Other able to turn head fully for all activities including driving Current Functional Impairments (Reported) Functional Limitations- ADL's Difficulty holding his head up , looking up, turning head for driving PT-OP-C Subjective Start: 05/13/20 16:55 Freq: Status: Active Protocol: Document 09/24/20 13:49 SAK (Rec: 09/24/20 14:03 SAK [id number]) OP-PT Subjective Patient Comments Patient Comments Dog ate chip bag last Wednesday, reports swelling was increased . Used some of the foam given by PT last night so was some better this am. Cheeks still feel stiff and puffy. PT-OP-J Posture/Palpation/Skin Start: 05/13/20 16:55 Freq: Status: Active Protocol: Document 05/16/20 17:26 SAK (Rec: 05/16/20 17:49 [facility] [id number]) Posture Evaluation Position Sitting Head/C-Spine Posture Forward Head T-Spine Posture Increased Kyphosis Shoulder Posture (L) Rounded,(R) Rounded Scapula Posture (L) Protracted,(R) Protracted Palpation Assessment Location anterior neck Palpation Findings Edema,Soft Tissue Tightness Palpation Details tightness left greater than right PT-OP-K Range of Motion Start: 05/13/20 16:55 Freq: Status: Active Protocol: Document 08/13/20 12:59 SAK (Rec: 08/13/20 13:14 SAK [id number]) Cervical Spine Range of Motion Cervical Spine Active Testing Position Sitting Flexion 55 Extension 27 Rotation Left 57 Rotation Right 55 Lateral Flexion Left 45 Lateral Flexion Right 17 ROM Limitations Soft Tissue Tightness,Swelling Comments radoatopm fobrpsos PT-OP-N Lymphedema Start: 05/13/20 16:55 Freq: Status: Active Protocol: Document 09/25/20 13:00 [facility] (Rec: 09/25/20 13:11 [facility] [id number]) Lymphedema Measurements Comments Lymphedema Comments chin to top of head:64.5 Jawline: 50.0 largest area of edema: 44.2 base of neck: 41.8 PT-OP-Q Treatments Start: 05/13/20 16:55 Freq: Status: Active Protocol: Document 09/25/20 13:00 SAK (Rec: 09/25/20 13:11 [facility] [id number]) Therapeutic Exercises Supine Exercises c/s ROM Supine Exercise Name passive all motions Comments end-range stretches including extension with HOB lowered diaphragmatic breathing Supine Exercise Name Diaphragmatic breathing Reps/Minutes x 10 reps Manual Therapy Treatment Soft Tissue Mobilization scar tissue Body Location anterior neck Mobilization Type Myofascial Release,Rolling, Other pec minor release Body Location pec minor release platysma Body Location platysma muscle Mobilization Type Myofascial Release SCM Body Location SCM and anterior neck Mobilization Type Myofascial Release Lymphedema Treatment Manual Lymphatic Drainage Location anterior neck, left face Duration 25' PT-OP-T Assessment and Plan Start: 05/13/20 16:55 Freq: Status: Active Protocol: Document 09/25/20 13:00 [facility] (Rec: 09/25/20 13:11 [facility] [id number]) Physical Therapy Assessment Goals 4 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 09/18/20: continues to improve , 75% of normal LTG Duration 11/19/19 3 Impairment postural impairment with difficulty holding head up At Home Independent Call Center Agent Goal (LTG) Patient will be able to hold his head up actively throughout the day without excess fatigue or pain 07/23/20: goal progress, has difficulty holding head up. Compliant to HEP. 09/18/20: goal 60% achieved LTG Duration 11/19/19 2 Impairment Decreased cervical ROM At Home Independent [employer] Center Agent Goal (LTG) Patient to return to full active motion of his neck including ability to turn head to right for safe driving 07/23/20: goal progress, not fully achieved 09/18/20: goal 50% achieved LTG Duration 11/19/19 1 Impairment lymphedema anterior neck Long-Term Goal (LTG) Decrease lymphedema neck to stable level and patient to be fit with appropriate compression garment. Patient to demonstrate good understanding of self- management. 07/23/20: goal progress. Still problem-solving compression garment, patient ordered larger garment, will try to wear during day as doesn't tolerate at night. Has potential for further edema reduction 09/18/20: 80% achieved for neck, but noting persistent edema in face especially cheeks recently. May need to help patient obtain more extensive compression garment for his face. LTG Duration 09/21/20 Assessment Summary Assessment Decreased measurement at largest area of swelling. Improved ROM after PT session, reviewed pin and stretch for HEP, though patient has difficulty due to tremor in his hands. Good use of new chip bag for under compression garment and still considering more extensive garment. Physical Therapy Plan Frequency and Duration Frequency of Treatment 2x/Week Duration of Treatment 8 weeks Plan of Care Start Date 09/18/20 Plan of Care End Date 11/19/20 Therapeutic Interventions Therapeutic Interventions Home Exercise Program, Lymphedema Management,Manual Therapy,Patient/Caregiver Education,Self-Care/Home Management,Soft Tissue Mobilization,Taping, Therapeutic Exercises Next Visit Focus/Plan Next Note Type Treatment Note Next Visit Plan Continue PT for lymphedema management, soft tissue mobilization, ROM.
--- NOTE | 2020-09-25 14:18 | PT.OPPOC ---
Physical, Occupational & Speech Therapy At [facility] Current Diagnoses Lymphedema, not elsewhere classified (09/25/20) Cervicalgia (09/25/20) Soft tissue disorder, unspecified (09/25/20) Abnormal posture (09/25/20) Visit Care Team Role Provider Type Marii Daly MD Family Provider Physician Primary Care Provider Specialty: Internal Medicine Address: [address] [place] [address], [id number] Email: [email or web address] Edvin Agee MD Attending Provider Physician Referring Provider Specialty: Ear, Nose, Throat Address: [address] [place] [address], [id number] Email: [email or web address] Plan Of Care PT-OP-T Assessment and Plan Start: 05/13/20 16:55 Freq: Status: Active Protocol: Document 09/25/20 13:00 [facility] (Rec: 09/25/20 13:11 [facility] [id number]) Physical Therapy Assessment Goals 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 09/18/20: continues to improve , 75% of normal LTG Duration 11/19/19 3 Impairment postural impairment with difficulty holding head up Certified Nurse Operating Room Goal (LTG) Patient will be able to hold his head up actively throughout the day without excess fatigue or pain 07/23/20: goal progress, has difficulty holding head up. Compliant to HEP. 09/18/20: goal 60% achieved LTG Duration 11/19/19 2 Impairment Decreased cervical ROM Long-Term Goal (LTG) Patient to return to full active motion of his neck including ability to turn head to right for safe driving 07/23/20: goal progress, not fully achieved 09/18/20: goal 50% achieved LTG Duration 11/19/19 1 Impairment lymphedema anterior neck Long-Term Goal (LTG) Decrease lymphedema neck to stable level and patient to be fit with appropriate compression garment. Patient to demonstrate good understanding of self- management. 07/23/20: goal progress. Still problem-solving compression garment, patient ordered larger garment, will try to wear during day as doesn't tolerate at night. Has potential for further edema reduction 09/18/20: 80% achieved for neck, but noting persistent edema in face especially cheeks recently. May need to help patient obtain more extensive compression garment for his face. LTG Duration 09/21/20 Assessment Summary Assessment Decreased measurement at largest area of swelling. Improved ROM after PT session, reviewed pin and stretch for HEP, though patient has difficulty due to tremor in his hands. Good use of new chip bag for under compression garment and still considering more extensive garment. Physical Therapy Plan Frequency and Duration Frequency of Treatment 2x/Week Duration of Treatment 8 weeks Plan of Care Start Date 09/18/20 Plan of Care End Date 11/19/20 Therapeutic Interventions Therapeutic Interventions Home Exercise Program, Lymphedema Management,Manual Therapy,Patient/Caregiver Education,Self-Care/Home Management,Soft Tissue Mobilization,Taping, Therapeutic Exercises Next Visit Focus/Plan Next Note Type Treatment Note Next Visit Plan Continue PT for lymphedema management, soft tissue mobilization, ROM. Plan of Care Dates Plan of Care Start Date 09/18/20 Plan of Care End Date 11/19/20 Electronically Signed by: Rosa M Kwok, PT 09/25/20 [id number] Please Sign and Return: I have reviewed this Plan of Care and certify that the skilled therapy services above are required to meet the patient?s needs. Physician Signature Date Printed Name and Credentials Clinical Instructor Signature Printed Name and Credentials
--- NOTE | 2020-09-30 16:53 | PT.OTN ---
Current Diagnoses Lymphedema, not elsewhere classified (09/30/20) Cervicalgia (09/30/20) Soft tissue disorder, unspecified (09/30/20) Abnormal posture (09/30/20) Physical Therapy Treatment Note PT-OP-A Visit Information Start: 05/13/20 16:55 Freq: Status: Active Protocol: Document 09/30/20 13:00 [facility] (Rec: 09/30/20 13:09 [facility] [id number]) Out-Patient Physical Therapy Visit Information Visit Information Visit Type Treatment Note Visit Start Time 13:02 Visit Stop Time 13:42 Total Visit Minutes 40 Visit Number 20 PT-OP-B Current Condition Start: 05/13/20 16:55 Freq: Status: Active Protocol: Document 05/16/20 13:55 [facility] (Rec: 05/16/20 14:54 [facility] [id number]) Current Condition History of Current Condition Onset Date November 2019 Current Complaints stiffness, lymphedema neck History of Current Condition 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 Finished with 33 treatments of radiation. States the muscles so tight difficult to hold head up or look to the right. Swelling anterior neck bilaterally. Reports they tried to drain the swelling with a needle but wasn't successful Has end-stage renal disease so not doing chemo. Getting set up to do peritoneal dialysis. Was recently hospitalized for low blood sugar, 2 weeks ago hospitalized due to bradycardia. Has stopped HTN meds. Trying to manage the low blood sugar dietarily. Treatment Goals Patient/Caregiver Goals Improve his neck ROM to WNL, decrease the lymphedema anterior neck. Prior Functional Status Baseline Function- ADL's Independent Baseline Function- Mobility Independent Baseline Function- Other able to turn head fully for all activities including driving Current Functional Impairments (Reported) Functional Limitations- ADL's Difficulty holding his head up , looking up, turning head for driving PT-OP-C Subjective Start: 05/13/20 16:55 Freq: Status: Active Protocol: Document 09/30/20 13:00 [facility] (Rec: 09/30/20 13:09 [facility] [id number]) OP-PT Subjective Patient Comments Patient Comments Chip bag still intact. Compliant to HEP. PT-OP-J Posture/Palpation/Skin Start: 05/13/20 16:55 Freq: Status: Active Protocol: Document 05/16/20 17:26 [facility] (Rec: 05/16/20 17:49 [facility] [id number]) Posture Evaluation Position Sitting Head/C-Spine Posture Forward Head T-Spine Posture Increased Kyphosis Shoulder Posture (L) Rounded,(R) Rounded Scapula Posture (L) Protracted,(R) Protracted Palpation Assessment Location anterior neck Palpation Findings Edema,Soft Tissue Tightness Palpation Details tightness left greater than right PT-OP-K Range of Motion Start: 05/13/20 16:55 Freq: Status: Active Protocol: Document 08/13/20 12:59 [facility] (Rec: 08/13/20 13:14 [facility] [id number]) Cervical Spine Range of Motion Cervical Spine Active Testing Position Sitting Flexion 55 Extension 27 Rotation Left 57 Rotation Right 55 Lateral Flexion Left 45 Lateral Flexion Right 17 ROM Limitations Soft Tissue Tightness,Swelling Comments radoatopm fobrpsos PT-OP-N Lymphedema Start: 05/13/20 16:55 Freq: Status: Active Protocol: Document 09/30/20 13:00 [facility] (Rec: 09/30/20 13:09 [facility] [id number]) Lymphedema Measurements Comments Lymphedema Comments chin to top of head:65.3 Jawline: 51.0 largest area of edema: 43.3 base of neck: 42.8 PT-OP-Q Treatments Start: 05/13/20 16:55 Freq: Status: Active Protocol: Document 09/30/20 13:00 [facility] (Rec: 09/30/20 13:09 [facility] [id number]) Therapeutic Exercises Supine Exercises c/s ROM Supine Exercise Name passive all motions Comments end-range stretches including extension with HOB lowered diaphragmatic breathing Supine Exercise Name Diaphragmatic breathing Reps/Minutes x 10 reps Manual Therapy Treatment Soft Tissue Mobilization scar tissue Body Location anterior neck Mobilization Type Myofascial Release,Rolling, Other pec minor release Body Location pec minor release platysma Body Location platysma muscle Mobilization Type Myofascial Release SCM Body Location SCM and anterior neck Mobilization Type Myofascial Release Lymphedema Treatment Manual Lymphatic Drainage Location anterior neck, left face Duration 25' PT-OP-T Assessment and Plan Start: 05/13/20 16:55 Freq: Status: Active Protocol: Document 09/30/20 13:00 [facility] (Rec: 09/30/20 13:09 [facility] [id number]) Physical Therapy Assessment Goals 4 Impairment 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 09/18/20: continues to improve , 75% of normal LTG Duration 11/19/19 3 Impairment postural impairment with difficulty holding head up [facility] Goal (LTG) Patient will be able to hold his head up actively throughout the day without excess fatigue or pain 07/23/20: goal progress, has difficulty holding head up. Compliant to HEP. 09/18/20: goal 60% achieved LTG Duration 11/19/19 2 Impairment Decreased cervical ROM [facility] Goal (LTG) Patient to return to full active motion of his neck including ability to turn head to right for safe driving 07/23/20: goal progress, not fully achieved 09/18/20: goal 50% achieved LTG Duration 11/19/19 1 Impairment lymphedema anterior neck [facility] Goal (LTG) Decrease lymphedema neck to stable level and patient to be fit with appropriate compression garment. Patient to demonstrate good understanding of self- management. 07/23/20: goal progress. Still problem-solving compression garment, patient ordered larger garment, will try to wear during day as doesn't tolerate at night. Has potential for further edema reduction 09/18/20: 80% achieved for neck, but noting persistent edema in face especially cheeks recently. May need to help patient obtain more extensive compression garment for his face. LTG Duration 09/21/20 Assessment Summary Assessment small increases all measurements, no known reason. Patient reports hasn't been able to get his BP down over the past couple days; has been 160's and 170's vs usual 140' s; BP at end of PT 168/92. Patient to contact physician. Physical Therapy Plan Frequency and Duration Frequency of Treatment 2x/Week Duration of Treatment 8 weeks Plan of Care Start Date 09/18/20 Plan of Care End Date 11/19/20 Therapeutic Interventions Therapeutic Interventions Home Exercise Program, Lymphedema Management,Manual Therapy,Patient/Caregiver Education,Self-Care/Home Management,Soft Tissue Mobilization,Taping, Therapeutic Exercises Next Visit Focus/Plan Next Note Type Treatment Note Next Visit Plan Continue PT for lymphedema management, soft tissue mobilization, ROM.
--- NOTE | 2020-10-02 17:00 | PT.OTN ---
Current Diagnoses Lymphedema, not elsewhere classified (10/02/20) Cervicalgia (10/02/20) Soft tissue disorder, unspecified (10/02/20) Abnormal posture (10/02/20) Physical Therapy Treatment Note PT-OP-A Visit Information Start: 05/13/20 16:55 Freq: Status: Active Protocol: Document 10/02/20 12:59 [facility] (Rec: 10/02/20 13:08 [facility] [id number]) Out-Patient Physical Therapy Visit Information Visit Information Visit Type Treatment Note Visit Start Time 13:00 Visit Stop Time 13:45 Total Visit Minutes 45 Visit Number 21 PT-OP-B Current Condition Start: 05/13/20 16:55 Freq: Status: Active Protocol: Document 05/16/20 13:55 [facility] (Rec: 05/16/20 14:54 [facility] [id number]) Current Condition History of Current Condition Onset Date November 2019 Current Complaints stiffness, lymphedema neck History of Current Condition 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 Finished with 33 treatments of radiation. States the muscles so tight difficult to hold head up or look to the right. Swelling anterior neck bilaterally. Reports they tried to drain the swelling with a needle but wasn't successful Has end-stage renal disease so not doing chemo. Getting set up to do peritoneal dialysis. Was recently hospitalized for low blood sugar, 2 weeks ago hospitalized due to bradycardia. Has stopped HTN meds. Trying to manage the low blood sugar dietarily. Treatment Goals Patient/Caregiver Goals Improve his neck ROM to WNL, decrease the lymphedema anterior neck. Prior Functional Status Baseline Function- ADL's Independent Baseline Function- Mobility Independent Baseline Function- Other able to turn head fully for all activities including driving Current Functional Impairments (Reported) Functional Limitations- ADL's Difficulty holding his head up , looking up, turning head for driving PT-OP-C Subjective Start: 05/13/20 16:55 Freq: Status: Active Protocol: Document 09/30/20 13:00 [facility] (Rec: 09/30/20 13:09 [facility] [id number]) OP-PT Subjective Patient Comments Patient Comments Chip bag still intact. Compliant to HEP. PT-OP-J Posture/Palpation/Skin Start: 05/13/20 16:55 Freq: Status: Active Protocol: Document 05/16/20 17:26 [facility] (Rec: 05/16/20 17:49 [facility] [id number]) Posture Evaluation Position Sitting Head/C-Spine Posture Forward Head T-Spine Posture Increased Kyphosis Shoulder Posture (L) Rounded,(R) Rounded Scapula Posture (L) Protracted,(R) Protracted Palpation Assessment Location anterior neck Palpation Findings Edema,Soft Tissue Tightness Palpation Details tightness left greater than right PT-OP-K Range of Motion Start: 05/13/20 16:55 Freq: Status: Active Protocol: Document 08/13/20 12:59 [facility] (Rec: 08/13/20 13:14 [facility] [id number]) Cervical Spine Range of Motion Cervical Spine Active Testing Position Sitting Flexion 55 Extension 27 Rotation Left 57 Rotation Right 55 Lateral Flexion Left 45 Lateral Flexion Right 17 ROM Limitations Soft Tissue Tightness,Swelling Comments radoatopm fobrpsos PT-OP-N Lymphedema Start: 05/13/20 16:55 Freq: Status: Active Protocol: Document 10/02/20 12:59 [facility] (Rec: 10/02/20 13:11 [facility] [id number]) Lymphedema Measurements Comments Lymphedema Comments chin to top of head:65.3 Jawline: 50.0 largest area of edema: 43.3 base of neck: 42.8 PT-OP-Q Treatments Start: 05/13/20 16:55 Freq: Status: Active Protocol: Document 10/02/20 12:59 [facility] (Rec: 10/02/20 13:08 [facility] [id number]) Manual Therapy Treatment Soft Tissue Mobilization scar tissue Body Location anterior neck Mobilization Type Myofascial Release,Rolling, Other pec minor release Body Location pec minor release platysma Body Location platysma muscle Mobilization Type Myofascial Release SCM Body Location SCM and anterior neck Mobilization Type Myofascial Release Lymphedema Treatment Manual Lymphatic Drainage Location anterior neck, left face Duration 25' PT-OP-T Assessment and Plan Start: 05/13/20 16:55 Freq: Status: Active Protocol: Document 10/02/20 12:59 [facility] (Rec: 10/02/20 13:08 [facility] [id number]) Physical Therapy Assessment Goals 4 Impairment tissue fibrosis anterior and lateral (L) neck Law Examiner Goal (LTG) Improve soft tissue mobility anterior and lateral neck to WNL 07/23/20: goal progress, not fully achieved. 09/18/20: continues to improve , 75% of normal LTG Duration 11/19/19 3 Impairment postural impairment with difficulty holding head up [facility] Goal (LTG) Patient will be able to hold his head up actively throughout the day without excess fatigue or pain 07/23/20: goal progress, has difficulty holding head up. Compliant to HEP. 09/18/20: goal 60% achieved LTG Duration 11/19/19 2 Impairment Decreased cervical ROM [facility] Goal (LTG) Patient to return to full active motion of his neck including ability to turn head to right for safe driving 07/23/20: goal progress, not fully achieved 09/18/20: goal 50% achieved LTG Duration 11/19/19 1 Impairment lymphedema anterior neck Law Examiner Goal (LTG) Decrease lymphedema neck to stable level and patient to be fit with appropriate compression garment. Patient to demonstrate good understanding of self- management. 07/23/20: goal progress. Still problem-solving compression garment, patient ordered larger garment, will try to wear during day as doesn't tolerate at night. Has potential for further edema reduction 09/18/20: 80% achieved for neck, but noting persistent edema in face especially cheeks recently. May need to help patient obtain more extensive compression garment for his face. LTG Duration 09/21/20 Assessment Summary Assessment Minimal changes to circumferential measurements. BP improved per patient after medication adjustments, not taken in PT today as patient takes at home 2x/day. Continue with lymphedema management, ROM. Physical Therapy Plan Frequency and Duration Frequency of Treatment 2x/Week Duration of Treatment 8 weeks Plan of Care Start Date 09/18/20 Plan of Care End Date 11/19/20 Therapeutic Interventions Therapeutic Interventions Home Exercise Program, Lymphedema Management,Manual Therapy,Patient/Caregiver Education,Self-Care/Home Management,Soft Tissue Mobilization,Taping, Therapeutic Exercises Next Visit Focus/Plan Next Note Type Treatment Note Next Visit Plan Continue PT for lymphedema management, soft tissue mobilization, ROM.
--- NOTE | 2020-10-07 14:09 | PT.OTN ---
Current Diagnoses Lymphedema, not elsewhere classified (10/07/20) Cervicalgia (10/07/20) Soft tissue disorder, unspecified (10/07/20) Abnormal posture (10/07/20) Physical Therapy Treatment Note PT-OP-A Visit Information Start: 05/13/20 16:55 Freq: Status: Active Protocol: Document 10/07/20 13:00 [facility] (Rec: 10/07/20 13:41 [facility] [id number]) Out-Patient Physical Therapy Visit Information Visit Information Visit Type Treatment Note Visit Start Time 13:00 Visit Stop Time 13:45 Total Visit Minutes 45 Visit Number 22 PT-OP-B Current Condition Start: 05/13/20 16:55 Freq: Status: Active Protocol: Document 05/16/20 13:55 [facility] (Rec: 05/16/20 14:54 [facility]AK [id number]) Current Condition History of Current Condition Onset Date November 2019 Current Complaints stiffness, lymphedema neck History of Current Condition 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 Finished with 33 treatments of radiation. States the muscles so tight difficult to hold head up or look to the right. Swelling anterior neck bilaterally. Reports they tried to drain the swelling with a needle but wasn't successful Has end-stage renal disease so not doing chemo. Getting set up to do peritoneal dialysis. Was recently hospitalized for low blood sugar, 2 weeks ago hospitalized due to bradycardia. Has stopped HTN meds. Trying to manage the low blood sugar dietarily. Treatment Goals Patient/Caregiver Goals Improve his neck ROM to WNL, decrease the lymphedema anterior neck. Prior Functional Status Baseline Function- ADL's Independent Baseline Function- Mobility Independent Baseline Function- Other able to turn head fully for all activities including driving Current Functional Impairments (Reported) Functional Limitations- ADL's Difficulty holding his head up , looking up, turning head for driving PT-OP-C Subjective Start: 05/13/20 16:55 Freq: Status: Active Protocol: Document 10/07/20 13:00 [facility] (Rec: 10/07/20 13:41 SAK [id number]) OP-PT Subjective Patient Comments Patient Comments Feels progressing still, though states today woke up after sleeping in chair for several hours with his chin on his chest. BP 110/50 this am . PT-OP-J Posture/Palpation/Skin Start: 05/13/20 16:55 Freq: Status: Active Protocol: Document 05/16/20 17:26 [facility] (Rec: 05/16/20 17:49 [facility] [id number]) Posture Evaluation Position Sitting Head/C-Spine Posture Forward Head T-Spine Posture Increased Kyphosis Shoulder Posture (L) Rounded,(R) Rounded Scapula Posture (L) Protracted,(R) Protracted Palpation Assessment Location anterior neck Palpation Findings Edema,Soft Tissue Tightness Palpation Details tightness left greater than right PT-OP-K Range of Motion Start: 05/13/20 16:55 Freq: Status: Active Protocol: Document 08/13/20 12:59 [facility] (Rec: 08/13/20 13:14 [facility] [id number]) Cervical Spine Range of Motion Cervical Spine Active Testing Position Sitting Flexion 55 Extension 27 Rotation Left 57 Rotation Right 55 Lateral Flexion Left 45 Lateral Flexion Right 17 ROM Limitations Soft Tissue Tightness,Swelling Comments radoatopm fobrpsos PT-OP-N Lymphedema Start: 05/13/20 16:55 Freq: Status: Active Protocol: Document 10/07/20 13:00 [facility] (Rec: 10/07/20 13:41 [facility] [id number]) Lymphedema Measurements Comments Lymphedema Comments chin to top of head:63.4 jawline:50.8 largest area of edema: 43.4 base of neck: 42.7 PT-OP-Q Treatments Start: 05/13/20 16:55 Freq: Status: Active Protocol: Document 10/07/20 13:00 [facility] (Rec: 10/07/20 13:41 [facility] [id number]) Manual Therapy Treatment Soft Tissue Mobilization scar tissue Body Location anterior neck Mobilization Type Myofascial Release,Rolling, Other pec minor release Body Location pec minor release platysma Body Location platysma muscle Mobilization Type Myofascial Release SCM Body Location SCM and anterior neck Mobilization Type Myofascial Release Lymphedema Treatment Manual Lymphatic Drainage Location anterior neck, left face Duration 25' PT-OP-T Assessment and Plan Start: 05/13/20 16:55 Freq: Status: Active Protocol: Document 10/07/20 13:00 [facility] (Rec: 10/07/20 13:41 [facility] [id number]) Physical Therapy Assessment Goals 4 Impairment tissue fibrosis anterior and lateral (L) neck Hearing Aid Assistant Goal (LTG) Improve soft tissue mobility anterior and lateral neck to WNL 07/23/20: goal progress, not fully achieved. 09/18/20: continues to improve , 75% of normal LTG Duration 11/19/19 3 Impairment postural impairment with difficulty holding head up Hearing Aid Assistant Goal (LTG) Patient will be able to hold his head up actively throughout the day without excess fatigue or pain 07/23/20: goal progress, has difficulty holding head up. Compliant to HEP. 09/18/20: goal 60% achieved LTG Duration 11/19/19 2 Impairment Decreased cervical ROM Hearing Aid Assistant Goal (LTG) Patient to return to full active motion of his neck including ability to turn head to right for safe driving 07/23/20: goal progress, not fully achieved 09/18/20: goal 50% achieved LTG Duration 11/19/19 1 Impairment lymphedema anterior neck Hearing Aid Assistant Goal (LTG) Decrease lymphedema neck to stable level and patient to be fit with appropriate compression garment. Patient to demonstrate good understanding of self- management. 07/23/20: goal progress. Still problem-solving compression garment, patient ordered larger garment, will try to wear during day as doesn't tolerate at night. Has potential for further edema reduction 09/18/20: 80% achieved for neck, but noting persistent edema in face especially cheeks recently. May need to help patient obtain more extensive compression garment for his face. LTG Duration 09/21/20 Progress Towards Goals Progress Towards Goals Progressing Toward Goals Assessment Summary Assessment All circumferential measurements either improved or decreased. Patient ROM improved. Physical Therapy Plan Frequency and Duration Frequency of Treatment 2x/Week Duration of Treatment 8 weeks Plan of Care Start Date 09/18/20 Plan of Care End Date 11/19/20 Therapeutic Interventions Therapeutic Interventions Home Exercise Program, Lymphedema Management,Manual Therapy,Patient/Caregiver Education,Self-Care/Home Management,Soft Tissue Mobilization,Taping, Therapeutic Exercises Next Visit Focus/Plan Next Note Type Treatment Note Next Visit Plan Continue PT for lymphedema management, soft tissue mobilization, ROM.
--- NOTE | 2020-10-09 14:59 | PT.OTN ---
Current Diagnoses Lymphedema, not elsewhere classified (10/09/20) Cervicalgia (10/09/20) Soft tissue disorder, unspecified (10/09/20) Abnormal posture (10/09/20) Physical Therapy Treatment Note PT-OP-A Visit Information Start: 05/13/20 16:55 Freq: Status: Active Protocol: Document 10/09/20 13:02 SAK (Rec: 10/09/20 13:09 SAK [id number]) Out-Patient Physical Therapy Visit Information Visit Information Visit Type Treatment Note Visit Start Time 13:00 Visit Stop Time 13:45 Total Visit Minutes 45 Visit Number 23 PT-OP-B Current Condition Start: 05/13/20 16:55 Freq: Status: Active Protocol: Document 05/16/20 13:55 SAK (Rec: 05/16/20 14:54 SAK [id number]) Current Condition History of Current Condition Onset Date November 2019 Current Complaints stiffness, lymphedema neck History of Current Condition 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 Finished with 33 treatments of radiation. States the muscles so tight difficult to hold head up or look to the right. Swelling anterior neck bilaterally. Reports they tried to drain the swelling with a needle but wasn't successful Has end-stage renal disease so not doing chemo. Getting set up to do peritoneal dialysis. Was recently hospitalized for low blood sugar, 2 weeks ago hospitalized due to bradycardia. Has stopped HTN meds. Trying to manage the low blood sugar dietarily. Treatment Goals Patient/Caregiver Goals Improve his neck ROM to WNL, decrease the lymphedema anterior neck. Prior Functional Status Baseline Function- ADL's Independent Baseline Function- Mobility Independent Baseline Function- Other able to turn head fully for all activities including driving Current Functional Impairments (Reported) Functional Limitations- ADL's Difficulty holding his head up , looking up, turning head for driving PT-OP-C Subjective Start: 05/13/20 16:55 Freq: Status: Active Protocol: Document 10/07/20 13:00 SAK (Rec: 10/07/20 13:41 SAK [id number]) OP-PT Subjective Patient Comments Patient Comments Feels progressing still, though states today woke up after sleeping in chair for several hours with his chin on his chest. BP 110/50 this am . PT-OP-J Posture/Palpation/Skin Start: 05/13/20 16:55 Freq: Status: Active Protocol: Document 05/16/20 17:26 [facility] (Rec: 05/16/20 17:49 [facility] [id number]) Posture Evaluation Position Sitting Head/C-Spine Posture Forward Head T-Spine Posture Increased Kyphosis Shoulder Posture (L) Rounded,(R) Rounded Scapula Posture (L) Protracted,(R) Protracted Palpation Assessment Location anterior neck Palpation Findings Edema,Soft Tissue Tightness Palpation Details tightness left greater than right PT-OP-K Range of Motion Start: 05/13/20 16:55 Freq: Status: Active Protocol: Document 08/13/20 12:59 [facility] (Rec: 08/13/20 13:14 [facility] [id number]) Cervical Spine Range of Motion Cervical Spine Active Testing Position Sitting Flexion 55 Extension 27 Rotation Left 57 Rotation Right 55 Lateral Flexion Left 45 Lateral Flexion Right 17 ROM Limitations Soft Tissue Tightness,Swelling Comments radoatopm fobrpsos PT-OP-N Lymphedema Start: 05/13/20 16:55 Freq: Status: Active Protocol: Document 10/09/20 13:02 [facility] (Rec: 10/09/20 13:09 [facility] [id number]) Lymphedema Measurements Comments Lymphedema Comments chin to top of head:63.5 jawline:50.8 largest area of edema: 43.3 base of neck: 42.7 PT-OP-Q Treatments Start: 05/13/20 16:55 Freq: Status: Active Protocol: Document 10/09/20 13:02 [facility] (Rec: 10/09/20 13:09 [facility] [id number]) Manual Therapy Treatment Soft Tissue Mobilization scar tissue Body Location anterior neck Mobilization Type Myofascial Release,Rolling, Other pec minor release Body Location pec minor release platysma Body Location platysma muscle Mobilization Type Myofascial Release SCM Body Location SCM and anterior neck Mobilization Type Myofascial Release Lymphedema Treatment Manual Lymphatic Drainage Location anterior neck, left face Duration 25' PT-OP-T Assessment and Plan Start: 05/13/20 16:55 Freq: Status: Active Protocol: Document 10/09/20 13:02 [facility] (Rec: 10/09/20 13:09 [facility] [id number]) Physical Therapy Assessment Goals 4 Impairment tissue fibrosis anterior and lateral (L) neck Child [employer] Caseworker Goal (LTG) Improve soft tissue mobility anterior and lateral neck to WNL 07/23/20: goal progress, not fully achieved. 09/18/20: continues to improve , 75% of normal LTG Duration 11/19/19 3 Impairment postural impairment with difficulty holding head up Child [employer] Caseworker Goal (LTG) Patient will be able to hold his head up actively throughout the day without excess fatigue or pain 07/23/20: goal progress, has difficulty holding head up. Compliant to HEP. 09/18/20: goal 60% achieved LTG Duration 11/19/19 2 Impairment Decreased cervical ROM Child Welfare Caseworker Goal (LTG) Patient to return to full active motion of his neck including ability to turn head to right for safe driving 07/23/20: goal progress, not fully achieved 09/18/20: goal 50% achieved LTG Duration 11/19/19 1 Impairment lymphedema anterior neck Child [employer] Caseworker Goal (LTG) Decrease lymphedema neck to stable level and patient to be fit with appropriate compression garment. Patient to demonstrate good understanding of self- management. 07/23/20: goal progress. Still problem-solving compression garment, patient ordered larger garment, will try to wear during day as doesn't tolerate at night. Has potential for further edema reduction 09/18/20: 80% achieved for neck, but noting persistent edema in face especially cheeks recently. May need to help patient obtain more extensive compression garment for his face. LTG Duration 09/21/20 Assessment Summary Assessment Patient circumferential measurements appear to be plateauing, ROM improving, soft tissue mobility restricted but greatly improved in neck. Patient compliant to wearing compression garment at night. Physical Therapy Plan Frequency and Duration Frequency of Treatment 2x/Week Duration of Treatment 8 weeks Plan of Care Start Date 09/18/20 Plan of Care End Date 11/19/20 Therapeutic Interventions Therapeutic Interventions Home Exercise Program, Lymphedema Management,Manual Therapy,Patient/Caregiver Education,Self-Care/Home Management,Soft Tissue Mobilization,Taping, Therapeutic Exercises Next Visit Focus/Plan Next Note Type Treatment Note Next Visit Plan Continue PT for lymphedema management, soft tissue mobilization, ROM.
--- NOTE | 2020-10-21 16:38 | PT.OTN ---
Current Diagnoses Lymphedema, not elsewhere classified (10/21/20) Cervicalgia (10/21/20) Soft tissue disorder, unspecified (10/21/20) Abnormal posture (10/21/20) Physical Therapy Treatment Note PT-OP-A Visit Information Start: 05/13/20 16:55 Freq: Status: Active Protocol: Document 10/21/20 12:56 SAK (Rec: 10/21/20 13:09 SAK [id number]) Out-Patient Physical Therapy Visit Information Visit Information Visit Type Treatment Note Visit Start Time 13:00 Visit Stop Time 13:45 Total Visit Minutes 45 Visit Number 24 PT-OP-B Current Condition Start: 05/13/20 16:55 Freq: Status: Active Protocol: Document 05/16/20 13:55 SAK (Rec: 05/16/20 14:54 SAK [id number]) Current Condition History of Current Condition Onset Date November 2019 Current Complaints stiffness, lymphedema neck History of Current Condition 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 Finished with 33 treatments of radiation. States the muscles so tight difficult to hold head up or look to the right. Swelling anterior neck bilaterally. Reports they tried to drain the swelling with a needle but wasn't successful Has end-stage renal disease so not doing chemo. Getting set up to do peritoneal dialysis. Was recently hospitalized for low blood sugar, 2 weeks ago hospitalized due to bradycardia. Has stopped HTN meds. Trying to manage the low blood sugar dietarily. Treatment Goals Patient/Caregiver Goals Improve his neck ROM to WNL, decrease the lymphedema anterior neck. Prior Functional Status Baseline Function- ADL's Independent Baseline Function- Mobility Independent Baseline Function- Other able to turn head fully for all activities including driving Current Functional Impairments (Reported) Functional Limitations- ADL's Difficulty holding his head up , looking up, turning head for driving PT-OP-C Subjective Start: 05/13/20 16:55 Freq: Status: Active Protocol: Document 10/21/20 12:56 SAK (Rec: 10/21/20 13:09 SAK [id number]) OP-PT Subjective Patient Comments Patient Comments States continues compliance with wearing compression, doing HEP. self-massage remains difficult due to tremor. Agreeable to follow- up PT appointment in 1 month. PT-OP-J Posture/Palpation/Skin Start: 05/13/20 16:55 Freq: Status: Active Protocol: Document 05/16/20 17:[address] [facility] (Rec: 05/16/20 17:[address] [facility] [id number]) Posture Evaluation Position Sitting Head/C-Spine Posture Forward Head T-Spine Posture Increased Kyphosis Shoulder Posture (L) Rounded,(R) Rounded Scapula Posture (L) Protracted,(R) Protracted Palpation Assessment Location anterior neck Palpation Findings Edema,Soft Tissue Tightness Palpation Details tightness left greater than right PT-OP-K Range of Motion Start: 05/13/20 16:55 Freq: Status: Active Protocol: Document 08/13/20 12:[address] [facility] (Rec: 08/13/20 13:[address] [facility] [id number]) Cervical Spine Range of Motion Cervical Spine Active Testing Position Sitting Flexion 55 Extension 27 Rotation Left 57 Rotation Right 55 Lateral Flexion Left 45 Lateral Flexion Right 17 ROM Limitations Soft Tissue Tightness,Swelling Comments radoatopm fobrpsos PT-OP-N Lymphedema Start: 05/13/20 16:55 Freq: Status: Active Protocol: Document 10/21/20 12:[address] [facility] (Rec: 10/21/20 13:[address] [facility] [id number]) Lymphedema Measurements Comments Lymphedema Comments chin to top of head: 63.4 jawline:51.0 largest area of edema: 43.0 base of neck: 42.5 PT-OP-Q Treatments Start: 05/13/20 16:55 Freq: Status: Active Protocol: Document 10/21/20 12:[address] [facility] (Rec: 10/21/20 13:[address] [facility] [id number]) Manual Therapy Treatment Soft Tissue Mobilization scar tissue Body Location anterior neck Mobilization Type Myofascial Release,Rolling, Other pec minor release Body Location pec minor release platysma Body Location platysma muscle Mobilization Type Myofascial Release SCM Body Location SCM and anterior neck Mobilization Type Myofascial Release Lymphedema Treatment Manual Lymphatic Drainage Location anterior neck, left face Duration 25' PT-OP-T Assessment and Plan Start: 05/13/20 16:55 Freq: Status: Active Protocol: Document 10/21/20 12:[address] [facility] (Rec: 10/21/20 13:[address] [facility] [id number]) Physical Therapy Assessment Goals 4 Impairment tissue fibrosis anterior and lateral (L) neck [employer] Continuous [employer]urn Goal (LTG) Improve soft tissue mobility anterior and lateral neck to WNL 07/23/20: goal progress, not fully achieved. 09/18/20: continues to improve , 75% of normal LTG Duration 11/19/19 3 Impairment postural impairment with difficulty holding head up [employer] Goal (LTG) Patient will be able to hold his head up actively throughout the day without excess fatigue or pain 07/23/20: goal progress, has difficulty holding head up. Compliant to HEP. 09/18/20: goal 60% achieved 10/21/20: 75% achieved LTG Duration 11/19/20 2 Impairment Decreased cervical ROM [employer] Continuous Churn Goal (LTG) Patient to return to full active motion of his neck including ability to turn head to right for safe driving 07/23/20: goal progress, not fully achieved 09/18/20: goal 50% achieved 10/21/20: 75% achieved LTG Duration 11/19/20 1 Impairment lymphedema anterior neck [employer] Goal (LTG) Decrease lymphedema neck to stable level and patient to be fit with appropriate compression garment. Patient to demonstrate good understanding of self- management. 07/23/20: goal progress. Still problem-solving compression garment, patient ordered larger garment, will try to wear during day as doesn't tolerate at night. Has potential for further edema reduction 09/18/20: 80% achieved for neck, but noting persistent edema in face especially cheeks recently. May need to help patient obtain more extensive compression garment for his face. 10/21/20: 85 % achieved LTG Duration 09/21/21 Assessment Summary Assessment Measurements stable, ROM improved, goals mostly achieved. Recommend follow-up PT appointment in 1 month to assure continued management of lymphedema, assess further need for PT. Physical Therapy Plan Frequency and Duration Frequency of Treatment 2x/Week Duration of Treatment 8 weeks Plan of Care Start Date 09/18/20 Plan of Care End Date 11/19/20 Therapeutic Interventions Therapeutic Interventions Home Exercise Program, Lymphedema Management,Manual Therapy,Patient/Caregiver Education,Self-Care/Home Management,Soft Tissue Mobilization,Taping, Therapeutic Exercises Next Visit Focus/Plan Next Note Type Treatment Note
--- NOTE | 2020-11-13 13:08 | PT-OP ANOTE ---
cancelled due to BP issues, inability to stand
--- NOTE | 2020-11-26 11:25 | PT-OP ANOTE ---
Spoke by phone with patient as he had to cancel last PT appointment due to BP issues. States his blood pressure dropped severely and he fell 4x last time approximately 5 days ago. States he had right hip x-ray yesterday and sees doctor this afternoon. Has rescheduled appointment for PT in a few weeks.
--- NOTE | 2020-12-10 15:40 | PT.OTN ---
Current Diagnoses Lymphedema, not elsewhere classified (12/10/20) Cervicalgia (12/10/20) Soft tissue disorder, unspecified (12/10/20) Abnormal posture (12/10/20) Physical Therapy Treatment Note PT-OP-A Visit Information Start: 05/13/20 16:55 Freq: Status: Active Protocol: Document 12/10/20 14:24 SAK (Rec: 12/10/20 14:30 SAK [id number]) Out-Patient Physical Therapy Visit Information Visit Information Visit Type Discharge Summary Visit Start Time 11:15 Visit Stop Time 12:10 Total Visit Minutes 55 Visit Number 25 PT-OP-B Current Condition Start: 05/13/20 16:55 Freq: Status: Active Protocol: Document 05/16/20 13:55 SAK (Rec: 05/16/20 14:54 SAK [id number]) Current Condition History of Current Condition Onset Date November 2019 Current Complaints stiffness, lymphedema neck History of Current Condition 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 Finished with 33 treatments of radiation. States the muscles so tight difficult to hold head up or look to the right. Swelling anterior neck bilaterally. Reports they tried to drain the swelling with a needle but wasn't successful Has end-stage renal disease so not doing chemo. Getting set up to do peritoneal dialysis. Was recently hospitalized for low blood sugar, 2 weeks ago hospitalized due to bradycardia. Has stopped HTN meds. Trying to manage the low blood sugar dietarily. Treatment Goals Patient/Caregiver Goals Improve his neck ROM to WNL, decrease the lymphedema anterior neck. Prior Functional Status Baseline Function- ADL's Independent Baseline Function- Mobility Independent Baseline Function- Other able to turn head fully for all activities including driving Current Functional Impairments (Reported) Functional Limitations- ADL's Difficulty holding his head up , looking up, turning head for driving PT-OP-C Subjective Start: 05/13/20 16:55 Freq: Status: Active Protocol: Document 12/10/20 14:24 SAK (Rec: 12/10/20 14:30 SAK [id number]) OP-PT Subjective Patient Comments Patient Comments Patient arrives to PT with his who is pushing him in a wheelchair. They state they obtained wheelchair due to patient multiple falls and injury to right LE diagnosed as possible adductor tear. Reports falls related to blood pressure drop, fluid imbalance related to his chronic kidney disease with patient doing home dialysis. Has seen doctor and they are making modifications to his regime. Patient reports too much pain and fearful to ambulate so has been using wheelchair for 2-3 weeks. Has new prescription to address his leg but understands we are unable to treat that during today's treatment. Reports feeling his neck is tighter due to sleeping with his head hanging forward in recliner as can't tolerate leaying in bed . Chip bag for neck destroyed by his dog. Agreeable to discharge PT today for his lymphedema and will schedule to start PT for his LE pain, and decline in function when he leaves today. PT-OP-J Posture/Palpation/Skin Start: 05/13/20 16:55 Freq: Status: Active Protocol: Document 05/16/20 17:26 [facility] (Rec: 05/16/20 17:49 [facility] [id number]) Posture Evaluation Position Sitting Head/C-Spine Posture Forward Head T-Spine Posture Increased Kyphosis Shoulder Posture (L) Rounded,(R) Rounded Scapula Posture (L) Protracted,(R) Protracted Palpation Assessment Location anterior neck Palpation Findings Edema,Soft Tissue Tightness Palpation Details tightness left greater than right PT-OP-K Range of Motion Start: 05/13/20 16:55 Freq: Status: Active Protocol: Document 08/13/20 12:59 [facility] (Rec: 08/13/20 13:14 [facility] [id number]) Cervical Spine Range of Motion Cervical Spine Active Testing Position Sitting Flexion 55 Extension 27 Rotation Left 57 Rotation Right 55 Lateral Flexion Left 45 Lateral Flexion Right 17 ROM Limitations Soft Tissue Tightness,Swelling Comments sage sofia PT-OP-N Lymphedema Start: 05/13/20 16:55 Freq: Status: Active Protocol: Document 12/10/20 14:24 [facility] (Rec: 12/10/20 15:40 [facility] [id number]) Lymphedema Measurements Comments Lymphedema Comments chin to top of head: 65.1 jawline:51.0 largest area of edema: 43.3 base of neck: 42.7 PT-OP-Q Treatments Start: 05/13/20 16:55 Freq: Status: Active Protocol: Document 12/10/20 14:24 SAK (Rec: 12/10/20 14:30 [facility] [id number]) Manual Therapy Treatment Soft Tissue Mobilization scar tissue Body Location anterior neck Mobilization Type Myofascial Release,Rolling, Other pec minor release Body Location pec minor release platysma Body Location platysma muscle Mobilization Type Myofascial Release SCM Body Location SCM and anterior neck Mobilization Type Myofascial Release Lymphedema Treatment Manual Lymphatic Drainage Location anterior neck, left face Duration 25' PT-OP-T Assessment and Plan Start: 05/13/20 16:55 Freq: Status: Active Protocol: Document 12/10/20 14:24 [facility] (Rec: 12/10/20 14:30 [facility] [id number]) Physical Therapy Assessment Goals 4 Impairment tissue fibrosis anterior and lateral (L) neck Operations Technician Goal (LTG) Improve soft tissue mobility anterior and lateral neck to WNL 07/23/20: goal progress, not fully achieved. 09/18/20: continues to improve , 75% of normal LTG Duration 11/19/19 3 Impairment postural impairment with difficulty holding head up Operations Technician Goal (LTG) Patient will be able to hold his head up actively throughout the day without excess fatigue or pain 07/23/20: goal progress, has difficulty holding head up. Compliant to HEP. 09/18/20: goal 60% achieved 10/21/20: 75% achieved LTG Duration 11/19/20 2 Impairment Decreased cervical ROM Operations Technician Goal (LTG) Patient to return to full active motion of his neck including ability to turn head to right for safe driving 07/23/20: goal progress, not fully achieved 09/18/20: goal 50% achieved 10/21/20: 75% achieved LTG Duration 11/19/20 1 Impairment lymphedema anterior neck Operations Technician Goal (LTG) Decrease lymphedema neck to stable level and patient to be fit with appropriate compression garment. Patient to demonstrate good understanding of self- management. 07/23/20: goal progress. Still problem-solving compression garment, patient ordered larger garment, will try to wear during day as doesn't tolerate at night. Has potential for further edema reduction 09/18/20: 80% achieved for neck, but noting persistent edema in face especially cheeks recently. May need to help patient obtain more extensive compression garment for his face. 10/21/20: 85 % achieved LTG Duration 09/21/21 Assessment Summary Assessment Measurements mostly stable except some increase directly under chin. Feel will benefit from use of new chip bag and due to sleeping recently with head forward recommended soft collar for support of head with chip bag under for compression and scar mobilization. Physical Therapy Plan Discharge Physical Therapy Discharge Reasons Patient Request Discharge Comments Goals mostly met. Leg pain and multiple falls more of priority for treatment at this time. Patient independent with self-management for lymphedema.
== END 2020-12-27 11:35 ==
LOC: PHYS 11:15
PROVIDERS: Family Provider Internal Medicine; PCP Internal Medicine; Referring Provider Otolaryngology; Visit Provider Otolaryngology
DX: I89.0 Lymphedema, not elsewhere classified (principal); M54.2 Cervicalgia; R29.3 Abnormal posture; M79.9 Soft tissue disorder, unspecified
CPT/HCPCS: 97110; 97140; 97162; 97535

== ENCOUNTER 2020-12-17 13:00 | Outpatient (RCR) | payer MEDICARE, SELFPAY ==
[2018-11-30 13:15] VITALS: BMI 40.4
--- NOTE | 2020-12-12 16:34 | PT.OIE ---
Current Diagnoses Pain in right leg (12/11/20) Difficulty in walking, not elsewhere classified (12/11/20) Weakness (12/11/20) Unspecified injury of adductor muscle, fascia and tendon of right thigh, initial encounter (12/11/20) Past Medical History (Last Reviewed 11/19/20 @ 14:39 by Itzel Olmos DO) BPH (benign prostatic hyperplasia) (~2006) Chronic kidney disease (CKD), stage III (moderate) CVA (cerebral vascular accident) Diabetes Edema Erectile dysfunction Former smoker Generalized headaches GERD (gastroesophageal reflux disease) Heart murmur HTN (hypertension) Hyperlipidemia Osteoarthritis Pneumonia Rash (~2010) Sleep apnea War injury due to shrapnel (~1968) Past Surgical History (Last Reviewed 11/19/20 @ 14:39 by Itzel Olmos DO) H/O medial meniscus repair of left knee (~1964) History of arthroplasty of left knee (11/30/18) History of cholecystectomy History of colonoscopy with polypectomy (~07/2015) History of tonsillectomy Hx of partial nephrectomy (~2006) Status post cataract extraction of both eyes with insertion of intraocular lens Visit Care Team Role Provider Type Marii Daly MD Attending Provider Physician Family Provider Primary Care Provider Referring Provider Specialty: Internal Medicine Address: [address] [place] [address], [facility] Email: [email or web address] Physical Therapy Initial Evaluation PT-OP-A Visit Information Start: 12/10/20 17:42 Freq: Status: Active Protocol: Document 12/11/20 14:48 SAK (Rec: 12/11/20 17:22 SAK [id number]) Out-Patient Physical Therapy Visit Information Visit Information Visit Type Initial Evaluation Visit Start Time 14:30 Visit Stop Time 15:31 Total Visit Minutes 61 Visit Number 1 Evaluation Information Evaluation Date 12/11/20 Precautions Precautions head and neck lymphedema, essential tremor, kidney disease with patient performing home dialysis PT-OP-B Current Condition Start: 12/10/20 17:42 Freq: Status: Active Protocol: Document 12/11/20 14:48 SAK (Rec: 12/11/20 17:22 SAK [id number]) Current Condition History of Current Condition Onset Date 3 weeks Current Complaints right buttock and thigh pain, left heel pain s/p fall. Now non-ambulatory History of Current Condition pt reports he started falling about a month ago. He fell in the kitchen 2x where he kind of remembers his whole body gave out on him at once like someone sucker punched me but no pain during this instances . Pt reports his first 2 falls , he hit his head. Pt reports he hurt the heel on L leg and it feels like someone took a meat jose and just chopped off the heel. He noticed this after the first fall and then next fall started giving him problems in his R thigh. said adductor mm tore. Pt reports 3 in behind knee, is bruised. He went from being ambulatory to being non- ambulatory . He now has a WC for everything i do. He is only transferring now. Pt reports he was able to do shower indep prior to falls and now he cannot shower himself. He has been doing hand showers. He has a walk in shower that is very large. It has a little step over to get in. Has been indep w/ toileting and he can dress himself once clothes are laid out. Reports his has become his complete support person. Pt has been sleeping in a chair for a long time due to Apnea but has slid out of the chair 3 times recently since first fall a few weeks ago. Treatment Goals Patient/Caregiver Goals Minimize pain and return to prior level of function Prior Functional Status Baseline Function- ADL's Independent Baseline Function- Mobility Independent Baseline Function- Gait independent, occasional use of cane, usually no device Baseline Function- Work/School retired Baseline Function- Recreation/Hobbies no limitations Current Functional Impairments (Reported) Functional Limitations- ADL's mod to max assist by Functional Limitations- Mobility/Gait no walking, transfers only Functional Limitations- Work/School unable due to pain Functional Limitations- Recreation/ unable due to pain Hobbies Personal Factors Other Personal Factors That May Effect essential tremors, dialysis, Therapy/Recovery blood pressure difficulties. Patient instructed to contact his physician regarding worsening essential tremors that are now including his LE' s. PT-OP-C Subjective Start: 12/10/20 17:42 Freq: Status: Active Protocol: Document 12/11/20 14:48 LON (Rec: 12/11/20 15:29 LON [id number]) OP-PT Subjective Patient Comments Patient Comments States last night he and his put a rope around waist so he wouldn't slide out of recliner so woke up and was choking self with the rope trying to get out of recliner, got 's attention, had to cut the rope. Sleeps in his recliner due to APNEA and has his home dialysis set up next to him. Doesn't feel he would be able to sleep in his bed, and states he lowers the legs of his recliner without knowing it sometimes as he did last night. Patient Questionnaires Lower Extremity Functional Scale LEFS Score 0 OP-PT Pain Assessment Location right LE Pain Location Details right medial thigh radiating to lateral hip, right knee radiating to buttoc Intensity 8 Scale Used Numeric (0 - 10) Description Aching,Cramping,Pressure, Radiating,Spasm,Tender, Tightness,With Movement Frequency Constant Pain Duration increases during movment Radiating Location as above Pain Aggravating Factors Position,Changing Position,ADL 's,Activity,Exercise,Standing, Walking Pain Alleviating Factors None Home Pain Medication Use Pain Medications Used Yes Home Pain Medication Frequency Oxycontin 2-3x/day per patient PT-OP-G Mobility & Gait Start: 12/10/20 17:42 Freq: Status: Active Protocol: Document 12/11/20 14:48 [facility] (Rec: 12/12/20 13:32 [facility] [id number]) OP Mobility Evaluation Bed Mobility Rolling min asssit Supine to and from Sit mod assist Transfers Sit to Stand min to mod assist Car Transfers min to mod assist OP Gait Assessment Gait Gait Assistance Required: Minimum Assistance Distance (Feet) 40 Able to Maintain Weight Bearing Status Yes During Gait Assistive Devices Assistive Device Front Wheeled Walker Orthotic/Prosthetic Devices or Brace: No Gait Deviations General Gait Pattern Antalgic,Decreased Stride Length,Decreased Feet Clearance,Flexed Trunk,Wide Based Gait Factors Limiting Gait Function Factors Limiting Gait Function Decreased Strength,Pain Stair Climbing Evaluation Comments Stair Climbing Comments unable PT-OP-J Posture/Palpation/Skin Start: 12/10/20 17:42 Freq: Status: Active Protocol: Document 12/11/20 14:48 [facility] (Rec: 12/12/20 13:32 [facility] [id number]) Posture Evaluation Position Sitting Head/C-Spine Posture Forward Head T-Spine Posture Increased Kyphosis L-Spine Posture Flattened Arm Posture (L) Internally Rotated,(R) Internally Rotated Pelvis Posture Posterior Tilted Palpation Assessment Location right thigh Palpation Location TTP distal medial thigh, mid anterior thigh, IT band Palpation Findings Muscle Guarding PT-OP-K Range of Motion Start: 12/10/20 17:42 Freq: Status: Active Protocol: Document 12/11/20 14:48 [facility] (Rec: 12/12/20 13:32 [facility] [id number]) Hip Goniometric Range of Motion Hip Right Hip ROM WFL No Comments painful with any movements right LE left Hip ROM WFL Yes Hip ROM Limitations Hip ROM Limitations Muscle Weakness,Pain Comments moderate decrease due to pain Knee Goniometric Range of Motion Knee susana Comments moderate decrease flexion right due to quad tightness and c/o pain Ankle and Foot Goniometric Range of Motion Ankle and Foot susana Ankle/Foot ROM WFL Yes PT-OP-M Strength Start: 12/10/20 17:42 Freq: Status: Active Protocol: Document 12/11/20 14:48 [facility] (Rec: 12/12/20 13:32 [facility] [id number]) Hip Strength Hip Manual Muscle Testing Right Comments unable to move against gravity due to c/o pain Left Comments grossly 3+/5 Knee Strength Knee Manual Muscle Testing Right Flexion (S2) 3- Fair- Extension (L3) 3- Fair- Comments c/o pain in thigh and hip Left Flexion (S2) 4 Good Extension (L3) 4 Good Ankle/Foot Strength Ankle and Foot Manual Muscle Testing susana Dorsiflexion (L4) 4 Good Plantarflexion (S1) 4 Good PT-OP-Q Treatments Start: 12/10/20 17:42 Freq: Status: Active Protocol: Document 12/11/20 14:48 [facility] (Rec: 12/11/20 17:29 [facility] [id number]) Therapeutic Exercises Supine Exercises ankle pumps Reps/Minutes 5x quad sets Reps/Minutes 5x gluteal set Reps/Minutes 5x Manual Therapy Treatment Soft Tissue Mobilization 1 Body Location right quad, ITB, adductor Mobilization Type Myofascial Release Intensity/Depth gentle Body Position Hooklying Self-Care/Home Management Treatment Education Patient Education Home Exercise Program Other Education written handout: glut sets, quad sets, ankle pumps Instructed patient to contact his physician regarding worsened essential tremors that now seem to be affecting LE's (previously only UE's) Discussed options to try to keep himself from sliding out of chair in middle of night PT-OP-R Modalities Start: 12/10/20 17:42 Freq: Status: Active Protocol: Document 12/11/20 14:48 SAK (Rec: 12/11/20 17:29 SAK [id number]) Hot Pack/Cold Pack Treatment Hot Pack Location right thigh; adductors, lateral hip Patient Position Hooklying Treatment Duration (minutes) 15 Patient Tolerance Good PT-OP-T Assessment and Plan Start: 12/10/20 17:42 Freq: Status: Active Protocol: Document 12/11/20 14:48 SAK (Rec: 12/12/20 13:43 SAK [id number]) Physical Therapy Assessment Rehab Potential Rehabilitation Potential Good Evaluation Complexity Number of Personal Factors/Comorbidities 3 or More Number of Body Systems Impaired 4 or More Clinical Presentation at Evaluation Unstable Impairments Impairments Activity Tolerance,Gait,Pain, Strength Goals 4 Impairment lower extremity functional scale 0% indicating severe disability Short Term Goal (STG) Improve LEFS to at least 30% STG Duration 01/25/21 [facility] Goal (LTG) Improve LEFS to at least 60% LTG Duration 03/12/21 3 Impairment LE weakness Short Term Goal (STG) Patient will be able to tolerate HEP for purposes of gentle LE strengthening STG Duration 01/02/21 [facility] Goal (LTG) Patient bilateral LE strength to be at least 4/5 throughout LTG Duration 03/12/21 2 Impairment Patient able to ambulate 40' with FWW with min assist Short Term Goal (STG) Patient able to walk 150' safely with FWW with SBA STG Duration 01/25/21 [facility] Goal (LTG) Pt able to walk with least restrictive device at least 300' without assistance LTG Duration 03/12/21 1 Impairment pain right buttock, thigh, adductor reg 8/10 on pain scale Short Term Goal (STG) decrease molina by at least 50% STG Duration 01/25/21 [facility] Goal (LTG) decrease pain to no greater than 2/10 with all usual activities LTG Duration 03/12/21 Assessment Summary Assessment Patient presents to PT with function-limiting pain primarily right LE but in left heel as well related to multiple falls. Prior to first fall approximately 3 weeks ago patient was fully ambulatory usually without device, was independent all ADL's, and able to drive and be mobile in the community. At this time he is only able to ambulate very short distances in his home and is primarily using a manual wheelchair for his mobility, and depends on his to assist with all ADL's and community mobility. He has complicated medical history including cancer, renal dsease (on home dialysis), and blood pressure issues which seem to have contributed to his recent falls. His blood pressure was 114/56 sitting and 110/54 immediately upon standing. Denied dizziness or light headedness today with PT eval. Objective evaluation difficult due to patient's high pain level. Pain only partially diminished with pain medication (Oxycontin per patient report). Feel he would benefit from PT to decrease his pain, improve his strength and functional mobility and help him return to his prior level of function . Physical Therapy Plan Frequency and Duration Frequency of Treatment 2x/Week Duration of Treatment 12 wks Plan of Care Start Date 12/12/20 Plan of Care End Date 03/12/21 Therapeutic Interventions Therapeutic Interventions Gait Training,Home Exercise Program,Manual Therapy, Neuromuscular Re-education, Patient/Caregiver Education, Self-Care/Home Management,Soft Tissue Mobilization,Taping, Therapeutic Activities, Therapeutic Exercises Modalities Cold Pack/Ice Massage,Electric Stimulation,Hot Packs, Iontophoresis Next Visit Focus/Plan Next Note Type Treatment Note Next Visit Plan Start with gentle recumbant ellpitical, review HEP and progress gently as tolerated. Gait training. Soft tissue mobilization and modalities as indicated for pain.
--- NOTE | 2020-12-12 16:35 | PT.OPPOC ---
Physical, Occupational & Speech Therapy At [facility] Current Diagnoses Pain in right leg (12/11/20) Difficulty in walking, not elsewhere classified (12/11/20) Weakness (12/11/20) Unspecified injury of adductor muscle, fascia and tendon of right thigh, initial encounter (12/11/20) Visit Care Team Role Provider Type Marii Daly MD Attending Provider Physician Family Provider Primary Care Provider Referring Provider Specialty: Internal Medicine Address: [address] [place] [address], [facility] Email: [email or web address] Plan Of Care PT-OP-T Assessment and Plan Start: 12/10/20 17:42 Freq: Status: Active Protocol: Document 12/11/20 14:48 [facility] (Rec: 12/12/20 13:43 [facility] [id number]) Physical Therapy Assessment Rehab Potential Rehabilitation Potential Good Evaluation Complexity Number of Personal Factors/Comorbidities 3 or More Number of Body Systems Impaired 4 or More Clinical Presentation at Evaluation Unstable Impairments Impairments Activity Tolerance,Gait,Pain, Strength Goals 4 Impairment lower extremity functional scale 0% indicating severe disability Short Term Goal (STG) Improve LEFS to at least 30% STG Duration 01/25/21 Custodial Goal (LTG) Improve LEFS to at least 60% LTG Duration 03/12/21 3 Impairment LE weakness Short Term Goal (STG) Patient will be able to tolerate HEP for purposes of gentle LE strengthening STG Duration 01/02/21 Custodial Goal (LTG) Patient bilateral LE strength to be at least 4/5 throughout LTG Duration 03/12/21 2 Impairment Patient able to ambulate 40' with FWW with min assist Short Term Goal (STG) Patient able to walk 150' safely with FWW with SBA STG Duration 01/25/21 Back Maker Goal (LTG) Pt able to walk with least restrictive device at least 300' without assistance LTG Duration 03/12/21 1 Impairment pain right buttock, thigh, adductor reg 8/10 on pain scale Short Term Goal (STG) decrease molina by at least 50% STG Duration 01/25/21 Back Maker Goal (LTG) decrease pain to no greater than 2/10 with all usual activities LTG Duration 03/12/21 Assessment Summary Assessment Patient presents to PT with function-limiting pain primarily right LE but in left heel as well related to multiple falls. Prior to first fall approximately 3 weeks ago patient was fully ambulatory usually without device, was independent all ADL's, and able to drive and be mobile in the community. At this time he is only able to ambulate very short distances in his home and is primarily using a manual wheelchair for his mobility, and depends on his to assist with all ADL's and community mobility. He has complicated medical history including cancer, renal dsease (on home dialysis), and blood pressure issues which seem to have contributed to his recent falls. His blood pressure was 114/56 sitting and 110/54 immediately upon standing. Denied dizziness or light headedness today with PT eval. Objective evaluation difficult due to patient's high pain level. Pain only partially diminished with pain medication (Oxycontin per patient report). Feel he would benefit from PT to decrease his pain, improve his strength and functional mobility and help him return to his prior level of function . Physical Therapy Plan Frequency and Duration Frequency of Treatment 2x/Week Duration of Treatment 12 wks Plan of Care Start Date 12/12/20 Plan of Care End Date 03/12/21 Therapeutic Interventions Therapeutic Interventions Gait Training,Home Exercise Program,Manual Therapy, Neuromuscular Re-education, Patient/Caregiver Education, Self-Care/Home Management,Soft Tissue Mobilization,Taping, Therapeutic Activities, Therapeutic Exercises Modalities Cold Pack/Ice Massage,Electric Stimulation,Hot Packs, Iontophoresis Next Visit Focus/Plan Next Note Type Treatment Note Next Visit Plan Start with gentle recumbant ellpitical, review HEP and progress gently as tolerated. Gait training. Soft tissue mobilization and modalities as indicated for pain. Plan of Care Dates Plan of Care Start Date 12/12/20 Plan of Care End Date 03/12/21 Electronically Signed by: Rosa M Kwok, PT 12/12/20 [id number] Please Sign and Return: I have reviewed this Plan of Care and certify that the skilled therapy services above are required to meet the patient?s needs. Physician Signature Date Printed Name and Credentials Clinical Instructor Signature Printed Name and Credentials
--- NOTE | 2020-12-17 17:08 | PT.OTN ---
Current Diagnoses Pain in right leg (12/17/20) Difficulty in walking, not elsewhere classified (12/17/20) Weakness (12/17/20) Unspecified injury of adductor muscle, fascia and tendon of right thigh, initial encounter (12/17/20) Physical Therapy Treatment Note PT-OP-A Visit Information Start: 12/10/20 17:42 Freq: Status: Active Protocol: Document 12/17/20 13:00 [facility] (Rec: 12/17/20 13:47 [facility] [id number]) Out-Patient Physical Therapy Visit Information Visit Information Visit Type Treatment Note Visit Note I've said my goodbyes to my family. I've felt like pulling the plug. Seeing GP today. Heel pain worst, also right thigh and LBP. Heel pain hasn't changed, LB and hip a little better. Visit Start Time 13:00 Visit Stop Time 13:55 Total Visit Minutes 60 Visit Number 2 Evaluation Information Evaluation Date 12/11/20 Precautions Precautions head and neck lymphedema, essential tremor, kidney disease with patient performing home dialysis PT-OP-B Current Condition Start: 12/10/20 17:42 Freq: Status: Active Protocol: Document 12/17/20 13:00 [facility] (Rec: 12/17/20 13:47 [facility] [id number]) Current Condition History of Current Condition Onset Date 3 weeks Current Complaints right buttock and thigh pain, left heel pain s/p fall. Now non-ambulatory History of Current Condition pt reports he started falling about a month ago. He fell in the kitchen 2x where he kind of remembers his whole body gave out on him at once like someone sucker punched me but no pain during this instances . Pt reports his first 2 falls , he hit his head. Pt reports he hurt the heel on L leg and it feels like someone took a meat jose and just chopped off the heel. He noticed this after the first fall and then next fall started giving him problems in his R thigh. said adductor mm tore. Pt reports 3 in behind knee, is bruised. He went from being ambulatory to being non- ambulatory . He now has a WC for everything i do. He is only transferring now. Pt reports he was able to do shower indep prior to falls and now he cannot shower himself. He has been doing hand showers. He has a walk in shower that is very large. It has a little step over to get in. Has been indep w/ toileting and he can dress himself once clothes are laid out. Reports his has become his complete support person. Pt has been sleeping in a chair for a long time due to Apnea but has slid out of the chair 3 times recently since first fall a few weeks ago. PT-OP-C Subjective Start: 12/10/20 17:42 Freq: Status: Active Protocol: Document 12/17/20 13:00 [facility] (Rec: 12/17/20 17:08 [facility] [id number]) OP-PT Subjective Patient Comments Patient Comments Patient brought to PT in w/c by . Patient reports not doing well. Has discontinued pain medication due to it making him feel woozy, sleeping poorly, pain persists in right thigh, buttock, and LB, and even worse in left heel: again reports feeling as if someone took a jose to it. Seeing physician this afternoon. Called hospice to see what services they offer. Hasn't done any exercises. PT-OP-G Mobility & Gait Start: 12/10/20 17:42 Freq: Status: Active Protocol: Document 12/11/20 14:48 [facility] (Rec: 12/12/20 13:32 [facility] [id number]) OP Mobility Evaluation Bed Mobility Rolling min asssit Supine to and from Sit mod assist Transfers Sit to Stand min to mod assist Car Transfers min to mod assist OP Gait Assessment Gait Gait Assistance Required: Minimum Assistance Distance (Feet) 40 Able to Maintain Weight Bearing Status Yes During Gait Assistive Devices Assistive Device Front Wheeled Walker Orthotic/Prosthetic Devices or Brace: No Gait Deviations General Gait Pattern Antalgic,Decreased Stride Length,Decreased Feet Clearance,Flexed Trunk,Wide Based Gait Factors Limiting Gait Function Factors Limiting Gait Function Decreased Strength,Pain Stair Climbing Evaluation Comments Stair Climbing Comments unable PT-OP-J Posture/Palpation/Skin Start: 12/10/20 17:42 Freq: Status: Active Protocol: Document 12/11/20 14:48 [facility] (Rec: 12/12/20 13:32 [facility] [id number]) Posture Evaluation Position Sitting Head/C-Spine Posture Forward Head T-Spine Posture Increased Kyphosis L-Spine Posture Flattened Arm Posture (L) Internally Rotated,(R) Internally Rotated Pelvis Posture Posterior Tilted Palpation Assessment Location right thigh Palpation Location TTP distal medial thigh, mid anterior thigh, IT band Palpation Findings Muscle Guarding PT-OP-K Range of Motion Start: 12/10/20 17:42 Freq: Status: Active Protocol: Document 12/11/20 14:48 [facility] (Rec: 12/12/20 13:32 [facility] [id number]) Hip Goniometric Range of Motion Hip Right Hip ROM WFL No Comments painful with any movements right LE left Hip ROM WFL Yes Hip ROM Limitations Hip ROM Limitations Muscle Weakness,Pain Comments moderate decrease due to pain Knee Goniometric Range of Motion Knee susana Comments moderate decrease flexion right due to quad tightness and c/o pain Ankle and Foot Goniometric Range of Motion Ankle and Foot susana Ankle/Foot ROM WFL Yes PT-OP-M Strength Start: 12/10/20 17:42 Freq: Status: Active Protocol: Document 12/11/20 14:48 [facility] (Rec: 12/12/20 13:32 [facility] [id number]) Hip Strength Hip Manual Muscle Testing Right Comments unable to move against gravity due to c/o pain Left Comments grossly 3+/5 Knee Strength Knee Manual Muscle Testing Right Flexion (S2) 3- Fair- Extension (L3) 3- Fair- Comments c/o pain in thigh and hip Left Flexion (S2) 4 Good Extension (L3) 4 Good Ankle/Foot Strength Ankle and Foot Manual Muscle Testing susana Dorsiflexion (L4) 4 Good Plantarflexion (S1) 4 Good PT-OP-Q Treatments Start: 12/10/20 17:42 Freq: Status: Active Protocol: Document 12/17/20 13:00 [facility] (Rec: 12/17/20 17:05 [facility] [id number]) Cardio Equipment Recumbent Elliptical (Biodex) Duration (Minutes) 5 Resistance 1 Seat Position 8 Therapeutic Exercises Supine Exercises SAQ Reps/Minutes 10x ankle pumps Reps/Minutes 5x quad sets Reps/Minutes 5x gluteal set Reps/Minutes 5x PT-OP-R Modalities Start: 12/10/20 17:42 Freq: Status: Active Protocol: Document 12/17/20 13:00 [facility] (Rec: 12/17/20 17:05 [facility] [id number]) Hot Pack/Cold Pack Treatment Ice Massage Location left heel Treatment Duration (minutes) 3 Patient Tolerance Fair Hot Pack Location right thigh; adductors, lateral hip Patient Position Hooklying Treatment Duration (minutes) 15 Patient Tolerance Good Comments during ultrasound to left heel Ultrasound Therapy Treatment Left Foot Treatment Duration (minutes) 8 Patient Position Hooklying Coupling Medium Ultrasound Gel Applicator Size (cm2) 2 Frequency Setting (mHz) 3 Mode Setting Pulsed Duty Cycle 50% Intensity Setting (w/cm2) 1.0 Comments left heel; for decreased pain and inflammation PT-OP-T Assessment and Plan Start: 12/10/20 17:42 Freq: Status: Active Protocol: Document 12/17/20 13:00 [facility] (Rec: 12/17/20 17:05 [facility] [id number]) Physical Therapy Assessment Goals 4 Impairment lower extremity functional scale 0% indicating severe disability Short Term Goal (STG) Improve LEFS to at least 30% STG Duration 01/25/21 Pump Oiler Goal (LTG) Improve LEFS to at least 60% LTG Duration 03/12/21 3 Impairment LE weakness Short Term Goal (STG) Patient will be able to tolerate HEP for purposes of gentle LE strengthening STG Duration 01/02/21 Pump Oiler Goal (LTG) Patient bilateral LE strength to be at least 4/5 throughout LTG Duration 03/12/21 2 Impairment Patient able to ambulate 40' with FWW with min assist Short Term Goal (STG) Patient able to walk 150' safely with FWW with SBA STG Duration 01/25/21 [facility] Goal (LTG) Pt able to walk with least restrictive device at least 300' without assistance LTG Duration 03/12/21 1 Impairment pain right buttock, thigh, adductor reg 8/10 on pain scale Short Term Goal (STG) decrease molina by at least 50% STG Duration 01/25/21 Pump Oiler Goal (LTG) decrease pain to no greater than 2/10 with all usual activities LTG Duration 03/12/21 Assessment Summary Assessment Patient most painful in left heel, will speak with physician about this at today' s appointment. Trial ultrasound for decreased pain and inflammation. Signs and symptoms consistent with either bone bruise or potential stress fracture. Patient very depressed about his decline in physical condition at this time; per appears largely related to difficulty with his dialysis and may need to go to emergency dialysis. Considering hospice. Patient encouraged to do HEP to try to regain strength. Patient steady with gait with FWW but painful heel and right LE today; advised of rapid decrease in strength with lack of activity. Physical Therapy Plan Frequency and Duration Frequency of Treatment 2x/Week Duration of Treatment 12 wks Plan of Care Start Date 12/12/20 Plan of Care End Date 03/12/21 Therapeutic Interventions Therapeutic Interventions Gait Training,Home Exercise Program,Manual Therapy, Neuromuscular Re-education, Patient/Caregiver Education, Self-Care/Home Management,Soft Tissue Mobilization,Taping, Therapeutic Activities, Therapeutic Exercises Modalities Cold Pack/Ice Massage,Electric Stimulation,Hot Packs, Iontophoresis,Ultrasound Next Visit Focus/Plan Next Note Type Treatment Note Next Visit Plan Discuss patient's physician appointment. Continue PT per any further recommendations from physician, encourage increased ther ex and activity as tolerated.
--- NOTE | 2020-12-27 07:51 | PT-OP ANOTE ---
Front setter molding and coremaking machines notified therapists this morning that was told by family, pt , when called to adjust today's appt to an earlier time. PT to complete discharge.
--- NOTE | 2021-01-08 10:26 | PT.OPDS ---
Current Diagnoses Pain in right leg (12/17/20) Difficulty in walking, not elsewhere classified (12/17/20) Weakness (12/17/20) Unspecified injury of adductor muscle, fascia and tendon of right thigh, initial encounter (12/17/20) Visit Care Team Role Provider Type Marii Daly MD Attending Provider Physician Family Provider Primary Care Provider Referring Provider Specialty: Internal Medicine Address: [address] [place] [address], [facility] Email: [email or web address] Visit Number Visit Number 2 Discharge Summary PT-OP-B Current Condition Start: 12/10/20 17:42 Freq: Status: Active Protocol: Document 12/17/20 13:00 OLN (Rec: 12/17/20 13:47 SAK [id number]) Current Condition History of Current Condition Onset Date 3 weeks Current Complaints right buttock and thigh pain, left heel pain s/p fall. Now non-ambulatory History of Current Condition pt reports he started falling about a month ago. He fell in the kitchen 2x where he kind of remembers his whole body gave out on him at once like someone sucker punched me but no pain during this instances . Pt reports his first 2 falls , he hit his head. Pt reports he hurt the heel on L leg and it feels like someone took a meat jose and just chopped off the heel. He noticed this after the first fall and then next fall started giving him problems in his R thigh. said adductor mm tore. Pt reports 3 in behind knee, is bruised. He went from being ambulatory to being non- ambulatory . He now has a WC for everything i do. He is only transferring now. Pt reports he was able to do shower indep prior to falls and now he cannot shower himself. He has been doing hand showers. He has a walk in shower that is very large. It has a little step over to get in. Has been indep w/ toileting and he can dress himself once clothes are laid out. Reports his has become his complete support person. Pt has been sleeping in a chair for a long time due to Apnea but has slid out of the chair 3 times recently since first fall a few weeks ago. PT-OP-C Subjective Start: 12/10/20 17:42 Freq: Status: Active Protocol: Document 12/17/20 13:00 SAK (Rec: 12/17/20 17:08 [facility] [id number]) OP-PT Subjective Patient Comments Patient Comments Patient brought to PT in w/c by . Patient reports not doing well. Has discontinued pain medication due to it making him feel woozy, sleeping poorly, pain persists in right thigh, buttock, and LB, and even worse in left heel: again reports feeling as if someone took a jose to it. Seeing physician this afternoon. Called hospice to see what services they offer. Hasn't done any exercises. PT-OP-G Mobility & Gait Start: 12/10/20 17:42 Freq: Status: Active Protocol: Document 12/11/20 14:48 SAK (Rec: 12/12/20 13:32 [facility] [id number]) OP Mobility Evaluation Bed Mobility Rolling min asssit Supine to and from Sit mod assist Transfers Sit to Stand min to mod assist Car Transfers min to mod assist OP Gait Assessment Gait Gait Assistance Required: Minimum Assistance Distance (Feet) 40 Able to Maintain Weight Bearing Status Yes During Gait Assistive Devices Assistive Device Front Wheeled Walker Orthotic/Prosthetic Devices or Brace: No Gait Deviations General Gait Pattern Antalgic,Decreased Stride Length,Decreased Feet Clearance,Flexed Trunk,Wide Based Gait Factors Limiting Gait Function Factors Limiting Gait Function Decreased Strength,Pain Stair Climbing Evaluation Comments Stair Climbing Comments unable PT-OP-J Posture/Palpation/Skin Start: 12/10/20 17:42 Freq: Status: Active Protocol: Document 12/11/20 14:48 [facility] (Rec: 12/12/20 13:32 [facility] [id number]) Posture Evaluation Position Sitting Head/C-Spine Posture Forward Head T-Spine Posture Increased Kyphosis L-Spine Posture Flattened Arm Posture (L) Internally Rotated,(R) Internally Rotated Pelvis Posture Posterior Tilted Palpation Assessment Location right thigh Palpation Location TTP distal medial thigh, mid anterior thigh, IT band Palpation Findings Muscle Guarding PT-OP-K Range of Motion Start: 12/10/20 17:42 Freq: Status: Active Protocol: Document 12/11/20 14:48 SAK (Rec: 12/12/20 13:32 [facility] [id number]) Hip Goniometric Range of Motion Hip Right Hip ROM WFL No Comments painful with any movements right LE left Hip ROM WFL Yes Hip ROM Limitations Hip ROM Limitations Muscle Weakness,Pain Comments moderate decrease due to pain Knee Goniometric Range of Motion Knee susana Comments moderate decrease flexion right due to quad tightness and c/o pain Ankle and Foot Goniometric Range of Motion Ankle and Foot susana Ankle/Foot ROM WFL Yes PT-OP-M Strength Start: 12/10/20 17:42 Freq: Status: Active Protocol: Document 12/11/20 14:48 [facility] (Rec: 12/12/20 13:32 [facility] [id number]) Hip Strength Hip Manual Muscle Testing Right Comments unable to move against gravity due to c/o pain Left Comments grossly 3+/5 Knee Strength Knee Manual Muscle Testing Right Flexion (S2) 3- Fair- Extension (L3) 3- Fair- Comments c/o pain in thigh and hip Left Flexion (S2) 4 Good Extension (L3) 4 Good Ankle/Foot Strength Ankle and Foot Manual Muscle Testing susana Dorsiflexion (L4) 4 Good Plantarflexion (S1) 4 Good PT-OP-T Assessment and Plan Start: 12/10/20 17:42 Freq: Status: Active Protocol: Document 01/08/21 10:25 [facility] (Rec: 01/08/21 10:26 [facility] [id number]) Physical Therapy Plan Discharge Physical Therapy Discharge Comments patient
== END 2021-01-09 10:44 | disposition home or self-care (01) ==
LOC: PHYS 13:00
PROVIDERS: Family Provider Internal Medicine; PCP Internal Medicine; Referring Provider Internal Medicine; Visit Provider Internal Medicine
DX: S76.201A Unspecified injury of adductor muscle, fascia and tendon of right thigh, initial encounter (principal); M79.604 Pain in right leg; R53.1 Weakness; R26.2 Difficulty in walking, not elsewhere classified
CPT/HCPCS: 97010; 97035; 97110; 97116; 97163; 97535

== ENCOUNTER 2020-12-20 14:37 | Observation (INO) | payer MEDICARE, SELFPAY ==
[2018-11-30 13:15] VITALS: BMI 40.4
[2020-12-20] VITALS (9 sets, daily range): BP systolic 127–176; BP diastolic 49–74; PULSE 84–92; RESP 11–16; TEMP 36.1–37.3; O2SAT 95–99; BMI 39.5; BMI 38.7
--- NOTE | 2020-12-20 15:36 | ED_ITS ---
HPI - General Adult General Chief complaint: Dizziness Stated complaint: falls, not feeling well, dizzy, tired, on dialysis Time Seen by Provider: 12/20/20 15:16 Source: patient and family Mode of arrival: Wheelchair Limitations: no limitations History of Present Illness HPI narrative: Patient is a 75-year-old male. Has a history of end-stage renal disease on dialysis. He has classically done peritoneal dialysis at night however yesterday he did receive hemodialysis. His states that this was under the recommendation of his splunk developer because she states that the peritoneal dialysis ?was not working enough ?he did receive a full treatment last evening. He also received his COVID vaccine yesterday. He is here generally stating that he is not feeling well. He is tired and dizzy. He has had some falls recently. He is not having any shortness of breath. Related Data Home Medications Medication Instructions Recorded Confirmed atorvastatin 10 mg PO QAM 05/24/18 11/06/19 glipizide 10 mg PO BID 05/24/18 11/06/19 hydrochlorothiazide 1 tab PO DAILY 05/24/18 11/06/19 multivitamin 1 tab PO DAILY 05/24/18 11/06/19 mupirocin 1 applic TOPICAL TID 05/24/18 11/06/19 nortriptyline 75 mg PO BEDTIME 05/24/18 11/06/19 nystatin 1 applic TOPICAL BID 05/24/18 11/06/19 potassium chloride 40 meq PO QAM 05/24/18 11/06/19 tamsulosin 0.4 mg PO BID 05/24/18 11/06/19 cholecalciferol (vitamin D3) 2,000 unit PO DAILY 11/14/18 11/06/19 [Vitamin D3] furosemide 40 mg PO BID 11/06/19 11/06/19 gabapentin 600 mg PO BEDTIME 11/06/19 11/06/19 potassium chloride 20 meq PO QPM 11/06/19 11/06/19 Previous Rx's Medication Instructions Recorded aspirin 81 mg PO BID #60 tab 12/01/18 Allergies Allergy/AdvReac Type Severity Reaction Status Date / Time NSAIDS (Non-Steroidal Allergy Severe Unable to Verified 11/19/20 11:36 Anti-Inflamma take r/t Kidney stage III Sulfa (Sulfonamide Allergy Childhood, Verified 11/19/20 11:36 Antibiotics) reaction unknown per pt oxycodone AdvReac Severe Headache Verified 11/19/20 11:36 Review of Systems Constitutional Constitutional: Reports chills, Reports fatigue, Denies fever(s) and Reports lethargy ENT Ears, Nose, Mouth, and Throat: Denies vertigo, Denies dizziness and Reports d isequilibrium Cardiovascular Cardiovascular: Denies chest pain, Denies rapid heart rate and Denies dyspnea Respiratory Respiratory: Denies cough and Denies dyspnea Gastrointestinal Gastrointestinal: Denies abdominal pain, Denies nausea and Denies vomiting Genitourinary Comments: Produces very little urine Musculoskeletal Musculoskeletal: Denies arthralgias and Denies myalgias Integumentary/Breasts Skin/Breast: Denies rash Neurologic Neurologic: Denies behavioral changes, Denies confusion, Denies vertigo, Denies dizziness and Reports disequilibrium Psychiatric Psychiatric: Denies behavioral changes and Denies confusion Endocrine Endocrine: Reports fatigue Hematologic/Lymphatic On Anticoagulants: No Allergic/Immunologic Allergic/Immunologic: Denies urticaria Patient History Medical History BPH (benign prostatic hyperplasia) (~2006) Chronic kidney disease (CKD), stage III (moderate) CVA (cerebral vascular accident) Diabetes Edema Erectile dysfunction Former smoker Generalized headaches GERD (gastroesophageal reflux disease) Heart murmur HTN (hypertension) Hyperlipidemia Osteoarthritis Pneumonia Rash (~2010) Sleep apnea War injury due to shrapnel (~1968) Surgical History H/O medial meniscus repair of left knee (~1964) History of arthroplasty of left knee (11/30/18) History of cholecystectomy History of colonoscopy with polypectomy (~07/2015) History of tonsillectomy Hx of partial nephrectomy (~2006) Status post cataract extraction of both eyes with insertion of intraocular lens Social History household members: spouse Smoking Status: Former smoker alcohol intake: former Smoking Status: Former smoker alcohol intake frequency: 0-2 drinks per day Substance Use Type: does not use Exam Initial Vital Signs Initial Vital Signs: Vital Signs Temperature 97.0 F L 12/20/20 14:48 Pulse Rate 85 12/20/20 14:48 Respiratory Rate 16 12/20/20 14:48 Blood Pressure 176/74 H 03/19/21 14:48 Pulse Oximetry 98 12/20/20 14:48 Const General: cooperative and comfortable Limitations: mental status not altered HENLA Head: normal to inspection and normocephalic Resp Effort & Inspection: normal respiratory effort Auscultation: clear to auscultation bilaterally Cardio Rate: regular rate Rhythm: regular rhythm GI Inspection: non-distended Palpation: soft Other: Dialysis catheter out of right-sided lower abdomen that appears well Skin Lesions: no lesions Rashes: no rashes Neuro General: patient alert, patient awake and patient oriented x3 Cognition: normal cognition Extrem General: normal to inspection and capillary refill normal Other: Dialysis fistula left upper extremity with thrill and no bleeding Psych Appearance: grossly normal and well kempt Scores GCS [place] coma scale eye opening: Spontaneous [place] coma scale verbal response: Orientated [place] coma scale motor response: Obey commands Lex coma scale total score: 15 Course Orders Ordered: ED Orders 12/20/20 14:48 EKG-12 Lead Stat 12/20/20 15:45 Complete Blood Count AUTO DIFF Stat Comprehensive Metabolic Panel Stat Lipase Stat NT-proBNP (BNP-Adult 18+) Stat Partial Thromboplastin Time Stat Prothrombin Time INR Stat Troponin & CK Cardiac Panel Stat 12/20/20 17:29 Consult to CAREER AND GUIDANCE COUNSELOR - Housekeeping Coordinator Stat 12/20/20 17:48 COVID19 -Nasal swab/Pre-Proc Stat Acetaminophen (Acetaminophen 325 Mg Tablet) 650 mg PO Q6HR PRN PRN Reason: Fever/Mild Pain (1-3) Heparin Sodium/Dextrose (Heparin Drip) 25,000 unit in 500 mls @ 20 mls/hr IV CONT ALEXEY; Protocol Last Titration: 12/20/20 18:26 Dose: 1,000 units/hr, 20 mls/hr Documented by: Admin: 12/20/20 17:21 Dose: 1,000 units/hr, 20 mls/hr Documented by: BAYLEE Morphine Sulfate (Morphine 4 Mg/Ml Inj) 4 mg IV Q4HR PRN PRN Reason: Pain, Severe (7-10) Ondansetron HCl (Ondansetron 4 Mg/2 Ml Inj) 4 mg IV Q8HR PRN PRN Reason: Nausea And Vomiting Ondansetron HCl (Ondansetron 4 Mg/2 Ml Inj) 4 mg IV Q4HR PRN PRN Reason: Nausea And Vomiting Scopolamine (Scopolamine 1 Patch) 1 patch TOP Q72H PRN PRN Reason: Secretions Discontinued Medications Aspirin (Aspirin 81 Mg Chew Tab) 324 mg PO NOW ONE Stop: 12/20/20 16:49 Last Admin: 12/20/20 17:20 Dose: 324 mg Documented by: BAYLEE Heparin Sodium (Porcine) (Heparin 5,000 Unit/Ml Vial) 5,000 unit IV NOW ONE Stop: 12/20/20 16:54 Last Admin: 12/20/20 17:20 Dose: 5,000 unit Documented by: BAYLEE Ondansetron HCl (Ondansetron 4 Mg/2 Ml Inj) 4 mg IV NOW ONE Stop: 12/20/20 16:04 Last Admin: 12/20/20 16:28 Dose: 4 mg Documented by: BAYLEE Vital Signs Vital signs: Vital Signs - 8 hr 12/20/20 14:48 12/20/20 15:17 12/20/20 15:30 Temperature 97.0 F L Pulse Rate 85 86 87 Respiratory Rate 16 15 Blood Pressure 176/74 H Pulse Oximetry 98 98 99 12/20/20 16:00 12/20/20 16:21 12/20/20 16:30 Temperature Pulse Rate 92 H 88 89 Respiratory Rate Blood Pressure 152/62 H 127/59 L Pulse Oximetry 99 96 95 12/20/20 17:00 12/20/20 18:55 Temperature Pulse Rate 90 85 Respiratory Rate 11 L Blood Pressure 133/61 134/61 Pulse Oximetry 97 99 Medical Decision Making Medical Records Medical records reviewed: Yes I reviewed the patient's medical records. Lab Data Lab results reviewed: Yes I reviewed the patient's lab results. Result diagrams: 12/20/20 15:45 12/20/20 15:45 Labs: Lab Results 12/20/20 12/20/20 12/20/20 Range/Units 15:45 15:45 15:45 WBC 10.5 (4.5-11.0) X10^3/uL RBC 3.09 L (4.5-5.9) X10^6/uL Hgb 10.3 L (13.5-17.5) g/dL Hct 30.3 L (41-53) % MCV 98.1 (80-100) fL MCH 33.4 (26-34) PG MCHC 34.0 (30-36) % RDW 12.9 (11.6-14.8) % Plt Count 274 (150-400) X10^3/uL Neut % (Auto) 80.9 H (50-75) % Lymph % (Auto) 7.1 L (25-40) % [place] % (Auto) 9.4 (3-14) % Eos % (Auto) 2.0 (2-4) % Baso % (Auto) 0.6 (0-2) % Neut # (Auto) 8500 H (6540-0569) /uL Lymph # (Auto) 700 L (3018-5079) /uL [place] # (Auto) 1000 H (0-900) /uL Eos # (Auto) 200 (0-450) /uL Baso # (Auto) 100 (0-100) /uL PT (10.1-12.7) SECONDS INR (0.9-1.3) APTT (26.4-36.2) SECONDS Sodium 134 L (137-145) mmol/L Potassium 3.6 (3.4-5.1) mmol/L Chloride 95 L (98-107) mmol/L Carbon Dioxide 31 (22-32) mmol/L BUN 29 H (9-20) mg/dL Creatinine 6.76 H (0.66-1.25) mg/dL Estimated GFR 8.0 L (>60) mL/min BUN/Creatinine Ratio 4.3 L (6-22) Glucose 107 (80-110) mg/dL Calcium 8.2 L (8.4-10.2) mg/dL Total Bilirubin 0.3 (0.2-1.3) mg/dL AST 32 (17-59) IU/L ALT 23 (<50) IU/L Alkaline Phosphatase 97 (38-126) U/L Total Creatine Kinase 111 (55-170) U/L CK-MB (CK-2) 1.94 (<2.37) ng/mL CK-MB (CK-2) Rel Index 1.7 (1.5-5.0) % Troponin I 1.470 H* (0.01-0.034) ng/mL NT-Pro-B Natriuret Pep (<450) pg/mL Total Protein 5.9 L (6.3-8.2) g/dL Albumin 3.0 L (3.5-5.0) g/dL Globulin 2.9 (1.7-4.1) g/dL Albumin/Globulin Ratio 1.0 (1.0-2.8) Lipase 37 (23-300) U/L SARS-CoV-2 (PCR) (Negative) 12/20/20 12/20/20 12/20/20 Range/Units 15:45 15:45 17:48 WBC (4.5-11.0) X10^3/uL RBC (4.5-5.9) X10^6/uL Hgb (13.5-17.5) g/dL Hct (41-53) % MCV (80-100) fL MCH (26-34) PG MCHC (30-36) % RDW (11.6-14.8) % Plt Count (150-400) X10^3/uL Neut % (Auto) (50-75) % Lymph % (Auto) (25-40) % [place] % (Auto) (3-14) % Eos % (Auto) (2-4) % Baso % (Auto) (0-2) % Neut # (Auto) (1670-3893) /uL Lymph # (Auto) (6151-4983) /uL [place] # (Auto) (0-900) /uL Eos # (Auto) (0-450) /uL Baso # (Auto) (0-100) /uL PT 14.2 H (10.1-12.7) SECONDS INR 1.3 (0.9-1.3) APTT 29 (26.4-36.2) SECONDS Sodium (137-145) mmol/L Potassium (3.4-5.1) mmol/L Chloride (98-107) mmol/L Carbon Dioxide (22-32) mmol/L BUN (9-20) mg/dL Creatinine (0.66-1.25) mg/dL Estimated GFR (>60) mL/min BUN/Creatinine Ratio (6-22) Glucose (80-110) mg/dL Calcium (8.4-10.2) mg/dL Total Bilirubin (0.2-1.3) mg/dL AST (17-59) IU/L ALT (<50) IU/L Alkaline Phosphatase (38-126) U/L Total Creatine Kinase (55-170) U/L CK-MB (CK-2) (<2.37) ng/mL CK-MB (CK-2) Rel Index (1.5-5.0) % Troponin I (0.01-0.034) ng/mL NT-Pro-B Natriuret Pep 74015 H (<450) pg/mL Total Protein (6.3-8.2) g/dL Albumin (3.5-5.0) g/dL Globulin (1.7-4.1) g/dL Albumin/Globulin Ratio (1.0-2.8) Lipase (23-300) U/L SARS-CoV-2 (PCR) Negative (Negative) ECG Data Attestation: I personally reviewed and interpreted this ECG as follows: Prior ECG tracings: not available for review Interpretation: Sinus rhythm Ventricular rate 87 Frequent PVCs Bigeminy Nons[address] T wave changes MDM Narrative Medical decision making narrative: Patient is end-stage renal disease on dialysis. He does have an elevation in his creatinine decrease in his GFR. His abdomen is soft. Dialysis catheter area looks very well. Low suspicion for SBP. He is afebrile. His potassium is unremarkable. EKG shows bigeminy and nonspecific ST changes. He denies any chest pain or shortness of breath his troponin is elevated today. This is at a setting where 1 month ago his troponin was undetectable. I have a high suspicion that this is related to ischemia and not secondary to his renal issues. He was initially started on heparin. Initial plan was to transfer him to a facility that has dialysis and cardiovascular capability. While we were working on this patient made decision that he no longer wanted any interventions. This decision was made with his at bedside. Social Work evaluated the patient as well. The patient was alert oriented x3. GCS of 15 In my opinion has capacity to make decisions. He expressed understanding that his potential cardiac issues could lead to perma nent disability and even . He also expressed understanding that without dialysis this would be eventually fatal as well. We did discuss that we did not have the capability of performing dialysis nor did we have proper cardiovascular coverage at this facility to handle his current situations. Social work attempted to contact hospice. Apparently the patient has been in contact with them in the past. We were unable to secure any definitive hospice follow-up. I did discuss with the patient and his options to include being admitted here to this facility for symptom control and social work evaluation versus going home and having hospice contact them tomorrow. They opted to be admitted to the hospital. Discussed the case with Dr. Gong with Internal Medicine who will admit for further evaluation and treatment. Discharge Plan Departure Patient Disposition: Admitted as Observation Clinical Impression: End stage renal disease on dialysis, Non-ST elevation PA (NSTEMI), Nausea Admit Date/Time: 12/20/20 18:58 Admit Provider: Zenon Larkin
--- NOTE | 2020-12-20 15:53 | PC.NURSE ---
75yo peritoneal and hemodialysis pt with HTN, DM2, here for chronic weakness, malaise which is getting worse over the past few days. received his 2nd Moderna vacc yesterday at 1400 and states his main complaint is nausea and feeling generally unwell. Usually has peritoneal dialysis but had his first hemodialysis yesterday due to the peritoneal not working anymore. Peritoneal port dressing dry and intact. AV fistula on L arm with +thrill. AAOx3, HR 87 bigeminy. BP 167/88. IV placed and labs drawn including cultures and lactate. 96% RA. B/L legs with darkening skin and swelling which states is chronic. NAD.
[2020-12-20 15:55] LABS: Add Manual Diff / Slide Review NO; Basophils Absolute Auto 100 /uL (0-100); Basophils Percent Auto 0.6 % (0-2); Eosinophils Absolute Auto 200 /uL (0-450); Hematocrit 30.3 % (41-53); Hemoglobin 10.3 g/dL (13.5-17.5); Lymphocytes Absolute Auto 700 /uL (1100-4500); Lymphocytes Percent Auto 7.1 % (25-40); Mean Corpuscular Hemoglobin 33.4 PG (26-34); Mean Corpuscular Volume 98.1 fL (80-100); Monocytes Absolute Auto 1000 /uL (0-900); Monocytes Percent Auto 9.4 % (3-14); Neutrophils Absolute Auto 8500 /uL (1500-7000); Neutrophils Percent Auto 80.9 % (50-75); Platelet Count 274 X10^3/uL (150-400); Red Blood Cell Count 3.09 X10^6/uL (4.5-5.9); Red Cell Distribution Width 12.9 % (11.6-14.8); White Blood Cell Count 10.5 X10^3/uL (4.5-11.0)
[2020-12-20 16:07] LABS: Alanine Aminotransferase 23 IU/L (<50); Alkaline Phosphatase 97 U/L (38-126); Aspartate Aminotransferase 32 IU/L (17-59); BUN Creatinine Ratio 4.3 (6-22); Bilirubin Total 0.3 mg/dL (0.2-1.3); Blood Urea Nitrogen 29 mg/dL (9-20); Calcium 8.2 mg/dL (8.4-10.2); Carbon Dioxide 31 mmol/L (22-32); Chloride 95 mmol/L (98-107); Creatine Kinase 111 U/L (55-170); Globulin 2.9 g/dL (1.7-4.1); Glucose 107 mg/dL (80-110); HEMOLYSIS < 15 (0-50); Lipase 37 U/L (23-300); Potassium 3.6 mmol/L (3.4-5.1); Sodium 134 mmol/L (137-145); Total Protein 5.9 g/dL (6.3-8.2)
[2020-12-20 16:24] LABS: CKMB % Relative Index 1.7 % (1.5-5.0); Creatine Kinase MB 1.94 ng/mL (<2.37)
[2020-12-20] MEDS: ONDANSETRON 4 MG/2 ML INJ IV ×2 (16:28→19:45)
[2020-12-20 17:04] LABS: INR 1.3 (0.9-1.3); Prothrombin Time 14.2 SECONDS (10.1-12.7)
[2020-12-20 17:07] LABS: PTT Partial Thromboplastin Tim 29 SECONDS (26.4-36.2)
[2020-12-20 17:17] LABS: NT-proBNP (BNP-Adult 18+) 24400 pg/mL (<450)
[2020-12-20] MEDS: ASPIRIN 81 MG CHEW TAB 324 MG PO (17:20)
[2020-12-20] MEDS: HEPARIN 5,000 UNIT/ML VIAL 5000 UNIT IV (17:20)
[2020-12-20] MEDS: HEPARIN DRIP 25,000 UNIT/500 ML IV.SOLN 20 UNIT IV (17:21)
[2020-12-20 18:08] LABS: COVID19 -Nasal RAPID Negative (Negative)
--- NOTE | 2020-12-20 18:17 | CM.SWNOTE ---
JAVA GROOVY DEVELOPER note JAVA GROOVY DEVELOPER consult requested for patient. Patient is a 75 y/o male on dialysis who presents to this ED for increasing weakness over past few days. Per verbal report from Dr. Virk, patient is experiencing cardiac symptoms consistent with a heart attack, and while coordinating transfer to [place]. Patient informed RN that he was not wanting to transfer and wanting to start hospice. JAVA GROOVY DEVELOPER enters room and introduces self, role to patient. Patient's , Kaylynn, at bedside. Patient is A+O x3. Patient informs JAVA GROOVY DEVELOPER that he is done and this is no way to live. Patient's provides history and details medical decline over past year, including dialysis, cancer, bedsores, and other physical pain. Patient's explains that patient has experienced more pain and weakness over past 3 weeks. Patient's said that they had discussed hospice a few weeks ago and contacted [facility], but had not formally enrolled at that time. Patient states I want someone to pull the plug, and when asked to explain further, patient states I want to . Patient's states she wanted more time, but I understand. Patient, Kaylynn, and JAVA GROOVY DEVELOPER discuss next steps and patient goals. Patient states he wants to not be in pain, and JAVA GROOVY DEVELOPER informs patient that he will inform Dr. Virk, ED provider, of this. When asked about dying in hospital vs. dying at home, patient expresses that he is hesitant to at home because he does not want to cause any undo stress to his . Patient's says she would like him to be at home and that this would not create undo stress. Patient states agreement in his wish to at home. JAVA GROOVY DEVELOPER offers to contact [facility] to try and set up an intake for the family. JAVA GROOVY DEVELOPER calls [facility] and speaks to on-call DOMINIQUE Azar. Nissa informs JAVA GROOVY DEVELOPER that JAVA GROOVY DEVELOPER can send clinicals, but that there would be no one to review these until tomorrow AM. Nissa also explained that there was no guarantee of admission to hospice until the charts have been reviewed. [employer] provides [phone] for fax. Nissa states that the provider on duty tomorrow AM will follow up with patient's , Kaylynn. JAVA GROOVY DEVELOPER reviews the information above with Dr. Virk. Dr. Virk and JAVA GROOVY DEVELOPER enter room and discuss this with felicitas and Kaylynn. When offered admission to , patient accepted. Patient and both understand that they will hear from Hospice following day but there is no guarantee of enrollment in hospice. Plan: Patient to be admitted to for end of life care while hospice is pursued. JAVA GROOVY DEVELOPER to fax clinicals to [facility]. [facility]
--- NOTE | 2020-12-20 19:29 | P.HP_ITS ---
History of Present Illness History of Present Illness Date Patient Seen: 12/20/20 Time Patient Seen: 18:30 Date of Onset of Symptoms: 12/18/20 Chief complaint: falls, not feeling well, dizzy, tired, on dialysis Narrative: Mr. Cruz is a 75-year-old male with a past medical history of end- stage renal disease on dialysis and previously peritoneal dialysis, diabetes history of CVA hypertension hyperlipidemia sleep apnea but does not tolerate CPAP who presents with multiple symptoms including primarily that he is not feeling well. No Mr. Lanier has had a lot of difficulty with tolerating dialysis he had previously been on peritoneal dialysis for the last few months but had been retaining more fluid in than not been dialyzing very well his outreach and education social worker is Dr. Cruz. He had recently been transitioned over to hemodialysis and had gotten 1 dose of 2 days ago. He presented because he has had acutely worsening symptoms on chronic symptoms he did not have any chest pain or shortness of breath present and nausea, generalized pain, decreased appetite,fatigue. He actually has been speaking with his and is very adamant he does not want to continue dialysis any further. He presented to the emergency room and was noted to have normal vital signs afebrile. Labs notable for creatinine of 6.7, his troponin is 1.47. His BNP is 2 4400. COVID is negative. He denied chest pain, shortness of breath, abdominal pain, vomiting, diarrhea. He was offered repeatedly to be transferred to higher level of care due to inability to perform dialysis and no cardiac catheterizaton abilities. Mr. Cruz is very clear that he wants no further medical interventions for his cardiac care and he wants to stop dialysis. He wants comfort measures only, this was discussed with his , the ER physician Dr. Virk, and social work. Patient History Medical History BPH (benign prostatic hyperplasia) (~2006) Chronic kidney disease (CKD), stage III (moderate) CVA (cerebral vascular accident) Diabetes Edema Erectile dysfunction Former smoker Generalized headaches GERD (gastroesophageal reflux disease) Heart murmur HTN (hypertension) Hyperlipidemia Osteoarthritis Pneumonia Rash (~2010) Sleep apnea War injury due to shrapnel (~1968) Surgical History H/O medial meniscus repair of left knee (~1964) History of arthroplasty of left knee (11/30/18) History of cholecystectomy History of colonoscopy with polypectomy (~07/2015) History of tonsillectomy Hx of partial nephrectomy (~2006) Status post cataract extraction of both eyes with insertion of intraocular lens Family & Social History Social History: household members spouse Safety & Behavioral: Feels Safe in Current Yes Environment Been Physically Hurt or No Threatened By a Person Tobacco & Substance use: Tobacco type cigarettes Smoking Status Former smoker alcohol intake former alcohol intake frequency 0-2 drinks per day Substance Use Type does not use Meds Home Medications and Allergies Home Medications Medication Instructions Recorded Confirmed Type atorvastatin 10 mg PO QAM 05/24/18 11/06/19 History glipizide 10 mg PO BID 05/24/18 11/06/19 History hydrochlorothiazide 1 tab PO DAILY 05/24/18 11/06/19 History multivitamin 1 tab PO DAILY 05/24/18 11/06/19 History mupirocin 1 applic TOPICAL TID 05/24/18 11/06/19 History nortriptyline 75 mg PO BEDTIME 05/24/18 11/06/19 History nystatin 1 applic TOPICAL BID 05/24/18 11/06/19 History potassium chloride 40 meq PO QAM 05/24/18 11/06/19 History tamsulosin 0.4 mg PO BID 05/24/18 11/06/19 History cholecalciferol (vitamin D3) 2,000 unit PO DAILY 11/14/18 11/06/19 History [Vitamin D3] aspirin 81 mg PO BID #60 tab 12/01/18 11/06/19 Rx furosemide 40 mg PO BID 11/06/19 11/06/19 History gabapentin 600 mg PO BEDTIME 11/06/19 11/06/19 History potassium chloride 20 meq PO QPM 11/06/19 11/06/19 History Allergies Allergy/AdvReac Type Severity Reaction Status Date / Time NSAIDS (Non-Steroidal Allergy Severe Unable to Verified 11/19/20 11:36 Anti-Inflamma take r/t Kidney stage III Sulfa (Sulfonamide Allergy Childhood, Verified 11/19/20 11:36 Antibiotics) reaction unknown per pt oxycodone AdvReac Severe Headache Verified 11/19/20 11:36 Review of Systems Review of Systems Narrative: 14 systems reviewed and negative aside from what is noted in HPI. Exam Vital Signs (past 8 hours): - 12/20/20 14:48 12/20/20 15:17 12/20/20 15:30 Temperature 97.0 F L Pulse Rate 85 86 87 Respiratory Rate 16 15 Blood Pressure 176/74 H Pulse Oximetry 98 98 99 12/20/20 16:00 12/20/20 16:21 12/20/20 16:30 Temperature Pulse Rate 92 H 88 89 Respiratory Rate Blood Pressure 152/62 H 127/59 L Pulse Oximetry 99 96 95 12/20/20 17:00 12/20/20 18:55 Temperature Pulse Rate 90 85 Respiratory Rate 11 L Blood Pressure 133/61 134/61 Pulse Oximetry 97 99 Oxygen Delivery Method Room Air Narrative Exam Narrative: GEN: patient chronically ill appearing, obese, mild discomfort due to pain HEENT: PERRL, normocephalic, atraumatic NECK: supple, no masses CV: regular rate and rhythm, no murmurs PULM: clear bilaterally, no wheezes or rales GI: soft, nontender, nondistended SKIN: no rashes NEURO: awake and oriented x3, moving all extremities with no gross deficits PSYCH: normal mood Objective Labs Result Diagrams: 12/20/20 15:45 12/20/20 15:45 Labs: Laboratory Results - last 24 hr 12/20/20 12/20/20 12/20/20 15:45 15:45 15:45 WBC 10.5 RBC 3.09 L Hgb 10.3 L Hct 30.3 L MCV 98.1 MCH 33.4 MCHC 34.0 RDW 12.9 Plt Count 274 Neut % (Auto) 80.9 H Lymph % (Auto) 7.1 L Mcpherson % (Auto) 9.4 Eos % (Auto) 2.0 Baso % (Auto) 0.6 Neut # (Auto) 8500 H Lymph # (Auto) 700 L Mcpherson # (Auto) 1000 H Eos # (Auto) 200 Baso # (Auto) 100 PT INR APTT Sodium 134 L Potassium 3.6 Chloride 95 L Carbon Dioxide 31 BUN 29 H Creatinine 6.76 H Estimated GFR 8.0 L BUN/Creatinine Ratio 4.3 L Glucose 107 Calcium 8.2 L Total Bilirubin 0.3 AST 32 ALT 23 Alkaline Phosphatase 97 Total Creatine Kinase 111 CK-MB (CK-2) 1.94 CK-MB (CK-2) Rel Index 1.7 Troponin I 1.470 H* NT-Pro-B Natriuret Pep Total Protein 5.9 L Albumin 3.0 L Globulin 2.9 Albumin/Globulin Ratio 1.0 Lipase 37 SARS-CoV-2 (PCR) 12/20/20 12/20/20 12/20/20 15:45 15:45 17:48 WBC RBC Hgb Hct MCV MCH MCHC RDW Plt Count Neut % (Auto) Lymph % (Auto) Mcpherson % (Auto) Eos % (Auto) Baso % (Auto) Neut # (Auto) Lymph # (Auto) Mcpherson # (Auto) Eos # (Auto) Baso # (Auto) PT 14.2 H INR 1.3 APTT 29 Sodium Potassium Chloride Carbon Dioxide BUN Creatinine Estimated GFR BUN/Creatinine Ratio Glucose Calcium Total Bilirubin AST ALT Alkaline Phosphatase Total Creatine Kinase CK-MB (CK-2) CK-MB (CK-2) Rel Index Troponin I NT-Pro-B Natriuret Pep 28331 H Total Protein Albumin Globulin Albumin/Globulin Ratio Lipase SARS-CoV-2 (PCR) Negative Assessment & Plan Assessment & Plan narrative: Mr. Cruz is a 75M with PMH ESRD on HD, DM, HTN, HL, H/O CVA who presents with generalized weakness, generalized pain, nausea, poor appetite found to have elevated troponin with no chest pain, and creatinine 6.76. He declines all care after discussing the life threatening nature of not treating his cardiac and renal issues. 1. ESRD on HD - complications with DM, HTN, HL. He is adamant he wants to stop dialysis. is present and understands and agrees with her . 2. NSTEMI - Likely type 2, asymptomatic currently. Troponin 1.47, but he declines all workup. Will treat only symptomatically. 3. DM - will not check glucose here or order medications given patient goals of care. He wants no treatment. 4. HTN - no vitals will be ordered 5. [place] - he does not tolerate CPAP 6. history of cva - hold medications given goals of care. He said he wants no treatment 7. Hyperlipida - stop meds Quality MIPS - Admit Advanced Care Plan / Current Medications Measures: #47 ? Advanced Care Plan Clinician documentation instruction: document at admission. [x] I confirmed that the patient's Advance Care Plan is present, code status is documented, or surrogate decision maker is listed in the patient?s medical record. [SATISFIES MIPS PERFORMANCE] If Yes, Stop Here [] The patient?s Advance Care plan is not present because: (select) [MIPS PERFORMANCE EXCEPTION/EXCLUSION] [] I confirmed today that the patient does not wish or was not able to name a surrogate decision maker or provide an Advance Care Plan. [] Hospice care is currently being provided or has been provided this calendar year [] I did NOT confirm today the presence of an Advance Care Plan or surrogate decision maker documented within the patient's medical record. [DOES NOT SATISFY MIPS PERFORMANCE] #130 - Documentation of Current Medications in the Medical Record Clinician documentation instruction: use macro the first time you see a patient. [x] I have utilized all available immediate resources to obtain, update, or revi ew the patient?s current medications. [SATISFIES MIPS PERFORMANCE] If Yes, Stop Here [] The patient is not eligible for medication reconciliation; the patient is in an emergent medical situation where delaying treatment would jeopardize the patient?s health. [MIPS PERFORMANCE EXCEPTION/EXCLUSION] [] I did NOT confirm, update or review the patient's current list of medications today. [DOES NOT SATISFY MIPS PERFORMANCE] MIPS - CL Central Venous Catheter Placement Measure: #76 ? Prevention of Central Venous Catheter (CVC) ? Related Bloodstream Infection Clinician documentation instruction: use macro every time you place a central line. [] All elements of Maximal Sterile Barrier Technique, including hand hygiene, skin prep, and sterile ultrasound technique (if used) were followed. [SATISFIES MIPS PERFORMANCE] If Yes, Stop Here [] If ?No?, the medical reason all elements were NOT used for medical reason [] (ex. emergent condition). [] Maximal Sterile Barrier Technique was not followed, no reason provided [DOES NOT SATISFY MIPS PERFORMANCE] MIPS - DC Heart Failure Measures: #5 - Heart Failure (HF): Angiotensin-Converting Enzyme (RAFAEL) Inhibitor or Angiotensin Receptor Dyllan (ARB) Therapy for Left Ventricular Systolic Dysfunction (LVSD) and #8 - Heart Failure (HF): Beta-Dyllan Therapy for Left Ventricular Systolic Dysfunction (LVSD) Clinician documentation instruction: use macro at every CHF discharge. [] The patient has current or prior documentation of left ventricular ejection fraction (LVEF) less than 40%, or moderate or severely depressed left ventricular systolic function. Answer both: [SATISFIES MIPS PERFORMANCE] [] The patient was prescribed or already taking an Angiotensin-Converting Enzyme (RAFAEL) Inhibitor, or Angiotensin Receptor Dyllan (ARB). [] The patient was prescribed or already taking a beta-dyllan. If Yes to Both, Stop Here [] Patient not prescribed/taking: [MIPS PERFORMANCE EXCEPTION/EXCLUSION] [] RAFAEL or ARB for medical/patient/system reason(s) including [] (ex. allergy, intolerance, contraindication) [] Beta-dyllan for medical/patient/system reason(s) including [] (ex. allergy, intolerance, contraindication) [] Patient not prescribed/taking: [DOES NOT SATISFY MIPS PERFORMANCE] [] RAFAEL or ARB, no reason given [] Beta-dyllan, no reason given
[2020-12-20] MEDS: MORPHINE 4 MG/ML INJ IV (19:42)
--- NOTE | 2020-12-20 19:50 | PC.ADMIT ---
[email or web address] [facility] Admission Note: The patient,Pascual Cruz,75 y/o, was given written information regarding hospital policies, unit procedures and contact persons. Patient's smoking status: Former smoker. Pt arrived via stretcher. Slider board used to transfer to bed. Supportive at bedside left to go home but stated she would return this evening. Oriented to room and call system. Bed alarm placed on. Medicated per dec for pain and nausea. Pt verbalized he will call for needs. Vital Signs - 8 hr 12/20/20 14:48 12/20/20 15:17 12/20/20 15:30 Temperature 97.0 F L Pulse Rate 85 86 87 Respiratory Rate 16 15 Blood Pressure 176/74 H Pulse Oximetry 98 98 99 12/20/20 16:00 12/20/20 16:21 12/20/20 16:30 Temperature Pulse Rate 92 H 88 89 Respiratory Rate Blood Pressure 152/62 H 127/59 L Pulse Oximetry 99 96 95 12/20/20 17:00 12/20/20 18:55 12/20/20 19:25 Temperature 99.1 F Pulse Rate 90 85 84 Respiratory Rate 11 L 14 Blood Pressure 133/61 134/61 129/49 L Pulse Oximetry 97 99 98
--- NOTE | 2020-12-20 20:21 | PC.NURSE ---
Pt continues to report nausea and pain 7/10 post administration of morphine and zofran. Provider notified. Awaiting new orders.
[2020-12-20] MEDS: HYDROMORPHONE 1 MG INJ IV (20:54)
--- NOTE | 2020-12-20 21:02 | PC.NURSE ---
Addendum entered by Patria Jenkins R.N. 12/20/20 23:23: Checked on pt at end of shift. Pt now resting quietly in bed with eyes closed. No moaning or verbalizations. No signs of discomfort of distress. Reviewed with pt and pt's spouse plan for pain medication administration moving forward prior to pt going to sleep. Spouse rooming in overnight. Addendum entered by Patria Jenkins R.N. 12/20/20 22:30: Pt states pain improved and spouse states pt not groaning as much, but pt rates pain 8/10 and states really not much better. Will continue to monitor for relief and comfort. Noted pt has knees elevated in bed and this is the first pt has agreed to position changes. Taking ice chips with spouse's assistance. Admits to nausea and scope patched placed behind pt's right ear. Addendum entered by Patria Jenkins R.N. 12/20/20 21:58: Pt's skin assessment not done as pt declines to move, reposition or turn secondary to pain. Per report, pt receives wound care services and also has compromised skin to buttocks. Per physician notes, pt is hospice care and pt's expressed wishes are to pursue no more interventions. This was respected. Treating pt for pain, nausea and will provide care as pt requests and desires. Addendum entered by Patria Jenkins R.N. 12/20/20 21:53: C/o headache pain. Continues to refuse tylenol. Provided pt with ice to place on forehead and behind neck as desired. Pt admits to receiving second covid vaccine yesterday. Offered anesthesiology physician assistant visit to pt and pt's spouse and brother and this was declined. Addendum entered by Patria Jenkins R.N. 12/20/20 21:21: Pt's spouse is present and reviewing pt's home meds so this video game script writer can update. Patricia RN spoke to provider JONO Richter about pt's uncontrolled pain. Pt refuses offer for tylenol to go with dilaudid. Addendum entered by Patria Jenkins R.N. 12/20/20 21:17: Pt reports no relief in pain which spouse reinforces is generalized. Offered pt position change which pt declines. Original Note: Pt c/o pain all over. Is lying in bed moaning and requesting pain medications. Evening caustic cresylate shift superintendent, Estela, has approval to allow pt's brother, Juan Carlos, to be present. Pt's brother and spouse, Kaylynn, are currently in pt's room. Medicated pt with iv dilaudid to manage c/o pain all over. Ice chips provided as per request.
[2020-12-20] MEDS: HYDROMORPHONE 2 MG INJ IV (21:39)
[2020-12-20] MEDS: SODIUM CHLORIDE 0.9% FLUSH 10 ML IV (21:41)
[2020-12-20] MEDS: SCOPOLAMINE 1 PATCH TOP (22:28)
[2020-12-21 01:52] VITALS: BP 150/81; PULSE 50; RESP 19; O2SAT 94
[2020-12-21] MEDS: HYDROMORPHONE 2 MG INJ IV ×4 (02:03→12:32)
[2020-12-21] MEDS: SODIUM CHLORIDE 0.9% FLUSH 10 ML IV ×2 (05:37→08:39)
[2020-12-21 08:00] VITALS: BP 123/58; PULSE 76; RESP 16; TEMP 36.9; O2SAT 95
--- NOTE | 2020-12-21 10:51 | CM.DANOTE ---
Addendum entered by PJ Carter 12/21/20 12:48: ADD: SW faxed d/c summary to [facility] and confirmed with Mariel that DME delivered, they've spoken with spouse and are good for opening pt at 1400. SW completed the BLS form and signed and placed on chart and updated RN. BF Original Note: Patient is a 75 year old male who was admitted on 12/20/20 for Dizzy/Sick/Dialysis. Pt has [facility] and [employer] for insurance and his PCP is Dr. Marii Daly. EMR was reviewed. Per MD, pt was admitted to ED last night and decision made to stop dialysis and switch to [facility] and pt was admitted for pain management and Hospice referral. ED SIGNALLING AND COMMUNICATIONS ENGINEER made referral to [facility] last night but no staff available to review after hours. SW called this morning and confirmed they received the referral and will begin reviewing philip knowing pt is stable for d/c home once Hospice can open pt to service. SW met bedside with pt and spouse and explained role, pt currently not able to participate in discussion much due to high pain medication and drowsiness. Spouse confirms that they are both still agreeable with plan of return home with [facility]. SW discussed possible DME needed from Hospice so that they can request delivery philip. Pt able to state that he feels hospital bed would be needed. Spouse also feels bedside table would be helpful but currently pt would not be able to tolerate using bedside commode. Pt currently not on oxygen. SW discussed that Hospice would not provide 24/7 care and spouse aware and spouse has already called a private pay CG agency last week but did not officially set anything up and SW encouraged her to call today to set up an intake time and spouse very agreeable. Spouse states pt's brother lives on their property and can assist as well as their Dtr and son inlaw plan to come up to assist as well. SW discussed personal care/hygiene can be difficult for family to participate in sometimes hence the help of a CG agency and spouse acknowledges understanding. SW received a call back from [facility]iel who confirms they can open the pt to service today between [phone] and DME can be delivered this morning if spouse can be home. SW updated spouse who is agreeable to go to their home here in [place] and await DME delivery and she is agreeable with Hospice opening around 1400. SW discussed possible modes of transport and spouse feels pt needs BLS for safe transport due to his pain management issues, size, and inability to stay awake. SW discussed that insurance may not fully cover the cost of BLS and potential charges and she is agreeable still with BLS transport. SW called [facility] and scheduled 1300 transport home on [facility] today. SW updated MD, RN, firer electric locomotive. Plan: SW to follow for plan of home via BLS transport at 1300 on [facility] with [facility] opening around 1400 and faxing d/c summary and meds to [facility] at discharge. PJ Carter Discharge Planning/Care Management Advanced directive, confirm from FAMILY Start: 12/20/20 20:14 Freq: Q24H Status: Active Protocol: Document 12/21/20 00:36 RL (Rec: 12/21/20 00:45 RL [id number]) Advance Directive, confirm on record Time 00:36 Person contacted Kaylynn - Copy received No CM Discharge Assessment Start: 12/21/20 10:49 Freq: Status: Active Protocol: Document 12/21/20 10:49 BF (Rec: 12/21/20 10:51 BF [id number]) Discharge Planning Assessment Assigned Music Director PJ Monsalve DPOA/Assigned Designee Name spouse Kaylynn Contact Information [phone] Advance Directives? Yes Advance Directives on File Yes History Provided By Patient,Medical Record Has Patient been admitted in last 30 No days? Prior Living Arrangements House Household Members spouse Type of transporation used prior to Relies on Others admit Comment Spouse has been transporting since pt has declined in health the past year Independent with ADL's No Is patient alert and oriented? Yes: currently no due to pain meds Needs Assistance With Managing Medications,Home Chores / Shopping Caregiver for Another No Comment Pt was established with [facility] and was getting dialysis, now discontinued DME Already Rented / Owned Bath Bench,FWW / Walker Comment Home with Hospice Barriers to Discharge No Discharge Plan Hospice Transportation Arrangement BLS transport scheduled for safety Referrals Initiated Other Additional Comment [facility] Medicare Choice List Provided Yes SNF/HH Preference [facility] Has Agency SNF been contacted Yes Whiteboard Updated in Patient Room with Yes name and ext. # of Music Director Review Status In Process Please Provide Date Initial DC 12/21/20 Assessment Was Performed Next Review Type Continued Stay Review
--- NOTE | 2020-12-21 10:57 | PC.NURSE ---
Addendum entered by Imani Garcia R.N. 12/21/20 12:43: Patient up on his own to the bathroom, bed alarm going off, patient able to void a bit, back to bed and given iv dilaudid for his ride home with bls. Original Note: Patient is confused, and not following direction very well. Up to the commode with 2 person assist and unsteady on his feet with the walker. He has some skin issues that can be seen under skin assessment. He does have two stage 2 ulcers on the back of each lower buttock that have been covered with allevyn dressings. The inside of the wounds are white, with slight odor... They are not oozing and only a small amount of drainage to dressings. Patient was seeing the wound Doctor here. He is going to be discharging home on hospice around 1300. Given dilaudid iv for pain.
--- NOTE | 2020-12-21 11:29 | PM.DS.1 ---
History of Present Illness History of Present Illness Chief complaint: falls, not feeling well, dizzy, tired, on dialysis Narrative: Mr. Cruz is a 75-year-old male with a past medical history of end-stage renal disease on dialysis and previously peritoneal dialysis, diabetes history of CVA hypertension hyperlipidemia sleep apnea but does not tolerate CPAP who presents with multiple symptoms including primarily that he is not feeling well. No Mr. 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 Cruz. He had recently been transitioned over to hemodialysis and had gotten 1 dose of 2 days ago. He presented because he has had acutely worsening symptoms on chronic symptoms he did not have any chest pain or shortness of breath present and nausea, generalized pain, decreased appetite,fatigue. He actually has been speaking with his and is very adamant he does not want to continue dialysis any further. He presented to the emergency room and was noted to have normal vital signs afebrile. Labs notable for creatinine of 6.7, [place] 1[place] [address]. COVID is negative. He denied chest pain, shortness of breath, abdominal pain, vomiting, diarrhea. He was offered repeatedly to be transferred to higher level of care due to inability to perform dialysis and no cardiac catheterizaton abilities. Mr. Cruz is very clear that he wants no further medical interventions for his cardiac care and he wants to stop dialysis. He wants comfort measures only, this was discussed with his , the ER physician Dr. Virk, and high school social studies tutor. Discharge Providers Provider Date of admission: 12/20/20 18:58 Discharge Date: 12/21/20 Primary care physician: Marii Daly MD Consults: 12/20/20 17:29 Consult to SECURITY SYSTEM ENGINEER - Vermin Exterminator Stat Comment: SECURITY SYSTEM ENGINEER Consult: Behavioral Health Assess 12/20/20 19:11 Consult to Discharge Planning Routine Comment: Consult to Hospice Referral Urgent Comment: Discharge provider: Zenon Larkin MD Exam Vital Signs (past 8 hours): - 12/21/20 08:00 Temperature 98.5 F Pulse Rate 76 Respiratory Rate 16 Blood Pressure 123/58 L Pulse Oximetry 95 Oxygen Delivery Method Room Air Oxygen Flow Rate 0 Narrative Exam Narrative: GEN: patient chronically ill appearing, obese, sleeping HEENT: PERRL, normocephalic, atraumatic NECK: supple, no masses CV: regular rate and rhythm, no murmurs PULM: clear bilaterally, no wheezes or rales GI: soft, nontender, nondistended SKIN: no rashes NEURO: sleeping, altered, can not follow commands PSYCH: normal mood per Objective Labs Result Diagrams: 12/20/20 15:45 12/20/20 15:45 Labs: Laboratory Results - last 24 hr 12/20/20 12/20/20 12/20/20 15:45 15:45 15:45 WBC 10.5 RBC 3.09 L Hgb 10.3 L Hct 30.3 L MCV 98.1 MCH 33.4 MCHC 34.0 RDW 12.9 Plt Count 274 Neut % (Auto) 80.9 H Lymph % (Auto) 7.1 L [place] % (Auto) 9.4 Eos % (Auto) 2.0 Baso % (Auto) 0.6 Neut # (Auto) 8500 H Lymph # (Auto) 700 L [place] # (Auto) 1000 H Eos # (Auto) 200 Baso # (Auto) 100 PT INR APTT Sodium 134 L Potassium 3.6 Chloride 95 L Carbon Dioxide 31 BUN 29 H Creatinine 6.76 H Estimated GFR 8.0 L BUN/Creatinine Ratio 4.3 L Glucose 107 Calcium 8.2 L Total Bilirubin 0.3 AST 32 ALT 23 Alkaline Phosphatase 97 Total Creatine Kinase 111 CK-MB (CK-2) 1.94 CK-MB (CK-2) Rel Index 1.7 Troponin I 1.470 H* NT-Pro-B Natriuret Pep Total Protein 5.9 L Albumin 3.0 L Globulin 2.9 Albumin/Globulin Ratio 1.0 Lipase 37 SARS-CoV-2 (PCR) 12/20/20 12/20/20 12/20/20 15:45 15:45 17:48 WBC RBC Hgb Hct MCV MCH MCHC RDW Plt Count Neut % (Auto) Lymph % (Auto) [place] % (Auto) Eos % (Auto) Baso % (Auto) Neut # (Auto) Lymph # (Auto) [place] # (Auto) Eos # (Auto) Baso # (Auto) PT 14.2 H INR 1.3 APTT 29 Sodium Potassium Chloride Carbon Dioxide BUN Creatinine Estimated GFR BUN/Creatinine Ratio Glucose Calcium Total Bilirubin AST ALT Alkaline Phosphatase Total Creatine Kinase CK-MB (CK-2) CK-MB (CK-2) Rel Index Troponin I NT-Pro-B Natriuret Pep 12675 H Total Protein Albumin Globulin Albumin/Globulin Ratio Lipase SARS-CoV-2 (PCR) Negative PFSH Medical History BPH (benign prostatic hyperplasia) (~2006) Chronic kidney disease (CKD), stage III (moderate) CVA (cerebral vascular accident) Diabetes Edema Erectile dysfunction Former smoker Generalized headaches GERD (gastroesophageal reflux disease) Heart murmur HTN (hypertension) Hyperlipidemia Osteoarthritis Pneumonia Rash (~2010) Sleep apnea War injury due to shrapnel (~1968) Surgical History H/O medial meniscus repair of left knee (~1964) History of arthroplasty of left knee (11/30/18) History of cholecystectomy History of colonoscopy with polypectomy (~07/2015) History of tonsillectomy Hx of partial nephrectomy (~2006) Status post cataract extraction of both eyes with insertion of intraocular lens Social History household members: spouse Smoking Status: Former smoker alcohol intake: former Discharge Assessment & Plan Assessment and Plan Assessment: Mr. rCuz is a 75M with PMH ESRD on HD, CVA, DM, HTN, FEDER[place] who presented with generalized pain, malaise, lack of appetite, nausea found to have a Type 2 NSTEMI and renal failure. He determined he wanted to stop dialysis and did not want treatment for his NSTEMI. Discharge Diagnosis 1. NSTEMI, Type 2 2. ESRD on HD, secondary to DM 3. history of CVA 4. DM with HTN and HL 5. FEDER[place] can not tolerate CPAP 6. BPH Plan of Treatment: Mr. Cruz is a 75M with a long history of ESRD who had been doing progressively poorly on peritoneal and hemodialysis. He had been feeling weaker and nauseous, and he was becoming tired of being on dialysis. Dialysis was not controlling his symptoms well. He had discussed with his for the last two weeks that he wanted to stop dialysis. He presented with an NSTEMI and in renal failure. Options of treatment including further dialysis, possible medications or catheterization of his coronaries were discussed. However, he was very clear he wanted no further treatment for these issues and he wanted to stop dialysis. He was counselled with his that not treating his NSTEMI and ESRD could lead to within hours to days, and he verbalized understanding and that his wishes were to be DNR/DNI and to stop treatment. Because of this he was offered hospice which he and his accepted. They expressed desire to be discharged home on hospice. This was arranged on day of discharge. In the hospital he was primarily expressing pain and nausea as symptoms and he should have these symptoms closely controlled with medications as needed. Code Status: DNR/DNI, he is comfort measures only, discharged with hospice care 30 minutes were spent on his discharge. Discharge Plan Discharge Plan Patient Disposition: Home Provider Discharge Comment: Mr. Cruz presented to the hospital with End stage renal failure, and was found to have an elevated troponin enzyme that was concerning for a heart attack. After discussion with Mr. Cruz and his , Mr. Cruz made a clear decision that he wanted to stop all treatment for his heart and to stop on dialysis. He wanted to be comfort care and wished to be at home on hospice. He is DNR/DNI and will be discharged with home hospice and focus on pain and nausea control. Discharge orders & Medications Prescriptions: New scopolamine base [Transderm-Scop] 1 mg over 3 days Patch 3 Day 1 patch topical Q72H PRN (Reason: Secretions) Qty: 10 RF: 0 oxycodone 10 mg tablet 10 mg PO Q6H PRN (Reason: pain) Qty: 30 RF: 0 ondansetron HCl [Zofran] 4 mg tablet 4 mg PO Q8H PRN (Reason: nausea and vomiting) Qty: 30 RF: 0 Continued atorvastatin 10 mg tablet 10 mg PO QAM RF: 0 glipizide 10 mg tablet extended release 24hr 10 mg PO BID RF: 0 tamsulosin 0.4 mg capsule 0.4 mg PO BID RF: 0 nortriptyline 75 mg capsule 75 mg PO BEDTIME RF: 0 nystatin 100,000 unit/gram cream 1 applic Topical BID RF: 0 mupirocin 2 % ointment 1 applic Topical TID RF: 0 aspirin 81 mg Tablet,Delayed Release (Dr/Ec) 81 mg PO BID Qty: 60 RF: 0 Discontinued multivitamin Tablet 1 tab PO DAILY RF: 0 cholecalciferol (vitamin D3) [Vitamin D3] 2,000 unit Capsule 2,000 unit PO DAILY RF: 0 Follow up/Referrals: Marii Daly MD [Primary Care Provider] - Discharge Health Status Multidrug resistant organism: No MDRO Diet/Activity/Treatments Diet: Diet as Tolerated Discharge Data Primary Care Provider: Marii Daly Attending Provider: Zenon Larkin MIPS - Admit Advanced Care Plan / Current Medications Measures: #47 ? Advanced Care Plan Clinician documentation instruction: document at admission. [] I confirmed that the patient's Advance Care Plan is present, code status is documented, or surrogate decision maker is listed in the patient?s medical record. [SATISFIES MIPS PERFORMANCE] If Yes, Stop Here [] The patient?s Advance Care plan is not present because: (select) [MIPS PERFORMANCE EXCEPTION/EXCLUSION] [] I confirmed today that the patient does not wish or was not able to name a surrogate decision maker or provide an Advance Care Plan. [] Hospice care is currently being provided or has been provided this calendar year [] I did NOT confirm today the presence of an Advance Care Plan or surrogate decision maker documented within the patient's medical record. [DOES NOT SATISFY MIPS PERFORMANCE] #130 - Documentation of Current Medications in the Medical Record Clinician documentation instruction: use macro the first time you see a patient. [] I have utilized all available immediate resources to obtain, update, or review the patient?s current medications. [SATISFIES MIPS PERFORMANCE] If Yes, Stop Here [] The patient is not eligible for medication reconciliation; the patient is in an emergent medical situation where delaying treatment would jeopardize the patient?s health. [MIPS PERFORMANCE EXCEPTION/EXCLUSION] [] I did NOT confirm, update or review the patient's current list of medications today. [DOES NOT SATISFY MIPS PERFORMANCE] MIPS - CL Central Venous Catheter Placement Measure: #76 ? Prevention of Central Venous Catheter (CVC) ? Related Bloodstream Infection Clinician documentation instruction: use macro every time you place a central line. [] All elements of Maximal Sterile Barrier Technique, including hand hygiene, skin prep, and sterile ultrasound technique (if used) were followed. [SATISFIES MIPS PERFORMANCE] If Yes, Stop Here [] If ?No?, the medical reason all elements were NOT used for medical reason [] (ex. emergent condition). [] Maximal Sterile Barrier Technique was not followed, no reason provided [DOES NOT SATISFY MIPS PERFORMANCE] MIPS - DC Heart Failure Measures: #5 - Heart Failure (HF): Angiotensin-Converting Enzyme (RAFAEL) Inhibitor or Angiotensin Receptor Dyllan (ARB) Therapy for Left Ventricular Systolic Dysfunction (LVSD) and #8 - Heart Failure (HF): Beta-Dyllan Therapy for Left Ventricular Systolic Dysfunction (LVSD) Clinician documentation instruction: use macro at every CHF discharge. [] The patient has current or prior documentation of left ventricular ejection fraction (LVEF) less than 40%, or moderate or severely depressed left ventricular systolic function. Answer both: [SATISFIES MIPS PERFORMANCE] [] The patient was prescribed or already taking an Angiotensin-Converting Enzyme (RAFAEL) Inhibitor, or Angiotensin Receptor Dyllan (ARB). [] The patient was prescribed or already taking a beta-dyllan. If Yes to Both, Stop Here [] Patient not prescribed/taking: [MIPS PERFORMANCE EXCEPTION/EXCLUSION] [] RAFAEL or ARB for medical/patient/system reason(s) including [] (ex. allergy, intolerance, contraindication) [] Beta-dyllan for medical/patient/system reason(s) including [] (ex. allergy, intolerance, contraindication) [] Patient not prescribed/taking: [DOES NOT SATISFY MIPS PERFORMANCE] [] RAFAEL or ARB, no reason given [] Beta-dyllan, no reason given
== END 2020-12-21 13:06 | disposition home or self-care (01) ==
LOC: ED 18:55 → AC 18:59
PROVIDERS: Admitting Provider Internal Medicine; Emergency Provider Emergency Medicine; Family Provider Internal Medicine; PCP Internal Medicine; Referring Provider Emergency Medicine; Visit Provider Internal Medicine
DX: I21.A1 Myocardial infarction type 2 (principal); I12.0 Hypertensive chronic kidney disease with stage 5 chronic kidney disease or end stage renal disease; N18.6 End stage renal disease; Z99.2 Dependence on renal dialysis; E11.9 Type 2 diabetes mellitus without complications; E78.5 Hyperlipidemia, unspecified; Z86.73 Personal history of transient ischemic attack (TIA), and cerebral infarction without residual deficits; G47.33 Obstructive sleep apnea (adult) (pediatric); N40.0 Benign prostatic hyperplasia without lower urinary tract symptoms; Z20.822 Contact with and (suspected) exposure to COVID-19
CPT/HCPCS: 36415; 80053; 82550; 82553; 83690; 83880; 84484; 85025; 85610; 85730; 87635; 93005; 93010; 96365; 96375; 96376; 99284; C9803; G0378; J1170; J1644; J2270; J2405